=== PATIENT | female | born 1955 | race Caucasian/White ===

== ENCOUNTER → 2017-11-02 16:03 | Outpatient (CLI) | payer OTHER, SELFPAY | PROVIDERS: Family Provider Internal Medicine; PCP Internal Medicine; Visit Provider Otolaryngology Otolaryngology/Facial Plastic Surgery | DX: J32.9 Chronic sinusitis, unspecified (principal) | CPT/HCPCS: 87070; 87077; 87186; 87205 ==

== ENCOUNTER → 2017-12-16 14:33 | Outpatient (CLI) | payer OTHER, SELFPAY ==
[2017-12-16 15:47] LABS: Hemoglobin A1c 6.5 % (4.2-6.3)
[2017-12-16 16:00] LABS: T4 Free Direct 1.41 ng/dL (0.76-1.46)
== END ==
PROVIDERS: Family Provider Internal Medicine; PCP Internal Medicine; Visit Provider Nurse Practitioner Family
DX: E03.9 Hypothyroidism, unspecified (principal); R73.03 Prediabetes
CPT/HCPCS: 36415; 83036; 84439; 84443

== ENCOUNTER → 2018-03-16 09:31 | Outpatient (CLI) | payer OTHER, SELFPAY ==
[2018-03-16 11:34] LABS: T4 Free Direct 1.05 ng/dL (0.76-1.46)
== END ==
PROVIDERS: Family Provider Internal Medicine; PCP Internal Medicine; Visit Provider Internal Medicine
DX: E03.9 Hypothyroidism, unspecified (principal)
CPT/HCPCS: 36415; 84439; 84443

== ENCOUNTER 2019-05-15 13:22 | Emergency (ER) | payer OTHER, SELFPAY ==
[2018-12-23 09:48] VITALS: BMI 39.4
[2019-05-15 13:23] VITALS: BP 152/69; PULSE 97; RESP 20; TEMP 36.2; O2SAT 98; BMI 38.7
--- NOTE | 2019-05-15 13:34 | CT_ITS ---
STUDY: CT FACIAL BONES WITHOUT CONTRAST REASON FOR EXAM: Female, 64 years old. Facial abrasions and due to a fall. RADIATION DOSAGE (If Supplied By Facility): CTDIvol = ( 33.45 ) mGy, DLP = ( 578.97 ) mGycm TECHNIQUE: The patient was scanned in a multi detector CT scanner. Sagittal and coronal images were reconstructed. Individualized dose optimization techniques were used for this CT. COMPARISON: None. FINDINGS: Small scalp hematoma overlying the right frontal bone. Normal orbital hill and orbital contents. Normal nasal bones and anterior nasal spine. Normal facial bones. There is no demonstrated fracture. Normal visualized paranasal sinuses. CT/Sinus/Facial Bone IMPRESSION: Small scalp hematoma overlying the right frontal bone. Electronically Signed: Nhan Bennett, at 14:29 EDT , Service support ,
--- NOTE | 2019-05-15 13:34 | CT_ITS ---
STUDY: CT CERVICAL SPINE WITHOUT CONTRAST REASON FOR EXAM: Female, 64 years old. Facial abrasions. Neck pain secondary to a fall. RADIATION DOSAGE (If Supplied By Facility): CTDIvol = ( 35.10 ) mGy, DLP = ( 605.22 ) mGycm TECHNIQUE: High resolution transaxial imaging was performed without contrast material. Sagittal and coronal images were reconstructed. Individualized dose optimization techniques were used for this CT. COMPARISON: None FINDINGS: Normal craniovertebral junction. There are degenerative changes of the anterior atlantoaxial articulation. Normal odontoid process. Normal cervical lordosis. Normal vertebral bodies and posterior osseous elements. C2-3: Facet joint osteoarthritis and hypertrophy on the left side. No significant stenosis is seen. C3-4: Uncovertebral arthrosis. Mild degree of bilateral neural foraminal stenosis likely worse on the left side. C4-5: Moderate degree of disc space narrowing. Spondylosis. Uncovertebral arthrosis. Moderate degree of bilateral neural foraminal stenosis. C5-6: Marked degree of disc space narrowing. Anterior and posterior spondylosis as well as uncovertebral arthrosis. Mild bilateral neural foraminal stenosis as well as mild central canal stenosis due to posterior osteophyte. C6-7: Marked degree of disc space narrowing and spondylosis. Uncovertebral arthrosis. Mild degree of central canal stenosis. Normal visualized soft tissue structures. CT/Spine Cervical without Contras IMPRESSION: Multilevel degenerative changes, as described above. Electronically Signed: Nhan Bennett, at 14:35 EDT , Service support ,
--- NOTE | 2019-05-15 13:34 | CT_ITS ---
STUDY: CT BRAIN WITHOUT CONTRAST REASON FOR EXAM: Female, 64 years old. Facial abrasions due to a fall. RADIATION DOSAGE (If Supplied By Facility): CTDIvol = ( 60.81 ) mGy, DLP = ( 1067.08 ) mGycm TECHNIQUE: Transaxial CT imaging of the brain was performed without administration of intravenous contrast material. Individualized dose optimization techniques were used for this CT. COMPARISON: No relevant priors. FINDINGS: Small scalp hematoma overlying the right frontal bone. Normal calvarium. There is a 1.6 cm x 1.2 cm partially calcified nodular density in the posterior aspect of the left occipital lobe medially. This abuts the inner table of the skull and most likely represents a partially calcified meningioma. There is mild cerebral atrophy with widening of the extra-axial spaces and ventricular dilatation. There are areas of decreased attenuation within the white matter tracts of the supratentorial brain, consistent with microvascular disease changes. Normal basal ganglia and thalami. Normal brainstem. Normal cerebellum. There is no intracranial hemorrhage. There are no findings of an acute ischemic infarction. Normal visualized paranasal sinuses. CT/Brain/Head without Contrast IMPRESSION: Chronic involutional changes of the brain. Findings suggestive of a partially calcified meningioma measuring 1.6 cm x 1.2 cm overlying the posteromedial aspect of the left occipital lobe. Electronically Signed: Nhan Bennett, at 14:28 EDT , Service support ,
[2019-05-15] MEDS: Ketorolac 60 MG/2 ML Vial IM (14:16)
[2019-05-15] MEDS: Diphth,Pertuss(Acell),Tet Vac 0.5 ML Vial IM (14:16)
--- NOTE | 2019-05-15 15:03 | ED.DCSUM_ITS ---
- ER Visit Summary Date of Service: 05/15/19 Chief Complaint: Fall History of Present Illness: The patient is a 64 F who had a mechanical fall today. She states that she tripped on the sidewalk curb. She fell and hit her face and neck and head. Denies any LOC. She has pain in her neck and face. Is worse with movement and with touching. Her last tetanus is unknown. She has history hypothyroid and is on Celebrex but no other blood thinning medications. She denies any numbness or tingling in the arms or legs. Physical Examination: Vital signs reviewed. HEENT exam shows a hematoma to the right forehead. She has an abrasion to the bridge of the nose. She has diffuse spinal and paraspinal tenderness of the cervical spine region. Heart is regular rate and rhythm. Lungs are clear auscultation bilaterally. Abdomen soft nontender. Extremity exam is unremarkable. Her GCS is 15. Neurologic exam is normal Test Results: CAT scan of the head, cervical spine and facial bones reveals degenerative changes and a scalp hematoma. She has an old meningioma which is unchanged. No acute traumatic injuries are seen. Emergency Department Course and Treatment: Patient was given Toradol and Adacel. She did not want any stronger medications for pain. Patient will be discharged with Skelaxin by request. She will take Tylenol for pain. Treatment Plan: [] Disposition: Discharge Impression: Facial contusion, facial abrasion, cervical strain This note was generated with [employer] dictation software. It may contain incorrect words, spelling, and punctuation that were not noted in review of the chart prior to signing ED Disposition - Plan for ED Patient: Referrals: Emil Nuñez MD [Primary Care Provider] -
--- NOTE | 2019-05-15 15:05 | ED.DEP ---
ED Disposition - Plan for ED Patient: Disposition: Home or Assisted Living Instructions: FALL, Mechanical Prescriptions: Metaxalone [Skelaxin] 800 mg PO TID #20 tab Prescription Printed Referrals: Emil Nuñez MD [Primary Care Provider] -
[2019-05-15 15:11] VITALS: BP 139/74; PULSE 92; RESP 20; O2SAT 97
--- NOTE | 2019-05-15 15:11 | ED.RN ---
THIS NURSE REVIEWED D/C INSTRUCTIONS WITH PT. PT VERBALIZED UNDERSTANDING OF INSTRUCTIONS. PT DENIES FURTHER NEEDS OR QUESTIONS AT THIS TIME. PT AMBULATES FROM [facility] WITHOUT ASSISTANCE FROM STAFF
== END 2019-05-15 15:12 | disposition home or self-care (01) ==
PROVIDERS: Emergency Provider Emergency Medicine; Family Provider Internal Medicine; PCP Internal Medicine
DX: S00.83XA Contusion of other part of head, initial encounter (principal); S00.31XA Abrasion of nose, initial encounter; S16.1XXA Strain of muscle, fascia and tendon at neck level, initial encounter; W18.09XA Striking against other object with subsequent fall, initial encounter; Y93.9 Activity, unspecified; Y92.480 Sidewalk as the place of occurrence of the external cause; E03.9 Hypothyroidism, unspecified; Z79.899 Other long term (current) drug therapy
CPT/HCPCS: 70450; 70486; 72125; 90715; 96372; 99284

== ENCOUNTER → 2019-11-17 11:36 | Outpatient (CLI) | payer OTHER, SELFPAY ==
[2019-08-10 16:42] VITALS: BMI 38.3
== END ==
PROVIDERS: PCP Internal Medicine; Referring Provider Internal Medicine; Visit Provider Internal Medicine
DX: E03.9 Hypothyroidism, unspecified (principal)
CPT/HCPCS: 36415; 84443

== ENCOUNTER → 2020-02-19 09:53 | Outpatient (CLI) | payer OTHER, MEDICARE, SELFPAY ==
[2019-11-21 13:53] VITALS: BMI 38.3
[2020-02-19 10:39] LABS: Absolute Lymphocyte Count 2.17 X10^3/uL (0.83-4.51); Absolute Neutrophil Count 5.1 X10^3/uL (2.0-7.7); Basophil# 0.08 X10^3/uL; Eosinophil# 0.29 X10^3/uL; Eosinophils% 3.6 % (0-5); Hematocrit 44.2 % (37-47); Hemoglobin 14.4 g/dL (12.0-15.0); Lymphocyte # 2.17 X10^3/ul (4.0); Lymphocyte % 26.6 % (19-41); Mean Corp Hgb Conc 32.6 g/dL (32-36); Mean Corpuscular Hgb 29.2 pg (27.0-32.0); Mean Corpuscular Volume 89.7 fL (81-99); Monocyte# 0.51 X10^3/uL; Monocyte% 6.3 % (0-10); NRBC Flagged by Analyzer 0 % (0-5); Neutrophil # 5.09 X10^3/uL (2.7-7.7); Neutrophil % 62.3 % (47-70); Platelet Count 296 K/mm3 (150-450); RBC Distribution Width CV 13.9 % (11.6-14.6); RBC Distribution Width SD 45.3 fl (35.1-43.9); Red Blood Count 4.93 M/mm3 (4.2-5.4); White Blood Count 8.2 K/mm3 (4.4-11.0)
[2020-02-19 11:07] LABS: Hemoglobin A1c 6.4 % (3.8-5.6)
[2020-02-19 11:47] LABS: ALB/GLOB Ratio 0.8 RATIO (0.9-2.4); AST(SGOT) 15 U/L (15-37); Alanine Aminotransfer ALT/SGPT 22 U/L (13-56); Albumin, Serum 3.1 g/dL (3.2-5.0); Alkaline Phosphatase 86 U/L (45-117); Anion Gap 6 (5-15); BUN 18 mg/dL (7-18); BUN/Creat Ratio 22.4 RATIO (10-20); Calcium,Total 8.7 mg/dL (8.5-10.1); Chloride 106 mmol/L (98-107); Cholesterol 176 mg/dL (200); EST Glomerular Filtration Rate 76 mL/min (>60); Est Glom Filt Rate - Afr Amer 92 mL/min (>60); Glucose 110 mg/dL (74-106); High Density Lipoprotein 39 mg/dL; Potassium 4.2 mmol/L (3.5-5.1); Protein, Total 7.1 g/dL (6.4-8.2); Sodium Level 137 mmol/L (136-145); Thyroid Stim Hormone (TSH) 0.12 uIU/mL (0.358-3.74); Triglycerides 192 mg/dL; Very Low Density Lipoprotein 38 mg/dL (5-40)
== END ==
PROVIDERS: PCP Internal Medicine; Referring Provider Internal Medicine; Visit Provider Internal Medicine
DX: E03.9 Hypothyroidism, unspecified (principal); F32.9 Major depressive disorder, single episode, unspecified; F41.9 Anxiety disorder, unspecified; R73.03 Prediabetes
CPT/HCPCS: 36415; 80053; 80061; 83036; 84443; 85025

== ENCOUNTER → 2020-02-28 12:58 | Outpatient (CLI) | payer OTHER, MEDICARE, SELFPAY ==
[2020-02-20 13:05] VITALS: BMI 38.3
--- NOTE | 2020-02-28 12:58 | BI_ITS ---
MAMMOGRAPHY - BILATERAL SCREENING REASON FOR EXAM: Female, 65 years old. Routine annual screening examination. PERTINENT HISTORY: Daughter with breast cancer. Aunt with breast cancer. TECHNIQUE: Digital bilateral breast cali (3D mammographic acquisition) in the CC and MLO projections. 2-D mediolateral oblique (MLO) and craniocaudad (CC) views of both breasts were obtained. CAD: Full Field Digital Mammography with Computer Added Detection was performed. COMPARISON: Comparison is made with prior examination dated 02/14/2018 and outside examination dated 10/11/2018. FINDINGS: Breast Composition: There are scattered areas of fibroglandular density. There are no dominant masses or suspicious calcifications. Stable small benign appearing bilateral axillary lymph nodes. No other significant abnormalities are identified. There has been no significant change since the prior study. BI/SCREEN MAMM (CAD) W/CALI BILAT IMPRESSION: Stable bilateral screening mammogram. Yearly follow-up mammogram recommended. (A) ASSESSMENT CATEGORY: BIRADS Category 2: Benign. A letter regarding these results will be sent to the patient by the facility within 30 days. Approximately 10% of breast cancers are not detected by mammography. A normal mammogram should not delay biopsy of a clinically suspicious abnormality. [id number] Electronically Signed: Nhan Bennett, at 10:57 EDT , Service support ,
--- NOTE | 2020-02-28 13:26 | RAD_ITS ---
STUDY: X-RAY - PELVIS AND RIGHT HIP REASON FOR EXAM: Female, 65 years old. RIGHT HIP PAIN, OA. NKI TECHNIQUE: 3 views of the pelvis and hip. COMPARISON: None. FINDINGS: There is a non-specific bowel gas pattern. Normal visualized soft tissue structures. Enthesophytes of the iliac crests. Normal bilateral superior and inferior pubic rami. Mild degenerative changes of the symphysis pubis. Normal bilateral ischial tuberosities. There are osteoarthritic changes of the femoral head with marginal osteophyte formation. There is osteoarthritic spur formation of the acetabular rim. is severe articular joint space narrowing of the hip. RAD/HIP, UNI W/ Pelvis 2-3 Views IMPRESSION: Severe osteoarthritis of the right hip. Enthesophytes of the iliac crests. Mild degenerative changes of the symphysis pubis. Otherwise intact pelvic ring without fracture, osteolytic or blastic bone lesions. Electronically Signed: Loretta Kramer MD at 17:14 EDT , Service support ,
== END ==
PROVIDERS: PCP Internal Medicine; Referring Provider Internal Medicine; Visit Provider Internal Medicine
DX: Z12.31 Encounter for screening mammogram for malignant neoplasm of breast (principal); M16.11 Unilateral primary osteoarthritis, right hip
CPT/HCPCS: 73502; 77063; 77067

== ENCOUNTER → 2020-03-27 12:16 | Outpatient (CLI) | payer MEDICARE, OTHER, SELFPAY ==
[2020-03-27 12:13] VITALS: BMI 38.3
--- NOTE | 2020-03-27 12:17 | RAD_ITS ---
STUDY: X-RAY - RIGHT KNEE REASON FOR EXAM: Female, 65 years old. RT HIP/KNEE PAIN TECHNIQUE: 4 view(s) of the knee. COMPARISON: None. FINDINGS: Normal visualized distal femur. Normal visualized proximal tibia and fibula. Normal proximal tibiofibular articulation. There is mild degenerative arthrosis of the medial femorotibial compartment. Normal lateral femorotibial compartment. There is mild degenerative arthrosis of the patellofemoral articulation. The soft tissue structures are unremarkable. RAD/Knee 4 or More Views IMPRESSION: Degenerative changes, no acute findings Electronically Signed: Krishna Worthy MD at 17:28 EDT , Service support ,
--- NOTE | 2020-03-27 12:34 | RAD_ITS ---
STUDY: X-RAY - LUMBAR SPINE REASON FOR EXAM: Female, 65 years old. LOWER BACK/HIP PAIN TECHNIQUE: 4 view(s) of the lumbar spine were obtained. COMPARISON: None FINDINGS: Normal lumbar lordosis. There is no substantial scoliosis. There is a normal alignment of the vertebrae. There are large dense bridging osteophytes throughout the visualized lower thoracic and lumbar spine. There is multi-level degenerative disc disease with multi-level disc space narrowing. The soft tissue structures are unremarkable. RAD/L/S Spine Min 4 Views IMPRESSION: Large dense bridging osteophytes throughout the visualized lower thoracic and lumbar spine consistent with diffuse hepatic skeletal hyperostosis. There is multilevel disc space narrowing. There is no evidence of fracture or spondylolisthesis. Electronically Signed: Pablo Barrios MD at 18:57 EDT , Service support ,
== END ==
PROVIDERS: PCP Internal Medicine; Referring Provider Orthopaedic Surgery; Visit Provider Orthopaedic Surgery
DX: M17.11 Unilateral primary osteoarthritis, right knee (principal); M48.16 Ankylosing hyperostosis [Forestier], lumbar region; M48.061 Spinal stenosis, lumbar region without neurogenic claudication; M25.78 Osteophyte, vertebrae; G89.29 Other chronic pain
CPT/HCPCS: 72110; 73564

== ENCOUNTER → 2020-04-01 09:38 | Outpatient (CLI) | payer MEDICARE, OTHER, SELFPAY ==
[2020-03-27 12:13] VITALS: BMI 38.3
[2020-04-01 12:36] LABS: Thyroid Stim Hormone (TSH) 0.21 uIU/mL (0.358-3.74)
== END ==
PROVIDERS: PCP Internal Medicine; Visit Provider Internal Medicine
DX: E03.9 Hypothyroidism, unspecified (principal)
CPT/HCPCS: 36415; 84443

== ENCOUNTER → 2020-04-09 13:23 | Outpatient (CLI) | payer MEDICARE, OTHER, SELFPAY ==
[2020-03-27 12:13] VITALS: BMI 38.3
[2020-04-05 09:53] VITALS: BMI 38.3
--- NOTE | 2020-04-09 13:23 | CT_ITS ---
STUDY: CT SCAN HIP RIGHT REASON FOR EXAM: Female, 65 years old. RT HIP PAIN-TRENT PROTOCOL RADIATION DOSAGE (If Supplied By Facility): CTDIvol = ( 12.87 ) mGy, DLP = ( 788.94 ) mGycm. Individualized dose optimization techniques were used for this CT.? TECHNIQUE: Multiple axial tomographic images were obtained without intravenous contrast demonstration. Axial and coronal reconstruction was obtained as well. COMPARISON: None. FINDINGS: Marked degree of joint space narrowing of the right hip joint. There is evidence of a bony spur formation along the anterior and posterior aspects of the acetabulum worse anteriorly. There is also evidence of a subchondral cystic changes in the acetabular as well as the femoral head components. There is also evidence of a degenerative spur formation along the superior and inferior aspects of the right femoral head. This also leads to a component of femoral acetabular impingement. CT/Extremity Lower without Contra IMPRESSION: Marked degree of degenerative changes involving the right hip joint as described. Evidence of femoral acetabular impingement. Electronically Signed: Nhan Bennett, at 15:12 EDT , Service support ,
== END ==
PROVIDERS: PCP Internal Medicine; Referring Provider Orthopaedic Surgery; Visit Provider Orthopaedic Surgery
DX: M16.11 Unilateral primary osteoarthritis, right hip (principal)
CPT/HCPCS: 73700

== ENCOUNTER 2020-04-16 06:07 | Day surgery (SDC) | payer MEDICARE, OTHER, SELFPAY ==
[2020-03-27 12:13] VITALS: BMI 38.3
[2020-04-05 09:53] VITALS: BMI 38.3
--- NOTE | 2020-04-09 13:25 | EKG12_ITS ---
Test Reason : PREOP Blood Pressure : / mmHG Vent. Rate : 103 BPM Atrial Rate : 103 BPM P-R Int : 134 ms QRS Dur : 072 ms QT Int : 328 ms P-R-T Axes : 076 081 074 degrees QTc Int : 429 ms Sinus tachycardia Otherwise normal ECG Confirmed by SHAZIA NOE, DASIA ([id number]), map editor EMILY PRAKASH ([id number]) on 04/10/2020 10:33:50 AM Referred By: Landon Alonso Confirmed By:DASIA MCCRAY MD
[2020-04-09 13:47] LABS: Absolute Lymphocyte Count 1.77 X10^3/uL (0.83-4.51); Absolute Neutrophil Count 7.3 X10^3/uL (2.0-7.7); Basophil# 0.07 X10^3/uL; Basophil% 0.7 % (0-1); Hematocrit 46.7 % (37-47); Hemoglobin 14.9 g/dL (12.0-15.0); Lymphocyte # 1.77 X10^3/ul (4.0); Mean Corp Hgb Conc 31.9 g/dL (32-36); Mean Corpuscular Hgb 28.7 pg (27.0-32.0); Mean Corpuscular Volume 89.8 fL (81-99); Mean Platelet Vol. 9.9 fl (6.2-12.0); Monocyte# 0.51 X10^3/uL; Monocyte% 5.2 % (0-10); NRBC Flagged by Analyzer 0 % (0-5); Neutrophil # 7.28 X10^3/uL (2.7-7.7); Neutrophil % 73.8 % (47-70); Platelet Count 322 K/mm3 (150-450); RBC Distribution Width CV 13.9 % (11.6-14.6); RBC Distribution Width SD 45.7 fl (35.1-43.9); White Blood Count 9.9 K/mm3 (4.4-11.0)
[2020-04-09 14:01] LABS: Prothrombin Time (Protime)PT. 12.8 SECONDS (11.7-14.9)
[2020-04-09 14:12] LABS: Magnesium 2.1 mg/dL (1.6-2.6)
[2020-04-09 14:13] LABS: Anion Gap 2 (5-15); BUN 15 mg/dL (7-18); Calcium,Total 8.9 mg/dL (8.5-10.1); Chloride 104 mmol/L (98-107); Creatinine, Serum 0.83 mg/dL (0.55-1.02); EST Glomerular Filtration Rate 73 mL/min (>60); Est Glom Filt Rate - Afr Amer 88 mL/min (>60); Glucose 147 mg/dL (74-106); Potassium 4.1 mmol/L (3.5-5.1); Sodium Level 140 mmol/L (136-145)
[2020-04-16] VITALS (15 sets, daily range): BP systolic 97–133; BP diastolic 53–72; PULSE 68–86; RESP 16–18; TEMP 35.7–37.2; O2SAT 88–100; BMI 38.0
[2020-04-16] MEDS: Lactated Ringers 1,000 ML 999 ML IV (07:13)
[2020-04-16] MEDS: Scopolamine 1mg/72hr Patch 1 PATCH TRANSDERM. (07:14)
[2020-04-16] MEDS: Celecoxib 200 MG Capsule 400 MG PO (07:14)
[2020-04-16] MEDS: Acetaminophen 500 MG Tablet 1000 MG PO (07:14)
[2020-04-16] MEDS: Gabapentin 600 MG Tablet PO (07:15)
[2020-04-16 07:55] LABS: Bedside Glucose 192 mg/dL (70-110)
[2020-04-16] MEDS: Cefazolin 2 GM in 0.9% Normal Saline 100 ML IV (08:00)
[2020-04-16] MEDS: Insulin Lispro 100 UNIT/ML INSULN.PEN SC (08:18)
--- NOTE | 2020-04-16 10:32 | HP.PCM_ITS ---
History and Physical Date of Admission: 04/16/20 Intake Vital Signs 03/27/20 BMI 38.3 Intake Visit Reasons: right hip Chief Complaint: right hip Allergies morphine Adverse Reaction (Severe, Verified 02/20/20 12:58) hallucinations [facility] Social History (Updated 03/27/20 @ 15:[address] Landon Alonso DO) Smoking Status: Never smoker alcohol intake: never substance use type: does not use what type of physical activity do you participate in: swimming frequency: 1-2 times per week HPI right hip: Details: Parts of this documentation were recorded by a scribe, this documentation accurately reflects the service provided and the decisions made by me, Dr. Landon Alonso DO 03/27/20 0801. JAMES NOE is a 65 year old F here today for right hip pain. Referred by Dr. Nuñez. Patient states that she has had right groin pain and limited ROM of her hip for about 10 years. She also has deep gluteus pain. Denies any radiating leg pain. She does have a hx of L4-5 S1 laminectomy. Denies numbness, tingling or other associated symptoms. Denies any injury to the hip. She did have a left total knee about 6 years ago and thinks the pain may be from compensating. She had an injury to her leg when she was 16 and has always favored the right leg since the injury. Referred by Dr. Mack. She has been having right knee pain recently. She does have ankylosing spondylitis. Denies any hx of heart or lung problems. Denies any hx of lupus. Denies any hx of blood clots. Denies any hx of right femur or leg fractures. She does have a hx of a left fibula fx and ankle fx. States that her father had RA and she had been worked up for this. She has been having right knee pain for about 6 months. Denies any previous injections or surgery of the right knee. She did have a groin injection ont he right side about 2 years ago. Medial right knee pain. ROS Musc Reports joint pain, Reports joint swelling, Denies numbness, Denies tingling Skin/Breast Denies redness, Denies lesions, Denies itching, Denies rash, Denies skin swelling Neuro No numbness, No tingling Ortho Exam Right Knee Skin/Wound: No erythema, No ecchymosis, No swelling Homans Sign: No Knee ROM: Yes ROM-Extension -20 to 0, No ROM-Flexion 0-140 (118) Examination: Yes Med jt line tenderness, Yes Lat jt line tenderness, No Pain with flexion, No Pain with extention, No Sancho's Test, No TTP Pes Anserine Stability: NML: Anterior Drawer, NML: Posterior Drawer, NML: Varus 30, 1+: Valgus 30 (3mm) Patella Translation: 1 Apprehension with Lateral Translation: No Patella Grind: Yes KNEE: remarkedly positive patellar grind no joint effusion 4mm medial gapping with valgus stress negative drawer stiffness with lumbar spine mobility Left Knee Patella Translation: 1 Right Hip Skin: No Ecchymosis, No soft tissue swelling, No Erythema Special Tests: Yes TTP Greater Troch Homans Sign: No HIP: 5/5 hip flexion strength 12 internal rotation with groin pain 20 external rotation with groin pain 5/5 knee strength No mass or skin concerns around the hip Supplemental Info 03/27/2020 x-ray right knee: Moderate to severe tricompartmental knee arthrosis worse in flexion 02/28/2020 x-ray right hip: advanced right hip arthrosis 03/27/2020 x-ray lumbar spineBridging osteophytes multiple levels Assessment & Plan Problems 1. Primary osteoarthritis of right knee M17.11 2. Primary osteoarthritis of right hip M16.11 3. Ankylosing spondylitis of lumbar region M45.6 Plan Obtained X-rays of patient's right hip. Personally reviewed x-rays. There is no obvious fracture, dislocation, or lucency noted. Patient educated that she does have OA of her right hip. Patient educated that she also has some bursitis which can be common with patient with a hx of back pain. Treatment options are do nothing or intra articular hip injection or PT or discuss right GINNY. Risks, benefits and alternatives of surgery reviewed including but not limited to bleeding, infection, nerve, artery and/or tissue damage, fracture, VTE, leg length discrepancy, dislocation, need for hip precautions, continued pain and e xpected post-operative course. Educated since she has the hx of ankylosing spondylitis then it is recommended that we place a larger head in for her hip replacement to provide her with more hip stability. Patient educated that the surgery is 1/5 to 2 hours long. It is recommended that she uses the [employer] robotic assist for the replacement. Educated that the right leg may be shorter than the left leg may be from the OA of the hip or her hx of back problems. Educated that she will be up and moving the same day of surgery. She will need a walker for about 2-3 weeks post op. She will have strict hip precautions for 6 weeks post op. No NSAIDs the week prior to the replacement. We will order her CT and she will be in PT post op. Obtained X-rays of patient's right knee. Personally reviewed x-rays. There is no obvious fracture, dislocation, or lucency noted. Educated that she does have OA of her right knee as well. Treatment options for this are do nothing or steroid injections or gel injections or bracing or PT or TKA. Recommended a steroid injection of the right knee along with having a GINNY. Patient wishes to proceed with having the right GINNY with the [employer] assist. Follow up 2 weeks post op or sooner if pain, swelling, numbness or associated symptoms, or concerns develop. All questions answered. Patient in agreement of plan. Orders Orders: Ortho Injections Today M17.11 Knee 4 or More Views Today M25.561 L/S Spine Min 4 Views Today G89.29, M54.9 Extremity Lower without Contra Today M16.11 Medications New: Depo-Medrol (methylprednisolone acetate) 40 mg intra-articular ONCE 1 mL 0RF NS M17.11 Coding Level of Care Code Off vis,est,level 4 Diagnoses Primary osteoarthritis of right knee M17.11 Primary osteoarthritis of right hip M16.11 Ankylosing spondylitis of lumbar region M45.6 ??Ankylosing spondylitis location: lumbar region I have examined the patient the following changes are noted: Procedure Criteria Procedure Type: Elective COVID Risk Discussion: The surgeon/proceduralist and patient have discussed in detail the risk of exposure to and/or potential harm posed by the COVID-19 virus with having a surgery/procedure at this time versus the risk of delaying the surgery/procedure. It is not possible to know either the risk of delaying the surgery or procedure or chance of getting an infection with perfect accuracy, but a joint decision was made between the patient and the surgeon/proceduralist to proceed at this time with the scheduled surgery/procedure as indicated on the consent form.
--- NOTE | 2020-04-16 10:32 | PCM.DC.ORTHO ---
Discharge Diet: No Restrictions Weight Bearing Status: Full weight bearing Call your doctor if you observe: Shortness of breath, Chest pain Additional Instructions: Begin daily showering warm water antibacterial soap postop day #3( 72hrs Post-operatively) and then daily. Leave the dressing on for 72 hours postoperatively then may remove prior to first shower and change dressing daily after this until no drainage for 2 consecutive days then may leave open to air. Follow hip precautions that were reviewed in hospital. Wear compression stockings, may remove at night. Start physical therapy as directed in hospital. Call Dr. Alonso's office with any concerns. Allergies/Adverse Reactions: Allergies morphine Adverse Reaction (Severe, Verified 04/02/20 14:46) hallucinations Medications to take at Discharge acetaminophen 650 mg tablet,extended release 2 tab PO QHS 11/24/17 loratadine 10 mg tablet 10 mg PO QHS 11/24/17 fluticasone propionate 50 mcg/actuation nasal spray,suspension 2 spray INTRANASAL QHS 12/22/17 triamcinolone acetonide 55 mcg nasal spray aerosol 2 spray INTRANASAL QHS 12/22/17 diclofenac sodium 1 % gel topical kit 2 g TOPICAL ONCE PRN 12/23/18 Celecoxib 200 mg PO BID 05/15/19 Famotidine [Pepcid] 20 mg PO QHS 05/15/19 cholecalciferol (vitamin D3) 25 mcg (1,000 unit) capsule 5,000 unit PO QDAY cap 02/20/20 Sertraline HCl [Zoloft] 50 mg PO QHS 04/02/20 traZODone [Desyrel] 25 mg PO QHS PRN 04/02/20 levothyroxine 150 mcg tablet 150 mcg PO DAILY 04/05/20 propylene glycol 0.6 % eye drops 1 drp OPHTHALMIC BID PRN 04/05/20 Acetaminophen [Tylenol Extra Strength] 1,000 mg PO Q6H PRN #100 tab 04/16/20 Apixaban [Eliquis] 2.5 mg PO BID #30 tab 04/16/20 Cephalexin [Keflex] 1,000 mg PO Q8 #4 cap 04/16/20 Ondansetron HCl [Zofran] 4 mg PO Q6H PRN PRN 5 Days #20 tab 04/16/20 Oxycodone [Oxyir] 5 mg PO Q4H PRN PRN #60 tab 04/16/20 The following prescriptions were given: Apixaban [Eliquis] 2.5 mg PO BID #30 tab Transmission Status: Received by [facility] Cephalexin [Keflex] 1,000 mg PO Q8 #4 cap Transmission Status: Received by [facility] Oxycodone [Oxyir] 5 mg PO Q4H PRN PRN #60 tab PRN Reason: Pain Score 6-10/10 Transmission Status: Received by [facility] Acetaminophen [Tylenol Extra Strength] 1,000 mg PO Q6H PRN #100 tab Transmission Status: Received by [facility] Ondansetron HCl [Zofran] 4 mg PO Q6H PRN PRN 5 Days #20 tab PRN Reason: Nausea Transmission Status: Sent to [facility] Primary Care Physician: Emil Nuñez MD [Primary Care Provider] - Test Results: Test results from this visit will be discussed in further detail at your follow-up appointment, if applicable.
--- NOTE | 2020-04-16 10:33 | PCM.OPRPT ---
Report of Operation Date of Procedure: 04/16/20 Description of Surgical Findings:: Preoperative diagnosis: Right hip DJD Postoperative diagnosis: Same Procedure: CT-guided Makoplasty assisted right total hip arthroplasty Implants: Sunburst Accolade II stem size 3, 127 degree neck angle -2.5 neck length 50 mm Trident II acetabular shell with 35 mm cancellous screw 32mm ceramic head Anesthesia: Spinal EBL: 200 cc Complications: None Condition: Stable to PACU Indication for procedure: This is a 65-year-old female who has had long-standing arthrosis of the hip who has failed conservative treatment and wished to undergo total hip arthroplasty. We did discuss operative versus nonoperative intervention including risks of bleeding, infection , nerve artery tissue damage, need for further surgery, fracture, leg length discrepancy dislocation blood clot and need for postoperative physical therapy and postoperative expectations. An informed consent was signed. Procedure: Patient was met in the preoperative holding area once again the operative extremity was identified by both patient and physician and was marked. Patient was met by anesthesia spinal anesthesia was placed. patient was then positioned in the lateral decubitus position on a well-padded pegboard with an axillary roll. All bony prominences were checked and padded. The patient was prepped and draped in the usual sterile fashion. A timeout was called to ensure the proper patient procedure and extremity were being contemplated. Anatomic landmarks were palpated and marked for a standard posterior lateral approach. Prior to this the ASIS was palpated and 3 fingerbreadths proximal to this 3 pins were placed at a 45 degree angle into the iliac crest with good purchase, stab incisions were made with a 15 blade into the skin prior to placement. The Makoplasty array was then secured. A 10 blade scalpel was used to make a posterior incision through the skin and subcutaneous tissue. retractors were used and electrocautery was used to maintain meticulous hemostasis and dissect full-thickness flaps until the gluteal fascia was reached. The gluteal fascia was incised in line with the gluteal fibers. The bursal tissue was then freed from the underside and a Charnley retractor was placed. The femoral trochanteric checkpoint was placed and leg length was assessed using the trochanteric checkpoint and an EKG lead that was placed on the knee prior to prepping the leg .the fat pad was then elevated off of the external rotators with electrocautery and the external rotators were dissected off of the greater trochanter including the piriformis and were tagged with #1 Ethibond for later repair. The joint capsule opened with posterior trapdoor technique. The hip was surgically dislocated. The measurement on the preoperative CT from the top of the lesser trochanter to the femoral neck cut was marked Hohmann was placed around the lesser trochanter. A neck cutting guide was used to milton the neck with a Bovie and an oscillating saw was used complete the femoral neck cut. The femoral head was then removed and sized. We then turned our attention to the acetabulum. A Bovie was used to make a perforation in the anterior joint capsule and a Anderson retractor was placed this was repeated in the 6 o'clock position and a wide lisa was placed there. With a long handled knife the labral and pulvinar tissue were removed. We then registered the acetabulum with the pointing array and confirmed our landmarks. Once the socket was thoroughly prepared and labral tissue pulmonary was removed we attempted single reamed with the robotic arm however the robotic arm was not calibrated correctly and we could not position it correctly For proceeded with manual reaming and manual implantation of the acetabular cup. We then proceeded to place a posterior superior screw by drilling first measuring and inserting the screw. We then inserted a trial liner. And turned our attention back to the femur at this point a femoral elevator was used. As well as a pointed wide Hohmann around the lesser trochanter and a Hohmann to help retract the gluteus medius. A box chisel was used to remove excess lateral neck followed by a canal finder and a lateralizing reamer. This was followed by sequential broaches. Attention was made of the version within the canal based on preoperative templating. Once the final broach was seated we then trialed reduced the hip it was determined that a 127 degree neck angle with a -2.5 neck length was the appropriate size. We then checked stability with shuck testing as well as flexion and internal rotation. then proceeded with hip extension and checked leg lengths at the knees and heels . At this point trials were removed. A liner was inserted to the cup. The femoral stem was inserted. We re-trialed and then proceeded to impact the femoral head onto the Aries taper. We then surgically reduce the hip check stability again and leg lengths and were satisfied. Betadine rinse was allowed to sit for 5 minutes while everyone changed their gloves. Thorough irrigation was performed. Followed by closure of the external rotators with #2 FiberWire followed by closure of gluteal fascia with #1 Ethibond. 0 Vicryl fat stitches and 2-0 Vicryl subcutaneous stitches and gracia in the skin. A pulls were placed in the pin sites over the iliac crest with Xeroform 4 x 4 and OpSite. dressing was applied to incisional area with Mepilex Ag and an abduction pillow was placed. Patient tolerated the procedure well there was no intraoperative complications all counts were correct and the patient was brought back to the PACU in stable condition
[2020-04-16 11:06] LABS: Bedside Glucose 114 mg/dL (70-110)
[2020-04-16] MEDS: Lactated Ringers 1,000 ML 125 ML IV (11:06)
--- NOTE | 2020-04-16 11:10 | RAD_ITS ---
STUDY: X-RAY - PELVIS AND RIGHT HIP REASON FOR EXAM: Female, 65 years old. POST OP RIGHT GINNY TECHNIQUE: 2 views of the pelvis and hip. COMPARISON: Comparison is made with prior study dated 02/28/2020. FINDINGS: The patient is status post right hip replacement. There is good alignment. Postoperative soft tissue changes. RAD/Hip Min 2 Views (Portable) IMPRESSION: Status post right total hip replacement. There is good alignment. Postoperative soft tissue changes. Electronically Signed: Nhan Bennett, at 12:53 EDT , Service support ,
[2020-04-16] MEDS: Cefazolin 1 GM/50 ML BAG IV (13:08)
[2020-04-16] MEDS: oxyCODONE 5 MG Tablet PO (14:12)
== END 2020-04-16 16:02 | disposition home or self-care (01) ==
LOC: SDC 06:08 → AC 06:08
PROVIDERS: Anesthesiology; PCP Internal Medicine; Referring Provider Orthopaedic Surgery; Visit Provider Orthopaedic Surgery
PROC: 8E0Y0CZ Robotic Assisted Procedure of Lower Extremity, Open Approach (ICD-10-PCS; CPT 27130; principal; 2020-04-16 07:30)
DX: M16.11 Unilateral primary osteoarthritis, right hip (principal); M17.11 Unilateral primary osteoarthritis, right knee; M45.6 Ankylosing spondylitis lumbar region; J30.2 Other seasonal allergic rhinitis; K21.9 Gastro-esophageal reflux disease without esophagitis; E07.9 Disorder of thyroid, unspecified; F32.9 Major depressive disorder, single episode, unspecified; F41.9 Anxiety disorder, unspecified; Z79.01 Long term (current) use of anticoagulants; Z79.899 Other long term (current) drug therapy; Z11.59 Encounter for screening for other viral diseases
CPT/HCPCS: 01214; 27130; 36415; 73502; 80048; 82962; 83735; 85025; 85610; 85730; 86850; 86900; 86901; 87077; 87081; 87635; 93005; 97162; 97166; C1713; C1776; C9803; J7120; J2405; U0003

== ENCOUNTER 2020-05-03 11:00 | Outpatient (RCR) | payer MEDICARE, OTHER, SELFPAY ==
[2020-03-27 12:13] VITALS: BMI 38.3
[2020-04-16 07:40] VITALS: BMI 38.0
--- NOTE | 2020-05-02 08:29 | HP.PTEVAL_ITS ---
Patient's Visit Information JAMES NOE is a 65 year old F referred to Physical Therapy by Dr. Landon Alonso DO with a diagnosis of R GINNY 04/17/20. Date of Evaluation: 04/24/20 Physical Therapist: Choco Carty DPT - Visit Plan Frequency: 2x /Week Duration: 6 Weeks Plan: Plan to increase R hip ROM and increase RLE strength. Also plan to work on gait activities including stair negotiation, ambulation w/out noticable deviations progressing to SC use. - Subjective Pt presents this date for an eval 8 days s/p R GINNY. Pt states that she has been having R hip pain and restricted hip ROM for most of her life. Reports having some pain but has been getting better each day. Takes Tylenol and oxycodon PRN for pain, more so Tylenol. Pt states that she is already moving better than she was prior to surgery. Is utilizing FWW for ambulation, no reported issues. Pt's home has [address] w/ no HRs, reports having no issues entering home. Pt reports spending most of her time sitting and reading, but has been trying to get up and walk more since surgery. Pt also reports having R knee pain w/ a possible future surgery for her knee. Pt is aware of hip precautions. - Pain R post hip Pain Intensity (Out of 10): 0 Pain Intensity Range: 1, 6 R knee Pain Intensity (Out of 10): 0 Pain Intensity Range: 1, 6 - Objective PALPATION: Soreness noted in post hip. POSTURE: Forward trunk. ROM: Dec R hip ROM. Limited by tightness and hip precautions. MMT: R hip 3/5 in all planes. R knee 4/5 flex/ext. NEURO: WNL. No reports of n/t. GAIT: Pt is mod I utilizing FWW. Displays forward trunk, B knee valgus, dec clinton, and dec R step length. Negotiated one step I utilizing UE. EDEMA: Slight BLE edema noted. 5 prb-hk-ewuxl: 16.8 s. Unable to complete SLR w/out assistance due to weakness and pain. - Goals Goal 1:: LTG: Pt to be I w/ HEP. Goal Time Frame: 4-6 Weeks Goal 2:: LTG: Pt will display inc R hip strength to 4+/5 in all planes. Goal Time Frame: 4-6 Weeks Goal 3:: STG: Pt will experience dec pain range from 1-6 to 1-3. Goal Time Frame: 2-4 Weeks Goal 4:: LTG: Pt will complete 5 gxd-wg-chihnd in <13 s. Goal Time Frame: 4-6 Weeks Goal 5:: LTG: Pt will complete 10 SLR w/out assistance. Goal Time Frame: 4-6 Weeks - Rehabilitation Potential Physical Therapy Diagnosis: S/s consistent w/ R GINNY. Pt displays dec R hip ROM, dec RLE strength, R hip pain, dec ability to ambulate w/out use of AD. PT intervention indicated to address previously stated deficits by increasing ROM, strength, dec pain, and improve overall QOL. Rehabilitation Potential: Good - Anticipated Interventions Patient/Client Instruction: Educate patient on: Condition, Plan of Care, Risk Factors, Benefits of Fitness Program For the Purpose of:: To improve safety, To improve self management, To prevent re-injury Therapeutic Exercise to Include: Strength training, Endurance training, Balance training, Flexibilty training, Gait and locomotor training, Passive ROM, Active ROM For the Purpose of:: To increase ROM, To improve muscle performance and motor function, To increase tolerance to activity/condition/position, To improve gait and locomotor functions, To increase flexibility/ROM, To improve balance, To improve safety with gait Thank you for the opportunity to evaluate your patient. For Medicare and Medicare HMO plans, please review the plan of care and approve it. It will need to be FAXED BACK to us at [phone] for Medicare purposes. For Medicare only, by signing this I certify the plan of care. Please let me know if there are questions or concerns regarding this plan of care. Physician Signature:____ Date:
== END 2020-05-03 19:00 | disposition home or self-care (01) ==
LOC: PT 11:00
PROVIDERS: PCP Internal Medicine; Referring Provider Orthopaedic Surgery; Visit Provider Orthopaedic Surgery
DX: Z47.1 Aftercare following joint replacement surgery (principal)
CPT/HCPCS: 97110; 97161

== ENCOUNTER → 2020-05-10 17:33 | Outpatient (CLI) | payer MEDICARE, OTHER, SELFPAY ==
[2020-05-10 11:32] VITALS: BMI 38.0
== END ==
PROVIDERS: PCP Internal Medicine; Referring Provider Physician Assistant Surgical; Visit Provider Physician Assistant Surgical
DX: Z20.828 Contact with and (suspected) exposure to other viral communicable diseases (principal)
CPT/HCPCS: 87635; C9803; U0003

== ENCOUNTER → 2020-05-20 13:53 | Outpatient (CLI) | payer MEDICARE, OTHER, SELFPAY ==
[2020-05-10 11:46] VITALS: BMI 38.9
[2020-05-20 16:26] LABS: Thyroid Stim Hormone (TSH) 2.36 uIU/mL (0.358-3.74)
== END ==
PROVIDERS: PCP Internal Medicine; Visit Provider Internal Medicine
DX: E03.9 Hypothyroidism, unspecified (principal)
CPT/HCPCS: 36415; 84443

== ENCOUNTER → 2020-10-01 13:05 | Outpatient (CLI) | payer MEDICARE, OTHER, SELFPAY ==
[2020-07-31 13:49] VITALS: BMI 39.1
== END ==
PROVIDERS: PCP Internal Medicine; Visit Provider Internal Medicine Endocrinology, Diabetes & Metabolism
DX: R69 Illness, unspecified (principal)

== ENCOUNTER → 2020-10-07 13:32 | Outpatient (CLI) | payer MEDICARE, OTHER, SELFPAY ==
[2020-07-31 13:49] VITALS: BMI 39.1
[2020-10-07 15:41] LABS: Hemoglobin A1c 6.2 % (3.8-5.6)
== END ==
PROVIDERS: PCP Internal Medicine; Referring Provider Internal Medicine Endocrinology, Diabetes & Metabolism; Visit Provider Internal Medicine Endocrinology, Diabetes & Metabolism
DX: E03.9 Hypothyroidism, unspecified (principal); R73.9 Hyperglycemia, unspecified
CPT/HCPCS: 36415; 83036

== ENCOUNTER → 2020-10-09 14:05 | Outpatient (CLI) | payer MEDICARE, OTHER, SELFPAY ==
[2020-07-31 13:49] VITALS: BMI 39.1
[2020-10-09 17:36] LABS: T4 Free Direct 1.34 ng/dL (0.76-1.46)
== END ==
PROVIDERS: PCP Internal Medicine; Referring Provider Internal Medicine Endocrinology, Diabetes & Metabolism; Visit Provider Internal Medicine Endocrinology, Diabetes & Metabolism
DX: E03.9 Hypothyroidism, unspecified (principal)
CPT/HCPCS: 84439; 84443

== ENCOUNTER 2020-12-13 05:53 | Day surgery (SDC) | payer MEDICARE, OTHER, SELFPAY ==
[2020-10-29 14:00] VITALS: BMI 35.6
[2020-12-13] VITALS (13 sets, daily range): BP systolic 102–148; BP diastolic 57–85; PULSE 66–83; RESP 14–16; TEMP 36.7–37.1; O2SAT 96–100; BMI 33.7
--- NOTE | 2020-12-13 06:20 | HP.PCM_ITS ---
[facility] - General General Date of Admission: 04/16/20 HPI Narrative JAMES NOE, is a 65 F who presents via open access for a surveillance colonoscopy. The patient has a family history with a brother who of colon cancer. She believes that in the past she has had a history of 1 previous colon polyp. She thinks her previous colonoscopy was 8 years ago. Fortunately currently she is asymptomatic. No abdominal pain. No bright red blood per rectum or melena. She otherwise states that she is enjoying good health. [facility] Medical History (Updated 12/13/20 @ 06:[address] Avni Nicole MD) Anxiety and depression Borderline diabetes Chronic back pain Hearing loss, left Heartburn Hypothyroidism Injury of head and neck Knee pain Limb weakness Non-smoker Osteoarthritis Post-menopausal Seasonal allergies Shortness of breath on exertion Wears glasses Home Medications levothyroxine 150 mcg tablet 150 mcg PO DAILY 04/05/20 [History Last Taken Unknown] levocetirizine 5 mg tablet 5 mg PO DAILY 05/10/20 [History Last Taken Unknown] triamcinolone acetonide 55 mcg nasal spray aerosol 1 spray INTRANASAL DAILY PRN 05/21/20 [History Last Taken Unknown] mometasone 50 mcg/actuation nasal spray 2 spray INTRANASAL DAILY PRN 10/15/20 [History Last Taken Unknown] cholecalciferol (vitamin D3) 125 mcg (5,000 unit) capsule 125 mcg PO DAILY 10/29/20 [History Last Taken Unknown] famotidine 20 mg tablet 20 mg PO DAILY 10/29/20 [History Last Taken Unknown] multivitamin 1 tablet PO DAILY 10/29/20 [History Last Taken Unknown] acetaminophen 1,000 mg PO Q6H PRN PRN 12/09/20 [History Last Taken Unknown] acetaminophen [Tylenol Arthritis] 1,300 mg PO QHS 12/09/20 [History Last Taken Unknown] sertraline 50 mg tablet 50 mg PO QHS #90 tab 12/10/20 [Rx Last Taken Unknown] celecoxib 200 mg capsule 200 mg PO BID #180 cap 12/12/20 [Rx Last Taken Unknown] trazodone 50 mg tablet 25 mg PO QHS PRN #60 tab 12/12/20 [Rx Last Taken Unknown] Allergy/AdvReac Type Severity Reaction Status Date / Time morphine AdvReac Severe hallucinati Verified 12/09/20 15:06 ons Family History Brother Heart disease Cancer Surgical History (Updated 12/09/20 @ 15:18 by Zainab Muñoz) History of bilateral cataract extraction History of cholecystectomy History of hysterectomy History of knee replacement procedure of left knee History of lumbar laminectomy History of replacement of both shoulder joints History of right hip replacement (~04/16/20) History of tonsillectomy Hx of release of tendon Social History (Updated 10/29/20 @ 18:[address] Diony Bowser MD) Smoking Status: Never smoker alcohol intake: never substance use type: does not use what type of physical activity do you participate in: swimming frequency: 1-2 times per week ROS Constitutional Constitutional: Reports systems reviewed and no addt'l complaints, except as documented Cardiovascular Cardiovascular: Denies chest pain Respiratory/Chest Respiratory/Chest: Denies shortness of breath at rest Gastrointestinal Gastrointestinal: Denies abdominal pain, change in bowel habits, hematochezia or melena Physical Exam Const alert, oriented x3 and no apparent distress General Appearance: cooperative and comfortable Eyes General Eye: normal appearance of both eyes Neck General: normal visual inspection Chest inspection of chest normal Resp Effort and Inspection: able to speak in complete sentences and symmetric chest movement Auscultation: clear to auscultation bilaterally Cardio regular rate and regular rhythm GI soft to palpation, non-tender and non-distended Extremity no calf tenderness Neuro oriented x3 Psych thought process normal Assessment & Plan Assessment/Plan (1) Family history of malignant neoplasm of colon in first degree relative diagnosed when younger than 60 years of age: PLAN: 65-year-old female who presents via open access for a colonoscopy. She has a family history with a brother who of colon cancer. She is aware of the technique, benefit, risk, alternatives. She has had an opportunity to ask and have questions answered. She states that she well tolerated her bowel prep. We will proceed as noted. Avni Nicole M.D., F.A.C.S.
[2020-12-13] MEDS: Lactated Ringers 1,000 ML 100 ML IV (06:34)
[2020-12-13] MEDS: Midazolam 5 MG/ML Syringe (07:20)
--- NOTE | 2020-12-13 07:46 | OP.CCLET_ITS ---
12/13/2020 Emil Nuñez MD [address] [place] [address] [place] [address] Re : Colonoscopy procedure for Danni Stapleton Dear Dr. Nuñez This procedure was performed on Sunday, December 13, 2020. My impressions and recommendations are as follows: Impressions : - Hemorrhoids found on perianal exam. - Tortuous colon. - The examination was otherwise normal. - No specimens collected. Recommendations : - Discharge patient to home. - Resume previous diet. - Continue present medications. - Repeat colonoscopy in 5 years for surveillance. My findings are described in the full procedure note, which is enclosed. If I can be of further assistance, please feel free to contact me at Doctor phone number(s): Work: . Sincerely, Avni Nicole MD 12/13/2020 7:45:53 AM This report has been signed electronically.
--- NOTE | 2020-12-13 07:46 | OP.COLON_ITS ---
Patient Name: Danni Stapleton Procedure Date: 12/13/2020 7:12 AM Date of : 1955 Age: 65 Procedure: Colonoscopy Indications: Family history of colon cancer in a first-degree relative Providers: Avni Nicole MD Medicines: Midazolam 4.5 mg IV, Meperidine 150 mg IV Patient Profile: Last Colonoscopy: 5 years ago. Complications: No immediate complications. Procedure: Pre-Anesthesia Assessment: - Prior to the procedure, a History and Physical was performed, and patient medications and allergies were reviewed. The patient's tolerance of previous anesthesia was also reviewed. The risks and benefits of the procedure and the sedation options and risks were discussed with the patient. All questions were answered, and informed consent was obtained. Prior Anticoagulants: The patient has taken no previous anticoagulant or antiplatelet agents. ASA Grade Assessment: II - A patient with mild systemic disease. After reviewing the risks and benefits, the patient was deemed in satisfactory condition to undergo the procedure. After I obtained informed consent, the scope was passed under direct vision. Throughout the procedure, the patient's blood pressure, pulse, and oxygen saturations were monitored continuously. The adult colonoscope was introduced through the anus and advanced to the cecum, identified by appendiceal orifice and ileocecal valve. The colonoscopy was performed with moderate difficulty due to a tortuous colon. Successful completion of the procedure was aided by increasing the dose of sedation medication. The patient tolerated the procedure well. The quality of the bowel preparation was good. The ileocecal valve and the appendiceal orifice were photographed. Moderate Sedation: Moderate (conscious) sedation was administered by the endoscopy nurse and supervised by the endoscopist. The following parameters were monitored: oxygen saturation, heart rate, blood pressure, and response to care. Total physician intraservice time was 17 minutes. Scope In: 7:21:09 AM Scope Withdrawal Time 0 hours 8 minutes 36 seconds Scope Out: 7:41:26 AM Total Procedure Duration Time 0 hours 20 minutes 17 seconds Findings: Hemorrhoids were found on perianal exam. The left colon was moderately tortuous. Advancing the scope required changing the patient to a supine position. The exam was otherwise without abnormality. Impression: - Hemorrhoids found on perianal exam. - Tortuous colon. - The examination was otherwise normal. - No specimens collected. Recommendation: - Discharge patient to home. - Resume previous diet. - Continue present medications. - Repeat colonoscopy in 5 years for surveillance. Procedure Code(s): --- Professional --- 56859, Colonoscopy, flexible; diagnostic, including collection of specimen(s) by brushing or washing, when performed (separate procedure) 57843, 59, Moderate sedation services provided by the same physician or other qualified health career development facilitator performing the diagnostic or therapeutic service that the sedation supports, requiring the presence of an independent trained observer to assist in the monitoring of the patient's level of consciousness and physiological status; initial 15 minutes of intraservice time, patient age 5 years or older Diagnosis Code(s): --- Professional --- K64.9, Unspecified hemorrhoids Z80.0, Family history of malignant neoplasm of digestive organs Q43.8, Other specified congenital malformations of intestine CPT copyright 2017 [employer]. All rights reserved. The codes documented in this report are preliminary and upon pipe fitter welding review may be revised to meet current compliance requirements. Avni Nicole MD 12/13/2020 7:45:53 AM This report has been signed electronically. Number of Addenda: 0 Note Initiated On: 12/13/2020 7:12 AM
== END 2020-12-13 08:58 ==
LOC: EN 05:56 → AC 05:58
PROVIDERS: PCP Internal Medicine; Referring Provider Internal Medicine; Visit Provider Surgery
PROC: 0DJD8ZZ Inspection of Lower Intestinal Tract, Via Natural or Artificial Opening Endoscopic (ICD-10-PCS; CPT 45378; principal; 2020-12-13 06:55)
DX: Z12.11 Encounter for screening for malignant neoplasm of colon (principal); K56.2 Volvulus; K64.9 Unspecified hemorrhoids; E03.9 Hypothyroidism, unspecified; M19.90 Unspecified osteoarthritis, unspecified site; F41.9 Anxiety disorder, unspecified; Z79.899 Other long term (current) drug therapy; Z80.0 Family history of malignant neoplasm of digestive organs
CPT/HCPCS: G0105; 99152; 99153; J7120

== ENCOUNTER → 2021-01-28 09:28 | Outpatient (CLI) | payer MEDICARE, OTHER, SELFPAY ==
[2020-12-13 06:22] VITALS: BMI 33.7
[2021-01-28 12:34] LABS: ALB/GLOB Ratio 0.9 RATIO (0.9-2.4); AST(SGOT) 13 U/L (15-37); Alanine Aminotransfer ALT/SGPT 20 U/L (13-56); Albumin, Serum 3.5 g/dL (3.2-5.0); Alkaline Phosphatase 80 U/L (45-117); Anion Gap 6 (5-15); BUN 18 mg/dL (7-18); BUN/Creat Ratio 22.4 RATIO (10-20); Calcium,Total 8.8 mg/dL (8.5-10.1); Chloride 105 mmol/L (98-107); Cholesterol 185 mg/dL (200); EST Glomerular Filtration Rate 76 mL/min (>60); Est Glom Filt Rate - Afr Amer 92 mL/min (>60); Globulin 3.9 g/dL (2.2-4.2); Glucose 113 mg/dL (74-106); High Density Lipoprotein 38 mg/dL; Potassium 4.3 mmol/L (3.5-5.1); Protein, Total 7.4 g/dL (6.4-8.2); Sodium Level 138 mmol/L (136-145); T4 Free Direct 1.27 ng/dL (0.76-1.46); Thyroid Stim Hormone (TSH) 0.43 uIU/mL (0.358-3.74); Triglycerides 214 mg/dL; Very Low Density Lipoprotein 43 mg/dL (5-40)
== END ==
PROVIDERS: PCP Internal Medicine; Referring Provider Internal Medicine Endocrinology, Diabetes & Metabolism; Visit Provider Internal Medicine Endocrinology, Diabetes & Metabolism
DX: E03.9 Hypothyroidism, unspecified (principal); G47.00 Insomnia, unspecified; R73.9 Hyperglycemia, unspecified
CPT/HCPCS: 36415; 80053; 80061; 83036; 84439; 84443

== ENCOUNTER → 2021-03-04 10:20 | Outpatient (CLI) | payer MEDICARE, OTHER, SELFPAY ==
[2020-12-13 06:22] VITALS: BMI 33.7
--- NOTE | 2021-03-04 10:23 | BI_ITS ---
MAMMOGRAPHY - BILATERAL SCREENING REASON FOR EXAM: Female, 66 years old. Routine annual screening examination. PERTINENT HISTORY: Screening TECHNIQUE: Digital bilateral breast cali (3D mammographic acquisition) in the CC and MLO projections. 2-D mediolateral oblique (MLO) and craniocaudad (CC) views of both breasts were obtained. CAD: Full Field Digital Mammography with Computer Added Detection was performed. COMPARISON: 02/28/2020 FINDINGS: Breast Composition: Fatty There are no dominant masses or suspicious calcifications. No other significant abnormalities are identified. BI/SCRN MAMM (CAD)W/CALI BILAT IMPRESSION: Stable bilateral screening mammogram. Yearly follow-up mammogram recommended. (A) ASSESSMENT CATEGORY: BIRADS Category 1: Negative. A letter regarding these results will be sent to the patient by the facility within 30 days. Approximately 10% of breast cancers are not detected by mammography. A normal mammogram should not delay biopsy of a clinically suspicious abnormality. [id number] Electronically Signed: Jemal Randhawa DO at 13:45 EDT Tel , Service support ,
== END ==
PROVIDERS: PCP Internal Medicine; Referring Provider Internal Medicine; Visit Provider Internal Medicine
DX: Z12.31 Encounter for screening mammogram for malignant neoplasm of breast (principal)
CPT/HCPCS: 77063; 77067

== ENCOUNTER → 2021-06-02 14:48 | Outpatient (CLI) | payer MEDICARE, OTHER, SELFPAY ==
[2021-06-02 17:07] LABS: ALB/GLOB Ratio 0.8 RATIO (0.9-2.4); AST(SGOT) 18 U/L (15-37); Alanine Aminotransfer ALT/SGPT 24 U/L (13-56); Albumin, Serum 3.4 g/dL (3.2-5.0); Alkaline Phosphatase 84 U/L (45-117); Anion Gap 6 (5-15); BUN 22 mg/dL (7-18); BUN/Creat Ratio 32.2 RATIO (10-20); Chloride 105 mmol/L (98-107); Creatinine, Serum 0.68 mg/dL (0.55-1.02); EST Glomerular Filtration Rate 91 mL/min (>60); Est Glom Filt Rate - Afr Amer 111 mL/min (>60); Globulin 4.2 g/dL (2.2-4.2); Glucose 133 mg/dL (74-106); Protein, Total 7.6 g/dL (6.4-8.2); Sodium Level 136 mmol/L (136-145); T4 Free Direct 1.09 ng/dL (0.76-1.46); Thyroid Stim Hormone (TSH) 0.26 uIU/mL (0.358-3.74)
== END ==
PROVIDERS: PCP Internal Medicine; Referring Provider Internal Medicine Endocrinology, Diabetes & Metabolism; Visit Provider Internal Medicine Endocrinology, Diabetes & Metabolism
DX: E03.8 Other specified hypothyroidism (principal); E06.3 Autoimmune thyroiditis; R73.03 Prediabetes
CPT/HCPCS: 36415; 80053; 83036; 84439; 84443

== ENCOUNTER 2021-08-08 13:23 | Outpatient (CLI) | payer MEDICARE, OTHER, SELFPAY ==
[2021-08-08 16:06] LABS: T4 Free Direct 1.13 ng/dL (0.76-1.46)
== END 2021-08-08 23:59 | disposition short-term general hospital (02) ==
LOC: BIMLAB 13:24
PROVIDERS: PCP Internal Medicine; Referring Provider Internal Medicine Endocrinology, Diabetes & Metabolism; Visit Provider Internal Medicine Endocrinology, Diabetes & Metabolism
DX: E03.8 Other specified hypothyroidism (principal); E06.3 Autoimmune thyroiditis
CPT/HCPCS: 36415; 84439; 84443

== ENCOUNTER 2021-11-11 18:25 | Emergency (ER) | payer MEDICARE, OTHER, SELFPAY ==
[2021-11-11 18:25] VITALS: BP 147/68; PULSE 87; RESP 15; TEMP 36.6; O2SAT 99; BMI 32.1
--- NOTE | 2021-11-11 18:56 | EKG12_ITS ---
Test Reason : CHEST PAIN Blood Pressure : / mmHG Vent. Rate : 079 BPM Atrial Rate : 079 BPM P-R Int : 164 ms QRS Dur : 072 ms QT Int : 380 ms P-R-T Axes : 056 042 059 degrees QTc Int : 435 ms Normal sinus rhythm Low voltage QRS Borderline ECG Confirmed by ADAMARIS NOE, DEYSI ([id number]), features editor CORNEL DC ([id number]) on 11/13/2021 12:51:43 PM Referred By: CAREN Confirmed By:DEYSI BAILON MD
--- NOTE | 2021-11-11 18:57 | EDS_ITS ---
HPI History of Present Illness Chief Complaint: Chest Pain Informant: patient Onset/Context/Timing Onset: Today Current Severity: Mild Maximum Severity: Severe Narrative Narrative: Patient presents with chest and back spasm. Between 5 and 530 she states she started feeling some muscle spasm-like sensation in her back around the bra line. Shortly after eating she got a spasm in her chest and was unable to swallow. She tried taking Prilosec. She does have a history of hiatal hernia as well as pyloric valve spasm with similar symptoms in the past, but states this was more severe and lasted longer. At this time she does feel much improved. [facility] Medical History Anxiety and depression Borderline diabetes Chronic back pain Chronic constipation Health care maintenance Hearing loss, left Heartburn Hypothyroidism Injury of head and neck Knee pain Limb weakness Non-smoker Obesity Osteoarthritis Osteoarthritis of right knee Post-menopausal Prediabetes Seasonal allergies Shortness of breath on exertion Wears glasses Home Medications levocetirizine 5 mg tablet 5 mg PO DAILY 05/10/20 [History Last Taken 12/12/20] triamcinolone acetonide 55 mcg nasal spray aerosol 1 spray INTRANASAL DAILY PRN 05/21/20 [History Last Taken 12/12/20] mometasone 50 mcg/actuation nasal spray 2 spray INTRANASAL DAILY PRN 10/15/20 [History Last Taken 12/12/20] cholecalciferol (vitamin D3) 125 mcg (5,000 unit) capsule 125 mcg PO DAILY 10/29/20 [History Last Taken 12/12/20] famotidine 20 mg tablet 20 mg PO DAILY 10/29/20 [History Last Taken 12/12/20] multivitamin 1 tablet PO DAILY 10/29/20 [History Last Taken 12/12/20] acetaminophen 1,000 mg PO Q6H PRN PRN 12/09/20 [History Last Taken 12/12/20] acetaminophen [Tylenol Arthritis] 1,300 mg PO QHS 12/09/20 [History Last Taken 12/12/20] celecoxib 200 mg capsule 200 mg PO BID PRN #180 cap 05/15/21 [Rx Last Taken Unknown] sertraline 50 mg tablet 50 mg PO DAILY #90 tab 05/15/21 [Rx Last Taken Unknown] trazodone 50 mg tablet 25 mg PO QHS PRN #90 tab 05/15/21 [Rx Last Taken Unknown] amoxicillin 500 mg tablet 500 mg PO ONCE #4 tab 07/14/21 [Rx Last Taken Unknown] amoxicillin 500 mg tablet 500 mg PO ONCE #4 tab 09/08/21 [Rx Last Taken Unknown] cyclobenzaprine 10 mg tablet 10 mg PO QDAY PRN #90 tab 10/02/21 [Rx Last Taken Unknown] levothyroxine 137 mcg tablet 137 mcg PO DAILY #90 tab 10/30/21 [Rx Last Taken Unknown] methylprednisolone 4 mg tablets in a dose pack See Rx Instructions PO PER PKG DIR #21 tab 10/30/21 [Rx Last Taken Unknown] dicyclomine 20 mg PO BID PRN #14 tab 11/11/21 [Rx Last Taken Unknown] Allergy/AdvReac Type Severity Reaction Status Date / Time morphine AdvReac Severe hallucinati Verified 11/11/21 18:27 ons Family History Brother Heart disease Cancer Surgical History History of bilateral cataract extraction History of cholecystectomy History of hysterectomy History of knee replacement procedure of left knee History of lumbar laminectomy History of replacement of both shoulder joints History of right hip replacement (~04/16/20) History of tonsillectomy Hx of release of tendon Social History Smoking Status: Never smoker alcohol intake: never substance use type: does not use what type of physical activity do you participate in: swimming frequency: 1-2 times per week ROS ROS ED Constitutional Constitutional ED: Denies chills or fever(s) Eyes Eyes: Denies change in vision ENT ENT ED: Denies sore throat Cardiovascular Cardiovascular: Reports chest pain Respiratory/Chest Respiratory/Chest: Denies cough or dyspnea Gastrointestinal Gastrointestinal: Denies abdominal pain, nausea or vomiting Genitourinary Genitourinary ED: Denies dysuria Musculoskeletal Musculoskeletal: Reports back pain Integumentary Denies rash Neurologic Neurologic: Denies headache(s) or weakness Allergic/Immunologic Allergic/Immunologic ED: Denies urticaria EXAM Physical Exam Const Vital Signs: 11/11/21 18:25 Temperature 97.8 F Temperature Source Temporal Pulse Rate 87 Respiratory Rate 15 Blood Pressure 147/68 H Blood Pressure Mean 94 Pulse Ox 99 Oxygen Delivery Method Room Air Positive well nourished and well developed General Appearance ED: well developed HEENT Reports moist mucous membranes Eyes PERRL and EOMs intact bilaterally Neck supple Chest Wall inspection of chest normal and palpation of chest normal Resp normal respiratory effort and clear to auscultation bilaterally Cardio regular rate and regular rhythm GI normal to inspection, nondistended, normoactive bowel sounds and non-tender Palpation: soft Extremity normal to inspection Neuro oriented x3 Sensorium / Orientation: alert Psych mental status grossly normal Skin no rashes or lesions noted MDM MDM MDM Narrative Medical decision making narrative: Patient was given a dose of Bentyl. EKG, chest x-ray, lab work obtained. Lab Data Attestation: I reviewed the patient's lab results. Labs: Laboratory Results - last 24 hr 11/11/21 11/11/21 11/11/21 19:10 19:10 19:35 WBC Cancelled 10.9 Corrected WBC Cancelled RBC Cancelled 4.87 Hgb Cancelled 14.9 Hct Cancelled 44.6 MCV Cancelled 91.6 MCH Cancelled 30.6 MCHC Cancelled 33.4 RDW Std Deviation Cancelled 44.5 H RDW Coeff of Lyric Cancelled 13.2 Plt Count Cancelled 295 MPV Cancelled 9.7 Immature Gran % (Auto) Cancelled 0.300 Neut % (Auto) Cancelled 71.2 H Lymph % (Auto) Cancelled 20.2 [place] % (Auto) Cancelled 5.6 Eos % (Auto) Cancelled 2.1 Baso % (Auto) Cancelled 0.6 Absolute Neuts (auto) Cancelled 7.8 H Absolute Lymphs (auto) Cancelled 2.21 Total Counted Cancelled Neutrophils % (Manual) Cancelled Band Neutrophils % Cancelled Lymphocytes % (Manual) Cancelled Monocytes % (Manual) Cancelled Eosinophils % (Manual) Cancelled Basophils % (Manual) Cancelled Metamyelocytes % Cancelled Myelocytes % Cancelled Promyelocytes % Cancelled Blast Cells % Cancelled Plasma Cell % (Manual) Cancelled Other Cells % Cancelled Nucleated RBC % Cancelled 0 Nucleated RBCs/100 WBC Cancelled Differential Comment Cancelled Diff Path Review Cancelled Hypersegmented Neuts Cancelled Atypical Lymphocytes Cancelled Reactive Lymphocytes Cancelled Smudge Cells Cancelled Toxic Granulation Cancelled Toxic Vacuolation Cancelled Dohle Bodies Cancelled [place] Rods Cancelled Platelet Estimate Cancelled Plt Morphology Comment Cancelled RBC Morphology Cancelled Polychromasia Cancelled Hypochromasia Cancelled Poikilocytosis Cancelled Basophilic Stippling Cancelled Anisocytosis Cancelled Microcytosis Cancelled Macrocytosis Cancelled Spherocytes Cancelled Sickle Cells Cancelled Target Cells Cancelled Tear Drop Cells Cancelled Ovalocytes Cancelled Stomatocytes Cancelled [place] Bodies Cancelled Anastasia Cells Cancelled Bite Cells Cancelled Crenated Cell Cancelled Acanthocytes (Spur) Cancelled Rouleaux Cancelled Schistocytes Cancelled Sodium 136 Potassium 4.2 Chloride 105 Carbon Dioxide 27.0 Anion Gap 4 L BUN 25 H Creatinine 0.80 Estim Creat Clear Calc 59.73 Est GFR (MDRD) Af Amer 92 Est GFR (MDRD) Non-Af 76 BUN/Creatinine Ratio 31.3 H Glucose 135 H Calcium 9.1 Troponin I High Sens < 3 L Radiography Chest X-Ray - ED: 1 View, Read by ED Physician and Chronic Changes Diagnostic Testing: Clinical Impression(s) from Imaging Studies Chest X-Ray 11/11/21 19:20 IMPRESSION: There are no acute findings. Electronically Signed: Werner Guzmán MD at 19:33 EDT , EKG Initial EKG: Attestation: I personally reviewed and interpreted this EKG as follows: Interpretation: Sinus Rhythm (Sinus at 79 with no acute ischemia.) Treatment and Re-Evaluation Narrative: On repeat evaluation patient reports feeling much improved. She does have a history of pyloric valve spasm and hiatal hernia. I believe she likely had an esophageal spasm. She will be given a prescription for Bentyl. Close follow-up has already been arranged. Return instructions provided. Discharge Plan Triage Chief Complaint: Chest Pain ED Provider: Kristen Osorio Dx/Rx/DC Orders Clinical Impression: Atypical chest pain, Spasm of esophagus Instructions: ED Chest Pain, Noncardiac Prescriptions: New dicyclomine 20 mg tablet 20 mg PO BID PRN (Reason: spasm) Qty: 14 RF: 0 No Action triamcinolone acetonide [Nasacort] 55 mcg aerosol,spray 1 spray INTRANASAL DAILY PRN (Reason: ALLERGIES) RF: 0 mometasone [Nasonex] 50 mcg/actuation spray,non-aerosol 2 spray INTRANASAL DAILY PRN (Reason: ALLERGIES) RF: 0 levocetirizine [Xyzal] 5 mg tablet 5 mg PO DAILY RF: 0 famotidine [Pepcid] 20 mg tablet 20 mg PO DAILY RF: 0 multivitamin [Daily Multi-Vitamin] Tablet 1 tablet PO DAILY RF: 0 cholecalciferol (vitamin D3) 125 mcg (5,000 unit) capsule 125 mcg PO DAILY RF: 0 trazodone 50 mg tablet 25 mg PO QHS PRN (Reason: Sleep) Qty: 90 RF: 1 sertraline 50 mg tablet 50 mg PO DAILY Qty: 90 RF: 3 celecoxib 200 mg capsule 200 mg PO BID PRN (Reason: pain/inflamation) Qty: 180 RF: 3 methylprednisolone [Medrol (Eb)] 4 mg tablets,dose pack See Rx Instructions PO PER PKG DIR Qty: 21 RF: 0 levothyroxine 137 mcg tablet 137 mcg PO DAILY Qty: 90 RF: 3 acetaminophen [Tylenol Arthritis] 650 mg Tablet Extended Release 1,300 mg PO QHS RF: 0 acetaminophen 500 MG tablet 1,000 mg PO Q6H PRN PRN (Reason: Pain) RF: 0 amoxicillin 500 mg tablet 500 mg PO ONCE Qty: 4 RF: 0 amoxicillin 500 mg tablet 500 mg PO ONCE Qty: 4 RF: 3 cyclobenzaprine 10 mg tablet 10 mg PO QDAY PRN (Reason: muscle spasm) Qty: 90 RF: 1 Primary Care Provider: Emil Nuñez Referrals: Emil Nuñez MD [Primary Care Provider] - As Needed Activity Restrictions/Additional Instructions: Follow-up next Wednesday as scheduled. Disposition Disposition: Home, Self Care
[2021-11-11] MEDS: Dicyclomine 20 MG/2 ML Vial IM (19:13)
--- NOTE | 2021-11-11 19:20 | RAD_ITS ---
STUDY: X-RAY CHEST REASON FOR EXAM: Female, 66 years old. CHEST PAIN pain TECHNIQUE: XR Chest 1 View COMPARISON: None FINDINGS: Total bilateral shoulder arthroplasty. Normal size heart. Normal mediastinum and pilar. Normal visualized pulmonary arteries. There is atherosclerotic calcification of the aortic arch with tortuosity. There are diffuse degenerative changes of the visualized thoracic spine. There is degenerative osteoarthritis of the bilateral shoulders. There is no demonstrated abnormality of the visualized soft tissue structures of the upper abdomen. RAD/Chest 1 View (Portable) IMPRESSION: There are no acute findings. Electronically Signed: Werner Guzmán MD at 19:33 EDT ,
[2021-11-11 19:32] LABS: Anion Gap 4 (5-15); BUN 25 mg/dL (7-18); BUN/Creat Ratio 31.3 RATIO (10-20); Calcium,Total 9.1 mg/dL (8.5-10.1); Chloride 105 mmol/L (98-107); EST Glomerular Filtration Rate 76 mL/min (>60); Est Glom Filt Rate - Afr Amer 92 mL/min (>60); Estimated Creatinine Clearance 59.73 ml/min; Glucose 135 mg/dL (74-106); Potassium 4.2 mmol/L (3.5-5.1); Sodium Level 136 mmol/L (136-145); Troponin-I HS < 3 pg/mL (3.0-54.0)
[2021-11-11 19:37] LABS: Absolute Lymphocyte Count 2.21 X10^3/uL (0.83-4.51); Absolute Neutrophil Count 7.8 X10^3/uL (2.0-7.7); Basophil# 0.07 X10^3/uL; Basophil% 0.6 % (0-1); Eosinophil# 0.23 X10^3/uL; Eosinophils% 2.1 % (0-5); Hematocrit 44.6 % (37-47); Hemoglobin 14.9 g/dL (12.0-15.0); Lymphocyte # 2.21 X10^3/ul (0.83-4.51); Lymphocyte % 20.2 % (19-41); Mean Corp Hgb Conc 33.4 g/dL (32-36); Mean Corpuscular Hgb 30.6 pg (27.0-32.0); Mean Corpuscular Volume 91.6 fL (81-99); Mean Platelet Vol. 9.7 fl (6.2-12.0); Monocyte# 0.61 X10^3/uL; Monocyte% 5.6 % (0-10); NRBC Flagged by Analyzer 0 % (0-5); Neutrophil # 7.77 X10^3/uL (2.7-7.7); Neutrophil % 71.2 % (47-70); Platelet Count 295 K/mm3 (150-450); RBC Distribution Width CV 13.2 % (11.6-14.6); RBC Distribution Width SD 44.5 fl (35.1-43.9); Red Blood Count 4.87 M/mm3 (4.2-5.4); White Blood Count 10.9 K/mm3 (4.4-11.0)
== END 2021-11-11 20:30 | disposition home or self-care (01) ==
PROVIDERS: Emergency Provider Emergency Medicine; PCP Internal Medicine; Visit Provider Emergency Medicine
DX: R07.89 Other chest pain (principal); K22.4 Dyskinesia of esophagus; E03.9 Hypothyroidism, unspecified; E66.9 Obesity, unspecified; Z68.32 Body mass index [BMI] 32.0-32.9, adult; Z79.899 Other long term (current) drug therapy
CPT/HCPCS: 71045; 80048; 84484; 85025; 93005; 96372; 99284; A4216

== ENCOUNTER → 2021-11-26 | Outpatient (CLI) | payer MEDICARE, OTHER, SELFPAY ==
--- NOTE | 2021-11-26 15:28 | ST.MBS ---
Modified Barium Swallow - Patient Information Study Date: 11/26/21 Study Time: 13:00 Direct Billable Minutes: 100 Total Minutes procedure & reportin Diagnosis: Dysphagia, unspecified (R13.10) Referring Physician: Emil Nuñez Reason for Referral: Objectively assess swallow function, risk for aspiration, and determine recommendations for least restrictive diet textures and compensatory strategies to improve safety of swallow. Medical History: Danni Stapleton is a 66-year-old female who informed her PCP that she has been experiencing episodes of swallowing difficulty. She recently went to the ER for chest tightness and throat pain after swallowing lasting an hour. She was diagnosed with esophageal spasm. She has PMH of GERD, hiatal hernia, prediabetes, swallowing disorder, injury of the head and neck, tonsillectomy (SEE EMR for full PMH). The patient reports that infrequently (~1X/month) she will choke on food. 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 At times she feels she has trouble clearing both food and drink from her mouth. She reported additional PMH to COMPUTATIONAL THEORY SCIENTIST, including head injury (concussion ~3 years ago after losing consciousness and hitting head) and pyloric valve spasm. Current Diet Ordered: Regular textures / Thin liquids Dentition: Natural Teeth Mental Status: WNL Respiratory Status: Oxygenating on Room Air - Penetration-Aspiration Scale Penetration-Aspiration Scale: OBJECTIVE ASSESSMENT OF SWALLOW FUNCTION (QUANTITATIVE ? PER TRIAL): PENETRATION / ASPIRATION SCALE (COOK): 1 = does not enter airway 2 = enters airway/above vocal folds/ejected 3 = enters airway/above vocal folds/not ejected 4 = enters airway/contacts vocal folds/ejected 5 = enters airway/contacts vocal folds/not ejected 6 = enters airway/below vocal folds/ejected 7 = enters airway/below vocal folds/not ejected despite effort 8 = enters airway/below vocal folds/no effort VIDEOFLOROSCOPIC SCALE SCORE (COOK): Grade I = aspiration of material that has penetrated into the laryngeal vestibule, intact cough reflex Grade II = aspiration < 10 % of the bolus, intact cough reflex Grade III = aspiration of < 10 % of the bolus, reduced cough reflex or aspiration of > 10 % of the bolus, intact cough reflex Grade IV = aspiration of > 10 % of the bolus, reduced cough reflex - Penetration-Aspiration Scale Score Thin Liquid via teaspoon Result: 1= does not enter airway Thin Liquid via teaspoon Trial 2 Result: 1= does not enter airway Thin Liquid via small single sip from cup Result: 1= does not enter airway Thin Liquid via sequential sips from cup Result: 1= does not enter airway [place] Thick Liquid via small single sip from cup Result: 1= does not enter airway [place] Thick Liquid via small single sip from cup Result: 1= does not enter airway Pudding via teaspoon with esophageal screen Result: 1= does not enter airway Cookie with esophageal screen Result: 1= does not enter airway Thin Liquid via single sip from straw Result: 1= does not enter airway Thin Liquid via sequential sips from straw Result: 2= enter airway/above vocal folds/ejected - Oral Phase Labial Seal: No Labial Escape Tongue Control During Bolus Hold: Posterior escape of greater than half of bolus Bolus Preparation/Mastication: Timely and efficient chewing and mashing Bolus Transport/Lingual Motion: Delayed initiation of tongue motion Oral Residue: Trace residue lining oral structures - Pharyngeal Phase Initiation of Pharyngeal Swallow: Bolus head in pyriforms Soft Palate Elevation: No bolus between soft palate and pharyngeal wall Laryngeal Elevation: Partial superior movement thyroid cart/partial apprx aryt-epig petiole Anterior Hyoid Excursion: Complete anterior movement Epiglottic Movement: Complete inversion Laryngeal Vestibule Closure at Height of Swallow: Incomplete; narrow column of air/contrast in laryngeal vestibule Pharyngeal Stripping Wave: Present - complete Pharyngoesophageal Segment Opening: Parital distension and partial duration; parital obstruction of flow Tongue Base Retraction: Trace column of contrast between tongue base & post. pharyngeal wall Pharyngeal Residue: Trace residue within or on pharyngeal structures - Esophageal Phase Esophageal Clearance: Esophageal retention w/ retrograde flow below pharyngoesophageal seg. - Diagnosis/Impression Diagnosis: Mild oropharyngeal phase dysphagia (R13.12), Esophageal dysphagia (R13.14) Impression: The oral phase is marked by delayed initiation of tongue motion with majority of bolus of liquids in the pyriform sinuses prior to swallow onset. The pharyngeal phase is marked by mildly decreased laryngeal elevation, which resulted in trace laryngeal penetration of sequential sips of thin liquids. Laryngeal penetration remained well above the vocal folds and fully ejected from the laryngeal vestibule. No aspiration observed during the study. Trace pharyngeal residues. Anterior cervical osteophyte at C5 present. COMPUTATIONAL THEORY SCIENTIST observed the esophageal phase of the swallow of pudding thick liquids. The patient demonstrated retention throughout her entire esophagus with little emptying after observing for >20 seconds. Cookie trial presented with retention in mid and distal esophagus with retrograde flow below UES prior to emptying. She also presented with retrograde flow of sequential sips of thin liquids, which remained below the UES. - Recommendations Diet: Regular Textures, Thin Liquids Comment: Cut meat bite size and moisten dry textures with a sauce/gravy. Thorough chewing. Consider 4-5 smaller, more frequent meals vs 3 large meals each day. Compensatory Strategies: Small Bites, Small Sips, Slow Rate, Sitting upright, Remain sitting upright for 30 minutes after PO intake Recommend Repeat Modified Barium Swallow: No Need for Skilled Speech Therapy Services: Yes Comment: Will recommend the patient for outpatient dysphagia therapy to address mild deficits in oropharyngeal swallow function, especially considering the patient has had previous choking episodes. Prior to esophageal spasms, she reports tension in her back. COMPUTATIONAL THEORY SCIENTIST recommended discontinuing oral intake if she feels she is about to experience a spasm. Would consider the patient for oropharyngeal strengthening to improve laryngeal elevation and duration of UES opening. The patient would benefit from thorough education regarding diet recommendations and recommended compensatory strategies. She would additionally benefit from training in reflux management and precautions. Recommended Referrals: GI Consult - Would strongly recommend GI consult to address COMPUTATIONAL THEORY SCIENTIST concerns for reflux, esophageal retention, and slow esophageal motility. Education Completed: 1. Described result of evaluation., 2. Pt understands evaluation & agrees with goals and treatment plan., 7. Pt requires further education on strategies & risks. - Status Active ST Patient: Active - Contact Information [facility] Speech Therapy:: Rosaura Henderson M.A. [facility]-COMPUTATIONAL THEORY SCIENTIST Speech-Language Pathologist [facility] [address] [place] [address] [phone] 11/26/21 16:03
== END | disposition home or self-care (01) ==
LOC: RAD 12:44
PROVIDERS: PCP Internal Medicine; Referring Provider Internal Medicine; Visit Provider Internal Medicine
DX: K22.4 Dyskinesia of esophagus (principal); R13.10 Dysphagia, unspecified
CPT/HCPCS: 74230; 92611

== ENCOUNTER → 2022-02-17 | Outpatient (CLI) | payer MEDICARE, OTHER, SELFPAY ==
[2022-02-17 12:03] LABS: Absolute Lymphocyte Count 2.52 X10^3/uL (0.83-4.51); Absolute Neutrophil Count 4.9 X10^3/uL (2.0-7.7); Basophil# 0.06 X10^3/uL; Basophil% 0.7 % (0-1); Eosinophil# 0.22 X10^3/uL; Eosinophils% 2.7 % (0-5); Hematocrit 44.6 % (37-47); Hemoglobin 14.8 g/dL (12.0-15.0); Lymphocyte # 2.52 X10^3/ul (0.83-4.51); Lymphocyte % 30.8 % (19-41); Mean Corp Hgb Conc 33.2 g/dL (32-36); Mean Corpuscular Hgb 30.1 pg (27.0-32.0); Mean Corpuscular Volume 90.8 fL (81-99); Mean Platelet Vol. 10.3 fl (6.2-12.0); Monocyte# 0.48 X10^3/uL; Monocyte% 5.9 % (0-10); NRBC Flagged by Analyzer 0 % (0-5); Neutrophil # 4.86 X10^3/uL (2.7-7.7); Neutrophil % 59.5 % (47-70); Platelet Count 339 K/mm3 (150-450); RBC Distribution Width CV 13.8 % (11.6-14.6); RBC Distribution Width SD 45.6 fl (35.1-43.9); Red Blood Count 4.91 M/mm3 (4.2-5.4); White Blood Count 8.2 K/mm3 (4.4-11.0)
[2022-02-17 12:30] LABS: Hemoglobin A1c 6.2 % (3.8-5.6)
[2022-02-17 12:59] LABS: ALB/GLOB Ratio 0.9 RATIO (0.9-2.4); AST(SGOT) 22 U/L (15-37); Alanine Aminotransfer ALT/SGPT 41 U/L (13-56); Albumin, Serum 3.5 g/dL (3.2-5.0); Alkaline Phosphatase 86 U/L (45-117); Anion Gap 9 (5-15); BUN 27 mg/dL (7-18); BUN/Creat Ratio 37.3 RATIO (10-20); Chloride 107 mmol/L (98-107); Cholesterol 206 mg/dL (200); Creatinine, Serum 0.72 mg/dL (0.55-1.02); EST Glomerular Filtration Rate 85 mL/min (>60); Est Glom Filt Rate - Afr Amer 103 mL/min (>60); Glucose 127 mg/dL (74-106); High Density Lipoprotein 41 mg/dL; Potassium 4.2 mmol/L (3.5-5.1); Protein, Total 7.5 g/dL (6.4-8.2); Sodium Level 138 mmol/L (136-145); Thyroid Stim Hormone (TSH) 3.24 uIU/mL (0.358-3.74); Triglycerides 313 mg/dL; Very Low Density Lipoprotein 63 mg/dL (5-40)
== END | disposition home or self-care (01) ==
LOC: BIMLAB 10:52
PROVIDERS: PCP Internal Medicine; Visit Provider Internal Medicine
DX: J30.2 Other seasonal allergic rhinitis (principal); M19.90 Unspecified osteoarthritis, unspecified site; R73.03 Prediabetes; E03.8 Other specified hypothyroidism; E06.3 Autoimmune thyroiditis; G47.00 Insomnia, unspecified
CPT/HCPCS: 36415; 80053; 80061; 83036; 84443; 85025

== ENCOUNTER → 2022-03-10 | Outpatient (CLI) | payer MEDICARE, OTHER, SELFPAY ==
--- NOTE | 2022-03-10 12:49 | CT_ITS ---
STUDY: CT SCAN LOWER EXTREMITY RIGHT RIGHT REASON FOR EXAM: Female, 67 years old. Templating for right TKA. [facility] PROTOCOL RADIATION DOSAGE (If Supplied By Facility): CTDIvol = ( 18.89 ) mGy, DLP = ( 1243.28 ) mGycm. Individualized dose optimization techniques were used for this CT.? TECHNIQUE: Multiple axial tomographic images of the right lower extremity were obtained without intravenous contrast administration. Coronal and sagittal reconstruction was obtained as well. COMPARISON: Comparison is made with prior study dated 04/09/2020. FINDINGS: Imaging of the right hip joint was obtained. The patient is status post right total hip replacement. There is good alignment. No acute abnormality is seen. Imaging of the right knee joint was obtained. Marked degree of joint space narrowing with degenerative spur formation involving the medial compartment of the knee joint and the distal femur and medial tibial plateau. Degenerative changes are also seen in the distal lateral femoral condyle and lateral tibial plateau. Mild degree of osteoarthritis of the patellofemoral joint with degenerative spur along the anterior aspect of the distal femur. Imaging of the ankle joint was obtained. No significant abnormality is seen. CT/Extremity Lower without Contra IMPRESSION: Marked degree of blood joint space narrowing involving the medial compartment of knee joint with degenerative spur formation as well as a mild degree of osteoarthritis of the patellofemoral joint. The patient is status post right total hip replacement. Electronically Signed: Nhan Bennett MD at 14:47 EDT ,
== END | disposition home or self-care (01) ==
LOC: CT 12:44
PROVIDERS: PCP Internal Medicine; Referring Provider Orthopaedic Surgery; Visit Provider Orthopaedic Surgery
DX: M17.11 Unilateral primary osteoarthritis, right knee (principal)
CPT/HCPCS: 73700

== ENCOUNTER 2022-03-17 09:38 | Inpatient (IN) | payer MEDICARE, OTHER, SELFPAY ==
--- NOTE | 2022-03-04 14:25 | EKG12_ITS ---
Test Reason : PRE OP Blood Pressure : / mmHG Vent. Rate : 080 BPM Atrial Rate : 080 BPM P-R Int : 184 ms QRS Dur : 052 ms QT Int : 354 ms P-R-T Axes : 055 050 085 degrees QTc Int : 408 ms Normal sinus rhythm Low voltage QRS Nonspecific ST and T wave abnormality Abnormal ECG Confirmed by SHAZIA NOE, DASIA ([id number]), editorial clerk CORNEL DC ([id number]) on 03/05/2022 1:29:17 PM Referred By: Landon Alonso Confirmed By:DASIA MCCRAY MD
[2022-03-04 14:44] LABS: Partial Thromboplast Time 31.9 Seconds (24.1-36.2); Prothrombin Time (Protime)PT. 12.4 SECONDS (11.7-14.9)
[2022-03-04 15:17] LABS: Magnesium 2.1 mg/dL (1.6-2.6)
[2022-03-06 15:22] LABS: Fructosamine 227 umol/L (0-285)
--- NOTE | 2022-03-12 14:59 | CASEMGMT ---
LAVON CARRILLO Assessment: TC to pt for initial transition planning/care coordination assessment. LAVON CARRILLO introduced self and role at [facility], pt voices understanding and consents to assessment. Care providers, pharmacy, and demographics verified/updated. Admitting Dx: R total knee robotic PCP:[place] Specialists:adria Alonso; Friend, GI Preferred Pharmacy: [facility] Insurance: [employer], [employer] other Prescription Benefit: yes LW/HPOA: Pt states she has a LW/DPOA and her DPOA is her Adal Ambrosio. She is aware she can bring this with her on day of surgery to be scanned into her chart as it is not on file at [facility]. LNOK: Adal Ambrosio, ; Maria G Churchill, dtr Living Arrangements: Pt lives with her in a two story house that is handicap accessible. Pt states she has a bedroom on the lower level for after surgery. Transportation: Pt drives self and denies concerns with transportation. Pt will transport her to medical appts post surgery. DME/HHC/SNF: Pt has a FWW and cane but does not typically use. Pt has a walk in shower, grab bars in the shower and a high rise toilet seat. Pt denies hx of HHC or SNF stays. Pt states no concerns with going home at time of dc. She has therapy set up on the [facility] [place]. Pt states no further concerns/needs. CM to follow. Advised pt to ask CM if any further question/concerns/needs arise, voices understanding. Pt Goal: Home with outpt therapy already set up Plan: Home with outpt therapy already set up
[2022-03-17] VITALS (11 sets, daily range): BP systolic 106–129; BP diastolic 49–66; PULSE 62–93; RESP 16–18; TEMP 36.2–37.1; O2SAT 94–100; BMI 33.3
[2022-03-17] MEDS: Lactated Ringers 1,000 ML 15 ML IV (05:45)
[2022-03-17] MEDS: Celecoxib 200 MG Capsule 400 MG PO (06:34)
[2022-03-17] MEDS: Gabapentin 600 MG Tablet PO (06:34)
[2022-03-17] MEDS: Acetaminophen 500 MG Tablet 1000 MG PO ×3 (06:34→22:00)
--- NOTE | 2022-03-17 07:08 | HP.PCM_ITS ---
History and Physical Date of Admission: 03/17/22 MATT NOELEY ASH??67??F??1955 ? Allergy/Adv: morphine Back Sign Orthopedics Visit (Signed) Praveen Paul - 03/06/22 Orthopedics Visit (Signed) Landon Alonso - 02/04/22 Orthopedics Visit (Signed) Landon Alonso - 07/07/21 Orthopedics Visit (Signed) Landon Alonso - 07/10/20 Orthopedics Visit (Signed) Landon Alonso - 05/31/20 Orthopedics Visit (Signed) Landon Alonso - 05/03/20 Orthopedics Visit (Signed) Landon Alonso - 04/29/20 Orthopedics Visit (Signed) Landon Alonso - 03/27/20 Orthopedics Visit (Signed) Kirsten Mack - 03/19/20 Addendum [facility] [address] [place] [address] OFFICE VISIT Date of Service:? 02/04/22 MR#: [id number] Acct: [id number] Name:? JAMES NOE Rep #: [id number] : 1955 ? ? Provider: Dr. Landon Alonso, DO Age/Sex:? 67/F ? ? Location: [facility] [place] Status: Signed Intake Vital Signs ? 02/04/2213:07 Height 5 ft 4 in Weight: 195 lb BMI 33.5 Intake Visit Reasons:?Right knee Chief Complaint: 6 month f/u Allergies morphine Adverse Reaction (Severe, Verified 01/06/22 11:15) hallucinations Medications levocetirizine 5 mg tablet (Xyzal) 5 mg PO DAILY 05/10/20 [History Confirmed 02/04/22] cholecalciferol (vitamin D3) 125 mcg (5,000 unit) capsule 125 mcg PO DAILY 10/29/20 [History Confirmed 02/04/22] multivitamin (Daily Multi-Vitamin) 1 tablet PO DAILY 10/29/20 [History Confirmed 02/04/22] acetaminophen 500 mg tablet 1,000 mg PO Q6H PRN PRN Pain 12/09/20 [History Confirmed 11/18/21] sertraline 50 mg tablet 50 mg PO DAILY anxiety #90 tabs 05/15/21 [Rx Confirmed 02/04/22] levothyroxine 137 mcg tablet 137 mcg PO DAILY #90 tabs 10/30/21 [Rx Confirmed 02/04/22] dicyclomine 20 mg tablet 20 mg PO BID PRN spasm #14 tabs 11/11/21 [Rx Confirmed 02/04/22] celecoxib 200 mg capsule 200 mg PO BID pain/inflamation 11/18/21 [History Confirmed 02/04/22] omeprazole 40 mg capsule,delayed release 40 mg PO DAILY #90 caps 11/18/21 [Rx Confirmed 02/04/22] trazodone 50 mg tablet 50 mg PO QHS PRN Sleep #90 tabs 11/18/21 [Rx Confirmed 02/04/22] PFSH Medical History? Anxiety and depression Borderline diabetes Chronic back pain Chronic constipation GERD (gastroesophageal reflux disease) Health care maintenance Hearing loss, left Heartburn Hypothyroidism Injury of head and neck Knee pain Limb weakness Non-smoker Obesity Osteoarthritis Osteoarthritis of right knee Post-menopausal Prediabetes Seasonal allergies Shortness of breath on exertion Swallowing disorder Wears glasses Surgical History? History of bilateral cataract extraction History of cholecystectomy History of hysterectomy History of knee replacement procedure of left knee History of lumbar laminectomy History of replacement of both shoulder joints History of right hip replacement (~04/16/20) History of tonsillectomy Hx of release of tendon Family History? Brother Heart disease Cancer Social History? Smoking Status:? Never smoker alcohol intake:? never substance use type:? does not use what type of physical activity do you participate in:? swimming frequency:? 1-2 times per week HPI Right knee Details: Parts of this documentation were recorded by a scribe, this documentation accurately reflects the service provided and the decisions made by me, Dr. Landon Alonso, DO 02/04/22 [id number]. JAMES NOE is a 67 year old F here today for? right knee pain. She states that the right knee steroid injection was not helpful at all. She states that her knee pain has progressed. She feels that her knee is unstable. Denies any falls. Denies any surgery of the right knee. She states that most of her knee pain is anterior medial and just above the patella. She states that she does hear crunching in her knee. Ortho Exam General General: Yes no acute distress Neurologic: Yes alert Psychologic: Yes reasonable and appropriate Right Knee Skin/Wound: Yes CDI, No erythema, No ecchymosis and No swelling Knee ROM: Yes ROM-Extension -20 to 0 and Yes ROM-Flexion 0-140 (120) Examination: Yes Med jt line tenderness and Yes Lat jt line tenderness Stability: NML: Anterior Drawer, NML: Posterior Drawer, NML: Valgus 0, NML: Valgus 30, NML: Varus 0 and NML: Varus 30 Patella Translation: 1 Left Knee Patella Translation: 1 Supplemental Info 07/07/2021 x-ray right knee: Severe joint space narrowing noted on flexion view medial and lateral compartments with bone spurs subchondral cysts moderate patellofemoral arthrosis, joint space is more preserved on AP view however there is medial joint space narrowing noted and bone spurs noted 07/07/2021 x-ray right hip: Status post total hip arthroplasty with good interfaces and position Coding Level of Care Code Off vis,est,level 3 Diagnoses Osteoarthritis of right knee? M17.11 Assessment and Plan Assessment and Plan (1) Osteoarthritis of right knee: ?Status:?Acute Plan Spoke with the patient about her options- steroid injections, viscosupplementation injections, bracing, physical therapy, oral anti- inflammatories, or a total knee arthroplasty. Patient has failed conservative treatment and would like to proceed with a total knee arthroplasty. ? Spoke with her about the surgery procedure.?Risks, benefits and alternatives of surgery reviewed including but not limited to bleeding, infection, nerve, artery and/or tissue damage, fracture, VTE, mechanical feel of the knee, continued pain, stiffness and expected post-operative course. Patient would like to do iovera if approved with insurance.? She will not be able to take anti-inflammatories 7 days prior to surgery. Spoke with her about the importance of working on range of motion to prevent stiffness. She will wear compression stockings and she would like to do Lovenox instead of eliquis due to cost. Follow up for iovera or post op or sooner if pain, swelling, numbness or associated symptoms, or concerns develop.? All questions answered. Patient in agreement of plan. 02/04/22 1345 <Electronically signed by Landon Alonso DO> Date Landon Alonso DO Cosigner Signature: Date (if applicable) ?I have re-examined the patient. There are no clinical changes since date of ex am
[2022-03-17 07:20] LABS: Bedside Glucose 167 mg/dL (74-106)
--- NOTE | 2022-03-17 07:30 | KNEE_PTH ---
PATIENT: JAMES NOE LOC: MS3 U#:[id number] AGE/SX: 67/F ROOM: [facility] RE03/17/[address]: Dr. Landon Alonso DO : 1955 BED: 1 DIS: 03/19/2022 SPEC #: [id number] RECD: 03/17/22 10:08 STATUS: KOSTAS JOHNSON #: [id number] GERBER: 03/17/22 07:[address]: Landon Alonso DEPT: SURGICAL PATHOLOGY RECD BY: Sierra Clarke ENTERED: 03/17/22 11:26 SP TYPE: TOTAL KNEE OTHR DR: Dr. Emil Nuñez MD Tissues: Knee, NOS Procedures: Decalcification bone/plaque Surgery Specimen Level IV HEADER OPERATION: ERAS, total knee replacement robotic arm assist PRE-OP DIAGNOSIS: Acute osteoarthritis, right knee TISSUE SUBMITTED: Bone and tissue, right knee MICROSCOPIC DIAGNOSIS Bone and soft tissue, right knee, total knee replacement/resection: Pieces of bone with degenerative osteoarthritic changes. 03/20/2022 MICROSCOPIC DESCRIPTION Slides are reviewed. GROSS DESCRIPTION Received is one container designated bone and soft tissue right knee. The specimen consists of multiple fragments of alvarado-yellow bone measuring in aggregate 10 x 9 x 3 cm. No soft tissue is identified. Several bony fragments contain articular surfaces consistent with tibial plateau and femoral condyle and displaying prominent osteophyte formation, eburnation, and bone erosion. Direct Sales Consultant sections are submitted in two cassettes decalcification. / SAM:altagracia 03/17/22 TC:5 CPT: 35191, 04661
[2022-03-17] MEDS: Cefazolin 2 GM in 0.9% Normal Saline 100 ML IV (07:40)
[2022-03-17] MEDS: dexAMETHasone 10 MG/ML Vial IV (07:45)
[2022-03-17] MEDS: TXA 1000mg in NS100 100ml (IVPB at Incision) 660 MG IV (07:45)
[2022-03-17] MEDS: Bupivacaine 0.25% 30 ML Vial (09:00)
[2022-03-17] MEDS: Betamethasone/Betamethasone 30 MG/5 ML Vial (09:00)
[2022-03-17] MEDS: 0.9% Normal Saline (Pres. free 10 ML Vial (09:00)
[2022-03-17] MEDS: Epinephrine (1 mg/ml) 1 MG/ML VIAL (09:00)
[2022-03-17] MEDS: Lactated Ringers 1,000 ML 125 ML IV (09:35)
--- NOTE | 2022-03-17 09:35 | RAD_ITS ---
STUDY: X-RAY - RIGHT KNEE REASON FOR EXAM: Postoperative evaluation of right total knee arthroplasty. TECHNIQUE: 2 view(s) of the knee. COMPARISON: Radiographs 07/07/2021. FINDINGS: There is a right total knee arthroplasty without evidence of complication. There is postoperative gas in the soft tissues and overlying skin gracia. RAD/Knee 1 or 2 Views IMPRESSION: Uncomplicated right total knee arthroplasty. Electronically Signed: Kel Aguila MD at 10:13 EDT ,
--- NOTE | 2022-03-17 09:40 | OP.PCM_ITS ---
Operative Report Date of Procedure: 03/17/22 Preoperative diagnosis: Right knee DJD Postoperative diagnosis: Same Procedure: Right total knee arthroplasty CT guided Robotic Assisted Implant: Delta triathlon press fit, femoral component size1, tibial baseplate size 1, asymmetric patella size 29, polyethylene X3 size 9 CS Anesthesia: General with adductor canal block Tourniquet time: 13 minutes at 300 mmHg Complications: None Condition: Stable to PACU Estimated blood loss: 150 cc Indication for procedure: This is a 67-year-old female with long standing degenerative joint disease of the knee who has failed conservative treatment and wished to proceed with elective total knee arthroplasty. Risk benefits and alternatives were reviewed including; risk of bleeding, infection, nerve artery and tissue damage, continued pain, postoperative stiffness, venous thromboembolism, need for postoperative rehabilitation, mechanical feel to the knee, and expected postoperative course. The pre- operative CT and templating was performed with component sizing. Procedure: The patient was met in the preoperative holding area. The operative extremity was identified by both patient and physician and was marked. Patient was met by anesthesia. An adductor canal block was placed by anesthesia postoperatively the patient was brought back to the operating room on a wheeled cart and transferred to the operating table in the supine position. Anesthesia was started. A well-padded tourniquet was placed on the operative extremity. The patient was prepped and draped in the usual sterile fashion. A timeout was called to ensure the proper patient procedure and extremity were being contemplated. An esmarch was used to exsanguinate the extremity. The tourniquet was inflated. A 10 blade scalpel was used to make a midline incision down through the skin and subcutaneous tissue. Skin retractors placed. Bovie and Aquamantis were used to perform meticulous hemostasis. full-thickness flaps were elevated medial and lateral along the joint capsule. A deep blade scalpel was used to perform a medial parapatellar arthrotomy. The knee was brought to full extension. A bovie was used to release the soft tissues off the most proximal aspect of the medial tibial plateau, a three-quarter inch curved osteotome was also used in this process. The infrapatellar fat pad was excised. The suprapatellar fat pad was excised partially anteriorolateraly and portion the anterioromedial pad was elevated from the femur. At this point our intra- articular femoral array was placed at a 45 degree angle proximal and posterior to the medial epicondyle. femoral checkpoint was placed at this time. Our tibial array was placed greater than 1 hands breath below the incision at a 20 degree angle stab incisions were made with a 15 blade scalpel and pins were placed and attached to the tibial array , tibial checkpoint was placed in the p roximal tibial metaphysis. Tourniquet was let down. At this point registration leblanc were taken throughout the knee . Once the knee was registered we then tensioned the medial and lateral ligaments in extension and 90 degrees of flexion. We then used these numbers to adjust our components within parameters to balance the knee in both flexion and extension once this was done on our monitor we then proceeded with using the robotic arm to make our tibial plateau cut, anterior and posterior chamfer and distal femur cuts. we removed the cut fragments with the use of a bovie and Jordi, we did use a lamina [employer] field coordinator to insure we visualized and removed all posterior osteophytes and at this time also used the Aquamantis on the posterior joint capsule. we then trialed and achieved the desired plan with a well-balanced knee. we used the green probe to milton the corresponding tibial rotation based on our CT template. Lug holes were drilled in the femur the tibia preparation was completed with the appropriate sized base plate pinned based on previous rotation milton. An appropriate sized fin punch was used on the tibia and 4 corner drill was used for the press fit component and the patella was prepared by first using a caliper to ensure sufficient bone stock and a patellar reamer to remove the desired amount of bone. lug holes drilled for an asymmetric poly. We then brought the knee through range of motion with excellent patellar tracking. We thoroughly irrigated the knee. Trial components were removed a posterior capsular injection was preformed with our standard cocktail. In addition the aqua Mantis was also used to aid in hemostasis. Betadine rinse was allowed to sit and washed out completely. Components were press-fit into place. Aricept rinse was then used followed by several more liters of irrigation after it was allowed to sit. The joint capsule was closed with #1 Ethibond [id number] followed by Vicryl in the subcutaneous tissues with gracia in the skin. Arrays and checkpoints were removed prior to closure all counts were correct stab incisions were closed with a staple standard dressing in the form of Mepilex AG for the main incision and a small Mepilex over the pin holes. Thigh-high CULLEN hose applied over top of dressing. Patient tolerated the procedure well and was directed to PACU in stable condition . There were no intraoperative co mplications.
[2022-03-17] MEDS: Insulin Lispro 100 UNIT/ML INSULN.PEN SC (10:23)
[2022-03-17] MEDS: Cefazolin 1 GM/50 ML BAG IV ×2 (10:23→18:03)
[2022-03-17 10:40] LABS: Bedside Glucose 189 mg/dL (74-106)
[2022-03-17] MEDS: Cholecalciferol (Vit D3) 125 MCG CAPSULE (5,000 UNITS) PO (13:33)
[2022-03-17] MEDS: oxyCODONE 5 MG Tablet PO ×3 (13:33→22:00)
[2022-03-17] MEDS: Sertraline 50 MG Tablet PO (13:33)
--- NOTE | 2022-03-17 13:35 | CASEMGMT ---
Paged , inpatient order placed and intended as plan for patient to be admitted for 2 MN.
[2022-03-17] MEDS: traZODone 50 MG Tablet PO (22:00)
[2022-03-17] MEDS: Pantoprazole Sodium 40 MG Tablet PO (22:01)
[2022-03-17] MEDS: Senna/Docusate Sodium 1 Tablet 2 TABLET PO (22:01)
[2022-03-18] MEDS: Cefazolin 1 GM/50 ML BAG IV (02:00)
[2022-03-18] MEDS: oxyCODONE 5 MG Tablet PO ×5 (02:00→22:23)
[2022-03-18] MEDS: 0.9% Saline Lock 10 ML Syringe IV ×3 (02:01→22:23)
[2022-03-18 03:00] VITALS: BP 119/63; PULSE 87; RESP 18; TEMP 36.9; O2SAT 95
[2022-03-18] MEDS: Acetaminophen 500 MG Tablet 1000 MG PO ×3 (06:06→22:22)
[2022-03-18] MEDS: Levothyroxine 137 MCG Tablet PO (06:06)
[2022-03-18] MEDS: APIXABAN 2.5 MG TABLET PO ×2 (06:07→22:13)
[2022-03-18 06:58] LABS: Hematocrit 37.5 % (37-47); Hemoglobin 12.4 g/dL (12.0-15.0); Mean Corp Hgb Conc 33.1 g/dL (32-36); Mean Corpuscular Hgb 30.6 pg (27.0-32.0); Mean Corpuscular Volume 92.6 fL (81-99); Mean Platelet Vol. 10.4 fl (6.2-12.0); Platelet Count 318 K/mm3 (150-450); RBC Distribution Width SD 47.8 fl (35.1-43.9); Red Blood Count 4.05 M/mm3 (4.2-5.4); White Blood Count 18.1 K/mm3 (4.4-11.0)
[2022-03-18 07:25] LABS: Anion Gap 6 (5-15); BUN 11 mg/dL (7-18); BUN/Creat Ratio 13.5 RATIO (10-20); Calcium,Total 8.6 mg/dL (8.5-10.1); Chloride 107 mmol/L (98-107); Creatinine, Serum 0.81 mg/dL (0.55-1.02); EST Glomerular Filtration Rate 75 mL/min (>60); Est Glom Filt Rate - Afr Amer 90 mL/min (>60); Glucose 133 mg/dL (74-106); Potassium 3.9 mmol/L (3.5-5.1); Sodium Level 141 mmol/L (136-145)
[2022-03-18 08:20] VITALS: BP 104/49; PULSE 68; RESP 18; TEMP 37.4; O2SAT 97
--- NOTE | 2022-03-18 09:59 | CASEMGMT ---
LAVON CM in to pt room, pt just finished with therapy. Patient has her FWW present in room. She states her therapy is set up tomorrow at 1p [facility]. She is aware if she does not dc today, she will need to reschedule her appt. Pt denies further homegoing needs.
[2022-03-18] MEDS: Senna/Docusate Sodium 1 Tablet 2 TABLET PO ×2 (10:06→22:13)
[2022-03-18] MEDS: Loratadine 10 MG Tablet PO (10:06)
[2022-03-18] MEDS: Sertraline 50 MG Tablet PO (10:07)
[2022-03-18] MEDS: Cholecalciferol (Vit D3) 125 MCG CAPSULE (5,000 UNITS) PO (10:07)
--- NOTE | 2022-03-18 13:02 | PCM.PN.ORT ---
Subjective Subjective Main complaint of pain right knee states oxycodone is not completely controlling. She has not passed any gas or had a bowel movement but she is urinating. She denies any chest pain shortness of breath fevers chills or nausea vomiting Objective Data Objective Data Vital Signs: Vital Signs Temp Pulse Resp BP Pulse Ox O2 Del Method O2 Flow Rate 99.3 F H 68 18 104/49 L 97 Room Air 4 03/18/22 08:20 03/18/22 08:20 03/18/22 08:20 03/18/22 08:20 03/18/22 08:20 03/18/22 08:20 03/17/22 13:03 Oxygen Flow Rate (L/min) 4 Oxygen Delivery Method Room Air Weight: 194 lb 0.108 oz Body Mass Index (BMI) 33.3 Intake & Output: Intake and Output for Last 24 Hours 03/16/22 03/17/22 03/18/22 23:59 23:59 23:59 Intake Total 2422 / 2822 950 / 950 Balance 2422 / 2822 950 / 950 Lab / Micro Data Result Diagrams: 03/18/22 05:55 03/18/22 05:55 Labs: Laboratory Results - last 24 hr 03/18/22 05:55: WBC 18.1 H, RBC 4.05 L, Hgb 12.4, Hct 37.5, MCV 92.6, MCH 30.6, MCHC 33.1, RDW Std Deviation 47.8 H, RDW Coeff of Lyric 14.0, Plt Count 318, MPV 10.4 03/18/22 05:55: Sodium 141, Potassium 3.9, Chloride 107, Carbon Dioxide 28.0, Anion Gap 6, BUN 11, Creatinine 0.81, Estim Creat Clear Calc 58.20, Est GFR (MDRD) Af Amer 90, Est GFR (MDRD) Non-Af 75, BUN/Creatinine Ratio 13.5, Glucose 133 H, Calcium 8.6 Micro: Microbiology 03/04/22 13:55 Nasal Secretion Nasal Screen MRSA/MSSA - Final Physical Exam Const alert, oriented x3 and no apparent distress Extremity Extremity Narrative: right knee: Dressings clean dry and intact compartments soft neurovascularly intact EHL tibialis anterior gastrocsoleus Assessment & Plan Assessment/Plan (1) S/P total knee arthroplasty: PLAN: Plan Postop day #1 right total knee arthroplasty. Patient does not feel pain is adequately controlled we will go ahead and order Toradol 15 mg every 6 hours x4 doses and increase her oxycodone to 15 mg every 4 hours for now. Continue PT OT weightbearing as tolerated discharge planning tomorrow after physical therapy in the a.m.
--- NOTE | 2022-03-18 13:18 | DCINST_ITS ---
Discharge Instructions Activity Weight Bearing Status: Weight bearing as tolerated Dressing / Incision Call your doctor if you observe: Shortness of breath and Chest pain Additional Dressing/Incision Instructions:: Ice and elevate lower extremities 2 weeks while not ambulating. Ambulation is encouraged. Weight bearing as tolerated. Use assistive devise for stability. Encourage FULL knee extension and flexion 1 time EVERY time you get up and down and MULTIPLE times per day. No showering 72 hours after surgery. Begin showering postop day #3. Remove the dressing prior to shower and gently wash with warm water and antibacterial soap then pat dry and place abdominal pad (or plain gauze) and CULLEN hose over top. This is to be done daily. Do not submerge for 3 weeks. If not showering daily after the initial 72 hours then you must clean incision and change dressing daily. Do not allow animals near the incision area. Keep clean. Follow anti- coagulation recommendations as prescribed. Do not take any NSAIDs while on blood thinner. Do not take any additional narcotic pain medication other than what was prescribed on your surgery day without discussing with physician. Narcotic medication can be addictive. Do not drink alcohol while taking narcotics. Supplement narcotic prescription with acetaminophen 1000 mg 4 times a day. Start physical therapy. If you are not currently scheduled for physical therapy or you are unsure of appointment time please call office [facility] to arrange. Call Dr. Alonso with any concerns. Follow Up Care Please Follow Up With: Landon Alonso DO When: 2 weeks Test Results: Test results from this visit will be discussed in further detail at your follow- up appointment, if applicable. Discharge Plan Admission Admit Date/Time: 03/17/22 09:38 Attending Provider: Landon Alonso Primary Care Provider: Emil Nuñez Discharge Orders/Prescriptions Prescriptions: New oxycodone 5 mg Tablet 10 - 15 mg PO Q4H PRN PRN (Reason: Pain Score 4-10) 5 Days Qty: 60 0RF Rx Instructions: wean down dosage as soon as pain allows. supplement with Tylenol. can be addictive Eliquis 2.5 mg Tablet 2.5 mg PO BID 14 Days Qty: 28 0RF Continued levocetirizine [Xyzal] 5 mg tablet 5 mg PO DAILY multivitamin [Daily Multi-Vitamin] Tablet 1 tablet PO DAILY cholecalciferol (vitamin D3) 125 mcg (5,000 unit) capsule 125 mcg PO DAILY sertraline 50 mg tablet 50 mg PO DAILY Qty: 90 3RF levothyroxine 137 mcg tablet 137 mcg PO DAILY Qty: 90 3RF trazodone 50 mg tablet 50 mg PO QHS PRN (Reason: Sleep) Qty: 90 1RF acetaminophen 500 MG tablet 1,000 mg PO Q6H PRN PRN (Reason: Pain) dicyclomine 20 mg tablet 20 mg PO BID PRN (Reason: spasm) Qty: 14 0RF omeprazole 40 mg capsule,delayed release(DR/EC) 40 mg PO QHS miscellaneous medical supply Misc 1 ea miscellaneous .PRN PRN (Reason: orthopedic aftercare) 180 Days Qty: 1 0RF Rx Instructions: Handicap placard valid from today date for 6 months. Patient to use as needed. Discontinued celecoxib 200 mg capsule 200 mg PO BID acetaminophen 650 mg Tablet 650 mg PO QHS mupirocin 2 % ointment 1 applic topical TID Qty: 22 0RF Rx Instructions: Apply a pea size amount to each nares 3 times per day, for 5 days prior to procedure. Other Ambulatory Orders: 12 Lead EKG (Routine) Location: None Selected Ordered By: Dr. Landon Alonso Referrals / Follow Up: Emil Nuñez MD [Primary Care Provider] - Disposition Disposition (needs filled in before D/C Order can be placed): Home, Self Care
[2022-03-18] MEDS: Ketorolac 15 MG/ML Vial IV ×2 (14:24→22:23)
[2022-03-18] MEDS: Bisacodyl 5 MG Tablet PO (14:24)
[2022-03-18 14:39] VITALS: BP 135/63; PULSE 78; RESP 18; TEMP 37.4; O2SAT 98
[2022-03-18] MEDS: Pantoprazole Sodium 40 MG Tablet PO (22:13)
[2022-03-18] MEDS: traZODone 50 MG Tablet PO (22:23)
[2022-03-18 22:32] VITALS: BP 122/68; PULSE 86; RESP 16; TEMP 37; O2SAT 98
[2022-03-19] MEDS: Ketorolac 15 MG/ML Vial IV (05:43)
[2022-03-19] MEDS: oxyCODONE 5 MG Tablet PO ×2 (05:44→09:38)
[2022-03-19] MEDS: Levothyroxine 137 MCG Tablet PO (05:44)
[2022-03-19] MEDS: Acetaminophen 500 MG Tablet 1000 MG PO (05:44)
[2022-03-19 05:54] VITALS: BP 123/53; PULSE 84; RESP 16; TEMP 36.8; O2SAT 97
[2022-03-19 06:36] LABS: Hematocrit 33.5 % (37-47); Hemoglobin 10.9 g/dL (12.0-15.0); Mean Corp Hgb Conc 32.5 g/dL (32-36); Mean Corpuscular Hgb 29.7 pg (27.0-32.0); Mean Corpuscular Volume 91.3 fL (81-99); Mean Platelet Vol. 10.3 fl (6.2-12.0); Platelet Count 247 K/mm3 (150-450); RBC Distribution Width CV 14.2 % (11.6-14.6); RBC Distribution Width SD 47.8 fl (35.1-43.9); Red Blood Count 3.67 M/mm3 (4.2-5.4); White Blood Count 10.5 K/mm3 (4.4-11.0)
[2022-03-19 07:54] VITALS: BP 106/58; PULSE 80; RESP 18; TEMP 36.9; O2SAT 95
--- NOTE | 2022-03-19 09:33 | CASEMGMT ---
Social Work Prior to hospitalization RNCM asked pt to bring Advance Directives with her during this hospitalization. SW met with pt and inquired if she had documents. Pt states she does have documents at home, but forgot to look for them and bring them with her. SW requested pt bring HCPOA and Living Will in when able. Pt agreeable. STEPHANIE Sandhu
[2022-03-19] MEDS: Senna/Docusate Sodium 1 Tablet 2 TABLET PO (09:34)
[2022-03-19] MEDS: Sertraline 50 MG Tablet PO (09:34)
[2022-03-19] MEDS: Loratadine 10 MG Tablet PO (09:34)
[2022-03-19] MEDS: APIXABAN 2.5 MG TABLET PO (09:34)
[2022-03-19] MEDS: Cholecalciferol (Vit D3) 125 MCG CAPSULE (5,000 UNITS) PO (09:34)
[2022-03-19] MEDS: Bisacodyl 5 MG Tablet PO (09:38)
--- NOTE | 2022-03-19 10:01 | CASEMGMT ---
LAVON CARRILLO NOTE: Pt being discharged home today. LAVON CARRILLO to room. Introduced self and role. Pt states she has changed her OP appt already. She cancelled today's appt and rescheduled it for Wednesday. She denies having any discharge planning needs or concerns. Nicole DORSEY RN, CM
--- NOTE | 2022-03-19 10:51 | PHA.DC.MR ---
Pharmacy Service has performed discharge medication reconciliation for this patient. DC Counselling materials prepared, however pt had already left hospital prior to medication counselling opportunity. Home Medications levocetirizine 5 mg tablet (Xyzal) 5 mg PO DAILY 05/10/20 cholecalciferol (vitamin D3) 125 mcg (5,000 unit) capsule 125 mcg PO DAILY 10/29/20 multivitamin (Daily Multi-Vitamin tablet) 1 tablet PO DAILY 10/29/20 acetaminophen 500 mg tablet 1,000 mg PO Q6H PRN PRN Pain 12/09/20 sertraline 50 mg tablet 50 mg PO DAILY anxiety #90 tabs 05/15/21 levothyroxine 137 mcg tablet 137 mcg PO DAILY #90 tabs 10/30/21 dicyclomine 20 mg tablet 20 mg PO BID PRN spasm #14 tabs 11/11/21 trazodone 50 mg tablet 50 mg PO QHS PRN Sleep #90 tabs 11/18/21 omeprazole 40 mg capsule,delayed release 40 mg PO QHS 03/03/22 miscellaneous medical supply 1 ea miscellaneous .PRN PRN orthopedic aftercare 6 months #1 ea 03/13/22 apixaban 2.5 mg tablet (Eliquis) 2.5 mg PO BID 14 days #28 tabs 03/18/22 oxycodone 5 mg tablet 10 - 15 mg PO Q4H PRN PRN Pain Score 4-10 5 days #60 tabs 03/18/22 The patient's discharge medication list was reviewed for discrepancies and discrepancies were resolved.
== END 2022-03-19 10:32 | disposition home or self-care (01) | DRG 470 ==
LOC: SDC 10:27 → MS3 10:27
PROVIDERS: Anesthesiology; Admitting Provider Orthopaedic Surgery; PCP Internal Medicine; Referring Provider Orthopaedic Surgery; Visit Provider Orthopaedic Surgery
PROC: 0SRC0JZ Replacement of Right Knee Joint with Synthetic Substitute, Open Approach (ICD-10-PCS; CPT 27447; principal; 2022-03-17 07:00)
DX: M17.11 Unilateral primary osteoarthritis, right knee (principal); E03.9 Hypothyroidism, unspecified; K21.9 Gastro-esophageal reflux disease without esophagitis; F41.9 Anxiety disorder, unspecified; F32.A Depression, unspecified; E66.9 Obesity, unspecified; Z68.33 Body mass index [BMI] 33.0-33.9, adult; Z96.652 Presence of left artificial knee joint; Z79.899 Other long term (current) drug therapy
CPT/HCPCS: 36415; 73560; 80048; 82962; 82985; 83735; 85027; 85610; 85730; 86850; 86900; 86901; 87077; 87081; 88305; 88311; 93005; 97110; 97116; 97162; 97166; 97530; 97535; C1776; J7120; A4216; J0702; J2405; J3475; J3490

== ENCOUNTER 2022-04-14 13:57 | Day surgery (SDC) | payer MEDICARE, OTHER, SELFPAY ==
[2022-04-14] VITALS (7 sets, daily range): BP systolic 113–135; BP diastolic 66–74; PULSE 77–85; RESP 16; TEMP 36.2–36.9; O2SAT 100; BMI 32.9
[2022-04-14] MEDS: Lactated Ringers 1,000 ML 15 ML IV (14:43)
--- NOTE | 2022-04-14 15:00 | EGD_PTH ---
PATIENT: JAMES NOE LOC: EN U#:[id number] AGE/SX: 67/F ROOM: RE04/14/[address]: Dr. Krystian Hanley DO : 1955 BED: DIS: 04/14/2022 SPEC #: [id number] RECD: 04/14/22 16:24 STATUS: KOSTAS ELIZABETH #: [id number] GERBER: 04/14/22 15:[address]: Krystian Hanley DEPT: SURGICAL PATHOLOGY RECD BY: Skyler Nolan ENTERED: 04/15/22 08:23 SP TYPE: EGD BIOPSY TAY DR: Dr. Emil Nuñez MD Tissues: A - Gastric mucous membrane B - Esophagus, NOS Procedures: Special Stain Group II Surgery Specimen Level IV Alcian Blue/PAS (control) HEADER OPERATION: EGD with biopsies and dilatation (MAC) PRE-OP DIAGNOSIS: Swallowing disorder TISSUE SUBMITTED: A ? Gastric antrum biopsy for H. pylori and path, B ? Distal esophagus biopsy MICROSCOPIC DIAGNOSIS A. Gastric antrum, biopsy: Mild gastritis. See microscopic description and comment. B. Distal esophagus, biopsy: Fragments of gastroesophageal mucosa with moderate chronic inflammation. Intestinal metaplasia (goblet cell metaplasia) not identified. See comment. SJ:rg 04/16/2022 COMMENT A. The results of immunohistochemistry for Helicobacter pylori will be reported separately ([id number]). B. Alcian blue/PAS stain with matched control is used in the evaluation of the specimen. MICROSCOPIC DESCRIPTION Slides are reviewed. A. The specimen shows fragments of gastric mucosa with chronic inflammatory cell infiltrates in the lamina propria consisting of lymphocytes and plasma cells, consistent with mild chronic gastritis. A few small lymphoid aggregates are also noted, favor benign. GROSS DESCRIPTION A - Received in fixative is one container labeled with the patient's name and designated gastric antrum biopsy. The specimen consists of two irregular fragments of light alvarado soft tissue that in aggregate measure 0.8 x 0.4 x 0.1 cm. The specimen is totally submitted in one cassette. B - Received in fixative is one container labeled with the patient's name and designated distal esophagus biopsy. The specimen consists of multiple irregular fragments of light alvarado soft tissue that in aggregate measure 1 x 0.3 x 0.1 cm. The specimen is totally submitted in one cassette. / SJ:rg 04/15/2022 TC:3 CPT: 81773 x2, 96861
--- NOTE | 2022-04-14 15:00 | IMM_PTH ---
PATIENT: JAMES NOE LOC: EN U#:[id number] AGE/SX: 67/F ROOM: RE04/14/[address]: Dr. Krystian Hanley DO : 1955 BED: DIS: 04/14/2022 SPEC #: [id number] RECD: 04/15/22 09:39 STATUS: KOSTAS REQ #: [id number] GERBER: 04/14/22 15:[address]: Krystian Hanley DEPT: IMMUNOHISTOCHEMISTRY RECD BY: Meme Rodas ENTERED: 04/15/22 09:39 SP TYPE: IMMUNO OTHR DR: Dr. Emil Nuñez MD Tissues: A - Stomach, NOS Procedures: H Pylori (initial) PHYSICIAN & INSTITUTION [place] [id number] SPECIMEN INFORMATION: Tissue Source: A ? Gastric antrum Clinical Info: Swallowing disorder Specimen Number: [id number] CPT code: 11580 METHODOLOGY: Deparaffinized sections of prefer/formalin-fixed tissue or PAP/DQ stained slides are incubated with monoclonal/polyclonal antibodies/oligonucleotide probes. Localization is made via biotin free immunoperoxidase method. Appropriate controls are performed and reacted as expected. Results on target cell population are indicated in the following table: RESULTS: ANTIBODY / CLONE RESULT Block A H Pylori (polyclonal) negative These tests were developed and their performance characteristics determined by [facility]. They may not have been cleared or approved by the U.S. Food and Drug Administration. The FDA has determined that such clearance or approval is not necessary. The above immunohistochemical/dualISH markers are ordered and reviewed by the Pathologist. INTERPRETATION: A. Gastric antrum, biopsy: Negative for Helicobacter pylori organisms. SAM:bala 04/16/2022
--- NOTE | 2022-04-14 15:18 | PCM.HP.BLA ---
History and Physical Date of Admission: 04/14/22 66 F who presents to the office today for GERD, dysphagia Long hx of GERD, was taking omeprazole 20 mg, but not every day. Had an EGD years ago, was told she had hiatal hernia and pyloric valve spasm.? She went to ED in 10/2021 for chest pain and muscle spasms that she felt in the back, she was unable to swallow, even had difficulty swallowing her saliva at that time.? This occurred after she drank very cold carbonated water.? She was treated with Bentyl at the ED and that was very effective, believed to be esophageal spasms.? She was given an Rx for dicylomine but hasn't needed it.? Omeprazole was increased to [address] Nuñez, pt notes significant improvement; her acid reflux is totally controlled, and she has had no further episodes of dysphagia. Pepcid isn't effective; when she took it she used to wake in the night with bile reflux. She decreased to one cup of coffee daily now that she is retired. Bowels are regular.? History of constipation but no issues since starting to take MiraLAX on a daily basis.? If she forgets MiraLAX then she will be constipated, she then takes docusate sodium with good results.? She denies any diarrhea.? She has no melena or hematochezia.? She has no abdominal pain.? Also has no nausea or vomiting. 11/26/2021 modified barium swallow study: Mild oropharyngeal phase dysphagia, esophageal dysphagia.? During the esophageal phase of the swallow study the patient demonstrated retention throughout the entire esophagus with little emptying after observing for more than 20 seconds, cookie trial showed retention in mid and distal esophagus with retrograde flow below UES prior to emptying. 11/[address] Nicole was negative.? 1 of her brothers had colon cancer, due to Agent Titus exposure. 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 She and her have lived all over the [place]. Comorbidities include anxiety, depression, borderline diabetes, chronic back pain, hypothyroidism, obesity, osteoarthritis, seasonal allergies. Surgical history includes cholecystectomy, hysterectomy ROS Const Constitutional: No fatigue ENT ENT: Positive for difficulty swallowing Gastro GI: Positive for difficulty swallowing; No abdominal pain, belching, bloating, change in bowel habits, change in stool character, coffee ground emesis, constipation, cramping, diarrhea, heartburn, feeling full early, excessive flatus, incontinent of stools, Vomiting blood/hematemesis, Blood in stool, loose stools, Black,tarry stools, nausea/dyspepsia, pain with swallowing, vomiting or other Musc Musculoskeletal: Positive for joint pain, back pain, stiffness and Arthritis Skin Skin: No yellowing of the eye or itchy eyes Psych Psychiatric: No anxiety and No depression Endo Endocrine: No fatigue Aller/Imm Allergy/Immunologic: No itchy eyes Adriano/Lymp Hematologic/Lymphatic: No easy bleeding or easy bruising Exam Const General: cooperative, comfortable, well developed and well groomed Eyes General: appearance normal, both eyes and all related structures Resp Effort & Inspection: normal respiratory effort GI Inspection: obesity Skin General: no rashes or lesions noted Neuro General: patient alert, patient awake and patient oriented x3 Speech: speech normal Gait: normal gait Psych Mood: euthymic mood Affect: normal affect Quality Reporting Tobacco Screening ([facility] 138) Smoking Status: Never smoker Assessment and Plan Assessment and Plan (1) Swallowing disorder: ?Status:?Chronic (2) GERD (gastroesophageal reflux disease): ?Status:?Chronic ?Plan - Tg Abdi NP, [employer]-C: 66-year-old female with GERD and dysphagia.? Since taking omeprazole on a daily basis and having an increase to 40 mg daily she has been asymptomatic.? Modified barium swallow study did show oral pharyngeal and esophageal dysphagia.? She has not had any further esophageal spasms.? She will continue omeprazole 40 mg daily.? We will schedule her for EGD to evaluate for esophagitis, Sullivan's.? I do not think she needs manometry at this time.? Follow-up 2 weeks after endoscopy. I have re-examined the patient. There are no clinical changes since date of exam.
--- NOTE | 2022-04-14 15:36 | OP.EGD_ITS ---
Patient Name: Danni Stapleton Procedure Date: 04/14/2022 3:14 PM Date of : 1955 Age: 67 Procedure: Upper GI endoscopy Indications: Dysphagia, Failure to respond to medical treatment Providers: Krystian Hanley DO Medicines: Monitored Anesthesia Care Patient Profile: This is a 67 year old female. Refer to note in patient chart for documentation of history and physical. Patient has symptoms of dysphagia with solids and chronic heartburn. Complications: No immediate complications. Procedure: Pre-Anesthesia Assessment: - Prior to the procedure, a History and Physical was performed, and patient medications and allergies were reviewed. The risks and benefits of the procedure and the sedation options and risks were discussed with the patient. All questions were answered and informed consent was obtained. Patient identification and proposed procedure were verified by the physician in the pre-procedure area. Mental Status Examination: alert and oriented. Airway Examination: normal oropharyngeal airway and neck mobility. Respiratory Examination: clear to auscultation. CV Examination: normal. Prophylactic Antibiotics: The patient does not require prophylactic antibiotics. Prior Anticoagulants: The patient has taken no previous anticoagulant or antiplatelet agents. ASA Grade Assessment: II - A patient with mild systemic disease. After reviewing the risks and benefits, the patient was deemed in satisfactory condition to undergo the procedure. The anesthesia plan was to use monitored anesthesia care (MAC). Immediately prior to administration of medications, the patient was re-assessed for adequacy to receive sedatives. The heart rate, respiratory rate, oxygen saturations, blood pressure, adequacy of pulmonary ventilation, and response to care were monitored throughout the procedure. The physical status of the patient was re-assessed after the procedure. After obtaining informed consent, the endoscope was passed under direct vision. Throughout the procedure, the patient's blood pressure, pulse, and oxygen saturations were monitored continuously. The gastroscope was introduced through the mouth, and advanced to the second part of duodenum. The upper GI endoscopy was accomplished without difficulty. The patient tolerated the procedure well. Scope In: 3:22:50 PM Scope Out: 3:31:14 PM Total Procedure Duration Time 0 hours 8 minutes 24 seconds Findings: The Z-line was irregular and was found 39 cm from the incisors. Biopsies were taken with a cold forceps for histology. Verification of patient identification for the specimen was done. Estimated blood loss was minimal. A moderate Schatzki ring was found in the lower third of the esophagus. A guidewire was placed and the scope was withdrawn. Dilation was performed with a Savary dilator with no resistance at 60 Fr. The dilation site was examined and showed moderate improvement in luminal narrowing. Estimated blood loss was minimal. A small hiatal hernia was present. Patchy mildly erythematous mucosa without bleeding was found in the gastric antrum. Biopsies were taken with a cold forceps for histology. Verification of patient identification for the specimen was done. Estimated blood loss was minimal. No gross lesions were noted in the second portion of the duodenum. Impression: - Z-line irregular, 39 cm from the incisors. Biopsied. - Moderate Schatzki ring. Dilated. - Small hiatal hernia. - Erythematous mucosa in the antrum. Biopsied. - No gross lesions in the second portion of the duodenum. Recommendation: - Discharge patient to home. - Resume previous diet. - Continue present medications. - Await pathology results. Procedure Code(s): --- Professional --- 00447, Esophagogastroduodenoscopy, flexible, transoral; with insertion of guide wire followed by passage of dilator(s) through esophagus over guide wire 11892, 59,51, Esophagogastroduodenoscopy, flexible, transoral; with biopsy, single or multiple CPT copyright 2017 [employer]. All rights reserved. The codes documented in this report are preliminary and upon final cigar and box examiner review may be revised to meet current compliance requirements. Krystian Hanley DO 04/14/2022 3:35:53 PM This report has been signed electronically. Number of Addenda: 0 Note Initiated On: 04/14/2022 3:14 PM
--- NOTE | 2022-04-14 15:37 | OP.CCLET_ITS ---
04/14/2022 Emil Nuñez MD [address] [place] [address] [place] [address] Re : Upper GI endoscopy procedure for Danni Stapleton Dear Dr. Nuñez This procedure was performed on Thursday, April 14, 2022. My impressions and recommendations are as follows: Impressions : - Z-line irregular, 39 cm from the incisors. Biopsied. - Moderate Schatzki ring. Dilated. - Small hiatal hernia. - Erythematous mucosa in the antrum. Biopsied. - No gross lesions in the second portion of the duodenum. Recommendations : - Discharge patient to home. - Resume previous diet. - Continue present medications. - Await pathology results. My findings are described in the full procedure note, which is enclosed. If I can be of further assistance, please feel free to contact me at . Sincerely, Krystian Hanley, 04/14/2022 3:35:53 PM This report has been signed electronically.
== END 2022-04-14 16:32 | disposition home or self-care (01) ==
LOC: EN 13:58 → AC 13:59
PROVIDERS: PCP Internal Medicine; Referring Provider Internal Medicine; Visit Provider Internal Medicine Gastroenterology
PROC: 0DJ08ZZ Inspection of Upper Intestinal Tract, Via Natural or Artificial Opening Endoscopic (ICD-10-PCS; CPT 43235; principal; 2022-04-14 14:55)
DX: K22.2 Esophageal obstruction (principal); K44.9 Diaphragmatic hernia without obstruction or gangrene; K29.70 Gastritis, unspecified, without bleeding; K21.9 Gastro-esophageal reflux disease without esophagitis; K59.09 Other constipation; E78.5 Hyperlipidemia, unspecified; E03.9 Hypothyroidism, unspecified; F32.A Depression, unspecified; F41.9 Anxiety disorder, unspecified; Z90.49 Acquired absence of other specified parts of digestive tract; Z90.710 Acquired absence of both cervix and uterus; Z79.899 Other long term (current) drug therapy
CPT/HCPCS: 43248; 43239; 88305; 88313; 88342; J7120; C1769; J2405

== ENCOUNTER → 2022-05-14 | Outpatient (CLI) | payer MEDICARE, OTHER, SELFPAY ==
[2022-05-14 12:50] LABS: Cholesterol 168 mg/dL (200); High Density Lipoprotein 42 mg/dL; Triglycerides 220 mg/dL; Very Low Density Lipoprotein 44 mg/dL (5-40)
[2022-05-14 13:25] LABS: Hemoglobin A1c 6.1 % (3.8-5.6)
== END | disposition home or self-care (01) ==
LOC: BIMLAB 10:08
PROVIDERS: PCP Internal Medicine; Visit Provider Internal Medicine
DX: R73.03 Prediabetes (principal); E03.8 Other specified hypothyroidism; E06.3 Autoimmune thyroiditis; E78.5 Hyperlipidemia, unspecified
CPT/HCPCS: 36415; 80061; 83036

== ENCOUNTER → 2022-05-19 | Outpatient (CLI) | payer MEDICARE, OTHER, SELFPAY ==
[2022-05-19 12:34] LABS: Absolute Lymphocyte Count 1.99 X10^3/uL (0.83-4.51); Absolute Neutrophil Count 4.2 X10^3/uL (2.0-7.7); Basophil# 0.05 X10^3/uL; Basophil% 0.7 % (0-1); Eosinophil# 0.16 X10^3/uL; Eosinophils% 2.3 % (0-5); Hematocrit 43.9 % (37-47); Hemoglobin 14.1 g/dL (12.0-15.0); Lymphocyte # 1.99 X10^3/ul (0.83-4.51); Lymphocyte % 29.1 % (19-41); Mean Corp Hgb Conc 32.1 g/dL (32-36); Mean Corpuscular Hgb 29.2 pg (27.0-32.0); Mean Corpuscular Volume 90.9 fL (81-99); Monocyte# 0.41 X10^3/uL; NRBC Flagged by Analyzer 0 % (0-5); Neutrophil % 61.6 % (47-70); Platelet Count 302 K/mm3 (150-450); RBC Distribution Width CV 13.7 % (11.6-14.6); RBC Distribution Width SD 46.1 fl (35.1-43.9); Red Blood Count 4.83 M/mm3 (4.2-5.4); White Blood Count 6.8 K/mm3 (4.4-11.0)
== END | disposition home or self-care (01) ==
LOC: BIMLAB 11:01
PROVIDERS: PCP Internal Medicine; Referring Provider Internal Medicine; Visit Provider Internal Medicine
DX: E78.5 Hyperlipidemia, unspecified (principal)
CPT/HCPCS: 36415; 85025

== ENCOUNTER → 2022-05-26 | Outpatient (CLI) | payer MEDICARE, OTHER, SELFPAY ==
--- NOTE | 2022-05-26 11:45 | BI_ITS ---
MAMMOGRAPHY - BILATERAL SCREENING REASON FOR EXAM: Female, 67 years old. Routine annual screening examination. PERTINENT HISTORY: Daughter with breast cancer. Daughter with breast cancer. TECHNIQUE: Digital bilateral breast cali (3D mammographic acquisition) in the CC and MLO projections. 2-D mediolateral oblique (MLO) and craniocaudad (CC) views of both breasts were obtained. CAD: Full Field Digital Mammography with Computer Added Detection was performed. COMPARISON: Comparison is made with prior study 03/04/2021 and 02/28/2020. FINDINGS: Breast Composition: There are scattered areas of fibroglandular density. There are no dominant masses or suspicious calcifications. Stable small benign-appearing bilateral axillary lymph nodes. No other significant abnormalities are identified. There has been no significant change since the prior study. BI/SCRN MAMM (CAD)W/CALI BILAT IMPRESSION: Stable bilateral screening mammogram. Yearly follow-up mammogram recommended. (A) ASSESSMENT CATEGORY: BIRADS Category 2: Benign. A letter regarding these results will be sent to the patient by the facility within 30 days. Approximately 10% of breast cancers are not detected by mammography. A normal mammogram should not delay biopsy of a clinically suspicious abnormality. [id number] Electronically Signed: Nhan Bennett MD at 12:42 EDT ,
== END | disposition home or self-care (01) ==
LOC: OPBI 11:44
PROVIDERS: PCP Internal Medicine; Visit Provider Internal Medicine
DX: Z12.31 Encounter for screening mammogram for malignant neoplasm of breast (principal); Z80.3 Family history of malignant neoplasm of breast
CPT/HCPCS: 77063; 77067

== ENCOUNTER → 2022-07-17 | Outpatient (CLI) | payer MEDICARE, OTHER, SELFPAY ==
[2022-07-17 14:32] LABS: Bacteria 0 SEEN /hpf (None Seen); Mucous, Urine 0 SEEN /hpf (<or=2+); Red Blood Cells-Urine 0 SEEN /hpf (0-5)
[2022-07-17 15:16] LABS: Color, Urine Straw (Yellow); Glucose, Dipstick Normal (Normal); Ketone-Dipstick 5 mg/dl (Negative); Leukocyte Esterase-Dipstick Negative /ul (Negative); Nitrite-Dipstick Negative (Negative); Occult Blood-Urine 10 /ul (Negative); Protein-Dipstick Negative (Negative); Specific Gravity, Urine 1.015 (1.002-1.030); Urine Bilirubin Dipstick Negative (Negative); Urine Clarity Clear (Clear); Urine Urobilinogen Normal (Normal)
[2022-07-17 15:53] LABS: Squamous Epithelial Cells - UA 0-5 SEEN /hpf (5-10); White Blood Cells 0-5 SEEN /hpf (0-5)
== END | disposition home or self-care (01) ==
LOC: BIMLAB 14:30
PROVIDERS: PCP Internal Medicine; Referring Provider Physician Assistant; Visit Provider Physician Assistant
DX: R35.0 Frequency of micturition (principal)
CPT/HCPCS: 81001; 87086; 87088

== ENCOUNTER → 2022-08-20 | Outpatient (CLI) | payer MEDICARE, OTHER, SELFPAY | END | disposition home or self-care (01) | PROVIDERS: PCP Internal Medicine; Visit Provider Internal Medicine | DX: J02.9 Acute pharyngitis, unspecified (principal) | CPT/HCPCS: 87635; U0003; U0005 ==

== ENCOUNTER → 2022-08-22 | Outpatient (CLI) | payer MEDICARE, OTHER, SELFPAY ==
[2022-08-22 11:23] LABS: Bacteria 0 SEEN /hpf (None Seen); Mucous, Urine 0 SEEN /hpf (<or=2+); Red Blood Cells-Urine 0 SEEN /hpf (0-5); Squamous Epithelial Cells - UA 0 SEEN /hpf (5-10); White Blood Cells 0 SEEN /hpf (0-5)
[2022-08-22 12:16] LABS: Color, Urine Yellow (Yellow); Glucose, Dipstick Normal (Normal); Ketone-Dipstick 5 mg/dl (Negative); Leukocyte Esterase-Dipstick Negative /ul (Negative); Nitrite-Dipstick Negative (Negative); Occult Blood-Urine 25 /ul (Negative); Protein-Dipstick Negative (Negative); Specific Gravity, Urine 1.015 (1.002-1.030); Urine Bilirubin Dipstick Negative (Negative); Urine Clarity Clear (Clear); Urine Urobilinogen Normal (Normal)
== END | disposition home or self-care (01) ==
LOC: LABSPEC 11:17
PROVIDERS: PCP Internal Medicine; Visit Provider Internal Medicine
DX: R82.90 Unspecified abnormal findings in urine (principal)
CPT/HCPCS: 81001; 87086; 87088

== ENCOUNTER → 2022-09-07 | Outpatient (CLI) | payer MEDICARE, OTHER, SELFPAY ==
--- NOTE | 2022-09-07 13:06 | US_ITS ---
STUDY: RENAL ULTRASOUND - COMPLETE REASON FOR EXAM: Female, 67 years old. LEFT FLANK PAIN TECHNIQUE: Ultrasound evaluation of the kidneys was performed with real-time and static braga-scale imaging. COMPARISON: None. FINDINGS: RIGHT KIDNEY: Normal location of the right kidney, which is normal in size. The right kidney measures 10.3 x 4.1 x 5.2 cm. There is a normal cortex of the right kidney. The renal cortex measures 1.2 cm. There is no right renal mass or cyst. There are no right renal calculi. There is no right hydronephrosis. DISTAL RIGHT URETER: There is non-visualization of the distal right ureter. There is no demonstrated right ureterovesical junction calculus. There is a visualized right ureteral jet. LEFT KIDNEY: Normal location of the left kidney, which is normal in size. The left kidney measures 10.4 x 4.4 x 6.2 cm. There is a normal cortex of the left kidney. The renal cortex measures 1.4 cm. There is no left renal mass or cyst. There are no left renal calculi. There is no left hydronephrosis. DISTAL LEFT URETER: There is non-visualization of the distal left ureter. There is no demonstrated left ureterovesical junction calculus. There is a visualized left ureteral jet. AORTA: There is no elongation or tortuosity of the abdominal aorta. I.V.C.: The IVC is patent. BLADDER: The bladder is sonographically normal US/Kidney and Bladder IMPRESSION: No suspicious sonographic findings Electronically Signed: Krishna Worthy MD at 14:28 EST ,
== END | disposition home or self-care (01) ==
PROVIDERS: PCP Internal Medicine; Referring Provider Urology; Visit Provider Urology
DX: R10.9 Unspecified abdominal pain (principal)
CPT/HCPCS: 76770

== ENCOUNTER → 2022-11-10 | Outpatient (CLI) | payer MEDICARE, OTHER, SELFPAY ==
[2022-11-10 13:25] LABS: ALB/GLOB Ratio 0.9 RATIO (0.9-2.4); AST(SGOT) 17 U/L (15-37); Alanine Aminotransfer ALT/SGPT 19 U/L (13-56); Albumin, Serum 3.2 g/dL (3.2-5.0); Alkaline Phosphatase 77 U/L (45-117); Anion Gap 5 (5-15); BUN 19 mg/dL (7-18); BUN/Creat Ratio 23.8 RATIO (10-20); Chloride 106 mmol/L (98-107); Cholesterol 211 mg/dL (200); EST Glomerular Filtration Rate 76 mL/min (>60); Est Glom Filt Rate - Afr Amer 92 mL/min (>60); Globulin 3.6 g/dL (2.2-4.2); Glucose 112 mg/dL (74-106); High Density Lipoprotein 46 mg/dL; Potassium 4.6 mmol/L (3.5-5.1); Protein, Total 6.8 g/dL (6.4-8.2); Sodium Level 137 mmol/L (136-145); Triglycerides 162 mg/dL; Very Low Density Lipoprotein 32 mg/dL (5-40)
[2022-11-10 13:59] LABS: Hemoglobin A1c 6.1 % (3.8-5.6)
== END | disposition home or self-care (01) ==
LOC: BIMLAB 09:44
PROVIDERS: PCP Internal Medicine; Referring Provider Internal Medicine; Visit Provider Internal Medicine
DX: E78.5 Hyperlipidemia, unspecified (principal); E11.9 Type 2 diabetes mellitus without complications; E03.8 Other specified hypothyroidism; E06.3 Autoimmune thyroiditis
CPT/HCPCS: 36415; 80053; 80061; 83036; 84443

== ENCOUNTER → 2023-02-11 | Outpatient (CLI) | payer MEDICARE, OTHER, SELFPAY ==
[2023-02-11 16:23] LABS: Bacteria 0 SEEN /hpf (None Seen); Mucous, Urine 0 SEEN /hpf (<or=2+); Red Blood Cells-Urine 0 SEEN /hpf (0-5); Squamous Epithelial Cells - UA 0 SEEN /hpf (5-10); White Blood Cells 0 SEEN /hpf (0-5)
[2023-02-11 16:51] LABS: Color, Urine Straw (Yellow); Glucose, Dipstick Normal (Normal); Ketone-Dipstick Negative (Negative); Leukocyte Esterase-Dipstick Negative /ul (Negative); Nitrite-Dipstick Negative (Negative); Occult Blood-Urine Negative /ul (Negative); Protein-Dipstick Negative (Negative); Urine Bilirubin Dipstick Negative (Negative); Urine Clarity Clear (Clear); Urine Urobilinogen Normal (Normal)
== END | disposition home or self-care (01) ==
LOC: LABSPEC 15:49
PROVIDERS: PCP Internal Medicine; Referring Provider Internal Medicine; Visit Provider Internal Medicine
DX: R30.0 Dysuria (principal)
CPT/HCPCS: 81001

== ENCOUNTER → 2023-03-03 | Outpatient (CLI) | payer MEDICARE, OTHER, SELFPAY ==
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
== END | disposition home or self-care (01) ==
LOC: CT 07:19
PROVIDERS: PCP Internal Medicine; Referring Provider Anesthesiology Pain Medicine; Visit Provider Anesthesiology Pain Medicine
DX: M54.12 Radiculopathy, cervical region (principal)
CPT/HCPCS: 72125

== ENCOUNTER 2023-04-12 10:21 | Emergency (ER) | payer MEDICARE, OTHER, SELFPAY ==
[2023-04-12 10:22] VITALS: BP 153/91; PULSE 95; RESP 22; TEMP 35.8; O2SAT 99; BMI 34.3
--- NOTE | 2023-04-12 11:25 | EX.ED.GENINJ ---
HPI <DOM Odonnell - Last Filed: 04/12/23 13:20> History of Present Illness Chief Complaint: Other, Pain/Inj Narrative Narrative: Patient presenting today due to chronic neck and shoulder pain that she has had for the past several months that is being treated by pain management with Dr. Torres. 10 days ago she had a injection to her neck and has had worsened neck pain since. She has been taking ibuprofen and Tylenol with minimal relief of her symptoms. She does follow-up with him tomorrow but is in too much pain to wait until then. She denies any radicular symptoms, fever, chills, headache, abdominal pain, nausea, and vomiting. PFS <DOM Odonnell - Last Filed: 04/12/23 13:20> [facility] Medical History Abnormal urinalysis Anxiety and depression Borderline diabetes Burning with urination Chronic back pain Chronic constipation Dental root implant present Difficulty swallowing Gastric reflux GERD (gastroesophageal reflux disease) Health care maintenance Hearing loss, left Heartburn Hematuria History of hiatal hernia Hyperlipidemia Hypothyroidism Injury of back Injury of head and neck Knee pain Limb weakness MRSA infection Non-smoker Obesity Osteoarthritis Osteoarthritis of right knee Post-menopausal Prediabetes Preoperative evaluation to rule out surgical contraindication Preventative health care Seasonal allergies Shortness of breath on exertion Sore throat Swallowing disorder Thyroid disease Type 2 diabetes mellitus Wears glasses Home Medications levocetirizine 5 mg tablet (Xyzal) 5 mg PO QHS 05/10/20 [History Last Taken 03/16/22] acetaminophen 500 mg tablet 1,000 mg PO Q6H PRN PRN Pain 12/09/20 [History Last Taken 03/16/22] diclofenac sodium 1 % topical gel (Voltaren Arthritis Pain) 4 g topical ONCE #100 grams 05/19/22 [Rx Last Taken Unknown] cyclobenzaprine 10 mg tablet 10 mg PO HS #90 tabs 11/12/22 [Rx Last Taken Unknown] levothyroxine 137 mcg tablet 137 mcg PO DAILY #90 tabs 11/12/22 [Rx Last Taken Unknown] omeprazole 40 mg capsule,delayed release 40 mg PO QHS #90 caps 11/12/22 [Rx Last Taken Unknown] sertraline 50 mg tablet 50 mg PO DAILY anxiety #90 tabs 11/12/22 [Rx Last Taken Unknown] trazodone 50 mg tablet 50 mg PO QHS PRN Sleep #90 tabs 11/12/22 [Rx Last Taken Unknown] celecoxib 200 mg capsule (Celebrex) 200 mg PO QHS PRN pain #90 caps 02/03/23 [Rx Last Taken Unknown] docusate sodium 100 mg capsule (Colace) 500 mg PO DAILY 02/11/23 [History Last Taken Unknown] Allergy/AdvReac Type Severity Reaction Status Date / Time morphine AdvReac Severe hallucinati Verified 03/15/23 13:59 ons Family History Brother Heart disease Cancer Surgical History History of bilateral cataract extraction History of cholecystectomy History of esophagogastroduodenoscopy (EGD) History of hysterectomy History of knee replacement procedure of left knee History of lumbar laminectomy History of replacement of both shoulder joints History of right hip replacement (~04/16/20) History of surgery History of tonsillectomy History of total right knee replacement Hx of release of tendon Social History Smoking Status: Never smoker alcohol intake: never substance use type: does not use what type of physical activity do you participate in: swimming frequency: 1-2 times per week ROS <DOM Odonnell - Last Filed: 04/12/23 13:20> ROS ED Constitutional Constitutional ED: Denies chills or fever(s) Eyes Eyes: Denies change in vision Cardiovascular Cardiovascular: Denies chest pain Respiratory/Chest Respiratory/Chest: Denies cough or dyspnea Gastrointestinal Gastrointestinal: Denies abdominal pain, nausea or vomiting Musculoskeletal Musculoskeletal: Reports myalgias and neck pain Integumentary Denies rash Neurologic Neurologic: Denies headache(s), paresthesias or weakness EXAM <DOM Odonnell - Last Filed: 04/12/23 13:20> Physical Exam Const Vital Signs: 04/12/23 10:22 04/12/23 12:21 04/12/23 12:21 Temperature 96.4 F L Temperature Source Temporal Pulse Rate 95 Respiratory Rate 22 H 18 Respiratory Effort Normal Non-Labored Respiratory Pattern Normal Blood Pressure 153/91 H Blood Pressure Mean 111 Pulse Ox 99 Oxygen Delivery Method Room Air Positive well nourished, well developed and no apparent distress General Appearance ED: well developed HEENT Reports normocephalic and head/scalp atraumatic Mouth ED: Yes moist mucous membranes normal Eyes PERRL and EOMs intact bilaterally Neck full ROM and supple Neck Narrative: No cervical midline tenderness, tenderness to the trapezius muscles bilaterally Chest Wall inspection of chest normal Resp normal respiratory effort and clear to auscultation bilaterally Cardio regular rate and regular rhythm GI soft to palpation, non-tender, non-distended and no masses Back/Spine normal ROM and normal to inspection Extremity normal to inspection and full ROM Neuro oriented x3, CN's II-XII intact bilaterally, moves all extremities, no focal motor deficits and no sensory deficits noted Sensorium / Orientation: awake and alert Psych mental status grossly normal and thought process normal Skin no rashes or lesions noted and no wounds <Dr. Laura Gallego DO - Last Filed: 05/02/23 08:19> Physical Exam Const Vital Signs: 04/12/23 10:22 04/12/23 12:21 04/12/23 12:21 Temperature 96.4 F L Temperature Source Temporal Pulse Rate 95 Respiratory Rate 22 H 18 Respiratory Effort Normal Non-Labored Respiratory Pattern Normal Blood Pressure 153/91 H Blood Pressure Mean 111 Pulse Ox 99 Oxygen Delivery Method Room Air MDM <DOM Odonnell - Last Filed: 04/12/23 13:20> [facility] Narrative Medical decision making narrative: Patient presenting today due to chronic neck and shoulder pain at that is being followed by pain management. She has significant tenderness to her trapezius muscles bilaterally. No midline tenderness. She has had worsening pain after having a injection to her neck by Dr. Torres 10 days ago. She follows up with him in the office tomorrow. She has been taking Flexeril, ibuprofen, Tylenol, lidocaine patches, and Lortab at home without any relief of her symptoms. I did offer to give her medication here for her pain but she reported that she does not really like to take narcotics because they can make her stomach hurt and opted to try Toradol, Norflex, and a lidocaine patch. After speaking with the attending, patient would like to pursue a stronger pain medication and will be given a dose of Dilaudid. She denies any radiculopathy symptoms. On reexamination patient reports very little improvement of her symptoms, she would like to go home. She is following up with pain management tomorrow. She has medication at home that she can take for pain. She be discharged home in stable condition and is comfortable with plan. I have personally performed a face to face assessment of the patient and have reviewed the TAMI Note. I performed a substantive portion of the visit including all aspects of the following. My moeller findings include: History is [patient presents with pain in her neck and shoulders that she has had for months. Patient was seen by pain management about 10 days ago and had injection that did not seem to help. Patient has Lortab at home as well as oxycodone and its not helping her pain. Patient has tried lidocaine patches as well as ibuprofen and Tylenol and not get much pain relief. She denies any pain radiating down her arms. She denies weakness in the extremities. Patient had a CT scan of her neck 1 month ago that showed degenerative changes. She has not had any falls or injury since. Patient is scheduled to see pain management again tomorrow. She was just having increased pain today.] Exam is [HEENT-PERRLA, EOMI. Cranial nerves II through XII grossly intact. TMs clear. Mucous membranes moist. No adenopathy. Neck-patient has tenderness palpation over left trapezius that seems to reproduce her pain. Patient has some faint ecchymosis and bruising over the trapezius which patient states that is from her injection and also she had a massage to the area to try to resolve the issue unsuccessfully. No evidence of erythema or warmth or cellulitic changes. Cardiovascular-regular rate and rhythm without murmur or ectopy Lungs-clear to auscultation, chest wall stable without crepitus or subcu emphysema Abdomen-normoactive bowel sounds, soft, nontender, no rebound or rigidity, no peritoneal signs. Extremities-intact ?4, normal range of motion, normal pulses, atraumatic] Medical Decison Making [patient will be medicated with Toradol and Dilaudid to try to manage her pain. I do not feel any further imaging is indicated. Patient will keep her appointment with pain management tomorrow. Patient with atraumatic chronic neck pain. Suspect her pain is more muscular involving her trapezius. There is no signs or symptoms of radiculopathy.] Other additions or changes: [None] <Dr. Laura Gallego, DO - Last Filed: 05/02/23 08:19> [facility] Narrative Medical decision making narrative: Patient presenting today due to chronic neck and shoulder pain at that is being followed by pain management. She has had worsening pain after having a injection to her neck by Dr. Torres 10 days ago. She follows up with him in the office tomorrow. She has been taking Flexeril, ibuprofen, Tylenol, lidocaine patches, and Lortab at home without any relief of her symptoms. I did offer to give her medication here for her pain but she reported that she does not really like to take narcotics because they can make her stomach hurt and opted to try Toradol, Norflex, and a lidocaine patch. I have personally performed a face to face assessment of the patient and have reviewed the TAMI Note. I performed a substantive portion of the visit including all aspects of the following. My moeller findings include: History is [patient presents with pain in her neck and shoulders that she has had for months. Patient was seen by pain management about 10 days ago and had injection that did not seem to help. Patient has Lortab at home as well as oxycodone and its not helping her pain. Patient has tried lidocaine patches as well as ibuprofen and Tylenol and not get much pain relief. She denies any pain radiating down her arms. She denies weakness in the extremities. Patient had a CT scan of her neck 1 month ago that showed degenerative changes. She has not had any falls or injury since. Patient is scheduled to see pain management again tomorrow. She was just having increased pain today.] Exam is [HEENT-PERRLA, EOMI. Cranial nerves II through XII grossly intact. TMs clear. Mucous membranes moist. No adenopathy. Neck-patient has tenderness palpation over left trapezius that seems to reproduce her pain. Patient has some faint ecchymosis and bruising over the trapezius which patient states that is from her injection and also she had a massage to the area to try to resolve the issue unsuccessfully. No evidence of erythema or warmth or cellulitic changes. Cardiovascular-regular rate and rhythm without murmur or ectopy Lungs-clear to auscultation, chest wall stable without crepitus or subcu emphysema Abdomen-normoactive bowel sounds, soft, nontender, no rebound or rigidity, no peritoneal signs. Extremities-intact ?4, normal range of motion, normal pulses, atraumatic] Medical Decison Making [patient will be medicated with Toradol and Dilaudid to try to manage her pain. I do not feel any further imaging is indicated. Patient will keep her appointment with pain management tomorrow. Patient with atraumatic chronic neck pain. Suspect her pain is more muscular involving her trapezius. There is no signs or symptoms of radiculopathy.] Other additions or changes: [None] Discharge Plan Triage Chief Complaint: Other, Pain/Inj ED Midlevel Provider: Faiza Kulkarni ED Provider: Laura Gallego Dx/Rx/DC Orders Clinical Impression: Neck pain, chronic, Chronic shoulder pain Instructions: ED Myalgias Prescriptions: No Action levocetirizine [Xyzal] 5 mg tablet 5 mg PO QHS diclofenac sodium [Voltaren Arthritis Pain] 1 % gel 4 g topical ONCE Qty: 100 2RF Rx Instructions: apply to single knee, ankle, foot; for foot includes sole/toes/top of foot cyclobenzaprine 10 mg tablet 10 mg PO HS Qty: 90 3RF levothyroxine 137 mcg tablet 137 mcg PO DAILY Qty: 90 3RF sertraline 50 mg tablet 50 mg PO DAILY Qty: 90 3RF trazodone 50 mg tablet 50 mg PO QHS PRN (Reason: Sleep) Qty: 90 3RF omeprazole 40 mg capsule,delayed release(DR/EC) 40 mg PO QHS Qty: 90 3RF docusate sodium [Colace] 100 mg capsule 500 mg PO DAILY acetaminophen 500 MG tablet 1,000 mg PO Q6H PRN PRN (Reason: Pain) celecoxib [Celebrex] 200 mg capsule 200 mg PO QHS PRN (Reason: pain) Qty: 90 1RF Primary Care Provider: Emil Nuñez Referrals: Drew Torres MD [Med Staff - Active Staff] - 1 Day Emil Nuñez MD [Primary Care Provider] - As Needed Activity Restrictions/Additional Instructions: Please follow-up with Dr. Torres at your appointment tomorrow. Disposition Disposition: Home, Self Care Discharge Date/Time: 04/12/23 13:05
[2023-04-12 12:21] VITALS: RESP 18
[2023-04-12] MEDS: Lidocaine 5% Patch 1 PATCH TOPICAL (12:23)
[2023-04-12] MEDS: Orphenadrine 100 MG Tablet PO (12:24)
[2023-04-12] MEDS: Ondansetron 4 MG/2 ML Vial IM (12:33)
[2023-04-12] MEDS: HYDROmorphone 1 MG/ML Syringe IM (12:34)
== END 2023-04-12 13:05 | disposition home or self-care (01) ==
PROVIDERS: Emergency Provider Emergency Medicine; PCP Internal Medicine; Visit Provider Emergency Medicine
DX: M54.2 Cervicalgia (principal); M25.519 Pain in unspecified shoulder; G89.29 Other chronic pain
CPT/HCPCS: 96372; 99283; J2405

== ENCOUNTER → 2023-05-07 | Outpatient (CLI) | payer MEDICARE, OTHER, SELFPAY ==
[2023-05-07 12:14] LABS: Absolute Lymphocyte Count 2.26 X10^3/uL (0.83-4.51); Absolute Neutrophil Count 4.8 X10^3/uL (2.0-7.7); Basophil# 0.06 X10^3/uL; Basophil% 0.8 % (0-1); Eosinophil# 0.19 X10^3/uL; Eosinophils% 2.5 % (0-5); Hematocrit 45.7 % (37-47); Hemoglobin 14.8 g/dL (12.0-15.0); Lymphocyte # 2.26 X10^3/ul (0.83-4.51); Lymphocyte % 29.2 % (19-41); Mean Corp Hgb Conc 32.4 g/dL (32-36); Mean Corpuscular Hgb 29.8 pg (27.0-32.0); Mean Platelet Vol. 9.9 fl (6.2-12.0); Monocyte# 0.35 X10^3/uL; Monocyte% 4.5 % (0-10); NRBC Flagged by Analyzer 0 % (0-5); Neutrophil # 4.84 X10^3/uL (2.7-7.7); Neutrophil % 62.5 % (47-70); Platelet Count 361 K/mm3 (150-450); RBC Distribution Width CV 13.6 % (11.6-14.6); RBC Distribution Width SD 46.2 fl (35.1-43.9); Red Blood Count 4.97 M/mm3 (4.2-5.4); White Blood Count 7.7 K/mm3 (4.4-11.0)
[2023-05-07 12:23] LABS: Erythrocyte Sedimentation Rate 51 mm/hr (0-30)
[2023-05-07 13:13] LABS: Hemoglobin A1c 6.3 % (3.8-5.6)
[2023-05-07 13:14] LABS: ALB/GLOB Ratio 0.8 RATIO (0.9-2.4); AST(SGOT) 19 U/L (15-37); Alanine Aminotransfer ALT/SGPT 39 U/L (13-56); Albumin, Serum 3.3 g/dL (3.2-5.0); Alkaline Phosphatase 76 U/L (45-117); Anion Gap 5 (5-15); BUN 19 mg/dL (7-18); BUN/Creat Ratio 24.9 RATIO (10-20); Chloride 107 mmol/L (98-107); Cholesterol 203 mg/dL (200); Creatinine, Serum 0.76 mg/dL (0.55-1.02); EST Glomerular Filtration Rate 80 mL/min (>60); Est Glom Filt Rate - Afr Amer 97 mL/min (>60); Globulin 4.1 g/dL (2.2-4.2); Glucose 122 mg/dL (74-106); High Density Lipoprotein 46 mg/dL; Potassium 4.6 mmol/L (3.5-5.1); Protein, Total 7.4 g/dL (6.4-8.2); Sodium Level 139 mmol/L (136-145); Thyroid Stim Hormone (TSH) 3.68 uIU/mL (0.358-3.74); Triglycerides 198 mg/dL; Very Low Density Lipoprotein 40 mg/dL (5-40)
[2023-05-07 13:28] LABS: Microalbumin,Random Urine 7.8 mg/L (NO RANGE EST.)
[2023-05-13 18:07] LABS: HLA B27 Negative (.)
== END | disposition home or self-care (01) ==
LOC: BIMLAB 10:20
PROVIDERS: Orthopaedic Surgery; PCP Internal Medicine; Referring Provider Internal Medicine; Visit Provider Internal Medicine
DX: E11.9 Type 2 diabetes mellitus without complications (principal); M45.9 Ankylosing spondylitis of unspecified sites in spine; G47.00 Insomnia, unspecified; E03.9 Hypothyroidism, unspecified
CPT/HCPCS: 36415; 80053; 80061; 81374; 82043; 82570; 83036; 84443; 85025; 85652; 86140

== ENCOUNTER → 2023-05-13 | Outpatient (CLI) | payer MEDICARE, OTHER, SELFPAY ==
[2023-05-13 17:04] LABS: Rheumatoid Factor < 10.0 IU/mL (<15)
[2023-05-15 16:08] LABS: CCP IgG Antibodies 3 units (0-19)
[2023-05-17 13:07] LABS: ANTINUCLEAR ANTIBODIES DIRECT Negative (Negative)
== END | disposition home or self-care (01) ==
LOC: BIMLAB 16:03
PROVIDERS: PCP Internal Medicine; Referring Provider Internal Medicine; Visit Provider Internal Medicine
DX: M19.90 Unspecified osteoarthritis, unspecified site (principal)
CPT/HCPCS: 36415; 86038; 86200; 86225; 86235; 86431

== ENCOUNTER → 2023-05-27 | Outpatient (CLI) | payer MEDICARE, OTHER, SELFPAY ==
--- NOTE | 2023-05-27 12:17 | BI_ITS ---
MAMMOGRAPHY - BILATERAL SCREENING REASON FOR EXAM: Female, 68 years old. Routine annual screening examination. PERTINENT HISTORY: Daughter with breast cancer. Aunt with breast cancer. TECHNIQUE: Digital bilateral breast cali (3D mammographic acquisition) in the CC and MLO projections. 2-D mediolateral oblique (MLO) and craniocaudad (CC) views of both breasts were obtained. CAD: Full Field Digital Mammography with Computer Added Detection was performed. COMPARISON: Comparison is made with prior examination of May 26, 2022 and March 04, 2021. FINDINGS: Breast Composition: There are scattered areas of fibroglandular density. There are no dominant masses or suspicious calcifications. Stable small benign-appearing bilateral axillary lymph nodes. No other significant abnormalities are identified. There has been no significant change since the prior study. BI/SCRN MAMM (CAD)W/CALI BILAT IMPRESSION: Stable bilateral screening mammogram. Yearly follow-up mammogram recommended. (A) ASSESSMENT CATEGORY: BIRADS Category 2: Benign. A letter regarding these results will be sent to the patient by the facility within 30 days. Approximately 10% of breast cancers are not detected by mammography. A normal mammogram should not delay biopsy of a clinically suspicious abnormality. [id number] Electronically Signed: Nhan Bennett MD at 13:49 EDT ,
== END | disposition home or self-care (01) ==
LOC: OPBI 12:17
PROVIDERS: PCP Internal Medicine; Referring Provider Internal Medicine; Visit Provider Internal Medicine
DX: Z12.31 Encounter for screening mammogram for malignant neoplasm of breast (principal)
CPT/HCPCS: 77063; 77067

== ENCOUNTER → 2023-06-04 | Outpatient (CLI) | payer MEDICARE, OTHER, SELFPAY ==
--- NOTE | 2023-06-04 15:45 | MRI_ITS ---
EXAM: MR CERVICAL SPINE WITHOUT INTRAVENOUS CONTRAST CLINICAL INDICATION: pain TECHNIQUE: Multiplanar and multisequence MR images of the cervical spine without intravenous contrast were performed. COMPARISON: X-ray 05/06/2023, CT 05/15/2019. FINDINGS: VERTEBRAE: Unremarkable. Normal vertebral bodies and posterior elements. Normal alignment. Normal craniocervical junction and cervicothoracic junction. No spondylolisthesis. There is preservation of the normal cervical lordosis. SPINAL CORD: Unremarkable in signal and morphology. SOFT TISSUES: Unremarkable. No prevertebral soft tissue swelling. LYMPH NODES: Unremarkable. There is no cervical adenopathy. DISCS/SPINAL CANAL/NEURAL FORAMINA: C2-3: Normal disc height and morphology. Normal central canal. Foramina are patent. C3-4: Normal disc height and morphology. Mild spondylotic bar. Borderline canal stenosis due to spondylosis and shortened pedicles. Foraminal stenosis is mild on the right and severe on the left due to uncinate hypertrophy. C4-5: Normal disc height and morphology. Normal central canal. Mild spondylotic bar. No canal stenosis. Severe foraminal stenosis due to uncinate hypertrophy. C5-6: Marked disc space narrowing. Mild spondylotic bar causing mild cord flattening and borderline canal stenosis. Short pedicles are contributory. Foraminal stenosis is mild on the left and moderate on the right due to uncinate hypertrophy. C6-7: Marked disc space narrowing. Mild spondylotic bar causes mild cord flattening and borderline canal stenosis. Foramina are patent. C7-T1: Normal disc height and morphology. Small, central, noncompressive protrusion appears predominantly spondylotic. No canal stenosis. Foramina are patent. MRI/Spine Cervical (Routine) IMPRESSION: Mild cord flattening and borderline canal stenosis at C5-6 and C6-7 due to spondylosis. Electronically Signed: Chey Pascual MD at 18:23 EDT Reading Location ID and State: [id number] / Tel , Service support ,
== END | disposition home or self-care (01) ==
LOC: MRI 15:40
PROVIDERS: PCP Internal Medicine; Referring Provider Orthopaedic Surgery; Visit Provider Orthopaedic Surgery
DX: M48.10 Ankylosing hyperostosis [Forestier], site unspecified (principal)
CPT/HCPCS: 72141

== ENCOUNTER → 2023-11-11 | Outpatient (CLI) | payer MEDICARE, OTHER, SELFPAY ==
[2023-11-11 16:43] LABS: Absolute Lymphocyte Count 2.64 X10^3/uL (0.83-4.51); Basophil# 0.06 X10^3/uL; Basophil% 0.7 % (0-1); Eosinophil# 0.38 X10^3/uL; Eosinophils% 4.4 % (0-5); Hematocrit 43.2 % (37-47); Hemoglobin 14.1 g/dL (12.0-15.0); Lymphocyte # 2.64 X10^3/ul (0.83-4.51); Lymphocyte % 30.8 % (19-41); Mean Corp Hgb Conc 32.6 g/dL (32-36); Mean Corpuscular Hgb 29.6 pg (27.0-32.0); Mean Corpuscular Volume 90.8 fL (81-99); Mean Platelet Vol. 9.7 fl (6.2-12.0); Monocyte# 0.48 X10^3/uL; Monocyte% 5.6 % (0-10); NRBC Flagged by Analyzer 0 % (0-5); Neutrophil # 4.99 X10^3/uL (2.7-7.7); Neutrophil % 58.2 % (47-70); Platelet Count 368 K/mm3 (150-450); RBC Distribution Width CV 13.8 % (11.6-14.6); RBC Distribution Width SD 46.2 fl (35.1-43.9); Red Blood Count 4.76 M/mm3 (4.2-5.4); White Blood Count 8.6 K/mm3 (4.4-11.0)
[2023-11-11 17:16] LABS: ALB/GLOB Ratio 0.8 RATIO (0.9-2.4); AST(SGOT) 16 U/L (15-37); Alanine Aminotransfer ALT/SGPT 23 U/L (13-56); Albumin, Serum 3.4 g/dL (3.2-5.0); Alkaline Phosphatase 88 U/L (45-117); Anion Gap 4 (5-15); BUN 19 mg/dL (7-18); BUN/Creat Ratio 23.8 RATIO (10-20); Chloride 106 mmol/L (98-107); EST Glomerular Filtration Rate 76 mL/min (>60); Est Glom Filt Rate - Afr Amer 92 mL/min (>60); Glucose 171 mg/dL (74-106); Potassium 4.3 mmol/L (3.5-5.1); Protein, Total 7.4 g/dL (6.4-8.2); Sodium Level 138 mmol/L (136-145)
== END | disposition home or self-care (01) ==
LOC: BIMLAB 15:54
PROVIDERS: PCP Internal Medicine; Referring Provider Internal Medicine; Visit Provider Internal Medicine
DX: E11.9 Type 2 diabetes mellitus without complications (principal)
CPT/HCPCS: 36415; 80053; 85025

== ENCOUNTER → 2024-05-09 | Outpatient (CLI) | payer MEDICARE, OTHER, SELFPAY ==
[2024-05-09 12:32] LABS: Absolute Lymphocyte Count 2.24 X10^3/uL (0.83-4.51); Absolute Neutrophil Count 4.7 X10^3/uL (2.0-7.7); Basophil# 0.05 X10^3/uL; Basophil% 0.6 % (0-1); Eosinophil# 0.21 X10^3/uL; Eosinophils% 2.7 % (0-5); Hematocrit 42.5 % (37-47); Hemoglobin 13.6 g/dL (12.0-15.0); Lymphocyte # 2.24 X10^3/ul (0.83-4.51); Lymphocyte % 28.5 % (19-41); Mean Corpuscular Hgb 28.9 pg (27.0-32.0); Mean Corpuscular Volume 90.4 fL (81-99); Monocyte% 7.6 % (0-10); NRBC Flagged by Analyzer 0 % (0-5); Neutrophil # 4.72 X10^3/uL (2.7-7.7); Neutrophil % 60.2 % (47-70); Platelet Count 315 K/mm3 (150-450); RBC Distribution Width CV 13.8 % (11.6-14.6); RBC Distribution Width SD 45.8 fl (35.1-43.9); White Blood Count 7.9 K/mm3 (4.4-11.0)
[2024-05-09 12:49] LABS: Vitamin B12 446 pg/mL (211-911); Vitamin D,25 Hydroxy 48.8 ng/mL
[2024-05-09 12:55] LABS: Hemoglobin A1c 6.5 % (3.8-5.6)
[2024-05-09 13:08] LABS: Cholesterol 218 mg/dL (200); High Density Lipoprotein 49 mg/dL; Triglycerides 213 mg/dL; Very Low Density Lipoprotein 43 mg/dL (5-40)
== END | disposition home or self-care (01) ==
LOC: BIMLAB 10:39
PROVIDERS: PCP Internal Medicine; Referring Provider Internal Medicine; Visit Provider Internal Medicine
DX: E78.5 Hyperlipidemia, unspecified (principal); E11.9 Type 2 diabetes mellitus without complications; E55.9 Vitamin D deficiency, unspecified; E03.9 Hypothyroidism, unspecified
CPT/HCPCS: 36415; 80061; 82306; 82607; 83036; 84443; 85025

== ENCOUNTER → 2024-06-07 | Outpatient (CLI) | payer MEDICARE, OTHER, SELFPAY | END | disposition home or self-care (01) | PROVIDERS: PCP Internal Medicine; Referring Provider Internal Medicine; Visit Provider Internal Medicine | DX: E11.69 Type 2 diabetes mellitus with other specified complication (principal); E78.5 Hyperlipidemia, unspecified ==

== ENCOUNTER → 2024-06-22 | Outpatient (CLI) | payer MEDICARE, OTHER, SELFPAY ==
--- NOTE | 2024-06-22 12:03 | BI_ITS ---
MAMMOGRAPHY - BILATERAL SCREENING REASON FOR EXAM: Female, 69 years old. Routine annual screening examination. PERTINENT HISTORY: Daughter with breast cancer. Aunt with breast cancer. TECHNIQUE: Digital bilateral breast cali (3D mammographic acquisition) in the CC and MLO projections. 2-D mediolateral oblique (MLO) and craniocaudad (CC) views of both breasts were obtained. CAD: Full Field Digital Mammography with Computer Added Detection was performed. COMPARISON: Comparison is made with prior study dated May 27, 2023 and May 26, 2022. FINDINGS: Breast Composition: The breasts are almost entirely fatty. There are no dominant masses or suspicious calcifications. Stable small benign-appearing bilateral axillary lymph nodes. No other significant abnormalities are identified. There has been no significant change since the prior study. BI/SCRN MAMM (CAD)W/CALI BILAT IMPRESSION: Stable bilateral screening mammogram. Yearly follow-up mammogram recommended. (A) ASSESSMENT CATEGORY: BIRADS Category 2: Benign. A letter regarding these results will be sent to the patient by the facility within 30 days. Approximately 10% of breast cancers are not detected by mammography. A normal mammogram should not delay biopsy of a clinically suspicious abnormality. [id number] Electronically Signed: Nhan Bennett MD at 15:21 EST ,
--- NOTE | 2024-06-22 12:06 | BD_ITS ---
STUDY: DUAL ENERGY X-RAY ABSORPTIOMETRY / DXA REASON FOR EXAM: Female, 69 years old. Post Menopausal TECHNIQUE: Bone Mineral Density (BMD) measurements of lumbar spine and left hip were obtained. COMPARISON: None. FINDINGS: Lumbar Spine (L1-L4): g/cm2 (1.506) / T-score (4.2) / Z-score (6.2) Findings are suggestive of normal bone density with a low fracture risk. Left Femur Total: g/cm2 (1.049) / T-score (0.9) / Z-score (2.3) Left Femoral Neck: g/cm2 (0.886) / T-score (0.3) / Z-score (2.1) BD/Dexa Bone Density Study IMPRESSION: The patient is considered normal as outlined below according to World Wilber Organization (WHO) criteria with a low fracture risk. Reference Information: The T-score is the number of standard deviations above or below the standard which is normal for young adults at their peak bone mineral density. The World Health Organization (WHO) interprets the T-scores as follows: Above -1 Normal bone density Between -1 and -2.5 Osteopenia Equal to / or below -2.5 Osteoporosis As a practical clinical guideline, osteopenia may be graded as follows: Mild -1 through -1.5 Moderate -1.6 through -2.0 Severe -2.1 through -2.4 The Z-score is the number of standard deviations above or below age-matched controls. A Z-score of less than -1.5 would be considered abnormal. References: 1. NIH Osteoporosis and Related Bone Diseases www osteo.org 2. International Society for Clinical Densitometry www iscd.org 3. National Osteoporosis Foundation www nof.org Electronically Signed: Nhan Bennett MD at 14:45 EST ,
== END | disposition home or self-care (01) ==
LOC: OPBD 12:02
PROVIDERS: PCP Internal Medicine; Referring Provider Internal Medicine; Visit Provider Internal Medicine
DX: Z12.31 Encounter for screening mammogram for malignant neoplasm of breast (principal); Z78.0 Asymptomatic menopausal state
CPT/HCPCS: 77063; 77067; 77080

== ENCOUNTER → 2024-08-19 | Outpatient (CLI) | payer MEDICARE, OTHER, SELFPAY ==
[2024-08-19 11:21] LABS: ALB/GLOB Ratio 0.9 RATIO (0.9-2.4); AST(SGOT) 18 U/L (15-37); Alanine Aminotransfer ALT/SGPT 23 U/L (13-56); Albumin, Serum 3.5 g/dL (3.2-5.0); Alkaline Phosphatase 74 U/L (45-117); Anion Gap 4 (5-15); BUN 16 mg/dL (7-18); BUN/Creat Ratio 20.1 RATIO (10-20); Calcium,Total 9.4 mg/dL (8.5-10.1); Chloride 105 mmol/L (98-107); Cholesterol 105 mg/dL (200); EST Glomerular Filtration Rate 76 mL/min (>60); Est Glom Filt Rate - Afr Amer 92 mL/min (>60); Globulin 3.8 g/dL (2.2-4.2); Glucose 134 mg/dL (74-106); High Density Lipoprotein 49 mg/dL; Potassium 4.6 mmol/L (3.5-5.1); Protein, Total 7.3 g/dL (6.4-8.2); Sodium Level 136 mmol/L (136-145); Triglycerides 129 mg/dL; Very Low Density Lipoprotein 26 mg/dL (5-40)
[2024-08-19 11:24] LABS: Hemoglobin A1c 6.3 % (3.8-5.6)
== END | disposition home or self-care (01) ==
LOC: LAB 10:15
PROVIDERS: PCP Internal Medicine; Referring Provider Internal Medicine; Visit Provider Internal Medicine
DX: E78.5 Hyperlipidemia, unspecified (principal); E11.9 Type 2 diabetes mellitus without complications

== ENCOUNTER → 2024-12-26 | Outpatient (CLI) | payer MEDICARE, OTHER, SELFPAY ==
--- NOTE | 2024-12-26 14:45 | CT_ITS ---
PROCEDURE: SINUS/FACIAL BONE REASON FOR EXAM: SINUSITIS TECHNIQUE: CT of the paranasal sinuses without contrast. Coronal and Sagittal reconstruction series were provided. One or more dose reduction techniques were used (e.g., Automated exposure control, adjustment of the mA and/or kV according to patient size, use of iterative reconstruction technique). COMPARISON: None FINDINGS: Frontal: Unremarkable. Ethmoid: Partial opacification of the ethmoid sinuses. Sphenoid: Mucosal thickening of the right sphenoid sinus. There is enlargement of the sella. This may be secondary to empty sella syndrome. Maxillary: Partial opacification of the maxillary sinuses worse on the right side. Turbinates: Krystle bullosa of the left inferior turbinate. Nasal Septum: Nasal septal deviation towards the right side of the midline. Mastoids/Middle Ears: Unremarkable CT/Sinus/Facial Bone IMPRESSION: Mucosal thickening of the right sphenoid sinus. Partial opacification of the ethmoid sinuses. Partial opacification of the maxillary sinuses worse on the right side. Enlargement of the sella suggestive of empty sella syndrome. Reading Location: [place] [id number]
== END | disposition home or self-care (01) ==
LOC: CT 14:31
PROVIDERS: PCP Internal Medicine; Referring Provider Otolaryngology; Visit Provider Otolaryngology
DX: J32.8 Other chronic sinusitis (principal)
CPT/HCPCS: 70486

== ENCOUNTER → 2025-01-24 | Outpatient (CLI) | payer MEDICARE, OTHER, SELFPAY ==
--- NOTE | 2025-01-24 | LES_PTH ---
PATIENT: JAMES NOE LOC: [facility] U#:[id number] AGE/SX: 70/F ROOM: RE01/24/[address]: Dr. Avni Arciniega MD : 1955 BED: DIS: 01/24/2025 SPEC #: [id number] RECD: 01/24/25 17:17 STATUS: [facility]OSTAS REMarcos #: [id number] GERBER: 01/24/25 00:[address]: Avni Arciniega DEPT: SURGICAL PATHOLOGY RECD BY: Florin Kim ENTERED: 01/25/25 09:19 SP TYPE: Lesion OTHR DR: Dr. Emil Nuñez MD Tissues: A - Skin of leg, NOS Procedures: Surgery Specimen Level III HEADER OPERATION: Excision left thigh mass PRE-OP DIAGNOSIS: Left thigh mass TISSUE SUBMITTED: A- Left thigh mass MICROSCOPIC DIAGNOSIS A. Left thigh, mass, excision: * Lipoma. MICROSCOPIC DESCRIPTION Slides are reviewed. GROSS DESCRIPTION A. Received in formalin labeled with the patient's name and date of . Designated as left tissue mass is a 4.5 x 2.8 x 2.5 cm alvarado-yellow focally congested soft tissue mass devoid of orientation. The external surfaces are inked black. Sectioning reveals alvarado-yellow, homogenous cut surfaces. Ruby [employer] Developer sections are submitted in 2 cassettes. MI 01/25/2025 CPT:25955
== END | disposition home or self-care (01) ==
PROVIDERS: PCP Internal Medicine; Referring Provider Surgery Plastic and Reconstructive Surgery; Visit Provider Surgery Plastic and Reconstructive Surgery
DX: R22.42 Localized swelling, mass and lump, left lower limb (principal)
CPT/HCPCS: 88304; 88305

== ENCOUNTER → 2025-02-15 | Outpatient (CLI) | payer MEDICARE, OTHER, SELFPAY ==
[2025-02-15 11:34] LABS: Creatinine, Urine (random) 20.40 mg/dL (28.00-217.00); Microalbumin,Random Urine < 12.0 mg/L (<20 mg/L)
[2025-02-15 11:58] LABS: AST(SGOT) 26 U/L (<=31); Alanine Aminotransfer ALT/SGPT 32 U/L (<=34); Albumin, Serum 4.0 g/dL (3.4-4.8); Alkaline Phosphatase 71 U/L (35-104); Anion Gap 13 (5-15); BUN 13 mg/dL (4-19); BUN/Creat Ratio 20.9 RATIO (10-20); Calcium,Total 9.6 mg/dL (7.6-11.0); Carbon Dioxide 22.6 mmol/L (21.0-32.0); Chloride 103 mmol/L (98-108); Globulin 2.9 g/dL (2.2-4.2); Glucose 112 mg/dL (70-99); Potassium 4.5 mmol/L (3.3-5.1)
--- OUTSIDE RECORDS SUMMARY | 2025-02-15 18:55 | XMS RPT_ITS | CCD ---
Author Organization [facility] CliniSyme Care Team Providers Care Guide Name Role Phone NICOLAS NUNEZ Attending Unavailable MAYRANICOLAS MORTON Primary Care Unavailable MAYRANICOLAS MORTON Admitting Unavailable MAYRANICOLAS MORTON Attending Unavailable MAYRA, NICOLAS Deo Primary Care Unavailable MAYRANICOLAS MORTON Admitting Unavailable [place] NOE, Hua Albrecht Primary Care Prov ider HUA NUÑEZ Primary Care Unav ailable LANDON ALONSO Admitting Unavaila ble IGOE, DUSTY VALENZUELA Attending Unavailable LANDON ALONSO Referring Unavaila ble OLEGHBrook, HUA SANTIAGODICTA Primary Care Unav ailable IGOE, DUSTY VALENZUELA Attending Unavailable SAVANNAH, HUA ALBRECHT Primary Care Unav ailable Dr. Hua Nuñez Primary Care Provider [phone]) Dr. Hua Nuñez Referring Provider [phone] Dr. Diony Bowser Attending Provider Dr. Hua Nuñez Attending Provider [phone] Dr. Diony Bowser Attending Provider Jin AYON, POULTRY INSPECTOR-C Tg Russo Attending Provider Dr. Landon Alonso Attending Provider 1(330) Dr. Hua Nuñez Primary Care Provider 1(33 0) Dr. Hua Nuñez Referring Provider [phone] DOM Bobby Attending Provider [phone] Dr. Hua Nuñez Primary Care Provider 1(33 0) Dr. Hua Nuñez Referring Provider [phone])2 Dr. Hua Nuñez Attending Provider [phone])2 Dr. Landon Alonso Referring Provider 1(330) Dr. Landon Alonso Other Provider [phone])- [phone] Dr. Landon Alonso Admit Provider [phone])- [phone] Dr. Adal Curiel Attending Provider 1(330) Celeste, Dr. Navarrete Referring Provider 1(330) Dr. Krystian Hanley Attending Provider 1(330) Dayan, Dr. Boland Other Provider [phone] Dr. Hua Nuñez Primary Care Provider 1(33 0) Dr. Hua Nuñez Referring Provider [phone])2 Dr. Adi Gregg Attending Provider [phone] Jin POULTRY INSPECTOR, POULTRY INSPECTOR-C Tg Russo Attending Provider 1(3 30) Dr. Hua Nuñez Primary Care Provider 1(33 0) Dr. Hua Nuñez Referring Provider [phone])2 Dr. Krystian Hanley Attending Provider 1(330) Dr. Krystian Hanley Other Provider 1(330) Dr. Landon Alonso Attending Provider 1(330) Dr. Adi Gregg Attending Provider [phone] Jin POULTRY INSPECTOR, POULTRY INSPECTOR-Mireille Russo Attending Provider 1(3 30) Dr. Hua Nuñez Attending Provider [phone])[phone] DOM Katz Attending Provider [facility] Dr. Hua Nuñez Primary Care Provider 1(33 0) Dr. Hua Nuñez Referring Provider [phone])2 Dr. Landon Alonso Attending Provider 1(330) Dr. Adi Gregg Attending Provider [phone] Hua Nuñez Primary Care Provider 1(33 0) Olecarlos, Dr. Stein Referring Provider [phone])2 Dr. Landon Alonso Attending Provider 1(330) Marysol, Dr. Joshi Attending Provider [phone] [place], Dr. Stein Attending Provider [phone] Olecarlos, Dr. Stein Primary Care Provider 1(33 0) Oleghbrook, Dr. Stein Attending Provider [phone])2 Oleghe, Dr. Stein Referring Provider [phone])2 [place], Dr. Stein Primary Care Provider 1(33 0) Olecarlos, Dr. Stein Attending Provider [phone])2 Olecarlos, Dr. Stein Referring Provider [phone])2 Dr. Landon Alonso Attending Provider 1(330) Dr. Adi Gregg Attending Provider [phone] Dr. Tunde Nash Attending Provider [phone] Olecarlos, Dr. Stein Primary Care Provider 1(33 0) Olecarlos, Dr. Stein Attending Provider [phone])2 Olecarlos, Dr. Stein Referring Provider [phone])2 Dr. Landon Alonso Attending Provider 1(330) Dr. Adi Gregg Attending Provider [phone] Dr. Tunde Nash Attending Provider [phone] [place], Dr. Stein Primary Care Provider 1(33 0) [place], Dr. Stein Attending Provider [phone])2 Olecarlos, Dr. Stein Referring Provider [phone])2 [place] NOE, Dr. Stein Primary Care Provider Savannah NOE, Dr. Stein Attending Provider 1(33 0) [place] NOE, Dr. Stein Referring Provider [phone] Demian NOE, Dr. Holly Attending Provider [phone] [place] NOE, Dr. Stein Primary Care Provider Savannah NOE, Dr. Stein Attending Provider [phone] Sav[place] NOE, Dr. Stein Referring Provider [phone] Carla NOE, Dr. Roberts Attending Provider Carla NOE, Dr. Roberts Referring Provider Mikki Taylor PA-C Referring Provider Demian NOE, Dr. Holly Referring Provider Oleghe, Efewongbe Attending Unavailable Oleghe, Efewongbe Referring Unavailable Oleghe, Efewongbe Primary Care Unavailable Oleghe, Efewongbe Attending Unavailable Oleghe, Efewongbe Referring Unavailable Oleghe, Efewongbe Primary Care Unavailable Armando Aguirre Attending Unavailabl e Armando Aguirre Referring Unavailabl e Oleghe, Efewongbe Primary Care Unavailable Oleghe, Efewongbe Attending Unavailable Oleghe, Efewongbe Referring Unavailable Oleghe, Efewongbe Primary Care Unavailable Avni Arciniega Attending Unavailable Oleghe, Efewongbe Primary Care Unavailable Avni Arciniega Referring Unavailable Oleghe, Efewongbe Attending Unavailable Oleghe, Efewongbe Referring Unavailable Oleghe, Efewongbe Primary Care Unavailable Oleghe, Efewongbe Attending Unavailable Oleghe, Efewongbe Referring Unavailable Oleghe, Efewongbe Primary Care Unavailable Oleghe, Efewongbe Attending Unavailable Oleghe, Efewongbe Referring Unavailable Oleghe, Efewongbe Primary Care Unavailable Avni Arciniega Attending Unavailable Oleghe, Efewongbe Primary Care Unavailable Mikki Taylor Referring Unavailable Avni Arciniega Attending Unavailable Oleghe, Efewongbe Referring Unavailable Oleghe, Efewongbe Primary Care Unavailable Avni Arciniega Attending Unavailable Oleghe, Efewongbe Referring Unavailable Oleghe, Efewongbe Primary Care Unavailable Oleghe, Efewongbe Attending Unavailable Hua Nuñez Referring Unavailable Hua Nuñez Primary Care Unavailable Hua Nuñez Attending Unavailable Hua Nuñez Referring Unavailable Hua Nuñez Primary Care Unavailable Allergies Allergy Classification Reported Allergen(s) Allergy Type Date of Onset Reaction(s) Facility (3 sources) Morphine; Translations: [MORPHINE] Drug Allergy 09-08-19 [facility] (20 sources) Morphine Drug Allergy 09-08-19 Hallucinations [facility] (6 sources) Opioids - Morphine Analogues Propensity to adverse reactions 12-01-19 Nausea/Vom/Diarrh ea [facility] Comment on above: IV tolerated. (1 source) Morphine Drug Allergy 02-01-20 [facility] Repository (1 source) Opioids - Morphine Analogues Drug allergy (disorder) 02-01-20 [facility] Repository Medications Current Medications Medication Drug Class(es) Dates Sig (Normalized) Sig (Original) apixaban 2.5 mg oral tablet (20 sources) Factor Xa Inhibitor Start: 03-18-2022 take 1 tablet by mouth twice daily Apixaban (Eliquis) 2.5 mg Tablet Active 2.5 MG PO TWICE A DAY 28 March 18, 2022 12:00am Start: 04-16-2020 End: 05-10-2020 take 1 tablet by mouth twice daily Apixaban 2.5 MG tablet Discontinued 2.5 mg PO TWICE A DAY 30 0 April 16, 2020 12:00am May 10, 2020 11:49am cetirizine hydrochloride 10 mg oral tablet (6 sources) Histamine-1 Receptor Antagonist Start: 11-30-2024 take 1 tablet by mouth once daily as needed Cetirizine (Zyrtec) 10 mg tablet Active 10 mg PO daily as needed November 30, 2024 12:00am docusate sodium 100 mg oral capsule (14 sources) Start: 02-11-2023 take 5 capsules by mouth once daily Docusate Sodium (Colace) 100 mg capsule Active 500 mg PO DAILY February 11, 2023 12:00am docusate sodium (STOOL SOFTENER ORAL) Take by mouth daily . 0 Active 24 hr metFORMIN hydrochlorid e 500 mg extended release oral tablet (20 sources) Biguanide Start: 11-30-2024 Metformin 500 mg tablet extended release 24 hr Active 1000 mg PO TWICE A DAY 360 90 November 30, 2024 2:05pm Start: 08-23-2024 End: 11-30-2024 Metformin 500 mg tablet exte nded release 24 hr Discontinued 1000 mg PO EVERY EVENING 180 90 August 23, 2024 3:04pm November 30, 2024 2:05pm Start: 05-11-2024 End: 08-23-2024 take 1 tablet by mouth once daily in the evening Metformin 750 mg tablet extended release 24 hr Discontinued 750 mg PO EVERY EVENING 90 May 11, 2024 3:20pm August 23, 2024 3:05pm Start: 02-07-2024 End: 05-11-2024 take 1 tablet by mouth once daily in the evening Metformin 500 mg tablet extended release 24 hr Discontinued 500 mg PO EVERY EVENING 60 February 07, 2024 12:00am May 11, 2024 3:21pm Multivitamin (Daily Multi-Vitamin) tablet (20 sources) Start: 10-29-2020 take 1 tablet by mouth once daily Multivitamin (Daily Multi-Vitamin) tablet Active 1 TABLET PO DAILY October 29, 2020 2:10pm Start: 10-29-2020 End: 05-19-2022 Multivitamin (Daily Multi-Vi tamin) tablet Discontinued 1 {tbl} PO DAILY October 29, 2020 12:00am May 19, 2022 10:13am Start: 10-29-2020 End: 05-19-2022 take 1 tablet by mouth once daily Multivitamin (Daily Multi-Vitamin) tablet Discontinued 1 TABLET PO DAILY October 28, 2020 11:00pm May 19, 2022 9:13am Start: 10-29-2020 End: 05-19-2022 take 1 tablet by mouth once daily Multivitamin (Daily Multi-Vitamin) tablet Discontinued 1 TABLET PO DAILY October 29, 2020 12:00am May 19, 2022 10:13am Start: 10-29-2020 take 1 tablet by kenny th once daily Multivitamin (Daily Multi-Vitamin) tablet Active 1 TABLET PO DAILY October 29, 2020 12:00am propranolol hydrochloride 40 mg oral tablet (4 sources) beta-Adrenergic Thea Start: 01-10-2025 take 1 tablet by mouth three times daily Propranolol 40 mg tablet Active 40 mg PO THREE TIMES A DAY 6 January 10, 2025 12:00am rosuvastatin calcium 10 mg oral tablet (12 sources) HMG-CoA Reductase Inhibitor Start: 08-23-2024 take 1 tablet by mouth once daily Rosuvastatin 10 mg tablet Active 10 mg PO daily 90 August 23, 2024 3:04pm Start: 05-11-2024 End: 08-23-2024 take 1 tablet by mouth once daily Rosuvastatin 20 mg tablet Discontinued 20 mg PO daily 60 May 11, 2024 12:00am August 23, 2024 3:05pm Completed/Discontinued Medications Medication Drug Class(es) Dates Sig (Normalized) Sig (Original) acetaminophen 650 mg oral tablet (20 sources) Start: 03-17-2022 End: 03-18-2022 take 1 tablet by mouth at bedtime Acetaminophen 650 mg Tablet Discontinued 650 mg PO AT BEDTIME March 17, 2022 12:00am March 18, 2022 1:20pm Start: 12-09-2020 End: 02-04-2022 Acetaminophen (Tylenol Arthr itis) 650 mg Tablet Extended Release Discontinued 1300 mg PO AT BEDTIME December 09, 2020 12:00am February 04, 2022 1:05pm Start: 04-16-2020 End: 12-09-2020 take 2 tablets by mouth every six hours as needed for pain Acetaminophen 500 MG tablet Active 1000 mg PO EVERY 6 HOURS NEEDED as needed for Pain December 09, 2020 3:09pm Start: 04-16-2020 End: 12-09-2020 take 1000 mg by mouth every six hours as needed Acetaminophen Active 1000 MG PO EVERY 6 HOURS NEEDED December 09, 2020 3:09pm Start: 11-24-2017 End: 05-10-2020 Acetaminophen (Tylenol 8 Beni r) 650 mg tablet extended release Discontinued 2 {tbl} PO AT BEDTIME November 24, 2017 12:00am May 10, 2020 11:50am pain/sleep Start: 11-24-2017 End: 05-10-2020 take 2 tablets by mouth at bedtime Acetaminophen (Tylenol 8 Hour) 650 mg tablet extended release Discontinued 2 TABLET PO AT BEDTIME November 24, 2017 12:00am May 10, 2020 11:50am take 1 tablet by kenny th every eight hours as needed for pain acetaminophen (TYLENOL ER) 650 MG CR tablet Take 650 mg by mouth every 8 (eight) hours as needed for pain . 0 Active acetaminophen 250 mg / aspirin 250 mg / caffeine 65 mg oral tablet (20 sources) Platelet Aggregation Inhibitor, Nonsteroidal Anti-inflammatory Drug, Central Nervous System Stimulant, Methylxanthine Start: 11-24-2017 End: 02-20-2020 Lorrwky-Jlrcuipjsdnrq-Nwylkk ne (Excedrin Extra Strength) 250-250-65 mg tablet Discontinued 1 {tbl} PO ONCE November 24, 2017 12:00am February 20, 2020 12:59pm acetaminophen 325 mg / HYDROcodone bitartrate 5 mg oral tablet (20 sources) Opioid Agonist Start: 04-27-2022 End: 05-04-2022 take 1 tablet by mouth once daily as needed for pain Hydrocodone-Acetaminophen 5-325 mg tablet Discontinued 1 - 2 {tbl} PO Q4H as needed for pain 40 7 0 April 27, 2022 May 03, 2022 12:00am May 04, 2022 12:03am Other acute postprocedural pain Other acute postprocedural pain do not Exceed 4000 mg of Tylenol per day [id number] 200 actuat albuterol 0.09 mg/actuat metered dose inhaler (7 sources) beta2-Adrenergic Agonist Start: 11-11-2023 End: 02-07-2024 Albuterol Sulfate 90 mcg/actuation HFA aerosol inhaler Discontinued 2 NMA INHALATION EVERY 6 HOURS as needed for shortness of breath or wheezing 8.5 1 November 11, 2023 12:00am February 07, 2024 3:08pm Start: 11-11-2023 take 1 puff(s) by in halation every six hours Albuterol Sulfate Active 2 PUFF INHALATION EVERY 6 HOURS 8.5 November 11, 2023 12:00am 120 actuat albuterol 0.1 mg/actuat / ipratropium bromide 0.02 mg/actuat inhalation spray (20 sources) Anticholinergic, beta2-Adrenergic Agonist Start: 11-24-2017 End: 11-24-2017 take 20-100 ug by inhalation every six hours Ipratropium-Albuterol (Combivent Respimat) 20-100 mcg/actuation mist Discontinued 1 NMA INHALATION EVERY 6 HOURS November 24, 2017 12:00am November 24, 2017 2:17pm Start: 11-24-2017 End: 11-24-2017 take 20-100 ug by inhalation every six hours Ipratropium-Albuterol (Combivent Respimat) 20-100 mcg/actuation mist Discontinued 1 PUFF INHALATION EVERY 6 HOURS November 24, 2017 12:00am November 24, 2017 2:17pm amoxicillin 500 mg oral tablet (20 sources) Penicillin-class Antibacterial Start: 01-01-2022 End: 02-04-2022 take 4 tablets by mouth every hour Amoxicillin 500 mg tablet Discontinued 500 mg PO ONCE 4 2 January 01, 2022 12:00am February 04, 2022 1:05pm take 4 tabs within 1 hr prior to dental procedure. Start: 07-14-2021 End: 11-18-2021 take 4 tablets by mouth every hour Amoxicillin 500 mg tablet Discontinued 500 mg PO ONCE 4 3 September 08, 2021 1:00am November 18, 2021 10:15am take 4 tabs within 1 hr prior to dental procedure. amoxicillin 875 mg / clavulanate 125 mg oral tablet (7 sources) Penicillin-class Antibacterial Start: 11-11-2023 End: 11-25-2023 Amoxicillin-Pot Clavulanate 875-125 mg tablet Discontinued 1 {tbl} PO Q12H 28 14 0 November 11, 2023 12:00am November 24, 2023 12:00am November 25, 2023 12:06am Start: 11-11-2023 take 1 tablet by kenny th every twelve hours Amoxicillin-Pot Clavulanate Active 1 TABLET PO Q12H 28 14 November 11, 2023 12:00am celecoxib 200 mg oral capsule (20 sources) Nonsteroidal Anti-inflammatory Drug Start: 04-09-2022 End: 06-26-2024 take 1 capsule by mouth at bedtime as needed for pain Celecoxib (Celebrex) 200 mg capsule Discontinued 200 mg PO AT BEDTIME as needed for pain 90 1 February 03, 2023 1:43pm May 13, 2023 3:39pm Start: 12-12-2020 End: 03-18-2022 take 1 capsule by mouth twice daily Celecoxib 200 mg capsule Discontinued 200 mg PO TWICE A DAY November 18, 2021 10:16am March 18, 2022 1:20pm pain/inflamation Start: 05-15-2019 End: 12-12-2020 take 2 capsules by mouth twice daily Celecoxib 100 mg capsule Discontinued 200 mg PO TWICE A DAY 90 December 10, 2020 2:13pm December 12, 2020 6:14pm pain/inflamation Start: 05-15-2019 End: 12-12-2020 take 200 mg by mouth twice daily Celecoxib Discontinued 200 MG PO TWICE A DAY 90 December 10, 2020 2:13pm December 12, 2020 6:14pm Start: 12-23-2018 End: 05-15-2019 take 1 capsule by mouth twice daily Celecoxib (Celebrex) 100 mg capsule Discontinued 100 mg PO TWICE A DAY 180 December 23, 2018 12:00am May 15, 2019 1:29pm cephalexin 500 mg oral capsule (20 sources) Cephalosporin Antibacterial Start: 07-20-2022 End: 08-20-2022 take 1 capsule by mouth twice daily Cephalexin 500 mg capsule Discontinued 500 mg PO TWICE A DAY 10 July 20, 2022 1:00am August 20, 2022 2:56pm Start: 06-15-2022 End: 07-17-2022 take 1 capsule by mouth once Cephalexin 500 mg capsule Discontinued 500 mg PO ONCE 4 June 15, 2022 1:00am July 17, 2022 3:01pm within 1 hr prior of dental procedure Start: 05-03-2020 End: 05-21-2020 take 1 capsule by mouth three times daily Cephalexin (Keflex) 500 mg capsule Discontinued 500 mg PO THREE TIMES A DAY 30 May 03, 2020 12:00am May 21, 2020 1:52pm Start: 04-16-2020 End: 05-10-2020 Cephalexin 500 MG capsule Discontinued 1000 mg PO EVERY 8 HOURS 4 April 16, 2020 12:00am May 10, 2020 11:48am take 2 tabs at 9:00 pm and 2 tabs after 5 am when you wake up Start: 04-16-2020 End: 05-10-2020 Cephalexin Discontinued 1000 MG PO EVERY 8 HOURS April 16, 2020 12:00am May 10, 2020 11:48am take 2 tabs at 9:00 pm and 2 tabs after 5 am when you wake up cholecalciferol 0.125 mg oral capsule (20 sources) Vitamin D Start: 10-29-2020 End: 05-19-2022 take 1 capsule by mouth every other day Cholecalciferol (Vitamin D3) 125 mcg (5,000 unit) capsule Discontinued 125 ug PO EVERY OTHER DAY October 29, 2020 12:00am May 19, 2022 10:12am Start: 10-29-2020 take 125 ug by mouth once daily Cholecalciferol (Vitamin D3) Active 125 MCG PO DAILY October 29, 2020 12:00am Start: 02-20-2020 End: 05-10-2020 take 1 capsule by mouth once daily Cholecalciferol (Vitamin D3) 25 mcg (1,000 unit) capsule Discontinued 5000 U PO daily February 20, 2020 12:59pm May 10, 2020 11:49am supplement Start: 11-24-2017 End: 02-20-2020 take 1 capsule by mouth once daily Cholecalciferol (Vitamin D3) 1,000 unit capsule Discontinued 1000 U PO daily November 24, 2017 12:00am February 20, 2020 1:01pm clonazePAM 0.5 mg oral tablet (20 sources) Benzodiazepine Start: 11-24-2017 End: 12-22-2017 take 1 tablet by mouth 30 minutes before bedtime for anxiety Clonazepam 0.5 mg tablet Discontinued 0.5 mg PO AT BEDTIME as needed for anxiety 10 0 November 24, 2017 12:00am December 22, 2017 1:47pm administer 30 minutes before bedtime cyclobenzaprine hydrochloride 10 mg oral tablet (20 sources) Muscle Relaxant Start: 08-20-2022 End: 08-23-2024 take 1 tablet by mouth at bedtime Cyclobenzaprine 10 mg tablet Discontinued 10 mg PO BEDTIME 90 3 May 13, 2023 3:39pm August 23, 2024 3:05pm Start: 10-02-2021 End: 02-04-2022 take 1 tablet by mouth once daily as needed for muscle spasms Cyclobenzaprine 10 mg tablet Discontinued 10 mg PO daily as needed for muscle spasm 90 October 02, 2021 2:59pm February 04, 2022 1:05pm Start: 07-29-2017 End: 03-16-2018 take 1 tablet by mouth once daily as needed for muscle spasms Cyclobenzaprine 10 mg tablet Discontinued 10 mg PO daily as needed for muscle spasm 90 July 30, 2017 5:38pm March 16, 2018 1:03pm diclofenac sodium 0.01 mg/mg topical gel (20 sources) Nonsteroidal Anti-inflammatory Drug Start: 05-19-2022 End: 05-13-2023 Diclofenac Sodium (Voltaren Arthritis Pain) 1 % gel Discontinued 4 g TOPICAL ONCE 100 2 May 19, 2022 12:00am May 13, 2023 3:19pm apply to single knee, ankle, foot; for foot includes sole/toes/top of foot Start: 05-19-2022 End: 05-13-2023 Diclofenac Sodium (Voltaren Arthritis Pain) 1 % gel Discontinued 4 GM TOPICAL ONCE 100 May 19, 2022 12:00am May 13, 2023 3:19pm apply to single knee, ankle, foot; for foot includes sole/toes/top of foot Start: 12-23-2018 End: 05-10-2020 apply 2 g topically once as needed for pain Diclofenac Sodium 1 % kit Discontinued 2 g TOPICAL ONCE as needed for pain December 23, 2018 12:00am May 10, 2020 11:49am Start: 12-23-2018 End: 05-10-2020 apply 2 g topically once Diclofenac Sodium Discontinu ed 2 GM TOPICAL ONCE December 23, 2018 12:00am May 10, 2020 11:49am dicyclomine hydrochloride 20 mg oral tablet (20 sources) Anticholinergic Start: 11-11-2021 End: 05-19-2022 take 1 tablet by mouth twice daily as needed for muscle spasms Dicyclomine 20 mg tablet Discontinued 20 mg PO TWICE A DAY as needed for spasm 14 0 November 11, 2021 8:23pm May 19, 2022 10:12am diphenhydrAMINE hydrochloride 25 mg oral tablet (20 sources) Histamine-1 Receptor Antagonist Start: 02-20-2020 End: 03-19-2020 take 1 tablet by mouth at bedtime as needed Diphenhydramine Hcl (Benadryl Allergy) 25 mg tablet Discontinued 25 mg PO AT BEDTIME as needed February 20, 2020 12:00am March 19, 2020 1:15pm famotidine 20 mg oral tablet (20 sources) Histamine-2 Receptor Antagonist Start: 10-29-2020 End: 11-18-2021 take 1 tablet by mouth once daily Famotidine (Pepcid) 20 mg tablet Discontinued 20 mg PO DAILY October 29, 2020 12:00am November 18, 2021 10:34am Start: 05-15-2019 End: 05-10-2020 take 1 tablet by mouth at bedtime Famotidine 20 MG tablet Discontinued 20 mg PO AT BEDTIME May 15, 2019 12:00am May 10, 2020 11:49am gerd Fluad Quad (65yr up)(PF) 60 mcg (15 mcg x 4)/0.5mL IM syringe (flu vac (2 sources) Start: 05-15-2021 End: 05-15-2021 Fluad Quad (65yr up)(PF) 60 mcg (15 mcg x 4)/0.5mL IM syringe (flu vac Discontinued 60 MCG IM ONCE 0.5 May 15, 2021 5:32pm May 15, 2021 6:46pm fluticasone propionate 0.05 mg/actuat metered dose nasal spray (20 sources) Corticosteroid Start: 12-22-2017 End: 05-10-2020 Fluticasone Propionate (Allergy Relief (Fluticasone)) 50 mcg/actuation spray,suspension Discontinued 2 NMA INTRANASAL AT BEDTIME December 22, 2017 12:00am May 10, 2020 11:49am congestion/allergies Start: 12-22-2017 End: 05-10-2020 Fluticasone Propionate (Dino rgy Relief (Fluticasone)) 50 mcg/actuation spray,suspension Discontinued 2 SPRAY INTRANASAL AT BEDTIME December 22, 2017 12:00am May 10, 2020 11:49am levocetirizine dihydrochloride 5 mg oral tablet (20 sources) Histamine-1 Receptor Antagonist Start: 05-10-2020 End: 11-30-2024 take 1 tablet by mouth at bedtime Levocetirizine (Xyzal) 5 mg tablet Discontinued 5 mg PO AT BEDTIME 90 3 May 13, 2023 3:38pm November 30, 2024 1:48pm levoFLOXacin 500 mg oral tablet (20 sources) Quinolone Antimicrobial Start: 08-10-2019 End: 02-20-2020 take 1 tablet by mouth every twenty-four hours Levofloxacin 500 mg tablet Discontinued 500 mg PO Q24H 10 August 10, 2019 1:00am February 20, 2020 1:00pm levothyroxine sodium 0.137 mg oral tablet (20 sources) l-Thyroxine Start: 06-03-2021 End: 08-23-2024 take 1 tablet by mouth once daily Levothyroxine 137 mcg tablet Discontinued 137 ug PO DAILY 90 3 January 10, 2024 5:44pm August 23, 2024 3:05pm Start: 04-05-2020 End: 06-03-2021 take 1 tablet by mouth once daily Levothyroxine 150 mcg tablet Discontinued 150 ug PO DAILY April 05, 2020 12:00am June 03, 2021 7:34am Start: 04-02-2020 End: 04-05-2020 Levothyroxine 150 MCG tablet Discontinued 162.5 ug PO AT BEDTIME April 02, 2020 2:52pm April 05, 2020 9:52am thyroid Start: 04-02-2020 End: 04-05-2020 take 162.5 ug by mouth at bedtime Levothyroxine Discontinued 162.5 MCG PO AT BEDTIME April 02, 2020 2:52pm April 05, 2020 9:52am Start: 12-24-2017 End: 05-15-2019 Levothyroxine 25 mcg tablet Discontinued 25 ug PO daily 90 2 December 24, 2017 12:00am May 15, 2019 1:29pm Take with 150mcg on alternate days for a total of 175mcg Start: 12-24-2017 End: 04-02-2020 take 1 tablet by mouth once daily Levothyroxine 150 mcg tablet Discontinued 150 ug PO daily 90 3 December 24, 2017 12:00am April 02, 2020 2:52pm Start: 11-24-2017 End: 12-24-2017 take 1 tablet by mouth once daily Levothyroxine 175 mcg tablet Discontinued 175 ug PO daily November 24, 2017 12:00am December 24, 2017 1:22pm loratadine 10 mg oral tablet (20 sources) Start: 11-24-2017 End: 05-10-2020 take 1 tablet by mouth at bedtime Loratadine (Claritin) 10 mg tablet Discontinued 10 mg PO AT BEDTIME November 24, 2017 12:00am May 10, 2020 11:49am allergies metaxalone 800 mg oral tablet (20 sources) Start: 05-15-2019 End: 02-20-2020 take 1 tablet by mouth three times daily Metaxalone 800 MG tablet Discontinued 800 mg PO THREE TIMES A DAY May 15, 2019 12:00am February 20, 2020 1:00pm methylPREDNISolone 4 mg oral tablet (20 sources) Corticosteroid Start: 10-30-2021 End: 11-18-2021 take 1 tablet by mouth once Methylprednisolone (Medrol (Eb)) 4 mg tablets,dose pack Discontinued 0 PO per package directions October 30, 2021 12:00am November 18, 2021 10:16am PO PER PKG DIR Start: 12-23-2018 End: 02-20-2020 take 1 tablet by mouth once Methylprednisolone (Medrol (Eb)) 4 mg tablets,dose pack Discontinued 0 PO per package directions 20 10December 23, 2018 12:00am February 20, 2020 1:00pm PO PER PKG DIR metoprolol tartrate 50 mg oral tablet (10 sources) beta-Adrenergic Thea Start: 01-09-2025 End: 01-10-2025 take 1 tablet by mouth once daily Metoprolol Tartrate 50 mg tablet Discontinued 50 mg PO daily 1 January 09, 2025 12:00am January 10, 2025 4:49pm Start: 06-07-2024 End: 11-30-2024 take 1 tablet by mouth once daily Metoprolol Tartrate 50 mg tablet Discontinued 50 mg PO daily 2 June 07, 2024 1:00am November 30, 2024 1:49pm Miscellaneous Medical Supply (17 sources) Start: 03-13-2022 End: 09-09-2022 Miscellaneous Medical Supply Discontinued 1 EACH MC .PRN 1 180 March 12, 2022 11:00pm September 09, 2022 12:04am Handicap placard valid from today date for 6 months. Patient to use as needed. Start: 03-13-2022 End: 09-09-2022 Miscellaneous Medical Supply Discontinued 1 EACH MC .PRN 1 180 March 13, 2022 12:00am September 09, 2022 1:04am Handicap placard valid from today date for 6 months. Patient to use as needed. Start: 03-13-2022 Miscellaneous Medical Supply Active 1 EACH MC .PRN 1 180 March 12, 2022 11:00pm Handicap placard valid from today date for 6 months. Patient to use as needed. Start: 03-13-2022 Miscellaneous Medical Supply Active 1 EACH MC .PRN 1 180 March 13, 2022 12:00am Handicap placard valid from today date for 6 months. Patient to use as needed. Miscellaneous Medical Supply misc (6 sources) Start: 03-13-2022 End: 09-09-2022 Miscellaneous Medical Supply misc Discontinued 1 NMA MC .PRN as needed for orthopedic aftercare 1 180 0 March 13, 2022 12:00am September 08, 2022 1:00am September 09, 2022 1:04am Status post total knee replacement Presence of unspecified artificial knee joint Handicap placard valid from today date for 6 months. Patient to use as needed. Start: 03-13-2022 End: 09-09-2022 Miscellaneous Medical Supply misc Discontinued 1 NMA MC .PRN as needed for orthopedic aftercare 1 180 March 13, 2022 12:00am September 08, 2022 1:00am September 09, 2022 1:04am Handicap placard valid from today date for 6 months. Patient to use as needed. mometasone furoate 0.05 mg/actuat metered dose nasal spray (20 sources) Corticosteroid Start: 05-21-2020 End: 02-04-2022 Mometasone (Nasonex) 50 mcg/actuation spray,non-aerosol Discontinued 2 NMA INTRANASAL DAILY as needed for ALLERGIES October 15, 2020 9:07am February 04, 2022 1:06pm administer into each nostril Start: 05-21-2020 End: 02-04-2022 take 1 spray(s) nasal route once daily Mometasone (Nasonex) 50 mcg/actuation spray,non-aerosol Discontinued 2 SPRAY INTRANASAL DAILY October 15, 2020 9:07am February 04, 2022 1:06pm administer into each nostril montelukast 10 mg oral tablet (18 sources) Leukotriene Receptor Antagonist Start: 02-07-2024 End: 08-23-2024 take 1 tablet by mouth once daily in the evening as needed Montelukast (Singulair) 10 mg tablet Discontinued 10 mg PO EVERY EVENING as needed May 11, 2024 3:00pm August 23, 2024 3:06pm mupirocin 0.02 mg/mg topical ointment (20 sources) RNA Synthetase Inhibitor Antibacterial Start: 03-06-2022 End: 03-18-2022 Mupirocin 2 % ointment Discontinued 1 NMA TOPICAL THREE TIMES A DAY 22 0 March 06, 2022 12:00am March 18, 2022 1:20pm Infection due to Staphylococcus aureus Methicillin susceptible Staphylococcus aureus infection, unspecified site Preop Apply a pea size amount to each nares 3 times per day, for 5 days prior to procedure. omeprazole 40 mg delayed release oral capsule (20 sources) Proton Pump Inhibitor Start: 11-18-2021 End: 08-23-2024 take 1 capsule by mouth at bedtime Omeprazole 40 mg capsule,delayed release(DR/EC) Discontinued 40 mg PO AT BEDTIME 90 3 January 10, 2024 5:44pm August 23, 2024 3:05pm ondansetron 4 mg oral tablet (20 sources) Serotonin-3 Receptor Antagonist Start: 04-16-2020 End: 04-21-2020 take 1 tablet by mouth every six hours as needed for nausea Ondansetron Hcl 4 MG tablet Discontinued 4 mg PO EVERY 6 HOURS NEEDED as needed for Nausea 20 5 0 April 16, 2020 12:00am April 20, 2020 12:00am April 21, 2020 12:03am oxyCODONE hydrochloride 5 mg oral tablet (20 sources) Opioid Agonist Start: 03-18-2022 End: 03-24-2022 take 10-15 mg by mouth every four hours as needed for pain Oxycodone 5 mg Tablet Discontinued 10 - 15 mg PO EVERY 4 HOURS NEEDED as needed for Pain Score 4-10 60 5 0 March 18, 2022 March 24, 2022 1:53pm Other acute postprocedural pain Other acute postprocedural pain wean down dosage as soon as pain allows. supplement with Tylenol. can be addictive Start: 05-31-2020 End: 07-10-2020 take 1 capsule by mouth every four hours as needed for pain Oxycodone 5 mg capsule Discontinued 5 mg PO Q4H as needed for pain 40 0 May 31, 2020 July 10, 2020 2:15pm can be addictive, only take as needed. Start: 05-21-2020 End: 07-10-2020 take 1 tablet by mouth every four hours as needed Oxycodone 5 mg tablet Discontinued 5 mg PO Q4H as needed 0 May 21, 2020 12:00am July 10, 2020 2:15pm Start: 04-16-2020 End: 05-10-2020 take 1-2 tablets by mouth every four hours as needed for pain Oxycodone 5 MG tablet Discontinued 5 mg PO EVERY 4 HOURS NEEDED as needed for Pain Score 6-10/10 60 0 April 16, 2020 May 10, 2020 11:49am Other acute postprocedural pain 1-2 tabs by mouth every 4 hrs as needed for pain predniSONE 20 mg oral tablet (7 sources) Start: 11-11-2023 End: 02-07-2024 take 2 tablets by mouth once daily Prednisone 20 mg tablet Discontinued 40 mg PO DAILY November 11, 2023 12:00am February 07, 2024 3:08pm Start: 11-11-2023 take 40 mg by mouth once daily Prednisone Active 40 MG PO DAILY November 11, 2023 12:00am propylene glycol 6 mg/ml ophthalmic solution (20 sources) Start: 04-05-2020 End: 05-10-2020 take 0.6 drop(s) into the eye(s) twice daily as needed Propylene Glycol (Systane Balance) 0.6 % drops Discontinued 1 NMA OPHTHALMIC TWICE A DAY as needed April 05, 2020 12:00am May 10, 2020 11:49am Start: 04-05-2020 End: 05-10-2020 take 0.6 drop(s) into the eye(s) twice daily Propylene Glycol (Systane Balance) 0.6 % drops Discontinued 1 DRP OPHTHALMIC TWICE A DAY April 05, 2020 12:00am May 10, 2020 11:49am sertraline 50 mg oral tablet (20 sources) Serotonin Reuptake Inhibitor Start: 12-24-2017 End: 08-23-2024 take 1 tablet by mouth once daily Sertraline 50 mg tablet Discontinued 50 mg PO DAILY 90 June 26, 2024 5:38pm August 23, 2024 3:05pm anxiety Start: 11-24-2017 End: 12-24-2017 take 0.5 tablet by mouth once daily, then take 1 tablet by mouth once daily Sertraline (Zoloft) 100 mg tablet Discontinued 100 mg PO daily 30 November 24, 2017 12:00am December 24, 2017 1:24pm take .5 tab for 2 weeks then increase to 1 tab daily traZODone hydrochloride 50 mg oral tablet (20 sources) Serotonin Reuptake Inhibitor Start: 11-18-2021 End: 08-23-2024 take 1 tablet by mouth at bedtime as needed for sleep Trazodone 50 mg tablet Discontinued 50 mg PO AT BEDTIME as needed for Sleep 90 3 January 10, 2024 5:44pm August 23, 2024 3:05pm Start: 08-08-2021 take 1 tablet by kenny th once daily traZODone (DESYREL) 50 MG tablet Take 50 mg by mouth daily . 0 08/08/2021 Active Start: 04-02-2020 End: 11-18-2021 Trazodone 50 mg tablet Disco ntinued 25 mg PO AT BEDTIME as needed for Sleep 60 0 December 12, 2020 6:13pm May 15, 2021 6:50pm Start: 04-02-2020 End: 11-18-2021 take 25 mg by mouth at bedtime Trazodone Discontinued 25 MG PO AT BEDTIME 60 December 12, 2020 6:13pm May 15, 2021 6:50pm Start: 02-20-2020 End: 03-19-2020 Trazodone 100 mg tablet Disc ontinued 25 mg PO AT BEDTIME as needed for Sleep February 20, 2020 1:00pm March 19, 2020 1:15pm Start: 02-20-2020 End: 03-19-2020 take 25 mg by mouth at bedtime Trazodone Discontinued 25 MG PO AT BEDTIME February 20, 2020 1:00pm March 19, 2020 1:15pm Start: 11-24-2017 End: 02-20-2020 Trazodone 100 mg tablet Disc ontinued 50 mg PO AT BEDTIME as needed for Sleep November 24, 2017 12:00am February 20, 2020 1:01pm Start: 11-24-2017 End: 02-20-2020 take 50 mg by mouth at bedtime Trazodone Discontinued 50 MG PO AT BEDTIME November 24, 2017 12:00am February 20, 2020 1:01pm triamcinolone acetonide 40 mg/ml injectable suspension (20 sources) Corticosteroid Start: 07-07-2021 End: 07-07-2021 Kenalog (triamcinolone acetonide) 40 mg/mL suspension for injection Discontinued 60 MG INTRAARTIC ONCE 1.5 July 07, 2021 1:50pm July 07, 2021 2:32pm Start: 05-21-2020 End: 11-18-2021 Triamcinolone Acetonide (Jose acort) 55 mcg aerosol,spray Discontinued 1 NMA INTRANASAL DAILY as needed for ALLERGIES May 21, 2020 12:00am November 18, 2021 10:17am administer into each nostril Start: 05-21-2020 End: 11-18-2021 take 1 spray(s) nasal route once daily Triamcinolone Acetonide (Nasacort) 55 mcg aerosol,spray Discontinued 1 SPRAY INTRANASAL DAILY May 21, 2020 12:00am November 18, 2021 10:17am administer into each nostril Start: 12-22-2017 End: 05-10-2020 Triamcinolone Acetonide 55 m cg aerosol,spray Discontinued 2 NMA INTRANASAL AT BEDTIME December 22, 2017 12:00am May 10, 2020 11:49am nasal Start: 12-22-2017 End: 05-10-2020 Triamcinolone Acetonide Disc ontinued 2 SPRAY INTRANASAL AT BEDTIME December 22, 2017 12:00am May 10, 2020 11:49am Problems Active Problems Problem Classification Problem Date Documented Da te Episodic/Chronic Abdominal pain (3 sources) Pelvic and perineal pain; Translations: [Abdominal pain, other specified site] Episodic Anxiety disorders (20 sources) Mixed anxiety and depressive disorder; Translations: [Anxiety disorder, unspecified] Onset: 11-30-2024 Chronic Diabetes mellitus with complications (1 source) Type 2 diabetes mellitus with other specified complication; Translations: [Type 2 diabetes mellitus with other specified complication] Onset: 11-30-2024 Chronic Diabetes mellitus without complication (20 sources) Type 2 diabetes mellitus; Translations: [Type 2 diabetes mellitus without complications] Onset: 11-30-2024 08-20-2022 Chronic Diabetes mellitus without complication (20 sources) Hyperglycemia; Translations: [Hyperglycemia, unspecified] Episodic Disorders of lipid metabolism (20 sources) Hyperlipidemia; Translations: [Hyperlipidemia, unspecified] Onset: 09-06-2024 Chronic Esophageal disorders (20 sources) Esophageal dysmotility; Translations: [Dyskinesia of esophagus] Chronic Genitourinary symptoms and ill-defined conditions (20 sources) Urinary incontinence; Translations: [Unspecified urinary incontinence] 10-15-2020 Chronic Genitourinary symptoms and ill-defined conditions (20 sources) Blood in urine; Translations: [Hematuria, unspecified] 08-23-2022 Episodic Immunizations and screening for infectious disease (20 sources) Contact with and (suspected) exposure to other viral communicable diseases; Translations: [Contact with or suspected exposure to other viral communicable disease] 05-10-2020 Episodic Joint disorders and dislocations; trauma-related (4 sources) Other internal derangements of right knee; Translations: [Other symptoms referable to joint, lower leg] 03-15-2023 Chronic Mood disorders (1 source) Major depressive disorder, single episode, unspecified; Translations: [Major depressive disorder, single episode, unspecified] Onset: 11-30-2024 Chronic Nonspecific chest pain (20 sources) Atypical chest pain; Translations: [Other chest pain] 11-19-2021 Episodic Osteoarthritis (20 sources) Arthritis; Translations: [Unspecified osteoarthritis, unspecified site] Chronic Other aftercare (7 sources) Encounter for other orthopedic aftercare; Translations: [Unspecified orthopedic aftercare] Episodic Other aftercare (17 sources) Follow-up status; Translations: [Encounter for other orthopedic aftercare] 06-15-2022 Episodic Other connective tissue disease (20 sources) History of total knee arthroplasty; Translations: [Presence of unspecified artificial knee joint] 03-13-2022 Chronic Other connective tissue disease (9 sources) Presence of unspecified artificial knee joint; Translations: [Knee joint replacement] Chronic Other connective tissue disease (1 source) H/O: arthritis; Translations: [Personal history of other diseases of the musculoskeletal system and connective tissue] Episodic Other connective tissue disease (20 sources) Foot pain; Translations: [Pain in unspecified foot] 07-15-2021 Episodic Other gastrointestinal disorders (20 sources) Chronic constipation; Translations: [Other constipation] 05-15-2021 Episodic Other gastrointestinal disorders (20 sources) Dysphagia; Translations: [Dysphagia, unspecified] 11-18-2021 Episodic Other gastrointestinal disorders (7 sources) Dysphagia, unspecified; Translations: [Dysphagia, unspecified] Episodic Other gastrointestinal disorders (4 sources) Other constipation; Translations: [Constipation, unspecified] Episodic Other nervous system disorders (7 sources) Carpal tunnel syndrome of left wrist; Translations: [Carpal tunnel syndrome, left upper limb] 07-02-2023 Chronic Other nervous system disorders (20 sources) Acute postoperative pain; Translations: [Other acute postprocedural pain] 03-18-2022 Episodic Other nervous system disorders (8 sources) Other acute postprocedural pain; Translations: [Other acute postoperative pain] Episodic Other non-traumatic joint disorders (1 source) Multiple joint pain; Translations: [Pain in unspecified joint] Episodic Other non-traumatic joint disorders (20 sources) Joint pain; Translations: [Pain in unspecified joint] 07-15-2021 Episodic Other non-traumatic joint disorders (11 sources) Shoulder pain; Translations: [Pain in unspecified shoulder] 04-12-2023 Episodic Other nutritional; endocrine; and metabolic disorders (20 sources) Obesity; Translations: [Obesity, unspecified] 08-20-2022 Chronic Other nutritional; endocrine; and metabolic disorders (6 sources) Obesity, unspecified; Translations: [Obesity, unspecified] Chronic Other skin disorders (15 sources) Mass of lower limb; Translations: [Localized swelling, mass and lump, unspecified lower limb] 12-14-2024 Episodic Comment on above: Left lateral proxima l thigh Other skin disorders (1 source) Localized swelling, mass and lump, left lower limb; Translations: [Localized swelling, mass and lump, left lower limb] Onset: 01-29-2025 Episodic Other skin disorders (1 source) Localized swelling, mass and lump, unspecified lower limb; Translations: [Localized swelling, mass and lump, unspecified lower limb] Onset: 01-16-2025 Episodic Other upper respiratory disease (20 sources) Seasonal allergic rhinitis; Translations: [Other seasonal allergic rhinitis] 11-24-2017 Chronic Other upper respiratory infections (16 sources) Sinusitis; Translations: [Chronic sinusitis, unspecified] Onset: 11-30-2024 11-11-2023 Chronic Other upper respiratory infections (20 sources) Acute upper respiratory infection; Translations: [Acute upper respiratory infection, unspecified] 05-10-2020 Episodic Residual codes; unclassified (20 sources) Insomnia; Translations: [Insomnia, unspecified] 11-24-2017 Episodic Residual codes; unclassified (20 sources) Family history of cancer of colon; Translations: [Family history of malignant neoplasm of digestive organs] 12-13-2020 Episodic Residual codes; unclassified (3 sources) Insomnia, unspecified; Translations: [Insomnia, unspecified] Episodic Rheumatoid arthritis and related disease (10 sources) Ankylosing spondylitis; Translations: [Ankylosing spondylitis of unspecified sites in spine] 05-06-2023 Chronic Spondylosis; intervertebral disc disorders; other back problems (19 sources) Other intervertebral disc degeneration, lumbar region; Translations: [Degeneration of lumbar or lumbosacral intervertebral disc] 08-12-2022 Chronic Spondylosis; intervertebral disc disorders; other back problems (20 sources) Chronic back pain ; Translations: [Dorsalgia, unspecified] Episodic Thyroid disorders (20 sources) Hypothyroidism; Translations: [Hypothyroidism, unspecified] Onset: 11-30-2024 Chronic Past or Other Problems Problem Classification Problem Date Documented Da te Episodic/Chronic Other screening for suspected conditions (not mental disorders or infectious disease) (1 source) Encounter for screening mammogram for malignant neoplasm of breast; Translations: [Encounter for screening mammogram for malignant neoplasm of breast] Onset: 07-18-2024 Episodic Results Test Name Value Interpretation Reference Range Facility Coronary Angiography [facility] Coronary Angiography [facility] Imaging Services [address] [place] [address] 02/11/25 1715 MR#: [id number] Acct: [id number] Name: DANNI STAPLETON Rep #: [id number] : 1955 70 From: Adi Gregg MD PCP: Dr. Hua Nuñez MD Status:REG REF Y Location: CT Calcium Scoring Date of Study:: 02/08/25 Indications Indications: Hyperlipidemia Coronary Calcium Scoring: High-resolution Computed Tomographic imaging of the chest was performed on [02/08/2025], with particular attention paid to the coronary arteries. Images from the examination were analyzed for the presence and extent of coronary artery calcification , using coronary calcium quantification software. The patient tolerated the procedure well and there were no complications. The results of the coronary calcification analysis are provided below. Findings Coronary Artery Left Main (LM): 0 Left Anterior Descending (LAD): 0 Left Circumflex (LCX): 0 Right Coronary Artery (RCA): 0 Total Agatston Score: 0 Percentile Rankin Calcium Scoring Interpretation: Different methods to categorize the overall amount of coronary plaque. Overall amount CAC SIS Visual of coronary plaque P1 Mild -100 <2 1-2 vessels with mild amount of plaque P2 Moderate 101-300 3-4 1-2 vessels with moderate amount, 3 vessels with mild amount of plaque P3 Severe 301-999 5-7 3 vessels with moderate amount, 1 vessel with severe amount of plaque P4 Extensive >1000 >8 2-3 vessels with severe amount of plaque Conclusion: No atherosclerotic plaquing noted 02/11/25 1715 Date Adi Gregg MD Cosigner Signature (if applicable): Date CC: Dr. Adi Gregg MD; Dr. Hua Nuñez MD Signed Normal [facility] Limited Chest CT Cardiac Onl yon 02-08-[address] Cardiac Only [facility] Imaging Services [address] [place] [id number] Cardiac Only MR#: [id number] Acct: [id number] Name: DANNI STAPLETON Rep #: [id number] : 1955 F 70 From: Manpreet Pan PCP: Dr. Hua Nuñez MD Status: REG REF Study: Limited Chest CT Cardiac Only Date of Exam: Exam# [id number] Ordering Dr: Hua Nuñez MD PROCEDURE: LIMITED CHEST CT CARDIAC ONLY 02/08/2025 REASON FOR EXAM: RISK STRATIFICATION TECHNIQUE: CT performed for coronary artery calcification. One or more dose reduction techniques were used (e.g., Automated exposure control, adjustment of the mA and/or kV according to patient size, use of iterative reconstruction technique). RADIATION DOSE SUMMARY: CTDlvol: 12.19 mGy DLP: 170.66 mGycm COMPARISON: None. CT/Limited Chest CT Cardiac Only IMPRESSION: Limited imaging of the lungs demonstrates no acute process. No pleural effusion or pneumothorax is seen in visualized areas. No adenopathy is noted. The visualized upper abdomen demonstrates no significant abnormality. Reading Location: [address] CC: Dr. Hua Nuñez MD Cloud Developer: Signed Normal [facility] Plastic Surgery Visit Report on 01-31-2025 Plastic Surgery Visit Report [facility] Plastic Reconstructive Surgery [address] [facility] [place] [address] OFFICE VISIT Date of Service: 01/31/25 MR#: [id number] Acct: [id number] Name: DANNI STAPLETON Rep #: [id number] : 1955 Provider: Dr. Avni Arciniega MD Age/Sex: 70/F Location: [email or web address] Status: Signed Intake Vital Signs 11/30/24 13:50 01/31/25 16:13 Height 5 ft 4 in 5 ft 4 in BP 116/73 Blood Pressure Location Lt brachial Position Sitting Respiration 18 Pulse 91 Temp 98.0 F Temp Source Oral Pulse Oximetry (%) 94 Oxygen Delivery Method room air Intake Visit Reasons: post op Chief Complaint: in office procedure post op lipoma left thigh Is patient in pain?: No Allergies morphine Adverse Reaction (Severe, Verified 01/31/25 16:14) hallucinations Opioids - Morphine Analogues Adverse Reaction (Intermediate, Verified 01/31/25 16:14) Nausea/Vom/Diarrhea Medications ???Medication ???Instructions ???Recorded ???Confirmed ???Type acetaminophen 500 mg tablet 1,000 mg PO Q6H PRN PRN Pain 12/0901/31/25 History docusate sodium 100 mg capsule 500 mg PO DAILY 02/11/23 01/31/25 History (Colace) celecoxib 200 mg capsule (Celebrex) 200 mg PO QHS PRN pain #90 caps 06/26/24 01/31/25 Rx cyclobenzaprine 10 mg tablet 10 mg PO HS #90 tabs 08/23/2409/26 Rx levothyroxine 137 mcg tablet 137 mcg PO DAILY #90 tabs 08/23/24 01/31/25 Rx montelukast 10 mg tablet 10 mg PO QPM #90 tabs 08/23/2409/26 Rx (Singulair) omeprazole 40 mg capsule,delayed 40 mg PO QHS #90 caps 08/23/2409/26 Rx release rosuvastatin 10 mg tablet 10 mg PO QDAY #90 tabs 08/23/24 Rx sertraline 50 mg tablet 50 mg PO DAILY anxiety #90 tabs 01/31/25 Rx trazodone 50 mg tablet 50 mg PO QHS PRN Sleep #90 tabs 01/31/25 Rx cetirizine 10 mg tablet (Zyrtec) 10 mg PO QDAY PRN 11/30/24 5 History metformin 500 mg tablet,extended 1,000 mg (2 x 500 mg) PO BID 3 08/2601/31/25 Rx release 24 hr months #360 tabs propranolol 40 mg tablet 40 mg PO TID #6 tabs 01/10/2509/26 Rx Have you fallen in the past year?: No Nurse's Note: pt here for post op mass left thigh Subjective Details: The patient is a 70-year-old female presenting for 1 week follow-up care after removal of a thigh mass.The patient reports healing well post-procedure with only mild bruising noted. There was no fluid accumulation, and the suture site appeared intact. The patient was advised to use SteriStrips for protection due to the location of the suture and to apply sunscreen to prevent further skin damage. She expressed a preference for avoiding sun exposure, which aligns with the preventative care advice given. Attestation: Documentation on this patient encounter was supported using ambient scribe technology/ voice AI technology. The patient consented to recording for the purpose of documenting the encounter. Provider reviewed content of the generated note prior to signature. Objective Details: Thigh incision c/d/i No fluid collections No infection No drainage Coding Level of Care Code Global Post Op Diagnoses Mass of thigh R22.40 [facility] Medical History Sinusitis Flu vaccine need COVID Burning with urination Dental root implant present Hematuria Type 2 diabetes mellitus Sore throat Abnormal urinalysis Preventative health care MRSA infection Thyroid disease Injury of back Difficulty swallowing History of hiatal hernia Gastric reflux Hyperlipidemia Preoperative evaluation to rule out surgical contraindication GERD (gastroesophageal reflux disease) Swallowing disorder Obesity Prediabetes Osteoarthritis of right knee Health care maintenance Chronic constipation Wears glasses Hearing loss, left Post-menopausal Heartburn Shortness of breath on exertion Non-smoker Injury of head and neck Limb weakness Knee pain Borderline diabetes Anxiety and depression Hypothyroidism Chronic back pain Osteoarthritis Seasonal allergies Surgical History History of esophagogastroduodenoscopy (EGD) History of total right knee replacement History of surgery Hx of release of tendon History of right hip replacement ( 04/16/20) History of bilateral cataract extraction History of lumbar laminectomy History of replacement of both shoulder joints History of knee replacement procedure of left knee History of cholecystectomy History of hysterectomy History of tonsillectomy Family History Brother Heart disease Cancer Diabetes Mother Diabetes Father Heart disease (more content not included)... Normal [facility] Plastic Surgery Visit Report on 01-24-2025 Plastic Surgery Visit Report [facility] Plastic Reconstructive Surgery [address], [address] [place] [address] OFFICE VISIT Date of Service: 01/24/25 MR#: [id number] Acct: [id number] Name: DANNI STAPLETON Rep #: [id number] : 1955 Provider: Dr. Avni Arciniega MD Age/Sex: 70/F Location: [facility] Status: Signed Intake Vital Signs 11/30/24 13:50 01/24/25 15:10 Height 5 ft 4 in BP 108/73 Blood Pressure Location Lt brachial Position Sitting Respiration 18 Pulse 100 Pulse Source Monitor Pulse Oximetry (%) 96 Oxygen Delivery Method room air Intake Visit Reasons: in office procedure Chief Complaint: in office procedure Is patient in pain?: No Allergies morphine Adverse Reaction (Severe, Verified 01/24/25 14:45) hallucinations Opioids - Morphine Analogues Adverse Reaction (Intermediate, Verified 01/24/25 14:45) Nausea/Vom/Diarrhea Medications ???Medication ???Instructions ???Recorded ???Confirmed ???Type acetaminophen 500 mg tablet 1,000 mg PO Q6H PRN PRN Pain 12/0901/24/25 History docusate sodium 100 mg capsule 500 mg PO DAILY 02/11/23 01/24/25 History (Colace) celecoxib 200 mg capsule (Celebrex) 200 mg PO QHS PRN pain #90 caps 06/26/24 01/24/25 Rx cyclobenzaprine 10 mg tablet 10 mg PO HS #90 tabs 08/23/2401/01 Rx levothyroxine 137 mcg tablet 137 mcg PO DAILY #90 tabs 08/23/24 01/24/25 Rx montelukast 10 mg tablet 10 mg PO QPM #90 tabs 08/23/24 Rx (Singulair) omeprazole 40 mg capsule,delayed 40 mg PO QHS #90 caps 08/23/24 Rx release rosuvastatin 10 mg tablet 10 mg PO QDAY #90 tabs 08/23/24 Rx sertraline 50 mg tablet 50 mg PO DAILY anxiety #90 tabs 01/24/25 Rx trazodone 50 mg tablet 50 mg PO QHS PRN Sleep #90 tabs 01/24/25 Rx cetirizine 10 mg tablet (Zyrtec) 10 mg PO QDAY PRN 11/30/24 5 History metformin 500 mg tablet,extended 1,000 mg (2 x 500 mg) PO BID 3 08/2601/24/25 Rx release 24 hr months #360 tabs propranolol 40 mg tablet 40 mg PO TID #6 tabs 01/10/2501/01 Rx Have you fallen in the past year?: No PFSH Medical History Sinusitis Flu vaccine need COVID Burning with urination Dental root implant present Hematuria Type 2 diabetes mellitus Sore throat Abnormal urinalysis Preventative health care MRSA infection Thyroid disease Injury of back Difficulty swallowing History of hiatal hernia Gastric reflux Hyperlipidemia Preoperative evaluation to rule out surgical contraindication GERD (gastroesophageal reflux disease) Swallowing disorder Obesity Prediabetes Osteoarthritis of right knee Health care maintenance Chronic constipation Wears glasses Hearing loss, left Post-menopausal Heartburn Shortness of breath on exertion Non-smoker Injury of head and neck Limb weakness Knee pain Borderline diabetes Anxiety and depression Hypothyroidism Chronic back pain Osteoarthritis Seasonal allergies Surgical History History of esophagogastroduodenoscopy (EGD) History of total right knee replacement History of surgery Hx of release of tendon History of right hip replacement ( 04/16/20) History of bilateral cataract extraction History of lumbar laminectomy History of replacement of both shoulder joints History of knee replacement procedure of left knee History of cholecystectomy History of hysterectomy History of tonsillectomy Family History Brother Heart disease Cancer Diabetes Mother Diabetes Father Heart disease Social History Smoking Status: Never smoker alcohol intake: never substance use type: does not use what type of physical activity do you participate in: swimming frequency: 1-2 times per week HPI in office procedure Details: 1% lidocaine w [facility] [phone] lot [id number] exp Danni Stapleton is a delightful 69-year-old female with a left lateral thigh mass send here as a referral from [facility] dermatology. Patient reports that it has been present for several years but has been changing in size and shape. It is mobile. No unintentional weight loss or new lumps and bumps in the groin. The mass never drains Patient is a non-smoker. No personal or family history of bleeding or clotting problems. 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 No overlying skin changes no draining sinuses Office Procedures Procedure (more content not included)... Normal [facility] Surgery Specimen Level Bryce 01-24-2025 Surgery Specimen Level IV Patient Age/Sex Location Account Attending Physician DANNI STAPLETON 70/F LABSPEC [id number] Dr. Avni Arciniega MD Specimen: [id number] Received: 01/24/25 Status: KOSTAS Stephens Num: [id number] Spec Type: Lesion Subm Dr: Dr. Avni Arciniega MD HEADER OPERATION: Excision left thigh mass PRE-OP DIAGNOSIS: Left thigh mass TISSUE SUBMITTED: A- Left thigh mass MICROSCOPIC DIAGNOSIS A. Left thigh, mass, excision: * Lipoma. MICROSCOPIC DESCRIPTION Slides are reviewed. GROSS DESCRIPTION A. Received in formalin labeled with the patient's name and date of . Designated as left tissue mass is a 4.5 x 2.8 x 2.5 cm alvarado-yellow focally congested soft tissue mass devoid of orientation. The external surfaces are inked black. Sectioning reveals alvarado-yellow, homogenous cut surfaces. Search Coordinator sections are submitted in 2 cassettes. DE 01/25/2025 CPT:103452 Patient Age/Sex Location Account Attending Physician DANNI STAPLETON 70/F [facility]SPEC [id number] Dr. Avni Arciniega MD Signed (signature on file) Dr. Radha Kaufman MD 01/30/25 1313 Normal [facility] Comment on above: Performed By: #### P AMALIA ####[facility] [address] [place], [place], [id number] Sinus/Facial Boneon 12-27-19 Sinus/Facial Bone [facility] [address] [place] [address] Sinus/Facial Bone MR#: [id number] Acct: [id number] Name: DANNI STAPLETON Rep #: [id number] : 1955 F 69 From: Nhan malone MD PCP: Dr. Hua Nuñez MD Status: REG CLI Study: Sinus/Facial Bone Date of Exam: 12/26/24 Exam# [id number] Ordering Dr: Armando Aguirre MD PROCEDURE: SINUS/FACIAL BONE REASON FOR EXAM: SINUSITIS TECHNIQUE: CT of the paranasal sinuses without contrast. Coronal and Sagittal reconstruction series were provided. One or more dose reduction techniques were used (e.g., Automated exposure control, adjustment of the mA and/or kV according to patient size, use of iterative reconstruction technique). COMPARISON: None FINDINGS: Frontal: Unremarkable. Ethmoid: Partial opacification of the ethmoid sinuses. Sphenoid: Mucosal thickening of the right sphenoid sinus. There is enlargement of the sella. This may be secondary to empty sella syndrome. Maxillary: Partial opacification of the maxillary sinuses worse on the right side. Turbinates: Krystle bullosa of the left inferior turbinate. Nasal Septum: Nasal septal deviation towards the right side of the midline. Mastoids/Middle Ears: Unremarkable CT/Sinus/Facial Bone IMPRESSION: Mucosal thickening of the right sphenoid sinus. Partial opacification of the ethmoid sinuses. Partial opacification of the maxillary sinuses worse on the right side. Enlargement of the sella suggestive of empty sella syndrome. Reading Location: [place] [address] CC: Dr. Armando Aguirre MD; Dr. Hua Nuñez MD Cloud Developer: Signed Normal [facility] Plastic Surgery Visit Report on 12-14-2024 Plastic Surgery Visit Report [facility] Plastic Reconstructive Surgery [address], [address] [place] [address] OFFICE VISIT Date of Service: 12/14/24 MR#: [id number] Acct: [id number] Name: DANNI STAPLETON Rep #: [id number] : 1955 Provider: Dr. Avni Arciniega MD Age/Sex: 69/F Location[place] [facility] Status: Signed Intake Vital Signs 3 08/23/24 13:52 11/30/24 13:50 12/14/24 11:21 Height 5 ft 4 in 5 ft 4 in Weight: 199 lb 198 lb 199 lb BMI 34.1 34.0 BP 118/62 124/78 H 123/82 H Blood Pressure Location Lt brachial Lt brachial Rt brachial Position Sitting Sitting Sitting Respiration 16 16 18 Pulse 58 L 90 77 Pulse Source Monitor Monitor Monitor Temp 97.6 F L 97.5 F L Temp Source Temporal Temporal Pulse Oximetry (%) 99 96 97 Oxygen Delivery Method room air room air room air Intake Visit Reasons: LIPOMA L THIGH Chief Complaint: 3 M FU Allergies morphine Adverse Reaction (Severe, Verified 12/14/24 11:14) hallucinations Opioids - Morphine Analogues Adverse Reaction (Intermediate, Verified 11/30/24 13:48) Nausea/Vom/Diarrhea Medications 3 ???Medication ???Instructions ???Recorded ???Confirmed ???Type acetaminophen 500 mg tablet 1,000 mg PO Q6H PRN PRN Pain 12/0912/14/24 History docusate sodium 100 mg capsule 500 mg PO DAILY 02/11/23 12/14/24 History (Colace) celecoxib 200 mg capsule (Celebrex) 200 mg PO QHS PRN pain #90 caps 06/26/24 12/14/24 Rx cyclobenzaprine 10 mg tablet 10 mg PO HS #90 tabs 08/23/2411/30 Rx levothyroxine 137 mcg tablet 137 mcg PO DAILY #90 tabs 08/23/24 11/30/24 Rx montelukast 10 mg tablet 10 mg PO QPM #90 tabs 08/23/2408/26 Rx (Singulair) omeprazole 40 mg capsule,delayed 40 mg PO QHS #90 caps 08/23/2408/26 Rx release rosuvastatin 10 mg tablet 10 mg PO QDAY #90 tabs 08/23/24 Rx sertraline 50 mg tablet 50 mg PO DAILY anxiety #90 tabs 12/14/24 Rx trazodone 50 mg tablet 50 mg PO QHS PRN Sleep #90 tabs 12/14/24 Rx cetirizine 10 mg tablet (Zyrtec) 10 mg PO QDAY PRN 11/30/24 5 History metformin 500 mg tablet,extended 1,000 mg (2 x 500 mg) PO BID 3 08/2611/30/24 Rx release 24 hr months #360 tabs Have you fallen in the past year?: No PFSH Medical History Sinusitis Flu vaccine need COVID Burning with urination Dental root implant present Hematuria Type 2 diabetes mellitus Sore throat Abnormal urinalysis Preventative health care MRSA infection Thyroid disease Injury of back Difficulty swallowing History of hiatal hernia Gastric reflux Hyperlipidemia Preoperative evaluation to rule out surgical contraindication GERD (gastroesophageal reflux disease) Swallowing disorder Obesity Prediabetes Osteoarthritis of right knee Health care maintenance Chronic constipation Wears glasses Hearing loss, left Post-menopausal Heartburn Shortness of breath on exertion Non-smoker Injury of head and neck Limb weakness Knee pain Borderline diabetes Anxiety and depression Hypothyroidism Chronic back pain Osteoarthritis Seasonal allergies Surgical History History of esophagogastroduodenoscopy (EGD) History of total right knee replacement History of surgery Hx of release of tendon History of right hip replacement ( 04/16/20) History of bilateral cataract extraction History of lumbar laminectomy History of replacement of both shoulder joints History of knee replacement procedure of left knee History of cholecystectomy History of hysterectomy History of tonsillectomy Family History Brother Heart disease Cancer Diabetes Mother Diabetes Father Heart disease Social History Smoking Status: Never smoker alcohol intake: never substance use type: does not use what type of physical activity do you participate in: swimming frequency: 1-2 times per week HPI LIPOMA L THIGH Details: Danni Stalpeton is a delightful 69-year-old female with a left lateral thigh mass send here as a referral from [facility] dermatology. Patient reports that it has been present for several years but has been changing in size and shape. It is mobile. No unintentional weight loss or new lumps and bumps in the groin. The mass never drains Patient is a non-smoker. No personal or family history of bleeding or clotting problems. ROS General General: Yes good health; No fatigue, fever(s) or weight loss HENMT HENMT: Yes rhinitis; No sore throat/mouth sore, nasal congestion, contacts or glaucoma Endo Endocrine: Yes thyroid disease; No poly (more content not included)... Normal [facility] Internal Medicine Office Vis iton 11-30-2024 Internal Medicine Office Visit [facility] [address] [place] [address] [place] [address] OFFICE VISIT Date of Service: 11/30/24 MR#: [id number] Acct: [id number] Name: DANNI STAPLETON Rep #: [id number] : 1955 Provider: Dr. Hua sanchez MD Age/Sex: 69/F Location: [facility] [place] Status: Signed Intake Vital Signs 08/23/24 13:52 11/30/24 13:50 Height 5 ft 4 in 5 ft 4 in Weight: 198 lb BMI 34.0 BP 124/78 H Blood Pressure Location Lt brachial Position Sitting Respiration 16 Pulse 90 Pulse Source Monitor Temp 97.5 F L Temp Source Temporal Pulse Oximetry (%) 96 Oxygen Delivery Method room air Intake Visit Reasons: 3 M FU Chief Complaint: 3 M FU Is patient in pain?: No Allergies morphine Adverse Reaction (Severe, Verified 11/30/24 13:48) hallucinations Opioids - Morphine Analogues Adverse Reaction (Intermediate, Verified 11/30/24 13:48) Nausea/Vom/Diarrhea Medications ???Medication ???Instructions ???Recorded ???Confirmed ???Type acetaminophen 500 mg tablet 1,000 mg PO Q6H PRN PRN Pain 12/0911/30/24 History docusate sodium 100 mg capsule 500 mg PO DAILY 02/11/23 11/30/24 History (Colace) celecoxib 200 mg capsule (Celebrex) 200 mg PO QHS PRN pain #90 caps 06/26/24 11/30/24 Rx cyclobenzaprine 10 mg tablet 10 mg PO HS #90 tabs 08/23/2408/26 Rx levothyroxine 137 mcg tablet 137 mcg PO DAILY #90 tabs 08/23/24 11/30/24 Rx montelukast 10 mg tablet 10 mg PO QPM #90 tabs 08/23/2408/26 Rx (Singulair) omeprazole 40 mg capsule,delayed 40 mg PO QHS #90 caps 08/23/2408/26 Rx release rosuvastatin 10 mg tablet 10 mg PO QDAY #90 tabs 08/23/24 Rx sertraline 50 mg tablet 50 mg PO DAILY anxiety #90 tabs 11/30/24 Rx trazodone 50 mg tablet 50 mg PO QHS PRN Sleep #90 tabs 11/30/24 Rx cetirizine 10 mg tablet (Zyrtec) 10 mg PO QDAY PRN 11/30/24 5 History metformin 500 mg tablet,extended 1,000 mg (2 x 500 mg) PO BID 3 08/2611/30/24 Rx release 24 hr months #360 tabs Have you fallen in the past year?: No PFSH Medical History Sinusitis Flu vaccine need COVID Burning with urination Dental root implant present Hematuria Type 2 diabetes mellitus Sore throat Abnormal urinalysis Preventative health care MRSA infection Thyroid disease Injury of back Difficulty swallowing History of hiatal hernia Gastric reflux Hyperlipidemia Preoperative evaluation to rule out surgical contraindication GERD (gastroesophageal reflux disease) Swallowing disorder Obesity Prediabetes Osteoarthritis of right knee Health care maintenance Chronic constipation Wears glasses Hearing loss, left Post-menopausal Heartburn Shortness of breath on exertion Non-smoker Injury of head and neck Limb weakness Knee pain Borderline diabetes Anxiety and depression Hypothyroidism Chronic back pain Osteoarthritis Seasonal allergies Surgical History History of esophagogastroduodenoscopy (EGD) History of total right knee replacement History of surgery Hx of release of tendon History of right hip replacement ( 04/16/20) History of bilateral cataract extraction History of lumbar laminectomy History of replacement of both shoulder joints History of knee replacement procedure of left knee History of cholecystectomy History of hysterectomy History of tonsillectomy Family History Brother Heart disease Cancer Social History Smoking Status: Never smoker alcohol intake: never substance use type: does not use what type of physical activity do you participate in: swimming frequency: 1-2 times per week HPI HPI Chief Complaint: 3 M FU Details: DANNI STAPLETON, is a 69 F who presents to the office today for follow-up of her chronic medical conditions. No acute concerns at this time. A1c today is at 6.6 up from 6.3. She states that she has not made any significant dietary changes and continues to stay quite active. Has been on a few vacations. Has maintained her diet. At her last visit, metformin was increased to 1000 mg daily which she has tolerated well. Other chronic medical conditions are largely stable. History of allergies/sinusitis, following up with ENT and plan is for repeat CT due to concerns for nasal polyps. ROS Const Constitutional: No body ache, chills, excessive sweating, fatigue, fever(s), frequent falls, headache(s), snoring, weakness, sleep problems or change in appetite Eyes Eyes: No blurry vision, change in vision, floaters, visual disturbances or Light sensitivity ENT ENT: No abnormal hearing, ear or mastoid edel (more content not included)... Normal [facility] Laboratory - Hematology and Cell countsOrdered By: Hua Nuñez on 11-30-2024 HbA1c (Bld) [Mass fraction] 6.6 % High 4.2-6.3 [facility] Internal Medicine Office Vis iton 08-23-2024 Internal Medicine Office Visit [facility] [address] [place] [address] [place] [address] OFFICE VISIT Date of Service: 08/23/24 MR#: [id number] Acct: [id number] Name: DANNI STAPLETON Rep #: [id number] : 1955 Provider: Dr. Hua sanchez MD Age/Sex: 69/F Location: [facility] Status: Signed Intake Vital Signs 05/11/24 15:02 08/23/24 13:52 Height 5 ft 4 in 5 ft 4 in Weight: 199 lb BMI 34.1 BP 118/62 Blood Pressure Location Lt brachial Position Sitting Respiration 16 Pulse 58 L Pulse Source Monitor Temp 97.6 F L Temp Source Temporal Pulse Oximetry (%) 99 Oxygen Delivery Method room air Intake Visit Reasons: 3 M FU Chief Complaint: Follow-up chronic conditions. Arboriculturist Required: No Accompanied by: Is patient in pain?: No Allergies morphine Adverse Reaction (Severe, Verified 08/23/24 13:45) hallucinations Opioids - Morphine Analogues Adverse Reaction (Intermediate, Verified 08/23/24 13:45) Nausea/Vom/Diarrhea Medications ???Medication ???Instructions ???Recorded ???Confirmed ???Type acetaminophen 500 mg tablet 1,000 mg PO Q6H PRN PRN Pain 12/09/20 08/23/24 History docusate sodium 100 mg capsule 500 mg PO DAILY 02/11/23 08/23/24 History (Colace) levocetirizine 5 mg tablet (Xyzal) 5 mg PO QHS #90 tabs 05/13/23 08/23/24 Rx metoprolol tartrate 50 mg tablet 50 mg PO QDAY #2 tabs 06/07/24 08/23/24 Rx celecoxib 200 mg capsule (Celebrex) 200 mg PO QHS PRN pain #90 caps 06/26/24 08/23/24 Rx cyclobenzaprine 10 mg tablet 10 mg PO HS #90 tabs 08/23/24 08/23/24 Rx levothyroxine 137 mcg tablet 137 mcg PO DAILY #90 tabs 08/23/24 08/23/24 Rx metformin 500 mg tablet,extended 1,000 mg (2 x 500 mg) PO QPM 3 08/23/24 08/23/24 Rx release 24 hr months #180 tabs montelukast 10 mg tablet 10 mg PO QPM #90 tabs 08/23/24 08/23/24 Rx (Singulair) omeprazole 40 mg capsule,delayed 40 mg PO QHS #90 caps 08/23/24 08/23/24 Rx release rosuvastatin 10 mg tablet 10 mg PO QDAY #90 tabs 08/23/24 08/23/24 Rx sertraline 50 mg tablet 50 mg PO DAILY anxiety #90 tabs 08/23/24 08/23/24 Rx trazodone 50 mg tablet 50 mg PO QHS PRN Sleep #90 tabs 08/23/24 08/23/24 Rx Have you fallen in the past year?: No PFSH Medical History Sinusitis Flu vaccine need COVID Burning with urination Dental root implant present Hematuria Type 2 diabetes mellitus Sore throat Abnormal urinalysis Preventative health care MRSA infection Thyroid disease Injury of back Difficulty swallowing History of hiatal hernia Gastric reflux Hyperlipidemia Preoperative evaluation to rule out surgical contraindication GERD (gastroesophageal reflux disease) Swallowing disorder Obesity Prediabetes Osteoarthritis of right knee Health care maintenance Chronic constipation Wears glasses Hearing loss, left Post-menopausal Heartburn Shortness of breath on exertion Non-smoker Injury of head and neck Limb weakness Knee pain Borderline diabetes Anxiety and depression Hypothyroidism Chronic back pain Osteoarthritis Seasonal allergies Surgical History (Updated 08/23/24 @ 13:51 by Heidy Burgos MA) History of esophagogastroduodenoscopy (EGD) History of total right knee replacement History of surgery Hx of release of tendon History of right hip replacement ( 04/16/20) History of bilateral cataract extraction History of lumbar laminectomy History of replacement of both shoulder joints History of knee replacement procedure of left knee History of cholecystectomy History of hysterectomy History of tonsillectomy Family History Brother Heart disease Cancer Social History Smoking Status: Never smoker alcohol intake: never substance use type: does not use what type of physical activity do you participate in: swimming frequency: 1-2 times per week HPI HPI Chief Complaint: Follow-up chronic conditions. Details: DANNI STAPLETON, is a 69 F who presents to the office today for follow-up of her chronic conditions. No acute concerns at this time. History of diabetes mellitus type 2, A1c is at 6.3 down from 6.5. Currently on 750mg of metformin which she is taking as prescribed. Also swims 3 days a week. Feels good overall. History of hyperlipidemia and recently, was started on rosuvastatin. Recent lipid profile reviewed with marked improvement. LDL however, low. No muscle pain or weakness reported. Other chronic medical conditions are stable, she would like refills on medication. ROS Const Constitutional: No body ache, chills, excessive sweating, fatigue, fever(s), frequent falls, headache(s), snoring, weakness, weight change or change in appetite Eyes (more content not included)... Normal [facility] Albumin to globulin ratioOrd ered By: Hua Nuñez on 08-19-2024 Albumin/Globulin [Mass ratio] 0.9 {ratio} 0.9-2.4 [facility] Bilirubin, totalOrdered By: Hua Nuñez on 08-19-2024 Bilirubin [Mass/Vol] 0.30 mg/dL 0.20-1.00 [facility] Comment on above: For patients on eltr ombopag therapy, use of Dimension [place] TBIL is not recommended. Blood urea nitrogen (BUN)/cr eatinine ratioOrdered By: Hua Nuñez on 08-19-2024 Urea nitrogen/Creatinine [Mass ratio] 20.1 mg/mg High 10-20 [facility] Carbon dioxide measurementOr dered By: Hua Nuñez on 08-19-2024 CO2 [Moles/Vol] 27.0 mmol/L 21.0-32.0 [facility] Chloride measurementOrdered By: Hua Nuñez on 08-19-2024 Chloride [Moles/Vol] 105 mmol/L 98-107 [facility] Comprehensive Metabolic Prof ilon 08-19-2024 Albumin [Mass/Vol] 3.5 g/dL Normal 3.2-5.0 [facility] Comment on above: Performed By: #### L 501.9985, L500.4100, L500.4050 ####[facility] [address] [place], [address] Albumin/Globulin [Mass ratio] 0.9 {ratio} Normal 0.9-2.4 [facility] Comment on above: Performed By: #### L 501.9985, L500.4100, L500.4050 ####[facility] [address] [place], [address] ALK P 74 U/L Normal 45-117 [facility] Comment on above: Performed By: #### L 501.9985, L500.4100, L500.4050 ####[facility] [address] [place], [address] ALT [Catalytic activity/Vol] 23 U/L Normal 13-56 [facility] Comment on above: Performed By: #### L 501.9985, L500.4100, L500.4050 ####[facility] [address] [place], [address] AST [Catalytic activity/Vol] 18 U/L Normal 15-37 [facility] Comment on above: Performed By: #### L 501.9985, L500.4100, L500.4050 ####[facility] [address] [place], [address] Bilirubin [Mass/Vol] 0.30 mg/dL Normal 0.20-1.00 [facility] Comment on above: Result Comment: For patients on eltrombopag therapy, use of Dimension [place] TBIL is not recommended. Performed By: #### L 501.9985, L500.4100, L500.4050 ####[facility] [address] [place], [address] BUN/CRE 20.1 RATIO High 10-20 [facility] Comment on above: Performed By: #### L 501.9985, L500.4100, L500.4050 ####[facility] [address] [place], [address] CA,Total 9.4 mg/dL Normal 8.5-10.1 [facility] Comment on above: Performed By: #### L 501.9985, L500.4100, L500.4050 ####[facility] [address] [place], [address] Chloride [Moles/Vol] 105 mmol/L Normal 98-107 [facility] Comment on above: Performed By: #### L 501.9985, L500.4100, L500.4050 ####[facility] [address] [place], [address] CO2 [Moles/Vol] 27.0 mmol/L Normal 21.0-32.0 [facility] Comment on above: Performed By: #### L 501.9985, L500.4100, L500.4050 ####[facility] [address] [place], [address] Creatinine [Mass/Vol] 0.80 mg/dL Normal 0.55-1.02 [facility] Comment on above: Result Comment: The validity of the calculated GFR GFRAA in patients over 70 years has not been determined. Clinical correlation is essential. Performed By: #### L 501.9985, L500.4100, L500.4050 ####[facility] [address] [place], [address] EST GFR - AA 92 mL/min Normal >60 [facility] Comment on above: Result Comment: Afri can Citizen Of [place] GFR Calc Performed By: #### L 501.9985, L500.4100, L500.4050 ####[facility] [address] [place], [address] GAP 4 Low 5-15 [facility] Comment on above: Performed By: #### L 501.9985, L500.4100, L500.4050 ####[facility] [address] [place], [address] GFR/1.73 sq M.predicted among non-blacks MDRD (S/P/Bld) [Vol rate/Area] 76 mL/min/{1.73_m2} Normal >60 [facility] Comment on above: Result Comment: Non- GFR Calc Performed By: #### L 501.9985, L500.4100, L500.4050 ####[facility] [address] [place], [address] Globulin (S) [Mass/Vol] 3.8 g/dL Normal 2.2-4.2 [facility] Comment on above: Performed By: #### L 501.9985, L500.4100, L500.4050 ####[facility] [address] [place], [address] Glucose [Mass/Vol] 134 mg/dL High 74-106 [facility] Comment on above: Result Comment: Fast ing Glucose result greater than or equal to 126 mg/dL suggests DIABETES MELLITUS per A.D.A. criteria. Performed By: #### L 501.9985, L500.4100, L500.4050 ####[facility] [address] [place], [address] Potassium [Moles/Vol] 4.6 mmol/L Normal 3.5-5.1 [facility] Comment on above: Performed By: #### L 501.9985, L500.4100, L500.4050 ####[facility] [address] [place], [address] Sodium [Moles/Vol] 136 mmol/L Normal 136-145 [facility] Comment on above: Performed By: #### L 501.9985, L500.4100, L500.4050 ####[facility] [address] [place], [address] T PROT 7.3 g/dL Normal 6.4-8.2 [facility] Comment on above: Performed By: #### L 501.9985, L500.4100, L500.4050 ####[facility] [address] [place], [address] Urea nitrogen [Mass/Vol] 16 mg/dL Normal 7-18 [facility] Comment on above: Performed By: #### L 501.9985, L500.4100, L500.4050 ####[facility] [address] [place], [place], [id number] Glomerular filtration rate ( GFR) estimationOrdered By: Hua Nuñez on 08-19-2024 GFR/1.73 sq M.predicted among non-blacks MDRD (S/P/Bld) [Vol rate/Area] 76 mL/min/{1.73_m2} >60 [facility] Comment on above: Non- GFR Calc Glucose measurementOrdered B y: Hua Nuñez on 08-19-2024 Glucose [Mass/Vol] 134 mg/dL High 74-106 [facility] Comment on above: Fasting Glucose resu lt greater than or equal to 126 mg/dL suggests DIABETES MELLITUS per A.D.A. criteria. Hemoglobin A1con 08-19-2024 HbA1c (Bld) [Mass fraction] 6.3 % High 3.8-5.6 [facility] Comment on above: Result Comment: Norm al < 5.7 % Prediabetic 5.7 - 6.4 % Diabetic >or= 6.5 % Please note range changes. Performed By: #### L 501.9985, L500.4100, L500.4050 ####[facility] [address] [place], [place], [id number] Hemoglobin A1c percentageOrd ered By: Hua Nuñez on 08-19-2024 HbA1c (Bld) [Mass fraction] 6.3 % High 3.8-5.6 [facility] Comment on above: Normal < 5.7 % Predi abetic 5.7 - 6.4 % Diabetic >or= 6.5 % Please note range changes. High density lipoprotein (HD L) measurementOrdered By: Hua Nuñez on 08-19-2024 Cholesterol in HDL [Mass/Vol] 49 mg/dL >40 [facility] Comment on above: The drugs N-Acetylcy steine and Metamizole may falsely depress this assay. Reference Range HDL <40 mg/dL Low HDL Cholesterol HDL >or= 60 mg/dL High HDL Cholesterol Laboratory - Chemistry and C hemistry - challengeOrdered By: Hua Nuñez on 08-19-2024 AST [Catalytic activity/Vol] 18 U/L 15-37 [facility] Lipid Profileon 08-19-2024 Cholesterol [Mass/Vol] 105 mg/dL Normal 200 [facility] Comment on above: Result Comment: <200 mg/dL Desirable 200-240 mg/dL Borderline >240 mg/dL High Risk Performed By: #### L 501.9985, L500.4100, L500.4050 ####[facility] [address] [place], [address] Cholesterol in HDL [Mass/Vol] 49 mg/dL Normal [facility] Comment on above: Result Comment: The drugs N-Acetylcysteine and Metamizole may falsely depress this assay. Reference Range HDL <40 mg/dL Low HDL Cholesterol HDL >or= 60 mg/dL High HDL Cholesterol Performed By: #### L 501.9985, L500.4100, L500.4050 ####[facility] [address] [place], [address] Cholesterol in LDL [Mass/Vol] 30 mg/dL Normal 0-130 [facility] Comment on above: Performed By: #### L 501.9985, L500.4100, L500.4050 ####[facility] [address] [place], [address] Cholesterol in VLDL [Mass/Vol] 26 mg/dL Normal 5-40 [facility] Comment on above: Performed By: #### L 501.9985, L500.4100, L500.4050 ####[facility] [address] [place], [address] Triglyceride [Mass/Vol] 129 mg/dL Normal [facility] Comment on above: Result Comment: The drugs N-Acetylcysteine and Metamizole may falsely depress this assay. Serum Triglycerides Reference Interval Normal <150 mg/dL Borderline high 150 - 199 mg/dL High 200 - 499 mg/dL Very High > or = 500 mg/dL Performed By: #### L 501.9985, L500.4100, L500.4050 ####[facility] [address] [place], [address] Low density lipoprotein (LDL ) cholesterol measurementOrdered By: Hua Nuñez on 08-19-2024 Cholesterol in LDL [Mass/Vol] 30 mg/dL 0-130 [facility] Potassium measurementOrdered By: Hua Nñuez on 08-19-2024 Potassium [Moles/Vol] 4.6 mmol/L 3.5-5.1 [facility] Serum anion gap measurementO rdered By: Hua Nuñez on 08-19-2024 Anion gap [Moles/Vol] 4 mmol/L Low 5-15 [facility] Serum globulin measurementOr dered By: Hua Nuñez on 08-19-2024 Globulin (S) [Mass/Vol] 3.8 g/dL 2.2-4.2 [facility] Serum or plasma alanine vázquez otransferase (ALT) measurementOrdered By: Hua Nuñez on 08-19-2024 ALT [Catalytic activity/Vol] 23 U/L 13-56 [facility] Serum or plasma albumin hailey urement (mass/volume)Ordered By: Hua Nuñez on 08-19-2024 Albumin [Mass/Vol] 3.5 g/dL 3.2-5.0 [facility] Serum or plasma alkaline phillip sphatase measurementOrdered By: Hua Nuñez on 08-19-2024 ALP [Catalytic activity/Vol] 74 U/L 45-117 [facility] Serum or plasma calcium hailey urement (mass/volume)Ordered By: Hua Nuñez on 08-19-2024 Calcium [Mass/Vol] 9.4 mg/dL 8.5-10.1 [facility] Serum or plasma cholesterol measurement (mass/volume)Ordered By: Hua Nuñez on 08-19-2024 Cholesterol [Mass/Vol] 105 mg/dL <200 [facility] Comment on above: <200 mg/dL Desirable 200-240 mg/dL Borderline >240 mg/dL High Risk Serum or plasma creatinine m easurement (mass/volume)Ordered By: Hua Nuñez on 08-19-2024 Creatinine [Mass/Vol] 0.80 mg/dL 0.55-1.02 [facility] Comment on above: The validity of the calculated GFR & GFRAA in patients over 70 years has not been determined. Clinical correlation is essential. Serum or plasma urea nitroge n measurement (mass/volume)Ordered By: Hua Nuñez on 08-19-2024 Urea nitrogen [Mass/Vol] 16 mg/dL 02-16 [facility] Sodium levelOrdered By: Carlene Nuñez on 08-19-2024 Sodium [Moles/Vol] 136 mmol/L 136-145 [facility] Total proteinOrdered By: Terry Nuñez on 08-19-2024 Protein [Mass/Vol] 7.3 g/dL 6.4-8.2 [facility] Triglycerides measurementOrd ered By: Hua Nuñez on 08-19-2024 Triglyceride [Mass/Vol] 129 mg/dL <199 [facility] Comment on above: The drugs N-Acetylcy steine and Metamizole may falsely depress this assay.Serum Triglycerides Reference Interval Normal <150 mg/dL Borderline high 150 - 199 mg/dL High 200 - 499 mg/dL Very High > or = 500 mg/dL Very low density lipoprotein (VLDL) cholesterol measurementOrdered By: Hua Nuñez on 08-19-2024 Very low density lipoprotein (VLDL) cholesterol measurement 26 mg/dL 5-40 [facility] Dexa Bone Density Studyon Dexa Bone Density Study [facility] Imaging Services [address] [place], [place] [address] Dexa Bone Density Study MR#: [id number] Acct: [id number] Name: DANNI STAPLETON Rep #: [id number] : 1955 F 69 From: Nhan malone MD PCP: Dr. Hua Nuñez MD Status: [facility] CLI Study: Dexa Bone Density Study Date of Exam: 06/22/24 Exam# [id number] Ordering Dr: Hua uNñez MD [id number] STUDY: DUAL ENERGY X-RAY ABSORPTIOMETRY / DXA REASON FOR EXAM: Female, 69 years old. Post Menopausal TECHNIQUE: Bone Mineral Density (BMD) measurements of lumbar spine and left hip were obtained. COMPARISON: None. FINDINGS: Lumbar Spine (L1-L4): g/cm2 (1.506) / T-score (4.2) / Z-score (6.2) Findings are suggestive of normal bone density with a low fracture risk. Left Femur Total: g/cm2 (1.049) / T-score (0.9) / Z-score (2.3) Left Femoral Neck: g/cm2 (0.886) / T-score (0.3) / Z-score (2.1) BD/Dexa Bone Density Study IMPRESSION: The patient is considered normal as outlined below according to World Wilber Organization (WHO) criteria with a low fracture risk. Reference Information: The T-score is the number of standard deviations above or below the standard which is normal for young adults at their peak bone mineral density. The World Health Organization (WHO) interprets the T-scores as follows: Above -1 Normal bone density Between -1 and -2.5 Osteopenia Equal to / or below -2.5 Osteoporosis As a practical clinical guideline, osteopenia may be graded as follows: Mild -1 through -1.5 Moderate -1.6 through -2.0 Severe -2.1 through -2.4 The Z-score is the number of standard deviations above or below age-matched controls. A Z-score of less than -1.5 would be considered abnormal. References: 1. NIH Osteoporosis and Related Bone Diseases www osteo.org 2. International Society for Clinical Densitometry www iscd.org 3. National Osteoporosis Foundation www nof.org Electronically Signed: Nhan Bennett MD at 14:45 EST , CC: Dr. Hua Nuñez MD Cloud Developer: Signed Normal [facility] SCRN MAMM (CAD)W/CALI BILATo n 06-22-2024 SCRN MAMM (CAD)W/CALI BILAT [facility] Imaging Services [address] [place], [place] [id number] SCRN MAMM (CAD)W/CALI BILAT MR#: [id number] Acct: [id number] Name: DANNI STAPLETON Rep #: [id number] : 1955 F 69 From: Nhan malone MD PCP: Dr. Hua Nuñez MD Status: REG [facility] Study: SCRN MAMM (CAD)W/CALI BILAT Date of Exam: 06/03 08/25 Exam# [id number] Ordering Dr: Hua Nuñez MD [id number] MAMMOGRAPHY - BILATERAL SCREENING REASON FOR EXAM: Female, 69 years old. Routine annual screening examination. PERTINENT HISTORY: Daughter with breast cancer. Aunt with breast cancer. TECHNIQUE: Digital bilateral breast cali (3D mammographic acquisition) in the CC and MLO projections. 2-D mediolateral oblique (MLO) and craniocaudad (CC) views of both breasts were obtained. CAD: Full Field Digital Mammography with Computer Added Detection was performed. COMPARISON: Comparison is made with prior study dated May 27, 2023 and May 26, 2022. FINDINGS: Breast Composition: The breasts are almost entirely fatty. There are no dominant masses or suspicious calcifications. Stable small benign-appearing bilateral axillary lymph nodes. No other significant abnormalities are identified. There has been no significant change since the prior study. BI/SCRN MAMM (CAD)W/CALI BILAT IMPRESSION: Stable bilateral screening mammogram. Yearly follow-up mammogram recommended. (A) ASSESSMENT CATEGORY: BIRADS Category 2: Benign. A letter regarding these results will be sent to the patient by the facility within 30 days. Approximately 10% of breast cancers are not detected by mammography. A normal mammogram should not delay biopsy of a clinically suspicious abnormality. [id number] Electronically Signed: Nhan Bennett MD at 15:21 EST , CC: Dr. Hua Nuñez MD Cloud Developer: Signed Normal [facility] Internal Medicine Office Vis [facility] 05-11-2024 Internal Medicine Office Visit [facility] [place], [place] [address] OFFICE VISIT Date of Service: 05/11/24 MR#: [id number] Acct: [id number] Name: DANNI STAPLETON Rep #: [id number] : 1955 Provider: Dr. Hua sanchez MD Age/Sex: 69/F Location[place] [facility] Status: Signed Intake Vital Signs 11/11/23 15:02 02/07/24 15:09 05/11/24 15:02 Height 5 ft 4 in 5 ft 4 in 5 ft 4 in Weight: 206 lb BMI 35.3 BP 132/82 H Blood Pressure Location Lt brachial Position Sitting Respiration 16 Pulse 87 Pulse Source Monitor Temp 97.3 F L Temp Source Temporal Pulse Oximetry (%) 97 Oxygen Delivery Method room air Intake Visit Reasons: 3 M FU Chief Complaint: Follow-up chronic conditions. Arboriculturist Required: No Is patient in pain?: No Allergies morphine Adverse Reaction (Severe, Verified 05/11/24 14:49) hallucinations Opioids - Morphine Analogues Adverse Reaction (Intermediate, Verified 05/11/24 15:01) Nausea/Vom/Diarrhea Medications ???Medication ???Instructions ???Recorded ???Confirmed ???Type acetaminophen 500 mg tablet 1,000 mg PO Q6H PRN PRN Pain 12/09/20 05/11/24 History docusate sodium 100 mg capsule 500 mg PO DAILY 02/11/23 05/11/24 History (Colace) celecoxib 200 mg capsule (Celebrex) 200 mg PO QHS PRN pain #90 caps 05/13/23 05/11/24 Rx cyclobenzaprine 10 mg tablet 10 mg PO HS #90 tabs 05/13/23 05/11/24 Rx levocetirizine 5 mg tablet (Xyzal) 5 mg PO QHS #90 tabs 05/13/23 05/11/24 Rx sertraline 50 mg tablet 50 mg PO DAILY anxiety #90 tabs 05/13/23 05/11/24 Rx levothyroxine 137 mcg tablet 137 mcg PO DAILY #90 tabs 01/10/24 05/11/24 Rx omeprazole 40 mg capsule,delayed 40 mg PO QHS #90 caps 01/10/24 05/11/24 Rx release trazodone 50 mg tablet 50 mg PO QHS PRN Sleep #90 tabs 01/10/24 05/11/24 Rx metformin 750 mg tablet,extended 750 mg PO QPM #90 tabs 05/11/24 05/11/24 Rx release 24 hr montelukast 10 mg tablet 10 mg PO QPM PRN 05/11/24 History (Singulair) rosuvastatin 20 mg tablet 20 mg PO QDAY #60 tabs 05/11/24 05/11/24 Rx Have you fallen in the past year?: No PFSH Medical History Sinusitis Flu vaccine need COVID Burning with urination Dental root implant present Hematuria Type 2 diabetes mellitus Sore throat Abnormal urinalysis Preventative health care MRSA infection Thyroid disease Injury of back Difficulty swallowing History of hiatal hernia Gastric reflux Hyperlipidemia Preoperative evaluation to rule out surgical contraindication GERD (gastroesophageal reflux disease) Swallowing disorder Obesity Prediabetes Osteoarthritis of right knee Health care maintenance Chronic constipation Wears glasses Hearing loss, left Post-menopausal Heartburn Shortness of breath on exertion Non-smoker Injury of head and neck Limb weakness Knee pain Borderline diabetes Anxiety and depression Hypothyroidism Chronic back pain Osteoarthritis Seasonal allergies Surgical History History of esophagogastroduodenoscopy (EGD) History of total right knee replacement History of surgery Hx of release of tendon History of right hip replacement ( 04/16/20) History of bilateral cataract extraction History of lumbar laminectomy History of replacement of both shoulder joints History of knee replacement procedure of left knee History of cholecystectomy History of hysterectomy History of tonsillectomy Family History Brother Heart disease Cancer Social History Smoking Status: Never smoker alcohol intake: never substance use type: does not use what type of physical activity do you participate in: swimming frequency: 1-2 times per week HPI HPI Chief Complaint: Follow-up chronic conditions. Details: DANNI STAPLETON, is a 69 F who presents to the office today for follow-up of her chronic medical conditions. No acute concerns at this time. History of diabetes mellitus type 2, doing well on metformin. A1c down from 6.7-6.5. No concerning side effects. Recent labs reviewed, LDL now at 126. Slightly elevated triglycerides and HDL of 49. She admits that her diet has not necessarily been the best lately. Family history of heart disease. Other chronic medical conditions are stable. ROS Const Constitutional: No body ache, chills, excessive sweating, fatigue, fever(s), frequent falls, headache(s), snoring, weakness, sleep problems or change in appetite Eyes Eyes: No blurry vision, change in vision, floaters, visual disturbances, eye pain or Light sensitivity ENT ENT: No abnormal hearing, ear or mastoi (more content not included)... Normal [facility] CBC W/Diff, Automatedon 10-0 Absolute Lymph 2.24 X10 3/uL Normal 0.83-4.51 [facility] Comment on above: Performed By: #### L 501.9985, L501.9520, L100.0100, L503.0105, L500.4100, L506.1000 #### [facility] Laboratory [address] [place], [address] Absolute Neut 4.7 X10 3/uL Normal 2.0-7.7 [facility] Comment on above: Performed By: #### L 501.9985, L501.9520, L100.0100, L503.0105, L500.4100, L506.1000 #### [facility] [address] [place], [address] Basophils/100 WBC (Bld) 0.6 % Normal 0-1 [facility] Comment on above: Performed By: #### L 501.9985, L501.9520, L100.0100, L503.0105, L500.4100, L506.1000 #### [facility] [address] [place], [address] Eosinophils/100 WBC (Bld) 2.7 % Normal 0-5 [facility] Comment on above: Performed By: #### L 501.9985, L501.9520, L100.0100, L503.0105, L500.4100, L506.1000 #### [facility] [address] [place], [address] Erythrocyte distribution width (RBC) [Ratio] 13.8 % Normal 11.6-14.6 [facility] Comment on above: Performed By: #### L 501.9985, L501.9520, L100.0100, L503.0105, L500.4100, L506.1000 #### [facility] [address] [place], [address] Hematocrit (Bld) [Volume fraction] 42.5 % Normal 37-47 [facility] Comment on above: Performed By: #### L 501.9985, L501.9520, L100.0100, L503.0105, L500.4100, L506.1000 #### [facility] [address] [place], [address] Hemoglobin (Bld) [Mass/Vol] 13.6 g/dL Normal 12.0-15.0 [facility] Comment on above: Performed By: #### L 501.9985, L501.9520, L100.0100, L503.0105, L500.4100, L506.1000 #### [facility] [address] [facility] [place], [address] IG% 0.400 Normal 0.0-0.9 [facility] Comment on above: Result Comment: IG% - Immature Granulocytes (promyelocytes, myelocytes and metamyelocytes) > 1% indicates that a LEFT SHIFT is Present. Performed By: #### L 501.9985, L501.9520, L100.0100, L503.0105, L500.4100, L506.1000 #### [facility] [address] [facility] [place], [address] Lymphocytes/100 WBC (Bld) 28.5 % Normal 19-41 [facility] Comment on above: Performed By: #### L 501.9985, L501.9520, L100.0100, L503.0105, L500.4100, L506.1000 #### [facility] [address] [place], [address] MCH (RBC) [Entitic mass] 28.9 pg Normal 27.0-32.0 [facility] Comment on above: Performed By: #### L 501.9985, L501.9520, L100.0100, L503.0105, L500.4100, L506.1000 #### [facility] [address] [facility] [place], [address] MCHC (RBC) [Mass/Vol] 32.0 g/dL Normal 32-36 [facility] Comment on above: Performed By: #### L 501.9985, L501.9520, L100.0100, L503.0105, L500.4100, L506.1000 #### [facility] [address] [place], [address] MCV (RBC) [Entitic vol] 90.4 fL Normal 81-99 [facility] Comment on above: Performed By: #### L 501.9985, L501.9520, L100.0100, L503.0105, L500.4100, L506.1000 #### [facility] [address] [place], [address] Monocytes/100 WBC (Bld) 7.6 % Normal 0-10 [facility] Comment on above: Performed By: #### L 501.9985, L501.9520, L100.0100, L503.0105, L500.4100, L506.1000 #### [facility] [address] [place], [address] Neutrophils/100 WBC (Bld) 60.2 % Normal 47-70 [facility] Comment on above: Performed By: #### L 501.9985, L501.9520, L100.0100, L503.0105, L500.4100, L506.1000 #### [facility] [address] [place], [address] Nucleated RBC (Bld) [#/Vol] 0 10*3/uL Normal 0-5 [facility] Comment on above: Performed By: #### L 501.9985, L501.9520, L100.0100, L503.0105, L500.4100, L506.1000 #### [facility] [address] [place], [address] Platelet mean volume (Bld) [Entitic vol] 10.0 fL Normal 6.2-12.0 [facility] Comment on above: Performed By: #### L 501.9985, L501.9520, L100.0100, L503.0105, L500.4100, L506.1000 #### [facility] [address] [place], [address] Platelets (Bld) [#/Vol] 315 10*3/uL Normal 150-450 [facility] Comment on above: Performed By: #### L 501.9985, L501.9520, L100.0100, L503.0105, L500.4100, L506.1000 #### [facility] [address] [place], [address] RBC (Bld) [#/Vol] 4.70 10*6/uL Normal 4.2-5.4 [facility] Comment on above: Performed By: #### L 501.9985, L501.9520, L100.0100, L503.0105, L500.4100, L506.1000 #### [facility] [address] [place], [address] RDW SD 45.8 fl High 35.1-43.9 [facility] Comment on above: Performed By: #### L 501.9985, L501.9520, L100.0100, L503.0105, L500.4100, L506.1000 #### [facility] [address] [place], [address] WBC (Bld) [#/Vol] 7.9 10*3/uL Normal 4.4-11.0 [facility] Comment on above: Performed By: #### L 501.9985, L501.9520, L100.0100, L503.0105, L500.4100, L506.1000 #### [facility] [address] [place], [address] Hemoglobin A1con 05-09-2024 HbA1c (Bld) [Mass fraction] 6.5 % High 3.8-5.6 [facility] Comment on above: Result Comment: Norm al < 5.7 % Prediabetic 5.7 - 6.4 % Diabetic >or= 6.5 % Please note range changes. Performed By: #### L 501.9985, L501.9520, L100.0100, L503.0105, L500.4100, L506.1000 #### [facility] [address] [place], [address] Lipid Profileon 05-09-2024 Cholesterol [Mass/Vol] 218 mg/dL High 200 [facility] Comment on above: Result Comment: <200 mg/dL Desirable 200-240 mg/dL Borderline >240 mg/dL High Risk Performed By: #### L 501.9985, L501.9520, L100.0100, L503.0105, L500.4100, L506.1000 #### [facility] [address] [place], [address] Cholesterol in HDL [Mass/Vol] 49 mg/dL Normal [facility] Comment on above: Result Comment: The drugs N-Acetylcysteine and Metamizole may falsely depress this assay. Reference Range HDL <40 mg/dL Low HDL Cholesterol HDL >or= 60 mg/dL High HDL Cholesterol Performed By: #### L 501.9985, L501.9520, L100.0100, L503.0105, L500.4100, L506.1000 #### [facility] [address] [place], [address] Cholesterol in LDL [Mass/Vol] 126 mg/dL Normal 0-130 [facility] Comment on above: Performed By: #### L 501.9985, L501.9520, L100.0100, L503.0105, L500.4100, L506.1000 #### [facility] [address] [place], [address] Cholesterol in VLDL [Mass/Vol] 43 mg/dL High 5-40 [facility] Comment on above: Performed By: #### L 501.9985, L501.9520, L100.0100, L503.0105, L500.4100, L506.1000 #### [facility] [address] [place], [address] Triglyceride [Mass/Vol] 213 mg/dL High [facility] Comment on above: Result Comment: The drugs N-Acetylcysteine and Metamizole may falsely depress this assay. Serum Triglycerides Reference Interval Normal <150 mg/dL Borderline high 150 - 199 mg/dL High 200 - 499 mg/dL Very High > or = 500 mg/dL Performed By: #### L 501.9985, L501.9520, L100.0100, L503.0105, L500.4100, L506.1000 #### [facility] [address] [place], [address] Thyroid Stim Hormone (TSH)on 05-09-2024 TSH 1.740 uIU/mL Normal 0.358-3.74 0 [facility] Comment on above: Performed By: #### L 501.9985, L501.9520, L100.0100, L503.0105, L500.4100, L506.1000 ####[facility] [address] [place], [address] Vitamin B12on 05-09-2024 Cobalamin (Vitamin B12) [Mass/Vol] 446 pg/mL Normal 211-911 [facility] Comment on above: Performed By: #### L 501.9985, L501.9520, L100.0100, L503.0105, L500.4100, L506.1000 #### [facility] [address] [place], [address] Vitamin D,25 Hydroxyon 05-09 Vitamin D 25-OH 48.8 ng/mL Normal [facility] Comment on above: Result Comment: Stacia min D 25(OH) Status Range Deficiency <20 ng/mL (50nmol/L) Insufficiency 20 - 30 ng/mL (50 - 75 nmol/L) Sufficiency 30 - 100 ng/mL (75 - 250 nmol/L) Toxicity >100 ng/mL (>250 nmol/L) Performed By: #### L 501.9985, L501.9520, L100.0100, L503.0105, L500.4100, L506.1000 #### [facility] [address] [place], [address] Absolute lymphocyte countOrd ered By: swapnawoodridgemikayla Nuñez on 11-11-2023 Lymphocytes Auto (Unsp spec) [#/Vol] 2.64 10*3/uL 0.83-4.51 [facility] Automated lymphocyte count a s percentage of total leukocytesOrdered By: Carlenewoodridgemikayla Nuñez on 11-11-2023 Lymphocytes/100 WBC Auto (Unsp spec) 30.8 % 19-41 [facility] Basophil percentageOrdered B y: Roneytali Nuñez on 11-11-2023 Basophils/100 WBC (Bld) 0.7 % 0-1 [facility] Bilirubin [Mass/Vol] 0.20 mg/dL 0.20-1.00 [facility] Comment on above: For patients on eltr ombopag therapy, use of Dimension [place] TBIL is not recommended. Chloride [Moles/Vol] 106 mmol/L 98-107 [facility] Eosinophils/100 WBC (Bld) 4.4 % 0-5 [facility] Glucose [Mass/Vol] 171 mg/dL 74-106 [facility] Comment on above: Fasting Glucose resu lt greater than or equal to 126 mg/dL suggests DIABETES MELLITUS per A.D.A. criteria. Hemoglobin (Bld) [Mass/Vol] 14.1 g/dL 12.0-15.0 [facility] Monocytes/100 WBC (Bld) 5.6 % 0-10 [facility] Neutrophils (Bld) [#/Vol] 5.0 10*3/uL 2.0-7.7 [facility] Neutrophils/100 WBC (Bld) 58.2 % 47-70 [facility] Potassium [Moles/Vol] 4.3 mmol/L 3.5-5.1 [facility] Protein [Mass/Vol] 7.4 g/dL 6.4-8.2 [facility] Sodium [Moles/Vol] 138 mmol/L 136-145 [facility] WBC (Bld) [#/Vol] 8.6 10*3/uL 4.4-11.0 [facility] Determination of erythrocyte mean corpuscular volume (MCV)Ordered By: Carlenewoodridgemikayla Nuñez on 11-11-2023 MCV (RBC) [Entitic vol] 90.8 fL 81-99 [facility] Erythrocyte distribution wid th ratioOrdered By: [facility] on 11-11-2023 Erythrocyte distribution width (RBC) [Ratio] 13.8 % 11.6-14.6 [facility] Erythrocyte distribution wid th standard deviationOrdered By: [facility] on 11-11-2023 Erythrocyte distribution width (RBC) [Entitic vol] 46.2 fL 35.1-43.9 [facility] Hematocrit Auto (Bld) [Volum e fraction]Ordered By: [facility] on 11-11-2023 Hematocrit (Bld) [Volume fraction] 43.2 % 37-47 [facility] Immature granulocytes/100 WB C Auto (Bld)Ordered By: [facility] on 11-11-2023 Immature granulocytes/100 WBC (Bld) 0.300 % 0.0-0.9 [facility] Comment on above: IG% - Immature Granu locytes (promyelocytes, myelocytes and metamyelocytes) > 1% indicates that a LEFT SHIFT is Present. Laboratory - Chemistry and C hemistry - challengeOrdered By: [facility] Baldwinmikayla Nuñez on 11-11-2023 Albumin/Globulin [Mass ratio] 0.8 {ratio} 0.9-2.4 [facility] ALP [Catalytic activity/Vol] 88 U/L 45-117 [facility] ALT [Catalytic activity/Vol] 23 U/L 13-56 [facility] CO2 [Moles/Vol] 28.0 mmol/L 21.0-32.0 [facility] Globulin (S) [Mass/Vol] 4.0 g/dL 2.2-4.2 [facility] Urea nitrogen/Creatinine [Mass ratio] 23.8 mg/mg 10-20 [facility] Laboratory - Hematology and Cell countsOrdered By: Hua Nuñez on 11-11-2023 MCH (RBC) [Entitic mass] 29.6 pg 27.0-32.0 [facility] MCHC (RBC) [Mass/Vol] 32.6 g/dL 32-36 [facility] Nucleated RBC/100 WBC (Bld) [Ratio] 0 % 0-5 [facility] Platelet mean volume (Bld) [Entitic vol] 9.7 fL 6.2-12.0 [facility] Platelets (Bld) [#/Vol] 368 10*3/uL 150-450 [facility] Laboratory - Hematology and Cell countson 11-11-2023 HbA1c (Bld) [Mass fraction] 6.6 % 4.2-6.3 [facility] No Panel InformationOrdered By: Hua Nuñez on 11-11-2023 Estimated GFR (MDRD) Amer 92 mL/min >60 [facility] Comment on above: GFR Calc Estimated GFR (MDRD) Non-Af Amer 76 mL/min >60 [facility] Comment on above: Non- GFR Calc RBC Auto (Bld) [#/Vol]Ordere d By: Hua Nuñez on 11-11-2023 RBC (Bld) [#/Vol] 4.76 10*6/uL 4.2-5.4 [facility] Serum or plasma calcium hailey urement (mass/volume)Ordered By: Hua Nuñez on 11-11-2023 Calcium [Mass/Vol] 9.0 mg/dL 8.5-10.1 [facility] Serum or plasma creatinine m easurement (mass/volume)Ordered By: Hua Nuñez on 11-11-2023 Creatinine [Mass/Vol] 0.80 mg/dL 0.55-1.02 [facility] Comment on above: The validity of the calculated GFR & GFRAA in patients over 70 years has not been determined. Clinical correlation is essential. Serum or plasma urea nitroge n measurement (mass/volume)Ordered By: Hua Nuñez on 11-11-2023 Urea nitrogen [Mass/Vol] 19 mg/dL 7-18 [facility] Thin prep Papanicolaou smear with manual screeningOrdered By: Hua Nuñez on 11-11-2023 Thin prep Papanicolaou smear with manual screening 3.4 g/dL 3.2-5.0 [facility] Thin prep Papanicolaou smear with manual screening 16 U/L 15-37 [facility] Thin prep Papanicolaou smear with manual screening 4 5-15 [facility] Laboratory - Hematology and Cell countson 08-19-2023 HbA1c (Bld) [Mass fraction] 6.4 % 4.2-6.3 [facility] Basophil percentageOrdered B y: Hua Nuñez on 05-13-2023 Basophil percentage Not Reportable [facility] No Panel InformationOrdered By: Hua Nuñez on 05-13-2023 Anti-Nuclear Antibody Screen Negative Negative [facility] Comment on above: Performed at: [facility] [address] [id number] Director: Gilberto Carpio PhD, Phone: [phone] [employer] B Antibody Not Reportable [facility] RESIN SHAVER Antibody Not Reportable [facility] Serum DNA double strand anti body assay (units/volume)Ordered By: Hua Nuñez on 05-13-2023 DNA double strand Ab Qn (S) Not Reportable [facility] Serum Radha-1 antibody assay (u nits/volume)Ordered By: Hua Nuñez on 05-13-2023 Radha-1 extractable nuclear Ab Qn (S) Not Reportable [facility] Serum Scl-70 extractable nuc lear antibody assay (units/volume)Ordered By: Hua Nuñez on 05-13-2023 SCL-70 extractable nuclear Ab Qn (S) Not Reportable [facility] Serum Gabriel extractable nucl ear antibody detectionOrdered By: Hua Nuñez on 05-13-2023 Gabriel extractable nuclear Ab Ql (S) Not Reportable [facility] Serum cyclic citrullinated p eptide IgG antibody assay (units/volume)Ordered By: Hua Nuñez on 05-13-2023 Cyclic citrullinated peptide IgG Qn 3 units 0-19 [facility] Comment on above: Negative <20 Weak po sitive 20 - 39 Moderate positive 40 - 59 Strong positive >59Performed at: [facility] [id number] [place], [place] [id number] Director: Gilberto Carpio PhD, Phone: [phone] Serum rheumatoid factor dete ctionOrdered By: Hua Nuñez on 05-13-2023 Rheumatoid factor Ql (S) < 10.0 IU/mL <15 [facility] Absolute lymphocyte countOrd ered By: Hua Nuñez on 05-07-2023 Lymphocytes Auto (Unsp spec) [#/Vol] 2.26 10*3/uL 0.83-4.51 [facility] Basophil percentageOrdered B y: Hua Nuñez on 05-07-2023 Basophils/100 WBC (Bld) 0.8 % 0-1 [facility] Bilirubin [Mass/Vol] 0.20 mg/dL 0.20-1.00 [facility] Comment on above: For patients on eltr ombopag therapy, use of Dimension [place] TBIL is not recommended. Chloride [Moles/Vol] 107 mmol/L 98-107 [facility] Cholesterol [Mass/Vol] 203 mg/dL <200 [facility] Comment on above: <200 mg/dL Desirable 200-240 mg/dL Borderline >240 mg/dL High Risk Eosinophils/100 WBC (Bld) 2.5 % 0-5 [facility] Glucose [Mass/Vol] 122 mg/dL 74-106 [facility] Comment on above: Fasting Glucose resu lt from 100 to 125 mg/dL suggests IMPAIRED HOMEOSTASIS per A.D.A. criteria. Neutrophils (Bld) [#/Vol] 4.8 10*3/uL 2.0-7.7 [facility] Neutrophils/100 WBC (Bld) 62.5 % 47-70 [facility] Potassium [Moles/Vol] 4.6 mmol/L 3.5-5.1 [facility] Protein [Mass/Vol] 7.4 g/dL 6.4-8.2 [facility] Sodium [Moles/Vol] 139 mmol/L 136-145 [facility] Triglyceride [Mass/Vol] 198 mg/dL <199 [facility] Comment on above: The drugs N-Acetylcy steine and Metamizole may falsely depress this assay.Serum Triglycerides Reference Interval Normal <150 mg/dL Borderline high 150 - 199 mg/dL High 200 - 499 mg/dL Very High > or = 500 mg/dL WBC (Bld) [#/Vol] 7.7 10*3/uL 4.4-11.0 [facility] Blood erythrocytes count (nu mber/volume)Ordered By: Hua Nuñez on 05-07-2023 RBC (Bld) [#/Vol] 4.97 10*6/uL 4.2-5.4 [facility] Blood hemoglobin measurement (mass/volume)Ordered By: Hua Nuñez on 05-07-2023 Hemoglobin (Bld) [Mass/Vol] 14.8 g/dL 12.0-15.0 [facility] Blood lymphocytes/100 leukoc ytesOrdered By: Hua Nuñez on 05-07-2023 Lymphocytes/100 WBC (Bld) 29.2 % 19-41 [facility] Blood monocytes/100 leukocyt esOrdered By: Hua Nuñez on 05-07-2023 Monocytes/100 WBC (Bld) 4.5 % 0-10 [facility] Blood platelet mean volumeOr dered By: Hua Nuñez on 05-07-2023 Platelet mean volume (Bld) [Entitic vol] 9.9 fL 6.2-12.0 [facility] Determination of erythrocyte mean corpuscular volume (MCV)Ordered By: Hua Nuñez on 05-07-2023 MCV (RBC) [Entitic vol] 92.0 fL 81-99 [facility] Erythrocyte sedimentation ra teOrdered By: Tunde Nash on 05-07-2023 ESR (Bld) [Velocity] 51 mm/h 0-30 [facility] Hematocrit Auto (Bld) [Volum e fraction]Ordered By: Hua Nuñez on 05-07-2023 Hematocrit (Bld) [Volume fraction] 45.7 % 37-47 [facility] Laboratory - Chemistry and C hemistry - challengeOrdered By: Hua Nuñez on 05-07-2023 ALP [Catalytic activity/Vol] 76 U/L 45-117 [facility] ALT [Catalytic activity/Vol] 39 U/L 13-56 [facility] CO2 [Moles/Vol] 27.0 mmol/L 21.0-32.0 [facility] Globulin (S) [Mass/Vol] 4.1 g/dL 2.2-4.2 [facility] Urea nitrogen/Creatinine [Mass ratio] 24.9 mg/mg 10-20 [facility] Laboratory - Hematology and Cell countsOrdered By: Hua Nuñez on 05-07-2023 Erythrocyte distribution width (RBC) [Entitic vol] 46.2 fL 35.1-43.9 [facility] Erythrocyte distribution width (RBC) [Ratio] 13.6 % 11.6-14.6 [facility] Immature granulocytes/100 WBC (Bld) 0.500 % 0.0-0.9 [facility] Comment on above: IG% - Immature Granu locytes (promyelocytes, myelocytes and metamyelocytes) > 1% indicates that a LEFT SHIFT is Present. MCH (RBC) [Entitic mass] 29.8 pg 27.0-32.0 [facility] Nucleated RBC/100 WBC (Bld) [Ratio] 0 % 0-5 [facility] MCHC Auto (RBC) [Mass/Vol]Or dered By: Hua Nuñez on 05-07-2023 MCHC (RBC) [Mass/Vol] 32.4 g/dL 32-36 [facility] No Panel InformationOrdered By: Hua Nuñez on 05-07-2023 Estimated GFR (MDRD) Amer 97 mL/min >60 [facility] Comment on above: GFR Calc Estimated GFR (MDRD) Non-Af Amer 80 mL/min >60 [facility] Comment on above: Non- GFR Calc Thyroid Stimulating Hormone (TSH) 3.68 uIU/mL 0.358-3.74 [facility] Urine Microalbumin/Creatinine Ratio 9.0 mg/g CRE <30 [facility] Platelets bldOrdered By: Terry Nuñez on 05-07-2023 Platelets (Bld) [#/Vol] 361 10*3/uL 150-450 [facility] Serum or plasma C reactive p rotein measurement (mass/volume)Ordered By: Tunde Nash on 05-07-2023 CRP [Mass/Vol] 12.50 mg/L 0.0-3.0 [facility] Comment on above: C-Reactive Protein ( CRP) provides useful information for thediagnosis, therapy and monitoring of inflammatory processesand associated diseases. For the evaluation of Relative Riskfor Cardiovascular Disease, a High Sensitivity CRP (HSCRP)should be ordered. Serum or plasma albumin hailey urement (mass/volume)Ordered By: Hua Nuñez on 05-07-2023 Albumin [Mass/Vol] 3.3 g/dL 3.2-5.0 [facility] Serum or plasma albumin/glob ulin mass ratioOrdered By: Hua Nuñez on 05-07-2023 Albumin/Globulin [Mass ratio] 0.8 {ratio} 0.9-2.4 [facility] Serum or plasma calcium hailey urement (mass/volume)Ordered By: Hua Nuñez on 05-07-2023 Calcium [Mass/Vol] 9.0 mg/dL 8.5-10.1 [facility] Serum or plasma cholesterol in HDL measurement (mass/volume)Ordered By: Hua Nuñez on 05-07-2023 Cholesterol in HDL [Mass/Vol] 46 mg/dL >40 [facility] Comment on above: The drugs N-Acetylcy steine and Metamizole may falsely depress this assay. Reference Range HDL <40 mg/dL Low HDL Cholesterol HDL >or= 60 mg/dL High HDL Cholesterol Serum or plasma cholesterol in VLDL measurement (mass/volume)Ordered By: Hua Nuñez on 05-07-2023 Cholesterol in VLDL [Mass/Vol] 40 mg/dL 5-40 [facility] Serum or plasma creatinine m easurement (mass/volume)Ordered By: Hua Nuñez on 05-07-2023 Creatinine [Mass/Vol] 0.76 mg/dL 0.55-1.02 [facility] Comment on above: The validity of the calculated GFR & GFRAA in patients over 70 years has not been determined. Clinical correlation is essential. Serum or plasma low density lipoprotein (LDL) cholesterol measurement (mass/volume)Ordered By: Hua Nuñez on 05-07-2023 Cholesterol in LDL [Mass/Vol] 117 mg/dL 0-130 [facility] Serum or plasma urea nitroge n measurement (mass/volume)Ordered By: Hua Nuñez on 05-07-2023 Urea nitrogen [Mass/Vol] 19 mg/dL 7-18 [facility] Thin prep Papanicolaou smear with manual screeningOrdered By: Hua Nuñez on 05-07-2023 Thin prep Papanicolaou smear with manual screening 19 U/L 15-37 [facility] Thin prep Papanicolaou smear with manual screening 5 5-15 [facility] Thin prep Papanicolaou smear with manual screening 7.8 mg/L NO RANGE EST. [facility] Thin prep Papanicolaou smear with manual screeningOrdered By: Tunde Nash on 05-07-2023 Thin prep Papanicolaou smear with manual screening Negative . [facility] Comment on above: HLA-B*27 GuascamsL08 allele interpretation for all loci based on IMGT/HLAdatabase version 3.44This test was developed and its performance characteristicsdetermined by [employer]. It has not been cleared or approvedby the Food and Drug Administration.[facility] CLIA ID Number [id number] test was performed using Polymerase Chain Reaction(PCR) and Sequence Specific Oligonucleotide Probes (SSOP)technique. Sequence Based Typing (SBT) may be used as asupplemental method when necessary.If you have questions, please call [facility] customer serviceat or email at [email or web address].Performed at: [address] [place] [id number] Director: Gini Luz PhD, Phone: [phone] Urine creatinine measurement (mass/volume)Ordered By: Hua Nuñez on 05-07-2023 Creatinine (U) [Mass/Vol] 86.50 mg/dL NO RANGE EST. [facility] Whole blood hemoglobin A1c/t otal hemoglobin ratio (mass fraction)Ordered By: Hua Nuñez on 05-07-2023 HbA1c (Bld) [Mass fraction] 6.3 % 3.8-5.6 [facility] Comment on above: Normal < 5.7 % Predi abetic 5.7 - 6.4 % Diabetic >or= 6.5 % Please note range changes. Basophil percentageOrdered B y: Hua Nuñez on 02-11-2023 Basophil percentage 0 SEEN /hpf 0-5 [facility] Bilirubin Test strip Ql (U)O rdered By: Hua Nuñez on 02-11-2023 Bilirubin Ql (U) Negative Negative [facility] Ketones Test strip Ql (U)Ord ered By: Hua Nuñez on 02-11-2023 Ketones Ql (U) Negative Negative [facility] Laboratory - Hematology and Cell countson 02-11-2023 HbA1c (Bld) [Mass fraction] 6.3 % 4.2-6.3 [facility] Mucus LM Ql (Urine sed)Order ed By: Hua Nuñez on 02-11-2023 Mucus Ql (Urine sed) 0 SEEN /hpf [facility] Nitrite Test strip Ql (U)Ord ered By: Hua Nuñez on 02-11-2023 Nitrite Ql (U) Negative Negative [facility] Protein Test strip Ql (U)Ord ered By: Hua Nuñez on 02-11-2023 Protein Ql (U) Negative Negative [facility] Squamous epithelial cells de tection in urine sediment by light microscopyOrdered By: Hua Nuñez on 02-11-2023 Epithelial cells.squamous LM Ql (Urine sed) 0 SEEN /hpf 5-10 [facility] Urine blood detectionOrdered By: Hua Nuñez on 02-11-2023 RBC Ql (U) Negative Negative [facility] RBC Ql (U) 0 SEEN /hpf 0-5 [facility] Urine clarityOrdered By: Terry Nuñez on 02-11-2023 Clarity (U) Clear Clear [facility] Urine color determinationOrd ered By: Hua Nuñez on 02-11-2023 Color (U) Straw Yellow [facility] Urine glucose detectionOrder ed By: Hua Nuñez on 02-11-2023 Glucose Ql (U) Normal mg/dl Normal [facility] Urine leukocyte esterase det ection by dipstickOrdered By: Hua Nuñez on 02-11-2023 Leukocyte esterase Test strip Ql (U) Negative Negative [facility] Urine pHOrdered By: Areli Nuñez on 02-11-2023 pH (U) 6.0 [pH] 5.0 - 8.0 [facility] Urine sediment bacteria coun t by microscopy (number/high power field)Ordered By: Hua Nuñez on 02-11-2023 Bacteria LM.HPF (Urine sed) [#/Area] 0 /[HPF] None Seen [facility] Urine specific gravity measu rementOrdered By: Hua Nuñez on 02-11-2023 Specific gravity (U) [Rel density] 1.010 1.002-1.03 0 [facility] Urobilinogen Auto test strip Ql (U)Ordered By: Hua Nuñez on 02-11-2023 Urobilinogen Ql (U) Normal mg/dl Normal [facility] Basophil percentageOrdered B y: Dr. Nuñez on 11-10-2022 Bilirubin [Mass/Vol] 0.20 mg/dL 0.20-1.00 [facility] Comment on above: For patients on eltr ombopag therapy, use of Dimension [place] TBIL is not recommended. Chloride [Moles/Vol] 106 mmol/L 98-107 [facility] Cholesterol [Mass/Vol] 211 mg/dL <200 [facility] Comment on above: <200 mg/dL Desirable 200-240 mg/dL Borderline >240 mg/dL High Risk Glucose [Mass/Vol] 112 mg/dL 74-106 [facility] Comment on above: Fasting Glucose resu lt from 100 to 125 mg/dL suggests IMPAIRED HOMEOSTASIS per A.D.A. criteria. Potassium [Moles/Vol] 4.6 mmol/L 3.5-5.1 [facility] Protein [Mass/Vol] 6.8 g/dL 6.4-8.2 [facility] Sodium [Moles/Vol] 137 mmol/L 136-145 [facility] Triglyceride [Mass/Vol] 162 mg/dL <199 [facility] Comment on above: The drugs N-Acetylcy steine and Metamizole may falsely depress this assay.Serum Triglycerides Reference Interval Normal <150 mg/dL Borderline high 150 - 199 mg/dL High 200 - 499 mg/dL Very High > or = 500 mg/dL Laboratory - Chemistry and C hemistry - challengeOrdered By: Dr. Nuñez on 11-10-2022 ALP [Catalytic activity/Vol] 77 U/L 45-117 [facility] ALT [Catalytic activity/Vol] 19 U/L 13-56 [facility] CO2 [Moles/Vol] 26.0 mmol/L 21.0-32.0 [facility] Globulin (S) [Mass/Vol] 3.6 g/dL 2.2-4.2 [facility] Urea nitrogen/Creatinine [Mass ratio] 23.8 mg/mg 10-20 [facility] No Panel InformationOrdered By: Dr. Nuñez on 11-10-2022 Estimated GFR (MDRD) Amer 92 mL/min >60 [facility] Comment on above: GFR Calc Estimated GFR (MDRD) Non-Af Amer 76 mL/min >60 [facility] Comment on above: Non- GFR Calc Thyroid Stimulating Hormone (TSH) 3.30 uIU/mL 0.358-3.74 [facility] Serum or plasma albumin hailey urement (mass/volume)Ordered By: Dr. Nuñez on 11-10-2022 Albumin [Mass/Vol] 3.2 g/dL 3.2-5.0 [facility] Serum or plasma albumin/glob ulin mass ratioOrdered By: Dr. Nuñez on 11-10-2022 Albumin/Globulin [Mass ratio] 0.9 {ratio} 0.9-2.4 [facility] Serum or plasma calcium hailey urement (mass/volume)Ordered By: Dr. Nuñez on 11-10-2022 Calcium [Mass/Vol] 9.0 mg/dL 8.5-10.1 [facility] Serum or plasma cholesterol in HDL measurement (mass/volume)Ordered By: Dr. Nuñez on 11-10-2022 Cholesterol in HDL [Mass/Vol] 46 mg/dL >40 [facility] Comment on above: The drugs N-Acetylcy steine and Metamizole may falsely depress this assay. Reference Range HDL <40 mg/dL Low HDL Cholesterol HDL >or= 60 mg/dL High HDL Cholesterol Serum or plasma cholesterol in VLDL measurement (mass/volume)Ordered By: Dr. Nuñez on 11-10-2022 Cholesterol in VLDL [Mass/Vol] 32 mg/dL 5-40 [facility] Serum or plasma creatinine m easurement (mass/volume)Ordered By: Dr. Nuñez on 11-10-2022 Creatinine [Mass/Vol] 0.80 mg/dL 0.55-1.02 [facility] Comment on above: The validity of the calculated GFR & GFRAA in patients over 70 years has not been determined. Clinical correlation is essential. Serum or plasma low density lipoprotein (LDL) cholesterol measurement (mass/volume)Ordered By: Dr. Nuñez on 11-10-2022 Cholesterol in LDL [Mass/Vol] 133 mg/dL 0-130 [facility] Serum or plasma urea nitroge n measurement (mass/volume)Ordered By: Dr. Nuñez on 11-10-2022 Urea nitrogen [Mass/Vol] 19 mg/dL 7-18 [facility] Thin prep Papanicolaou smear with manual screeningOrdered By: Dr. Nuñez on 11-10-2022 Thin prep Papanicolaou smear with manual screening 17 U/L 15-37 [facility] Thin prep Papanicolaou smear with manual screening 5 5-15 [facility] Whole blood hemoglobin A1c/t otal hemoglobin ratio (mass fraction)Ordered By: Dr. Nuñez on 11-10-2022 HbA1c (Bld) [Mass fraction] 6.1 % 3.8-5.6 [facility] Comment on above: Normal < 5.7 % Predi abetic 5.7 - 6.4 % Diabetic >or= 6.5 % Please note range changes. Culture, urineOrdered By: Dr Yumi Nuñez on 08-23-2022 Bacteria identified Cx Nom (U) Mixed Gram Pos & Gram Neg Org [facility] Basophil percentageOrdered B y: Dr. Nuñez on 08-22-2022 Basophil percentage 0 SEEN /hpf 0-5 [facility] Bilirubin Test strip Ql (U)O rdered By: Dr. Nuñez on 08-22-2022 Bilirubin Ql (U) Negative Negative [facility] Ketones Test strip Ql (U)Ord ered By: Dr. Nuñez on 08-22-2022 Ketones Ql (U) 5 mg/dl Negative [facility] Mucus LM Ql (Urine sed)Order ed By: Dr. Nuñez on 08-22-2022 Mucus Ql (Urine sed) 0 SEEN /hpf [facility] Nitrite Test strip Ql (U)Ord ered By: Dr. Nuñez on 08-22-2022 Nitrite Ql (U) Negative Negative [facility] Protein Test strip Ql (U)Ord ered By: Dr. Nuñez on 08-22-2022 Protein Ql (U) Negative Negative [facility] Squamous epithelial cells de tection in urine sediment by light microscopyOrdered By: Dr. Nuñez on 08-22-2022 Epithelial cells.squamous LM Ql (Urine sed) 0 SEEN /hpf 5-10 [facility] Urine blood detectionOrdered By: Dr. Nuñez on 08-22-2022 RBC Ql (U) 25 /ul Negative [facility] RBC Ql (U) 0 SEEN /hpf 0-5 [facility] Urine clarityOrdered By: Dr. Nuñez on 08-22-2022 Clarity (U) Clear Clear [facility] Urine color determinationOrd ered By: Dr. Nuñez on 08-22-2022 Color (U) Yellow Yellow [facility] Urine glucose detectionOrder ed By: Dr. Nuñez on 08-22-2022 Glucose Ql (U) Normal mg/dl Normal [facility] Urine leukocyte esterase det ection by dipstickOrdered By: Dr. Nuñez on 08-22-2022 Leukocyte esterase Test strip Ql (U) Negative Negative [facility] Urine pHOrdered By: Dr. Magnus sepulveda on 08-22-2022 pH (U) 6.0 [pH] 5.0 - 8.0 [facility] Urine sediment bacteria coun t by microscopy (number/high power field)Ordered By: Dr. Nuñez on 08-22-2022 Bacteria LM.HPF (Urine sed) [#/Area] 0 /[HPF] None Seen [facility] Urine specific gravity measu rementOrdered By: Dr. Nuñez on 08-22-2022 Specific gravity (U) [Rel density] 1.015 1.002-1.03 0 [facility] Urobilinogen Auto test strip Ql (U)Ordered By: Dr. Nuñez on 08-22-2022 Urobilinogen Ql (U) Normal mg/dl Normal [facility] Laboratory - Hematology and Cell countson 08-20-2022 HbA1c (Bld) [Mass fraction] 6.6 % 4.2-6.3 [facility] Laboratory - Microbiology an d Antimicrobial susceptibilityOrdered By: Dr. Nuñez on 08-20-2022 SARS-CoV-2 (COVID-19) RNA NICHOLAS+probe Ql (Unsp spec) Not detected Not Detect [facility] Comment on above: Normal Reference Ran ge: Not DetectedMethod:(RT-PCR) real-time reverse transcriptase PCRLuminex sarvaMAIL Instrument*The Food and Drug Administration (FDA) has issued an Emergency Use Authorization (EAU) for the sarvaMAIL SARS-CoV-2 Assay for the rapid detection of the virus that causes COVID-19. This test has been validated, but the FDAs independent review of this validation is pending.*Negative results do not preclude infection and should not be used as the sole basis for treatment or patient management. Optimum specimen types and timing for peak viral levels during infections caused by SARS-CoV-2 have not been determined. Collection of multiple specimens from the same patient may be necessary to detect the virus. The possibility of a false negative result should be considered if the patient has clinical presentation or has had recent exposure. Culture, urineOrdered By: Ra gabe Katz on 07-18-2022 Bacteria identified Cx Nom (U) Mixed Gram Pos & Gram Neg Org [facility] Basophil percentageOrdered B y: Mary Carmen Katz on 07-17-2022 Basophil percentage 0-5 SEEN /hpf 0-5 [facility] Bilirubin Test strip Ql (U)O rdered By: Mary Carmen Katz on 07-17-2022 Bilirubin Ql (U) Negative Negative [facility] Ketones Test strip Ql (U)Ord ered By: Mary Carmen Katz on 07-17-2022 Ketones Ql (U) 5 mg/dl Negative [facility] Mucus LM Ql (Urine sed)Order ed By: Mary Carmen Katz on 07-17-2022 Mucus Ql (Urine sed) 0 SEEN /hpf [facility] Nitrite Test strip Ql (U)Ord ered By: Mary Carmen Katz on 07-17-2022 Nitrite Ql (U) Negative Negative [facility] Protein Test strip Ql (U)Ord ered By: Mary Carmen Katz on 07-17-2022 Protein Ql (U) Negative Negative [facility] Squamous epithelial cells de tection in urine sediment by light microscopyOrdered By: Mary Carmen Katz on 07-17-2022 Epithelial cells.squamous LM Ql (Urine sed) 0-5 SEEN /hpf 5-10 [facility] Urine blood detectionOrdered By: Mary Carmen Katz on 07-17-2022 RBC Ql (U) 10 /ul Negative [facility] RBC Ql (U) 0 SEEN /hpf 0-5 [facility] Urine clarityOrdered By: Deepika Katz on 07-17-2022 Clarity (U) Clear Clear [facility] Urine color determinationOrd ered By: Mary Carmen Katz on 07-17-2022 Color (U) Straw Yellow [facility] Urine glucose detectionOrder ed By: Mary Carmen Katz on 07-17-2022 Glucose Ql (U) Normal mg/dl Normal [facility] Urine leukocyte esterase det ection by dipstickOrdered By: Mary Carmen Katz on 07-17-2022 Leukocyte esterase Test strip Ql (U) Negative Negative [facility] Urine pHOrdered By: Mary Carmen Katz on 07-17-2022 pH (U) 6.0 [pH] 5.0 - 8.0 [facility] Urine sediment bacteria coun t by microscopy (number/high power field)Ordered By: Mary Carmen Katz on 07-17-2022 Bacteria LM.HPF (Urine sed) [#/Area] 0 /[HPF] None Seen [facility] Urine specific gravity measu rementOrdered By: Mary Carmen Katz on 07-17-2022 Specific gravity (U) [Rel density] 1.015 1.002-1.03 0 [facility] Urobilinogen Auto test strip Ql (U)Ordered By: Mary Carmen Katz on 07-17-2022 Urobilinogen Ql (U) Normal mg/dl Normal [facility] Absolute lymphocyte countOrd ered By: Dr. Nuñez on 05-19-2022 Lymphocytes Auto (Unsp spec) [#/Vol] 1.99 10*3/uL 0.83-4.51 [facility] Basophil percentageOrdered B y: Dr. Nuñez on 05-19-2022 Basophils/100 WBC (Bld) 0.7 % 0-1 [facility] Eosinophils/100 WBC (Bld) 2.3 % 0-5 [facility] Neutrophils (Bld) [#/Vol] 4.2 10*3/uL 2.0-7.7 [facility] Neutrophils/100 WBC (Bld) 61.6 % 47-70 [facility] WBC (Bld) [#/Vol] 6.8 10*3/uL 4.4-11.0 [facility] Blood erythrocytes count (nu mber/volume)Ordered By: Dr. Nuñez on 05-19-2022 RBC (Bld) [#/Vol] 4.83 10*6/uL 4.2-5.4 [facility] Blood hemoglobin measurement (mass/volume)Ordered By: Dr. Nuñez on 05-19-2022 Hemoglobin (Bld) [Mass/Vol] 14.1 g/dL 12.0-15.0 [facility] Blood lymphocytes/100 leukoc ytesOrdered By: Dr. Nuñez on 05-19-2022 Lymphocytes/100 WBC (Bld) 29.1 % 19-41 [facility] Blood monocytes/100 leukocyt esOrdered By: Dr. Nuñez on 05-19-2022 Monocytes/100 WBC (Bld) 6.0 % 0-10 [facility] Blood platelet mean volumeOr dered By: Dr. Nuñez on 05-19-2022 Platelet mean volume (Bld) [Entitic vol] 10.0 fL 6.2-12.0 [facility] Determination of erythrocyte mean corpuscular volume (MCV)Ordered By: Dr. Nuñez on 05-19-2022 MCV (RBC) [Entitic vol] 90.9 fL 81-99 [facility] Hematocrit Auto (Bld) [Volum e fraction]Ordered By: Dr. Nuñez on 05-19-2022 Hematocrit (Bld) [Volume fraction] 43.9 % 37-47 [facility] Laboratory - Hematology and Cell countsOrdered By: Dr. Nuñez on 05-19-2022 Erythrocyte distribution width (RBC) [Entitic vol] 46.1 fL 35.1-43.9 [facility] Erythrocyte distribution width (RBC) [Ratio] 13.7 % 11.6-14.6 [facility] Immature granulocytes/100 WBC (Bld) 0.300 % 0.0-0.9 [facility] Comment on above: IG% - Immature Granu locytes (promyelocytes, myelocytes and metamyelocytes) > 1% indicates that a LEFT SHIFT is Present. MCH (RBC) [Entitic mass] 29.2 pg 27.0-32.0 [facility] Nucleated RBC/100 WBC (Bld) [Ratio] 0 % 0-5 [facility] MCHC Auto (RBC) [Mass/Vol]Or dered By: Dr. Nuñez on 05-19-2022 MCHC (RBC) [Mass/Vol] 32.1 g/dL 32-36 [facility] Platelets bldOrdered By: Dr. Nuñez on 05-19-2022 Platelets (Bld) [#/Vol] 302 10*3/uL 150-450 [facility] Basophil percentageOrdered B y: Dr. Nuñez on 05-14-2022 Cholesterol [Mass/Vol] 168 mg/dL <200 [facility] Comment on above: <200 mg/dL Desirable 200-240 mg/dL Borderline >240 mg/dL High Risk Triglyceride [Mass/Vol] 220 mg/dL <199 [facility] Comment on above: The drugs N-Acetylcy steine and Metamizole may falsely depress this assay.Serum Triglycerides Reference Interval Normal <150 mg/dL Borderline high 150 - 199 mg/dL High 200 - 499 mg/dL Very High > or = 500 mg/dL Serum or plasma cholesterol in HDL measurement (mass/volume)Ordered By: Dr. Nuñez on 05-14-2022 Cholesterol in HDL [Mass/Vol] 42 mg/dL >40 [facility] Comment on above: The drugs N-Acetylcy steine and Metamizole may falsely depress this assay. Reference Range HDL <40 mg/dL Low HDL Cholesterol HDL >or= 60 mg/dL High HDL Cholesterol Serum or plasma cholesterol in VLDL measurement (mass/volume)Ordered By: Dr. Nuñez on 05-14-2022 Cholesterol in VLDL [Mass/Vol] 44 mg/dL 5-40 [facility] Serum or plasma low density lipoprotein (LDL) cholesterol measurement (mass/volume)Ordered By: Dr. Nuñez on 05-14-2022 Cholesterol in LDL [Mass/Vol] 82 mg/dL 0-130 [facility] Whole blood hemoglobin A1c/t otal hemoglobin ratio (mass fraction)Ordered By: Dr. Nuñez on 05-14-2022 HbA1c (Bld) [Mass fraction] 6.1 % 3.8-5.6 [facility] Comment on above: Normal < 5.7 % Predi abetic 5.7 - 6.4 % Diabetic >or= 6.5 % Please note range changes. Basophil percentageon 2021 WBC (Bld) [#/Vol] 10.5 10*3/uL 4.4-11.0 [facility] Work Phone: Blood erythrocytes count (nu mber/volume)on 03-19-2022 RBC (Bld) [#/Vol] 3.67 10*6/uL 4.2-5.4 [facility] Work Phone: Blood hemoglobin measurement (mass/volume)on 03-19-2022 Hemoglobin (Bld) [Mass/Vol] 10.9 g/dL 12.0-15.0 [facility] Work Phone: Blood platelet mean volumeon 03-19-2022 Platelet mean volume (Bld) [Entitic vol] 10.3 fL 6.2-12.0 [facility] Work Phone: Determination of erythrocyte mean corpuscular volume (MCV)on 03-19-2022 MCV (RBC) [Entitic vol] 91.3 fL 81-99 [facility] Work Phone: Hematocrit Auto (Bld) [Volum e fraction]on 03-19-2022 Hematocrit (Bld) [Volume fraction] 33.5 % 37-47 [facility] Work Phone: Laboratory - Hematology and Cell countson 03-19-2022 Erythrocyte distribution width (RBC) [Entitic vol] 47.8 fL 35.1-43.9 [facility] Work Phone: Erythrocyte distribution width (RBC) [Ratio] 14.2 % 11.6-14.6 [facility] Work Phone: MCH (RBC) [Entitic mass] 29.7 pg 27.0-32.0 [facility] Work Phone: MCHC Auto (RBC) [Mass/Vol]on 03-19-2022 MCHC (RBC) [Mass/Vol] 32.5 g/dL 32-36 [facility] Work Phone: Platelets bldon 03-19-2022 Platelets (Bld) [#/Vol] 247 10*3/uL 150-450 [facility] Work Phone: Basophil percentageon 2021 Chloride [Moles/Vol] 107 mmol/L 98-107 [facility] Work Phone: Glucose [Mass/Vol] 133 mg/dL 74-106 [facility] Work Phone: Comment on above: Fasting Glucose resu lt greater than or equal to 126 mg/dL suggests DIABETES MELLITUS per A.D.A. criteria. Potassium [Moles/Vol] 3.9 mmol/L 3.5-5.1 [facility] Work Phone: Sodium [Moles/Vol] 141 mmol/L 136-145 [facility] Work Phone: Laboratory - Chemistry and C hemistry - challengeon 03-18-2022 CO2 [Moles/Vol] 28.0 mmol/L 21.0-32.0 [facility] Work Phone: Urea nitrogen/Creatinine [Mass ratio] 13.5 mg/mg 10-20 [facility] Work Phone: No Panel Informationon 03-18 Estimated Creatinine Clearance Calc 58.20 ml/min [facility] Work Phone: Estimated GFR (MDRD) Amer 90 mL/min >60 [facility] Work Phone: Comment on above: GFR Calc Estimated GFR (MDRD) Non-Af Amer 75 mL/min >60 [facility] Work Phone: Comment on above: Non- GFR Calc Serum or plasma calcium hailey urement (mass/volume)on 03-18-2022 Calcium [Mass/Vol] 8.6 mg/dL 8.5-10.1 [facility] Work Phone: Serum or plasma creatinine m easurement (mass/volume)on 03-18-2022 Creatinine [Mass/Vol] 0.81 mg/dL 0.55-1.02 [facility] Work Phone: Comment on above: The validity of the calculated GFR & GFRAA in patients over 70 years has not been determined. Clinical correlation is essential. Serum or plasma urea nitroge n measurement (mass/volume)on 03-18-2022 Urea nitrogen [Mass/Vol] 11 mg/dL 7-18 [facility] Work Phone: Thin prep Papanicolaou smear with manual screeningon 03-18-2022 Thin prep Papanicolaou smear with manual screening 6 5-15 [facility] Work Phone: Glucose Glucometer (BldC) [M ass/Vol]on 03-17-2022 Glucose [Mass/Vol] 189 mg/dL 74-106 [facility] Work Phone: Comment on above: MANAGEMENT OF PATIEN T CARE PER NURSING PROTOCOL INR in Blood by Coagulation assayon 03-04-2022 INR Coag (Bld) [Relative time] 1.0 {INR} [facility] Work Phone: Laboratory - Chemistry and C hemistry - challengeon 03-04-2022 Magnesium [Mass/Vol] 2.1 mg/dL 1.6-2.6 [facility] Work Phone: Laboratory - Coagulationon 0 03-04-2022 aPTT Coag (Bld) [Time] 31.9 s 24.1-36.2 [facility] Work Phone: PT Coag (PPP) [Time] 12.4 s 11.7-14.9 [facility] Work Phone: No Panel Informationon 03-04 Fructosamine 227 umol/L 0-285 [facility] Work Phone: Comment on above: Published reference interval for apparently healthysubjects between age 20 and 60 is 205 - 285 umol/L and in apoorly controlled diabetic population is 228 - 563 umol/Lwith a mean of 396 umol/L.Performed at: [place] [id number] Director: Gilberto Carpio PhD, Phone: [phone] Absolute lymphocyte counton 02-17-2022 Lymphocytes Auto (Unsp spec) [#/Vol] 2.52 10*3/uL 0.83-4.51 [facility] Work Phone: Basophil percentageon 2021 Basophils/100 WBC (Bld) 0.7 % 0-1 [facility] Work Phone: Bilirubin [Mass/Vol] 0.20 mg/dL 0.20-1.00 [facility] Work Phone: Comment on above: For patients on eltr ombopag therapy, use of Dimension [place] TBIL is not recommended. Chloride [Moles/Vol] 107 mmol/L 98-107 [facility] Work Phone: Cholesterol [Mass/Vol] 206 mg/dL <200 [facility] Work Phone: Comment on above: <200 mg/dL Desirable 200-240 mg/dL Borderline >240 mg/dL High Risk Eosinophils/100 WBC (Bld) 2.7 % 0-5 [facility] Work Phone: Glucose [Mass/Vol] 127 mg/dL 74-106 [facility] Work Phone: Comment on above: Fasting Glucose resu lt greater than or equal to 126 mg/dL suggests DIABETES MELLITUS per A.D.A. criteria. Neutrophils (Bld) [#/Vol] 4.9 10*3/uL 2.0-7.7 [facility] Work Phone: [phone] Neutrophils/100 WBC (Bld) 59.5 % 47-70 [facility] Work Phone: [phone] Potassium [Moles/Vol] 4.2 mmol/L 3.5-5.1 [facility] Work Phone: [phone] Protein [Mass/Vol] 7.5 g/dL 6.4-8.2 [facility] Work Phone: [phone] Sodium [Moles/Vol] 138 mmol/L 136-145 [facility] Work Phone: Triglyceride [Mass/Vol] 313 mg/dL <199 [facility] Work Phone: Comment on above: The drugs N-Acetylcy steine and Metamizole may falsely depress this assay.Serum Triglycerides Reference Interval Normal <150 mg/dL Borderline high 150 - 199 mg/dL High 200 - 499 mg/dL Very High > or = 500 mg/dL WBC (Bld) [#/Vol] 8.2 10*3/uL 4.4-11.0 [facility] Work Phone: Blood erythrocytes count (nu mber/volume)on 02-17-2022 RBC (Bld) [#/Vol] 4.91 10*6/uL 4.2-5.4 [facility] Work Phone: [phone] Blood hemoglobin measurement (mass/volume)on 02-17-2022 Hemoglobin (Bld) [Mass/Vol] 14.8 g/dL 12.0-15.0 [facility] Work Phone: [phone] Blood lymphocytes/100 leukoc yteson 02-17-2022 Lymphocytes/100 WBC (Bld) 30.8 % 19-41 [facility] Work Phone: Blood monocytes/100 leukocyt eson 02-17-2022 Monocytes/100 WBC (Bld) 5.9 % 0-10 [facility] Work Phone: Blood platelet mean volumeon 02-17-2022 Platelet mean volume (Bld) [Entitic vol] 10.3 fL 6.2-12.0 [facility] Work Phone: Determination of erythrocyte mean corpuscular volume (MCV)on 02-17-2022 MCV (RBC) [Entitic vol] 90.8 fL 81-99 [facility] Work Phone: Hematocrit Auto (Bld) [Volum e fraction]on 02-17-2022 Hematocrit (Bld) [Volume fraction] 44.6 % 37-47 [facility] Work Phone: [phone] Laboratory - Chemistry and C hemistry - challengeon 02-17-2022 ALP [Catalytic activity/Vol] 86 U/L 45-117 [facility] Work Phone: ALT [Catalytic activity/Vol] 41 U/L 13-56 [facility] Work Phone: CO2 [Moles/Vol] 22.0 mmol/L 21.0-32.0 [facility] Work Phone: Globulin (S) [Mass/Vol] 4.0 g/dL 2.2-4.2 [facility] Work Phone: Urea nitrogen/Creatinine [Mass ratio] 37.3 mg/mg 10-20 [facility] Work Phone: Laboratory - Hematology and Cell countson 02-17-2022 Erythrocyte distribution width (RBC) [Entitic vol] 45.6 fL 35.1-43.9 [facility] Work Phone: Erythrocyte distribution width (RBC) [Ratio] 13.8 % 11.6-14.6 [facility] Work Phone: Immature granulocytes/100 WBC (Bld) 0.400 % 0.0-0.9 [facility] Work Phone: Comment on above: IG% - Immature Granu locytes (promyelocytes, myelocytes and metamyelocytes) > 1% indicates that a LEFT SHIFT is Present. MCH (RBC) [Entitic mass] 30.1 pg 27.0-32.0 [facility] Work Phone: Nucleated RBC/100 WBC (Bld) [Ratio] 0 % 0-5 [facility] Work Phone: MCHC Auto (RBC) [Mass/Vol]on 02-17-2022 MCHC (RBC) [Mass/Vol] 33.2 g/dL 32-36 [facility] Work Phone: No Panel Informationon 02-17 Estimated GFR (MDRD) Amer 103 mL/min >60 [facility] Work Phone: Comment on above: GFR Calc Estimated GFR (MDRD) Non-Af Amer 85 mL/min >60 [facility] Work Phone: Comment on above: Non- GFR Calc Thyroid Stimulating Hormone (TSH) 3.24 uIU/mL 0.358-3.74 [facility] Work Phone: Platelets bldon 02-17-2022 Platelets (Bld) [#/Vol] 339 10*3/uL 150-450 [facility] Work Phone: Serum or plasma albumin hailey urement (mass/volume)on 02-17-2022 Albumin [Mass/Vol] 3.5 g/dL 3.2-5.0 [facility] Work Phone: Serum or plasma albumin/glob ulin mass ratioon 02-17-2022 Albumin/Globulin [Mass ratio] 0.9 {ratio} 0.9-2.4 [facility] Work Phone: Serum or plasma calcium hailey urement (mass/volume)on 02-17-2022 Calcium [Mass/Vol] 9.0 mg/dL 8.5-10.1 [facility] Work Phone: Serum or plasma cholesterol in HDL measurement (mass/volume)on 02-17-2022 Cholesterol in HDL [Mass/Vol] 41 mg/dL >40 [facility] Work Phone: Comment on above: The drugs N-Acetylcy steine and Metamizole may falsely depress this assay. Reference Range HDL <40 mg/dL Low HDL Cholesterol HDL >or= 60 mg/dL High HDL Cholesterol Serum or plasma cholesterol in VLDL measurement (mass/volume)on 02-17-2022 Cholesterol in VLDL [Mass/Vol] 63 mg/dL 5-40 [facility] Work Phone: Serum or plasma creatinine m easurement (mass/volume)on 02-17-2022 Creatinine [Mass/Vol] 0.72 mg/dL 0.55-1.02 [facility] Work Phone: Comment on above: The validity of the calculated GFR & GFRAA in patients over 70 years has not been determined. Clinical correlation is essential. Serum or plasma low density lipoprotein (LDL) cholesterol measurement (mass/volume)on 02-17-2022 Cholesterol in LDL [Mass/Vol] 102 mg/dL 0-130 [facility] Work Phone: Serum or plasma urea nitroge n measurement (mass/volume)on 02-17-2022 Urea nitrogen [Mass/Vol] 27 mg/dL 7-18 [facility] Work Phone: Thin prep Papanicolaou smear with manual screeningon 02-17-2022 Thin prep Papanicolaou smear with manual screening 22 U/L 15-37 [facility] [facility] Work Phone: Thin prep Papanicolaou smear with manual screening 9 5-15 [facility] Work Phone: Whole blood hemoglobin A1c/t otal hemoglobin ratio (mass fraction)on 02-17-2022 HbA1c (Bld) [Mass fraction] 6.2 % 3.8-5.6 [facility] Work Phone: Comment on above: Normal < 5.7 % Predi abetic 5.7 - 6.4 % Diabetic >or= 6.5 % Please note range changes. Laboratory - Hematology and Cell countson 11-18-2021 HbA1c (Bld) [Mass fraction] 6.0 % 4.2-6.3 [facility] Work Phone: Absolute lymphocyte counton 11-11-2021 Lymphocytes Auto (Unsp spec) [#/Vol] 2.21 10*3/uL 0.83-4.51 [facility] Work Phone: Basophil percentageon 2021 Basophils/100 WBC (Bld) 0.6 % 0-1 [facility] Work Phone: Eosinophils/100 WBC (Bld) 2.1 % 0-5 [facility] Work Phone: Neutrophils (Bld) [#/Vol] 7.8 10*3/uL 2.0-7.7 [facility] Work Phone: Neutrophils/100 WBC (Bld) 71.2 % 47-70 [facility] Work Phone: WBC (Bld) [#/Vol] 10.9 10*3/uL 4.4-11.0 [facility] Work Phone: Chloride [Moles/Vol] 105 mmol/L 98-107 [facility] Work Phone: Glucose [Mass/Vol] 135 mg/dL 74-106 [facility] Work Phone: Comment on above: Fasting Glucose resu lt greater than or equal to 126 mg/dL suggests DIABETES MELLITUS per A.D.A. criteria. Potassium [Moles/Vol] 4.2 mmol/L 3.5-5.1 [facility] Work Phone: Sodium [Moles/Vol] 136 mmol/L 136-145 [facility] Work Phone: Blood erythrocytes count (nu mber/volume)on 11-11-2021 RBC (Bld) [#/Vol] 4.87 10*6/uL 4.2-5.4 [facility] Work Phone: Blood hemoglobin measurement (mass/volume)on 04-12-2022 Hemoglobin (Bld) [Mass/Vol] 14.9 g/dL 12.0-15.0 [facility] Work Phone: Blood lymphocytes/100 leukoc yteson 11-11-2021 Lymphocytes/100 WBC (Bld) 20.2 % 19-41 [facility] Work Phone: Blood monocytes/100 leukocyt eson 11-11-2021 Monocytes/100 WBC (Bld) 5.6 % 0-10 [facility] Work Phone: Blood platelet mean volumeon 11-11-2021 Platelet mean volume (Bld) [Entitic vol] 9.7 fL 6.2-12.0 [facility] Work Phone: [phone] Determination of erythrocyte mean corpuscular volume (MCV)on 11-11-2021 MCV (RBC) [Entitic vol] 91.6 fL 81-99 [facility] Work Phone: Hematocrit Auto (Bld) [Volum e fraction]on 11-11-2021 Hematocrit (Bld) [Volume fraction] 44.6 % 37-47 [facility] Work Phone: [phone] Laboratory - Chemistry and C hemistry - challengeon 11-11-2021 CO2 [Moles/Vol] 27.0 mmol/L 21.0-32.0 [facility] Work Phone: [phone] Urea nitrogen/Creatinine [Mass ratio] 31.3 mg/mg 10-20 [facility] Work Phone: [phone] Laboratory - Hematology and Cell countson 11-11-2021 Erythrocyte distribution width (RBC) [Entitic vol] 44.5 fL 35.1-43.9 [facility] Work Phone: Erythrocyte distribution width (RBC) [Ratio] 13.2 % 11.6-14.6 [facility] Work Phone: Immature granulocytes/100 WBC (Bld) 0.300 % 0.0-0.9 [facility] Work Phone: [phone] Comment on above: IG% - Immature Granu locytes (promyelocytes, myelocytes and metamyelocytes) > 1% indicates that a LEFT SHIFT is Present. MCH (RBC) [Entitic mass] 30.6 pg 27.0-32.0 [facility] Work Phone: Nucleated RBC/100 WBC (Bld) [Ratio] 0 % 0-5 [facility] Work Phone: MCHC Auto (RBC) [Mass/Vol]on 11-11-2021 MCHC (RBC) [Mass/Vol] 33.4 g/dL 32-36 [facility] Work Phone: No Panel Informationon 11-11 Estimated Creatinine Clearance Calc 59.73 ml/min [facility] Work Phone: Estimated GFR (MDRD) Amer 92 mL/min >60 [facility] Work Phone: Comment on above: GFR Calc Estimated GFR (MDRD) Non-Af Amer 76 mL/min >60 [facility] Work Phone: Comment on above: Non- GFR Calc Troponin I High Sensitivity < 3 pg/mL 3.0-54.0 [facility] Work Phone: Comment on above: Please Note: New Migdalia t Units and Gender Specific Reference Ranges. For more information see Policy Stat Procedure [place] High Sensitivity Troponin (TNIH) and attachments. Platelets bldon 11-11-2021 Platelets (Bld) [#/Vol] 295 10*3/uL 150-450 [facility] Work Phone: Serum or plasma calcium hailey urement (mass/volume)on 11-11-2021 Calcium [Mass/Vol] 9.1 mg/dL 8.5-10.1 [facility] Work Phone: Serum or plasma creatinine m easurement (mass/volume)on 11-11-2021 Creatinine [Mass/Vol] 0.80 mg/dL 0.55-1.02 [facility] Work Phone: Comment on above: The validity of the calculated GFR & GFRAA in patients over 70 years has not been determined. Clinical correlation is essential. Serum or plasma urea nitroge n measurement (mass/volume)on 11-11-2021 Urea nitrogen [Mass/Vol] 25 mg/dL 7-18 [facility] Work Phone: Thin prep Papanicolaou smear with manual screeningon 11-11-2021 Thin prep Papanicolaou smear with manual screening 4 5-15 [facility] Work Phone: Laboratory - Chemistry and C hemistry - challengeon 08-08-2021 Free T4 [Mass/Vol] 1.13 ng/dL 0.76-1.46 [facility] Work Phone: No Panel Informationon 08-08 Thyroid Stimulating Hormone (TSH) 0.90 uIU/mL 0.358-3.74 [facility] Work Phone: CNPTOUTREACHon 08-17-2019 CNPTOUTREACH Patient Outreach (IN TMWS) DANNI STAPLETON ([id number]) 1955 F Date Time Provider Department 08/17/19 ANGELA GILBERT) INTMWS During your visit today, we recorded the following information about you: Angela Gilbert CMA 08/17/2019 8:53 AM Signed POP[facility]ATION [facility] COLLABORATIVE PHYSICIAN QUICKNOTE Provider Action/FYI: Patients chart reviewed in teamlet. No patient activity since 01/08/2016 which states patient is in [place]. No PCP with Dr. Arguello since 08/29/2014. Based on information gathered Dr. Arguello was removed as PCP. Patient identified by name and . Angela Gilbert CMA Allergies As of Date: 08/17/2019 Noted Allergy Reaction MORPHINE 10/06/2010 14 - Other: See Comments Comments: pt sees spiders Date Reviewed: 06/05/2015 Reviewed by: Erica Lau Ma - Fully Assessed Reason for Visit: PHMA/Care Gap Outreach [[id number]] Prescriptions as of 08/17/2019 Sig: CLONAZEPAM 0.5 MG TABLET Take 1 tablet by mouth three * LEVOTHYROXINE 175 MCG TABLET Take 1 tablet by mouth daily * CYCLOBENZAPRINE 10 MG TABLET Take 1 tablet by mouth as nee* SERTRALINE 100 MG TABLET Take 1 tablet by mouth once d* HYDROCODONE 5 MG-ACETAMINOPHE* Take 1 tablet by mouth twice * OXYCODONE-ACETAMINOPHEN 5 MG-* Take 1-2 tablets by mouth denisa* ASPIRIN 325 MG TABLET,DELAYED* Take 1 tablet by mouth twice * LORATADINE 10 MG TABLET Take 1 tablet by mouth once d* Problem List As Of Date 08/17/2019 Noted Resolved Anxiety [F41.9] 03/02/2014 More... H/O Graves' disease [Z86.39] 03/02/2014 More... Osteoarthritis [M19.90] 03/02/2014 08/29/2014 More... GERD (gastroesophageal reflux disease) [K21.9] 03/02/2014 More... Thoracic vertebral fracture (HCC) [S22.009A] 03/19/2014 More... Hypertriglyceridemia [E78.1] 03/19/2014 More... Unspecified arthropathy, lower leg [NJE4218] 08/06/2014 08/06/2014 Stiffness of joint, not elsewhere classified, l*08/13/2014 08/29/2014 Pain in joint, lower leg [M25.569] 08/13/2014 Difficulty in walking(719.7) [R26.2] 08/13/2014 Encounter Status:Closed by ANGELA GILBERT CMA on 08/17/19 [facility] PROGRESSon 08-17-2019 PROGRESS HNO ID: [id number] Author: Angela Gilbert Service: ? Author Type: Employment Manager Type: Progress Notes Filed: 08/17/2019 8:53 AM Note Text: [facility] COLLABORATIVE PHYSICIAN QUICKNOTE Provider Action/FYI: Patients chart reviewed in teamlet. No patient activity since 01/08/2016 which states patient is in [place]. No PCP with Dr. Arguello since 08/29/2014. Based on information gathered Dr. Arguello was removed as PCP. Patient identified by name and . [facility] Bacteria identified Cx Nom (U) Mixed Gram Pos & Gram Neg Org [facility] Work Phone: No Panel Information Nasal Screen MRSA/MSSA [facility] Work Phone: Vital Signs Date Time Vital Sign Value Performing Clinician Facility 02-15-2025 10:40-0400 Body height 162.[address] Hua Nuñez MD Work Phone: [facility] 02-15-2025 10:40-0400 Body temperature 97.7 [degF] Dr. Hua Nuñez MD Work Phone: [facility] 02-15-2025 10:40-0400 Diastolic blood pressure 80 mm[Hg] Dr. Hua Nuñez MD Work Phone: [facility] 02-15-2025 10:40-0400 Heart rate 80 /min Dr. Hua Nuñez MD Work Phone: [facility] 02-15-2025 10:40-0400 Respiratory rate 14 /min Dr. Hua Nuñez MD Work Phone: [facility] 02-15-2025 10:40-0400 SaO2% (BldA) [Mass fraction] 95 % Dr. Hua Nuñez MD Work Phone: [facility] 02-15-2025 10:40-0400 Systolic blood pressure 125 mm[Hg] Dr. Hua Nuñez MD Work Phone: [facility] 01-31-2025 16:13-0400 Body height 162.[address] Hua Nuñez MD Work Phone: [facility] 01-31-2025 16:13-0400 Body temperature 98 [degF] Dr. Hua Nuñez MD Work Phone: [facility] 01-31-2025 16:13-0400 Diastolic blood pressure 73 mm[Hg] Dr. Hua Nuñez MD Work Phone: [facility] 01-31-2025 16:13-0400 Heart rate 91 /min Dr. Hua Nuñez MD Work Phone: [facility] 01-31-2025 16:13-0400 Respiratory rate 18 /min Dr. Hua Nuñez MD Work Phone: [facility] 01-31-2025 16:13-0400 SaO2% (BldA) [Mass fraction] 94 % Dr. Hua Nuñez MD Work Phone: [facility] 01-31-2025 16:13-0400 Systolic blood pressure 116 mm[Hg] Dr. Hua Nuñez MD Work Phone: [facility] 01-24-2025 15:10-0400 Diastolic blood pressure 73 mm[Hg] Dr. Hua Nuñez MD Work Phone: [facility] 01-24-2025 15:10-0400 Heart rate 100 /min Dr. Hua Nuñez MD Work Phone: [facility] 01-24-2025 15:10-0400 Respiratory rate 18 /min Dr. Hua Nuñez MD Work Phone: [facility] 01-24-2025 15:10-0400 SaO2% (BldA) [Mass fraction] 96 % Dr. Hua Nuñez MD Work Phone: [facility] 01-24-2025 15:10-0400 Systolic blood pressure 108 mm[Hg] Dr. Hua Nuñez MD Work Phone: [facility] 12-14-2024 11:21-0400 Body weight 90.[address] Hua Nuñez MD Work Phone: [facility] 12-14-2024 11:21-0400 Diastolic blood pressure 82 mm[Hg] Dr. Hua Nuñez MD Work Phone: [facility] 12-14-2024 11:21-0400 Heart rate 77 /min Dr. Hua Nuñez MD Work Phone: [facility] 12-14-2024 11:21-0400 Respiratory rate 18 /min Dr. Hua Nuñez MD Work Phone: [facility] 12-14-2024 11:21-0400 SaO2% (BldA) [Mass fraction] 97 % Dr. Hua Nuñez MD Work Phone: [facility] 12-14-2024 11:21-0400 Systolic blood pressure 123 mm[Hg] Dr. Hua Nuñez MD Work Phone: [facility] 11-30-2024 13:50-0400 Body height 162.[address] Hua Nuñez MD Work Phone: [facility] 11-30-2024 13:50-0400 Body mass index (BMI) [Ratio] 34 kg/m2 Dr. Hua Nuñez MD Work Phone: [facility] 11-30-2024 13:50-0400 Body temperature 97.5 [degF] Dr. Hua Nuñez MD Work Phone: [facility] 11-30-2024 13:50-0400 Body weight 89.[address] Hua Nuñez MD Work Phone: [facility] 11-30-2024 13:50-0400 Diastolic blood pressure 78 mm[Hg] Dr. Hua Nuñez MD Work Phone: [facility] 11-30-2024 13:50-0400 Heart rate 90 /min Dr. Hua Nuñez MD Work Phone: [facility] 11-30-2024 13:50-0400 Respiratory rate 16 /min Dr. Hua Nuñez MD Work Phone: [facility] 11-30-2024 13:50-0400 SaO2% (BldA) [Mass fraction] 96 % Dr. Hua Nuñez MD Work Phone: [facility] 11-30-2024 13:50-0400 Systolic blood pressure 124 mm[Hg] Dr. Hua Nuñez MD Work Phone: [facility] 08-23-2024 13:52-0500 Body mass index (BMI) [Ratio] 34.1 kg/m2 Dr. Hua Nuñez MD Work Phone: [facility] 08-23-2024 13:52-0500 Body temperature 97.6 [degF] Dr. Hua Nuñez MD Work Phone: [facility] 08-23-2024 13:52-0500 Body weight 90.[address] Hua Nuñez MD Work Phone: [facility] 08-23-2024 13:52-0500 Diastolic blood pressure 62 mm[Hg] Dr. Hua Nuñez MD Work Phone: [facility] 08-23-2024 13:52-0500 Heart rate 58 /min Dr. Hua Nuñez MD Work Phone: [facility] 08-23-2024 13:52-0500 Respiratory rate 16 /min Dr. Hua Nuñez MD Work Phone: [facility] 08-23-2024 13:52-0500 SaO2% (BldA) [Mass fraction] 99 % Dr. Hua Nuñez MD Work Phone: [facility] 08-23-2024 13:52-0500 Systolic blood pressure 118 mm[Hg] Dr. Hua Nuñez MD Work Phone: [facility] 11-11-2023 15:02-0400 Body height 162.[address] Hua Nuñez Work Phone: [facility] 11-11-2023 15:02-0400 Body mass index (BMI) [Ratio] 35.2 kg/m2 Dr. Hua Nuñez Work Phone: [facility] 11-11-2023 15:02-0400 Body temperature 98.2 [degF] Dr. Hua Nuñez Work Phone: [facility] 11-11-2023 15:02-0400 Body weight 92.[address] Hua Nuñez Work Phone: [facility] 11-11-2023 15:02-0400 Diastolic blood pressure 72 mm[Hg] Dr. Hua Nuñez Work Phone: [facility] 11-11-2023 15:02-0400 Heart rate 91 /min Dr. Hua Nuñez Work Phone: [facility] 11-11-2023 15:02-0400 Respiratory rate 17 /min Dr. Hua Nuñez Work Phone: [facility] 11-11-2023 15:02-0400 SaO2% (BldA) [Mass fraction] 96 % Dr. Hua Nuñez Work Phone: [facility] 11-11-2023 15:02-0400 Systolic blood pressure 138 mm[Hg] Dr. Hua Nuñez Work Phone: [facility] 08-19-2023 14:01-0500 Body mass index (BMI) [Ratio] 34.4 kg/m2 Dr. Hua Nuñez Work Phone: [facility] 08-19-2023 14:01-0500 Body temperature 97.2 [degF] Dr. Hua Nuñez Work Phone: [facility] 08-19-2023 14:01-0500 Body weight 90.[address] Hua Nuñez Work Phone: [facility] 08-19-2023 14:01-0500 Diastolic blood pressure 62 mm[Hg] Dr. Hua Nuñez Work Phone: [facility] 08-19-2023 14:01-0500 Heart rate 88 /min Dr. Hua Nuñez Work Phone: [facility] 08-19-2023 14:01-0500 Respiratory rate 16 /min Dr. Hua Nuñez Work Phone: [facility] 08-19-2023 14:01-0500 SaO2% (BldA) [Mass fraction] 97 % Dr. Hua Nuñez Work Phone: [facility] 08-19-2023 14:01-0500 Systolic blood pressure 120 mm[Hg] Dr. Hua Nuñez Work Phone: [facility] 05-13-2023 15:21-0400 Body height 162.[address] Hua Nuñez Work Phone: [facility] 05-13-2023 15:21-0400 Body mass index (BMI) [Ratio] 34.1 kg/m2 Dr. Hua Nuñez Work Phone: [facility] 05-13-2023 15:21-0400 Body temperature 97.7 [degF] Dr. Hua Nuñez Work Phone: [facility] 05-13-2023 15:21-0400 Body weight 90.[address] Hua Nuñez Work Phone: [facility] 05-13-2023 15:21-0400 Diastolic blood pressure 78 mm[Hg] Dr. Hua Nuñez Work Phone: [facility] 05-13-2023 15:21-0400 Heart rate 84 /min Dr. Hua Nuñez Work Phone: [facility] 05-13-2023 15:21-0400 Respiratory rate 16 /min Dr. Hua Nuñez Work Phone: [facility] 05-13-2023 15:21-0400 SaO2% (BldA) [Mass fraction] 98 % Dr. Hua Nuñez Work Phone: [facility] 05-13-2023 15:21-0400 Systolic blood pressure 124 mm[Hg] Dr. Hua Nuñez Work Phone: [facility] 04-12-2023 12:21-0400 Respiratory rate 18 /min Dr. Hua Nuñez Work Phone: [facility] 04-12-2023 10:22-0400 Body height 162.[address] Hua Nuñez Work Phone: [facility] 04-12-2023 10:22-0400 Body mass index (BMI) [Ratio] 34.3 kg/m2 Dr. Hua Nuñez Work Phone: [facility] 04-12-2023 10:22-0400 Body temperature 96.4 [degF] Dr. Hua Nuñez Work Phone: [facility] 04-12-2023 10:22-0400 Body weight 90.[address] Hua Nuñez Work Phone: [facility] 04-12-2023 10:22-0400 Diastolic blood pressure 91 mm[Hg] Dr. Hua Nuñez Work Phone: [facility] 04-12-2023 10:22-0400 Heart rate 95 /min Dr. Hua Nuñez Work Phone: [facility] 04-12-2023 10:22-0400 SaO2% (BldA) [Mass fraction] 99 % Dr. Hua Nuñez Work Phone: [facility] 04-12-2023 10:22-0400 Systolic blood pressure 153 mm[Hg] Dr. Hua Nuñez Work Phone: [facility] 02-11-2023 13:33-0400 Body height 162.[address] Hua Nuñez Work Phone: [facility] 02-11-2023 13:33-0400 Body mass index (BMI) [Ratio] 34.2 kg/m2 Dr. Hua Nuñez Work Phone: [facility] 02-11-2023 13:33-0400 Body temperature 95.8 [degF] Dr. Hua Nuñez Work Phone: [facility] 02-11-2023 13:33-0400 Body weight 90.[address] Hua Nuñez Work Phone: [facility] 02-11-2023 13:33-0400 Diastolic blood pressure 76 mm[Hg] Dr. Hua Nuñez Work Phone: [facility] 02-11-2023 13:33-0400 Heart rate 74 /min Dr. Hua Nuñez Work Phone: [facility] 02-11-2023 13:33-0400 Respiratory rate 18 /min Dr. Hua Nuñez Work Phone: [facility] 02-11-2023 13:33-0400 SaO2% (BldA) [Mass fraction] 96 % Dr. Hua Nuñez Work Phone: [facility] 02-11-2023 13:33-0400 Systolic blood pressure 124 mm[Hg] Dr. Hua Nuñez Work Phone: [facility] 11-12-2022 14:53-0400 Body height 162.[address] Hua Nuñez Work Phone: [facility] 11-12-2022 14:53-0400 Body mass index (BMI) [Ratio] 34 kg/m2 Dr. Hua Nuñez Work Phone: [facility] 11-12-2022 14:53-0400 Body temperature 97.4 [degF] Dr. Hua Nuñez Work Phone: [facility] 11-12-2022 14:53-0400 Body weight 89.[address] Hua Nuñez Work Phone: [facility] 11-12-2022 14:53-0400 Diastolic blood pressure 70 mm[Hg] Dr. Hua Nuñez Work Phone: [facility] 11-12-2022 14:53-0400 Heart rate 70 /min Dr. Hua Nuñez Work Phone: [facility] 11-12-2022 14:53-0400 Respiratory rate 16 /min Dr. Hua Nuñez Work Phone: [facility] 11-12-2022 14:53-0400 SaO2% (BldA) [Mass fraction] 98 % Dr. Hua Nuñez Work Phone: [facility] 11-12-2022 14:53-0400 Systolic blood pressure 124 mm[Hg] Dr. Hua Nuñez Work Phone: [facility] 08-20-2022 14:02-0500 Body height 162.[address] Hua Nuñez Work Phone: [facility] 08-20-2022 14:02-0500 Body mass index (BMI) [Ratio] 33.7 kg/m2 Dr. Hua Nuñez Work Phone: [facility] 08-20-2022 14:02-0500 Body temperature 97.6 [degF] Dr. Hua Nuñez Work Phone: [facility] 08-20-2022 14:02-0500 Body weight 89.[address] Hua Nuñez Work Phone: [facility] 08-20-2022 14:02-0500 Diastolic blood pressure 82 mm[Hg] Dr. Hua Nuñez Work Phone: [facility] 08-20-2022 14:02-0500 Heart rate 92 /min Dr. Hua Nuñez Work Phone: [facility] 08-20-2022 14:02-0500 Respiratory rate 16 /min Dr. Hua Nuñez Work Phone: [facility] 08-20-2022 14:02-0500 SaO2% (BldA) [Mass fraction] 99 % Dr. Hua Nuñez Work Phone: [facility] 08-20-2022 14:02-0500 Systolic blood pressure 138 mm[Hg] Dr. Hua Nuñez Work Phone: [facility] 07-17-2022 14:03-0500 Body temperature 96.3 [degF] Dr. Hua Nuñez Work Phone: [facility] 07-17-2022 14:03-0500 Body weight 88.[address] Hua Nuñez Work Phone: [facility] 07-17-2022 14:03-0500 Diastolic blood pressure 72 mm[Hg] Dr. Hua Nuñez Work Phone: [facility] 07-17-2022 14:03-0500 Heart rate 86 /min Dr. Hua Nuñez Work Phone: [facility] 07-17-2022 14:03-0500 Respiratory rate 16 /min Dr. Hua Nuñez Work Phone: [facility] 07-17-2022 14:03-0500 SaO2% (BldA) [Mass fraction] 99 % Dr. Hua Nuñez Work Phone: [facility] 07-17-2022 14:03-0500 Systolic blood pressure 124 mm[Hg] Dr. Hua Nuñez Work Phone: [facility] 05-19-2022 10:17-0400 Body height 162.[address] Hua Nuñez Work Phone: [facility] Work Phone: 05-19-2022 10:17-0400 Body mass index (BMI) [Ratio] 33.3 kg/m2 Dr. Hua Nuñez Work Phone: [facility] 05-19-2022 10:17-0400 Body temperature 97.5 [degF] Dr. Hua Nuñez Work Phone: [facility] 05-19-2022 10:17-0400 Body weight 87.[address] Hua Nuñez Work Phone: [facility] 05-19-2022 10:17-0400 Diastolic blood pressure 70 mm[Hg] Dr. Hua Nuñez Work Phone: [facility] 05-19-2022 10:17-0400 Heart rate 90 /min Dr. Hua Nuñez Work Phone: [facility] 05-19-2022 10:17-0400 Respiratory rate 14 /min Dr. Hua Nuñez Work Phone: [facility] 05-19-2022 10:17-0400 SaO2% (BldA) [Mass fraction] 97 % Dr. Hua Nuñez Work Phone: [facility] 05-19-2022 10:17-0400 Systolic blood pressure 122 mm[Hg] Dr. Hua Nuñez Work Phone: [facility] 04-28-2022 10:09-0400 Body height 162.[address] Hua Nuñez Work Phone: [facility] Work Phone: 04-28-2022 10:09-0400 Body mass index (BMI) [Ratio] 32.5 kg/m2 Dr. Hua Nuñez Work Phone: [facility] Work Phone: 04-28-2022 10:09-0400 Body weight 86.[address] Hua Nuñez Work Phone: [facility] Work Phone: 04-28-2022 10:09-0400 Diastolic blood pressure 84 mm[Hg] Dr. Hua Nuñez Work Phone: [facility] Work Phone: 04-28-2022 10:09-0400 Heart rate 86 /min Dr. Hua Nuñez Work Phone: [facility] Work Phone: 04-28-2022 10:09-0400 SaO2% (BldA) [Mass fraction] 97 % Dr. Hua Nuñez Work Phone: [facility] Work Phone: 04-28-2022 10:09-0400 Systolic blood pressure 131 mm[Hg] Dr. Hua Nuñez Work Phone: [facility] Work Phone: 04-14-2022 15:55-0400 Body temperature 97.1 [degF] Dr. Hua Nuñez Work Phone: [facility] Work Phone: 04-14-2022 15:55-0400 Diastolic blood pressure 66 mm[Hg] Dr. Hua Nuñez Work Phone: [facility] Work Phone: 04-14-2022 15:55-0400 Heart rate 77 /min Dr. Hua Nuñez Work Phone: [facility] Work Phone: 04-14-2022 15:55-0400 Respiratory rate 16 /min Dr. Hua Nuñez Work Phone: [facility] Work Phone: 04-14-2022 15:55-0400 SaO2% (BldA) [Mass fraction] 100 % Dr. Hua Nuñez Work Phone: [facility] Work Phone: 04-14-2022 15:55-0400 Systolic blood pressure 126 mm[Hg] Dr. Hua Nñuez Work Phone: [facility] Work Phone: 04-14-2022 14:18-0400 Body height 162.[address] uHa Nuñez Work Phone: [facility] Work Phone: 04-14-2022 14:18-0400 Body mass index (BMI) [Ratio] 32.9 kg/m2 Dr. Hua Nuñez Work Phone: [facility] Work Phone: 04-14-2022 14:18-0400 Body weight [address] Hua Nuñez Work Phone: [facility] Work Phone: 03-19-2022 07:54-0400 Body temperature 98.5 [degF] Dr. Hua Nuñez Work Phone: [facility] Work Phone: 03-19-2022 07:54-0400 Diastolic blood pressure 58 mm[Hg] Dr. Hua Nuñez Work Phone: [facility] Work Phone: 03-19-2022 07:54-0400 Heart rate 80 /min Dr. Hua Nuñez Work Phone: [facility] Work Phone: 03-19-2022 07:54-0400 Respiratory rate 18 /min Dr. Hua Nuñez Work Phone: [facility] Work Phone: 03-19-2022 07:54-0400 SaO2% (BldA) [Mass fraction] 95 % Dr. Hua Nuñez Work Phone: [facility] Work Phone: 03-19-2022 07:54-0400 Systolic blood pressure 106 mm[Hg] Dr. Hua Nuñez Work Phone: [facility] Work Phone: 03-17-2022 13:03-0400 Inhaled oxygen flow rate 4 L/min Dr. Hua Nuñez Work Phone: [facility] Work Phone: 03-17-2022 11:11-0400 Body height 162.[address] Hua Nuñez Work Phone: [facility] Work Phone: 03-17-2022 11:11-0400 Body mass index (BMI) [Ratio] 33.3 kg/m2 Dr. Hua Nuñez Work Phone: [facility] Work Phone: 03-17-2022 11:11-0400 Body weight [address] Hua Nuñez Work Phone: [facility] Work Phone: 02-04-2022 13:07-0400 Body height 162.[address] Hua Nuñez Work Phone: [facility] Work Phone: 02-04-2022 13:07-0400 Body mass index (BMI) [Ratio] 33.5 kg/m2 Dr. Hua Nuñez Work Phone: [facility] Work Phone: 02-04-2022 13:07-0400 Body mass index (BMI) [Ratio] 33.3 kg/m2 Dr. Hua Nuñez Work Phone: [facility] Work Phone: 02-04-2022 13:07-0400 Body temperature 97.7 [degF] Dr. Hua Nuñez Work Phone: [facility] Work Phone: 02-04-2022 13:07-0400 Body weight 88.[address] Hua Nuñez Work Phone: [facility] Work Phone: 02-04-2022 13:07-0400 Body weight 87.[address] Hua Nuñez Work Phone: [facility] Work Phone: 02-04-2022 13:07-0400 Diastolic blood pressure 84 mm[Hg] Dr. Hua Nuñez Work Phone: [facility] Work Phone: 02-04-2022 13:07-0400 Heart rate 77 /min Dr. Hua Nuñez Work Phone: [facility] Work Phone: 02-04-2022 13:07-0400 Respiratory rate 14 /min Dr. Hua Nuñez Work Phone: [facility] Work Phone: 02-04-2022 13:07-0400 SaO2% (BldA) [Mass fraction] 95 % Dr. Hua Nuñez Work Phone: [facility] Work Phone: 02-04-2022 13:07-0400 Systolic blood pressure 122 mm[Hg] Dr. Hua Nuñez Work Phone: [facility] Work Phone: 01-06-2022 11:15-0400 Body mass index (BMI) [Ratio] 33.6 kg/m2 Dr. Hua Nuñez Work Phone: [facility] Work Phone: 01-06-2022 11:15-0400 Body weight 88.[address] Hua Nuñez Work Phone: [facility] Work Phone: 01-06-2022 11:15-0400 Diastolic blood pressure 78 mm[Hg] Dr. Hua Nuñez Work Phone: [facility] Work Phone: 01-06-2022 11:15-0400 Heart rate 74 /min Dr. Hua Nuñez Work Phone: [facility] Work Phone: 01-06-2022 11:15-0400 SaO2% (BldA) [Mass fraction] 94 % Dr. Hua Nuñez Work Phone: [facility] Work Phone: 01-06-2022 11:15-0400 Systolic blood pressure 114 mm[Hg] Dr. Hua Nuñez Work Phone: [facility] Work Phone: 11-18-2021 10:07-0400 Body mass index (BMI) [Ratio] 33 kg/m2 Dr. Hua Nuñez Work Phone: [facility] Work Phone: 11-18-2021 10:07-0400 Body temperature 97.6 [degF] Dr. Hua Nuñez Work Phone: [facility] Work Phone: 11-18-2021 10:07-0400 Body weight 87.[address] Hua Nuñez Work Phone: [facility] Work Phone: 11-18-2021 10:07-0400 Diastolic blood pressure 64 mm[Hg] Dr. Hua Nuñez Work Phone: [facility] Work Phone: 11-18-2021 10:07-0400 Heart rate 80 /min Dr. Hua Nuñez Work Phone: [facility] Work Phone: 11-18-2021 10:07-0400 Respiratory rate 16 /min Dr. Hua Nuñez Work Phone: [facility] Work Phone: 11-18-2021 10:07-0400 SaO2% (BldA) [Mass fraction] 99 % Dr. Hua Nuñez Work Phone: [facility] Work Phone: 11-18-2021 10:07-0400 Systolic blood pressure 114 mm[Hg] Dr. Hua Nuñez Work Phone: [facility] Work Phone: 11-18-2021 10:07-0400 Body height 162.[address] Hua Nuñez Work Phone: [facility] Work Phone: 11-18-2021 10:07-0400 Body mass index (BMI) [Ratio] 33 kg/m2 Dr. Hua Nuñez Work Phone: [facility] Work Phone: 11-18-2021 10:07-0400 Body temperature 97.6 [degF] Dr. Hua Nuñez Work Phone: [facility] Work Phone: 11-18-2021 10:07-0400 Body weight 87.[address] Hua Nuñez Work Phone: [facility] Work Phone: 11-18-2021 10:07-0400 Diastolic blood pressure 64 mm[Hg] Dr. Hua Nuñez Work Phone: [facility] Work Phone: 11-18-2021 10:07-0400 Heart rate 80 /min Dr. Hua Nuñez Work Phone: [facility] Work Phone: 11-18-2021 10:07-0400 Respiratory rate 16 /min Dr. Hua Nuñez Work Phone: [facility] Work Phone: 11-18-2021 10:07-0400 SaO2% (BldA) [Mass fraction] 99 % Dr. Hua Nuñez Work Phone: [facility] Work Phone: 11-18-2021 10:07-0400 Systolic blood pressure 114 mm[Hg] Dr. Hua Nuñez Work Phone: [facility] Work Phone: 11-11-2021 18:25-0400 Body height 162.[address] Hua Nuñez Work Phone: [facility] Work Phone: 11-11-2021 18:25-0400 Body mass index (BMI) [Ratio] 32.1 kg/m2 Dr. Hua Nuñez Work Phone: [facility] Work Phone: 11-11-2021 18:25-0400 Body temperature 97.8 [degF] Dr. Hua Nuñez Work Phone: [facility] Work Phone: 11-11-2021 18:25-0400 Body weight 84.[address] Hua Nuñez Work Phone: [facility] Work Phone: 11-11-2021 18:25-0400 Diastolic blood pressure 68 mm[Hg] Dr. Hua Nuñez Work Phone: [facility] Work Phone: 11-11-2021 18:25-0400 Heart rate 87 /min Dr. Hua Nuñez Work Phone: [facility] Work Phone: 11-11-2021 18:25-0400 Respiratory rate 15 /min Dr. Hua Nuñez Work Phone: [facility] Work Phone: 11-11-2021 18:25-0400 SaO2% (BldA) [Mass fraction] 99 % Dr. Hua Nuñez Work Phone: [facility] Work Phone: 11-11-2021 18:25-0400 Systolic blood pressure 147 mm[Hg] Dr. Hua Nuñez Work Phone: [facility] Work Phone: 10-30-2021 14:43-0400 Body mass index (BMI) [Ratio] 33 kg/m2 Dr. Hua Nuñez Work Phone: [facility] Work Phone: 10-30-2021 14:43-0400 Diastolic blood pressure 88 mm[Hg] Dr. Hua Nuñez Work Phone: [facility] Work Phone: 10-30-2021 14:43-0400 Systolic blood pressure 140 mm[Hg] Dr. Hua Nuñez Work Phone: [facility] Work Phone: 10-30-2021 14:43-0400 Body mass index (BMI) [Ratio] 33 kg/m2 Dr. Hua Nuñez Work Phone: [facility] Work Phone: 10-30-2021 14:43-0400 Diastolic blood pressure 88 mm[Hg] Dr. Hua Nuñez Work Phone: [facility] Work Phone: 10-30-2021 14:43-0400 Systolic blood pressure 140 mm[Hg] Dr. Hua Nuñez Work Phone: [facility] Work Phone: 10-30-2021 14:08-0400 Body temperature 97.3 [degF] Dr. Hua Nuñez Work Phone: [facility] Work Phone: 10-30-2021 14:08-0400 Body weight 85.[address] Hua Nuñez Work Phone: [facility] Work Phone: 10-30-2021 14:08-0400 Heart rate 74 /min Dr. Hua Nuñez Work Phone: [facility] Work Phone: 10-30-2021 14:08-0400 Respiratory rate 18 /min Dr. Hua Nuñez Work Phone: [facility] Work Phone: 10-30-2021 14:08-0400 SaO2% (BldA) [Mass fraction] 97 % Dr. Hua Nuñez Work Phone: [facility] Work Phone: 10-30-2021 14:08-0400 Body temperature 97.3 [degF] Dr. Hua Nuñez Work Phone: [facility] Work Phone: 10-30-2021 14:08-0400 Body weight 85.[address] Hua Nuñez Work Phone: [facility] Work Phone: 10-30-2021 14:08-0400 Heart rate 74 /min Dr. Hua Nuñez Work Phone: [facility] Work Phone: 10-30-2021 14:08-0400 Respiratory rate 18 /min Dr. Hua Nuñez Work Phone: [facility] Work Phone: 10-30-2021 14:08-0400 SaO2% (BldA) [Mass fraction] 97 % Dr. Hua Nuñez Work Phone: [facility] Work Phone: 09-08-2021 13:47-0500 Body height 163.8 cm Dusty Pimentel MD Work Phone: [facility] 09-08-2021 13:47-0500 Body mass index (BMI) [Ratio] 31.6 kg/m2 Dusty Pimentel MD Work Phone: [facility] 09-08-2021 13:47-0500 Body weight 84.82 kg Dusty Pimentel MD Work Phone: [facility] 09-08-2021 13:47-0500 Diastolic blood pressure 78 mm[Hg] Dusty Pimentel MD Work Phone: [facility] 09-08-2021 13:47-0500 Heart rate 87 /min Dusty Pimentel MD Work Phone: [facility] 09-08-2021 13:47-0500 Systolic blood pressure 115 mm[Hg] Dusty Pimentel MD Work Phone: [facility] Encounters Encounter Date Encounter Type Care Provider Facility Start: 02-15-2025 End: 02-15-[address] Hua Nuñez MD Work Phone: -[facility] Start: 02-15-2025 End: 02-15-[address] Avni Arciniega MD -[facility] Work Phone: Start: 02-08-[address] Ileana Nuñez MD -Cat Scan [facility] Work Phone: Start: 02-08-2025 ambulatory Hua Barrera ty:[facility] Start: 01-31-2025 End: 01-31-[address] Avni Arciniega MD -[facility] Work Phone: Start: 01-31-2025 End: 01-31-[address] Hua Nuñez MD Work Phone: -[facility] Start: 01-24-2025 End: 01-24-[address] Avni Arciniega MD -[facility] Work Phone: Start: 01-24-2025 End: 01-24-[address] Hua Nuñez MD Work Phone: [facility] Work Phone: Start: 01-24-2025 End: 01-24-[address] Hua Nuñez MD Work Phone: -Laboratory Specimen Start: 01-24-2025 End: 01-24-[address] Avni Arciniega MD -Laboratory Specimen Work Phone: Start: 01-10-[address] Ileana Nuñez MD -Cat Scan [facility] Work Phone: Start: 12-26-2024 End: 12-26-[address] Hua Nuñez MD Work Phone: [facility] Work Phone: Start: 12-26-2024 End: 12-26-[address] Armando Aguirre MD -Cat Scan [facility] Work Phone: Start: 12-26-2024 End: 12-26-2024 ambulatory Armando Aguirre Facility:[facility] Start: 12-14-2024 End: 12-14-[address] Avni Arciniega MD -[facility] Work Phone: Start: 12-14-2024 End: 12-14-[address] Hua Nuñez MD Work Phone: [facility] Work Phone: Start: 11-30-2024 End: 11-30-[address] Hua Nuñez MD -[facility] Work Phone: Start: 11-30-2024 End: 11-30-2024 ambulatory Roneyryland Guzmannasreene Facility[place] Start: 08-23-2024 End: 08-23-[address] Hua Nuñez MD -[facility] Work Phone: Start: 08-23-2024 End: 08-23-20[facility] Start: 08-19-2024 End: 08-19-[address] Hua Nuñez MD -Laboratory Work Phone: Start: 08-19-2024 End: 08-19-2024 [facility] Start: 06-22-2024 End: 06-22-2024 ambulatory [facility] Facility:[facility] Start: 06-07-2024 End: 06-07-2024 ambulatory [facility] Facility:[facility] Start: 05-11-2024 End: 05-11-2024 ambulatory [facility] Start: 05-09-2024 End: 05-09-2024 ambulatory [facility] Facility:[facility] Start: 11-11-2023 End: 11-11-[address] Hua Nuñez Work Phone: [facility] Work Phone: Start: 11-11-2023 End: 11-11-[address] Hua Nuñez Work Phone: [facility] Internal Medicine Work Phone: Start: 08-19-2023 End: 08-19-[address] Hua Nuñez Work Phone: [facility] Internal Medicine Work Phone: Start: 06-04-2023 End: 06-04-[address] Hua Nuñez Work Phone: [facility] Work Phone: Start: 06-04-2023 End: 06-04-[address] Hua Nuñez Work Phone: [facility]-MRI - [facility] Work Phone: Start: 05-27-2023 End: 05-27-[address] Hua Nuñez Work Phone: [facility] Work Phone: Start: 05-27-2023 End: 05-27-[address] Hua Nuñez Work Phone: [facility]-Outpatient Breast Imaging Work Phone: Start: 05-13-2023 End: 05-13-[address] Hua Nuñez Work Phone: [facility] Work Phone: Start: 05-13-2023 End: 05-13-[address] Hua Nuñez Work Phone: [facility] Internal Medicine Work Phone: Start: 05-07-2023 End: 05-07-[address] Hua Nuñez Work Phone: [facility]-Laboratory, [place] Start: 05-06-2023 End: 05-06-[address] Hua Nuñez Work Phone: [facility] Orthopaedic Specia Work Phone: Start: 04-12-2023 End: 04-12-2023 Emergency department patient visit Dr. Hua Nuñez Work Phone: [facility]-Emergency Department Work Phone: Start: 03-15-2023 End: 03-15-[address] Hua Nuñez Work Phone: [facility] Work Phone: Start: 03-03-2023 End: 03-03-[address] Hua Nuñez Work Phone: [facility] Work Phone: Start: 03-03-2023 End: 03-03-[address] Hua Nuñez Work Phone: [facility], [facility] Work Phone: Start: 02-11-2023 End: 02-11-[address] Hua Nuñez Work Phone: [facility] Work Phone: Start: 02-11-2023 End: 02-11-[address] Hua Nuñez Work Phone: [facility]-Laboratory, Specimen Work Phone: Start: 02-11-2023 End: 02-11-[address] Hua Nuñez Work Phone: [facility] Internal Medicine Work Phone: Start: 11-12-2022 End: 11-12-[address] Hua Nuñez Work Phone: [facility] Internal [facility] Start: 11-10-2022 End: 11-10-[address] Hua Nuñez Work Phone: [facility] Work Phone: Start: 11-10-2022 End: 11-10-[address] Hua Nuñez Work Phone: [facility]-Laboratory, [facility] Start: 09-07-2022 End: 09-07-[address] Hua Nuñez Work Phone: [facility]-Ultrasound, [facility] Start: 08-22-2022 End: 08-22-[address] Hua Nuñez Work Phone: [facility] Work Phone: Start: 08-22-2022 End: 08-22-[address] [facility] Start: 08-20-2022 End: 08-20-[address] Hua Nuñez Work Phone: [facility] Work Phone: Start: 08-20-2022 End: 08-20-[address] Hua Nuñez Work Phone: [facility]-Laboratory, Specimen Start: 08-20-2022 End: 08-20-[address] Hua Nuñez Work Phone: [facility] Internal Medicine Start: 08-12-2022 End: 08-12-[address] Hua Nuñez Work Phone: [facility] Orthopaedic Specia Start: 07-17-2022 End: 07-17-[address] Hua Nuñez Work Phone: [facility] Work Phone: Start: 07-17-2022 End: 07-17-[address] Hua Nuñez Work Phone: [facility] Internal Medicine Start: 06-15-2022 End: 06-15-[address] Hua Nuñez Work Phone: [facility] Orthopaedic [facility] Start: 05-26-2022 End: 05-26-[address] Hua Nuñez Work Phone: [facility] Work Phone: Start: 05-26-2022 End: 05-26-[address] Hua Nuñez Work Phone: [facility]-Outpatient Breast Imaging Start: 05-19-2022 End: 05-19-[address] Hua Nuñez Work Phone: [facility] Work Phone: Start: 05-19-[address] Hua Nuñez Work Phone: [facility] Start: 05-19-2022 End: 05-19-2022 Encounter for general adult medical examination without abnormal findings Dr. Hua Nuñez Work Phone: [facility] Internal Medicine Start: 05-19-2022 End: 05-19-[address] Hua Nuñez Work Phone: [facility] Internal Medicine Start: 05-14-2022 End: 05-14-[address] Hua Nuñez Work Phone: [facility] Work Phone: Start: 05-14-2022 End: 05-14-[address] Hua Nuñez Work Phone: [facility]-Laboratory, [facility] Start: 04-28-2022 End: 04-28-[address] Hua Nuñez Work Phone: [facility] Gastroenterology Start: 04-27-2022 End: 04-27-[address] Hua Nuñez Work Phone: [facility] Orthopaedic [facility] Start: 04-14-2022 Non-patient / Non-visit Dr. Hua Nuñez Work Phone: [facility] Start: 04-14-2022 End: 04-14-2022 Admission to same day surgery center Dr. Hua Nuñez Work Phone: [facility]-Endoscopy Start: 04-14-2022 End: 04-14-[address] Hua Nuñez Work Phone: [facility] Work Phone: Start: 03-30-2022 End: 03-30-[address] Hua Nuñez Work Phone: [facility] Orthopaedic [facility] Start: 03-18-2022 Non-patient / Non-visit Dr. Hua Nuñez Work Phone: [facility] Start: 03-17-2022 End: 03-19-2022 Evaluation and management of inpatient Dr. Hua Nuñez Work Phone: [facility]-Medical Surgical 3 Start: 03-17-2022 Non-patient / Non-[facility] Start: 03-10-2022 End: 03-10-[address] Hua Nuñez Work Phone: [facility] Start: 03-06-2022 End: 03-06-[address] Hua Nuñez Work Phone: [facility] Orthopaedic [facility] Start: 03-04-2022 End: 03-10-2022 Non-patient / Non-visit Dr. Hua Nuñez Work Phone: [facility] Start: 02-17-[address] Hua Nuñez Work Phone: [facility] Start: 02-17-2022 End: 02-17-2022 Emergency department patient visit Dr. Hua Nuñez Work Phone: [facility] Internal Medicine Start: 02-17-2022 End: 02-17-[address] Hua Nuñez Work Phone: [facility] Internal Medicine Start: 02-04-2022 End: 02-04-[address] Hua Nuñez Work Phone: [facility] Orthopaedic [facility] Start: 01-06-2022 End: 01-06-[address] Hua Nuñez Work Phone: [facility] Gastroenterology Start: 11-26-2021 End: 11-26-[address] Hua Nuñez Work Phone: [facility]-Radiology, [facility] Start: 11-18-2021 End: 11-18-[address] Hua Nuñez Work Phone: [facility] Internal Medicine Start: 11-11-2021 End: 11-11-2021 Emergency department patient visit Dr. Hua Nuñez Work Phone: [facility]-Emergency Department Start: 10-30-2021 End: 10-30-[address] Hua Nuñez Work Phone: [facility] Endocrinology Start: 09-10-2021 ambulatory [facility] Start: 09-08-2021 End: 09-12-2021 ambulatory [facility] Start: 09-08-2021 End: 09-08-2021 Office outpatient new 45 minutes Landon Alonso DO Work Phone: [facility]opedic [facility] Comment on above: Multiple joint pain (Primary Dx); H/O ankylosing spondylitis Start: 08-08-2021 End: 08-08-[address] Hua Nuñez Work Phone: [facility]-Laboratory, [place] Start: 05-15-[address] Hua Nuñez Work Phone: [facility] Start: 10-10-2020 End: 10-10-2020 Patient encounter procedure [facility] Start: 09-18-2020 End: 09-18-2020 Patient encounter procedure [facility] Start: 03-16-[address] Adebayo Nuñez Work Phone: [facility] Procedures Date Procedure Procedure Detail Performing Clinician Start: 02-08-2025 CT angiography of coronary arteries Dr. Hua Nuñez MD Work Phone: Start: 12-26-[address] Hua Nuñez MD Work Phone: Start: 08-19-2024 Measurement of renal function Dr. Ileana Nuñez MD Work Phone: Comment on above: GFR Calc Start: 06-04-2023 MRI of cervical spine Dr. Hua Nuñez Work Phone: Start: 05-27-[address] Hua Nuñez Work Phone: Start: 05-06-2023 Radiography of thoracic spine Dr. Ileana Nuñez Work Phone: Start: 05-06-2023 X-ray of cervical spine Dr. Hua Nuñez Work Phone: Start: 03-15-2023 Radiologic examination of knee Dr. Adebayo Nuñez Work Phone: Start: 03-03-2023 CT cervical spine without contrast Dr. Brook Nuñez Work Phone: Start: 09-07-[address] Hua Nuñez Work Phone: Start: 08-12-2022 Plain x-ray of pelvis and lower extremity Dr. Hua Nuñez Work Phone: Start: 05-26-[address] Hua Nuñez Work Phone: Start: 04-27-2022 Radiologic examination of knee Dr. Adebayo Nuñez Work Phone: Start: 04-14-[address] Hua Nuñez Work Phone: Start: 03-17-2022 Radiologic examination of knee Dr. Adebayo Nuñez Work Phone: Start: 03-17-2022 Total Knee Replacement Robotic Arm Anne (Right) Dr. Hua Nuñez Work Phone: Start: 03-10-2022 MRI of lower extremity Dr. Hua Nuñez Work Phone: Start: 11-26-[address] Hua Nuñez Work Phone: Start: 11-11-2021 Plain chest X-ray Dr. Hua Nuñez Work Phone: Start: 12-13-2020 Colonoscopy Dusty Pimentel MD Work Phone: Nasal Screen MRSA/MSSA Dr. Brook Nuñez Work Phone: Urine culture Dr. Hua Nuñez Work Phone: Urine culture Dr. Hua Nuñez Work Phone: Urine culture Dr. Hua Nuñez Work Phone: Plan of Treatment Date Care Activity Detail Author Start: 12-13-2030 Screening for malignant neoplasm of colon [facility] Start: 05-15-2029 Tetanus vaccination Tetanus: Every 10yrs [facility] Start: 02-15-2025 Comprehensive metabolic 2000 panel - Serum or Plasma [facility] Start: 02-15-2025 Hemoglobin A1c/Hemoglobin.total in Blood [facility] Start: 02-15-2025 Thyroid stimulating hormone measurement [facility] Start: 02-15-2025 Urine microalbumin/creatinine ratio measurement [facility] Start: 08-12-2022 Patient referral [facility] Work Phone: Start: 05-19-2022 Patient referral [facility] Work Phone: Start: 04-14-2022 Egd insert guide wire dilator passage esophagus EGD GUIDE WIRE INSERTION [facility] Work Phone: Start: 04-14-2022 Egd transoral biopsy single/multiple EGD BIOPSY SINGLE/MULTIPLE [facility] Work Phone: Start: 04-14-2022 Patient discharge [facility] Work Phone: Start: 03-19-2022 Patient discharge [facility] Work Phone: Start: 03-18-2022 End: 03-18-2022 [facility] Work Phone: Start: 03-17-2022 Application of intermittent pneumatic compression device [facility] Work Phone: Start: 03-17-2022 Following clinical pathway protocol [facility] Work Phone: Start: 03-17-2022 Provision of overbed trapeze [facility] Work Phone: Start: 03-17-2022 Admission procedure [facility] Work Phone: Start: 03-17-2022 Ambulation therapy management [facility] Work Phone: Start: 03-17-2022 Application of device [facility] Work Phone: Start: 03-17-2022 Application of elastic bandage [facility] Work Phone: Start: 03-17-2022 Assessment of risk of venous thromboembolism [facility] Work Phone: Start: 03-17-2022 Catheterization of vein [facility] Work Phone: Start: 03-17-2022 Exercises [facility] Work Phone: Start: 03-17-2022 Following clinical pathway protocol [facility] Work Phone: Start: 03-17-2022 Incentive spirometry [facility] Work Phone: Start: 03-17-2022 Introduction of urinary catheter [facility] Work Phone: Start: 03-17-2022 Measuring intake and output [facility] Work Phone: Start: 03-17-[address] [facility] Work Phone: Start: 03-17-2022 Patient education [facility] Work Phone: Start: 03-17-2022 Procedure discontinued [facility] Work Phone: Start: 03-17-2022 Provision of activity privileges [facility] Work Phone: Start: 03-17-2022 Referral to occupational therapist [facility] Work Phone: Start: 03-17-2022 Referral to service [facility] Work Phone: Start: 03-17-[address] [facility] Work Phone: Start: 03-17-2022 Wound care [facility] Work Phone: Start: 03-17-2022 [facility] Work Phone: Start: 03-04-2022 Electrocardiographic procedure [facility] Work Phone: Start: 04-02-2021 Influenza vaccination Sequential Influenza Vaccine (#1) [facility] Start: 01-15-2020 Fall risk assessment Falls Risk Assessment [facility] Start: 01-15-2020 Pneumococcal Vaccine: Age 65+ (1 of 1 - PPSV23) Pneumococcal Vaccine: Age 65+ (1 of 1 - PPSV23) [facility] Start: 2005 Administration of herpes zoster vaccine Zoster Vaccines (1 of 2) [facility] Start: 2005 Screening for malignant neoplasm of colon [facility] Start: 1995 Screening for malignant neoplasm of breast Mammogram [facility] Start: 1973 Hepatitis C screening Hepatitis C Screening [facility] Start: 1967 Depression screening using PHQ-9 (Patient Health Questionnaire 9) score Depression Screening (PHQ-2/9) [facility] Start: 1958 History and physical examination, annual for health maintenance Wellness Visit [facility] Start: 1955 Screening for osteoporosis Dexa Scan [facility] Alanine aminotransfe rase [Enzymatic activity/volume] in Serum or Plasma [facility] Albumin [Mass/volume ] in Serum or Plasma [facility] Alkaline phosphatase [Enzymatic activity/volume] in Serum or Plasma [facility] Anion gap in Serum or Plasma [facility] End: 09-08-2022 Anti-cyclic citrullinated peptide antibody level [facility] Antibody Lab Routine Multiple joint pain 1 Occurrences starting 09/08/2021 until 09/08/2022 [facility] Comment on above: 1 Occurrences starting 09/08/2021 until 09/08/2022 Anti-cyclic citrulli nated peptide antibody level [facility] Antibody Lab Routine Multiple joint pain 09/08/2021 2:42 PM EST [facility] Bilirubin, total measurement [facility] BUN/Creatinine ratio [facility] Calcium [Mass/volume ] in Serum or Plasma [facility] Carbon dioxide, tota l [Moles/volume] in Central venous blood [facility] CBC W Auto Different ial panel - Blood [facility] Comprehensive metabo lic 1999 panel - Serum or Plasma [facility] Creatinine [Mass/vol ume] in Serum or Plasma [facility] Creatinine [Mass/vol ume] in Urine collected for unspecified duration [facility] Glucose [Mass/volume ] in Serum or Plasma [facility] Hemoglobin A1c/Hemoglobin.total in Blood [facility] Hemoglobin A1c/Hemoglobin.total in Blood [facility] Lipid 1995 panel - S avinash or Plasma [facility] Lipid 1995 panel - S [facility] or Plasma [facility] Measurement of renal function [facility] MG Breast - bilatera l Screening [facility] Work Phone: Microalbumin [Mass/v olume] in Urine [facility] MR Cervical spine [facility] Patient Education [facility] Work Phone: Patient referral [facility] Work Phone: Potassium measurement [facility] End: 09-08-2022 Radiologic examination of cervical spine, anteroposterior and lateral XR Cervical Spine AP/LAT Imaging Routine H/O ankylosing spondylitis 1 Occurrences starting 09/08/2021 until 09/08/2022 [facility] Work Phone: Comment on above: 1 Occurrences starting 09/08/2021 until 09/08/2022 End: 09-08-2022 Rheumatoid factor, quantitative Rheumatoid factor Lab Routine Multiple joint pain 1 Occurrences starting 09/08/2021 until 09/08/2022 [facility] Comment on above: 1 Occurrences starting 09/08/2021 until 09/08/2022 Rheumatoid factor, quantitative Rheumatoid factor Lab Routine Multiple joint pain 09/08/2021 2:42 PM EST [facility] Serum chloride measurement [facility] Sodium measurement [facility] Thyroid stimulating hormone measurement [facility] Thyroid stimulating hormone measurement [facility] Total protein measurement [facility] Urea nitrogen [Mass/ volume] in Serum or Plasma [facility] Urine microalbumin/c reatinine ratio measurement [facility] Urine microalbumin/c reatinine ratio measurement [facility] End: 09-08-2022 XR Cervical Spine AP/LAT/FLEX/EXT XR Cervical Spine AP/LAT/FLEX/EXT Imaging Routine H/O ankylosing spondylitis 1 Occurrences starting 09/08/2021 until 09/08/2022 [facility] Comment on above: 1 Occurrences starting 09/08/2021 until 09/08/2022 End: 09-08-2022 XR Lumbar Spine Standard with Flex/Ext 4+ Views XR Lumbar Spine Standard with Flex/Ext 4+ Views Imaging Routine H/O ankylosing spondylitis 1 Occurrences starting 09/08/2021 until 09/08/2022 [facility] Comment on above: 1 Occurrences starting 09/08/2021 until 09/08/2022 End: 09-08-2022 XR Thoracic Spine 3 Views (Standard) XR Thoracic Spine 3 Views (Standard) Imaging Routine H/O ankylosing spondylitis 1 Occurrences starting 09/08/2021 until 09/08/2022 [facility] Comment on above: 1 Occurrences starting 09/08/2021 until 09/08/2022 [facility] Immunizations Immunization Date Immunization Notes Care Provider Ke steinberg 05-11-2024 Influenza High-Dose Quadrivalent Dr. Hua Nuñez MD Work Phone: [facility] 04-11-2024 Covid (Spikevax) Dr. Tenzin Nuñez MD Work Phone: [facility] 05-13-2023 influenza, injectabl e, quadrivalent, preservative free Dr. Hua Nuñez Work Phone: [facility] 04-28-2022 influenza, injectabl e, quadrivalent, preservative free Dr. Hua Nuñez Work Phone: [facility] 04-28-2022 influenza, seasonal, injectable Dr. Hua Nuñez Work Phone: [facility] 04-18-2022 Covid (Pfizer) Dr. Hua Nuñez Work Phone: [facility] 11-09-2021 Covid (Pfizer) Dr. Hua Nuñez Work Phone: [facility] 05-12-2021 Covid (Pfizer) Dr. Hua Nuñez Work Phone: [facility] 10-10-2020 Covid (Pfizer) Dr. Hua Nuñez Work Phone: [facility] 09-18-2020 Covid (Pfizer) Dr. Hua Nuñez Work Phone: [facility] 05-21-2020 influenza, injectabl e, quadrivalent, preservative free Dr. Hua Nuñez Work Phone: [facility] 05-21-2020 influenza, seasonal, injectable Dr. Hua Nuñez Work Phone: [facility] 05-21-2020 Fluad Quad (65yr up)(PF) 60 mcg (15 mcg x 4)/0.5mL IM syringe (flu vac Dr. Hua Nuñez Work Phone: [facility] Work Phone: 05-15-2019 tetanus toxoid, redu tone diphtheria toxoid, and acellular pertussis vaccine, adsorbed Dr. Hua Nuñez Work Phone: [facility] Payers Date Payer Category Payer Self-pay [id number] 2024 Self-pay [id number] 2023 Private Health Insurance [id number] 2020 Medicare MEDICARE MEDICAR E PART A & B [id number] 2020-Present [phone] CGS [id number] PART [place] [address] [place] [address] [id number] 2020 Medicare [id number] 1955 Unknown [id number] 1955 Unknown [id number] 1955 Unknown [id number] Unknown COMMERCIAL TRANS COLE MEDICARE ONLY [id number] Effective for all dates [phone] [address] [place] [address] [id number] Unknown [id number] Unknown [id number] Unknown [facility] [id number] Unknown [id number] Unknown [id number] .462 Unknown [id number] .462 Unknown [id number] .462 Unknown [id number] .462 Unknown [id number] .462 Unknown [id number] .462 Unknown [id number] [id number] .462 Unknown [id number] [id number] .462 Unknown [id number] .462 Unknown [id number] .462 Unknown [id number] .462 Unknown [id number] Social History Date Type Detail Facility Start: 09-08-2021 End: 11-11-2023 Tobacco smoking status NHIS Never smoked tobacco [facility] Start: 09-08-2021 Tobacco use and exposure Former smokeless tobacco user [facility] Start: 09-08-2021 Alcohol intake Lifetime non-d denisse (finding) [facility] Start: 09-08-2021 History SDOH Alcohol Frequency 1 [facility] Start: 1955 Sex Assigned At Not on file [facility] Exposure to SARS-CoV -2 (event) Not sure [facility] Start: 11-11-2021 End: 11-11-2023 Tobacco smoking status NHIS Unknown if ever smoked [facility] Start: 12-09-2020 Non-smoker [facility] Start: 1955 Sex Assigned At Female W [facility] Equipment Procedure Code Equipment Code Equipment Origin al Text Equipment Identifier Dates ACCOLADE ANGLE H IP STEM FDA Start: 04-16-2020 BIOLOX FEMORAL HEAD FDA Start : 04-16-2020 LOW PROFILE HIP SCREW FDA Start: 04-16-2020 TRIDENT ACETABUL AR SHELL FDA Start: 04-16-2020 TRIDENT X3 INSERT FDA Start: 04-16-2020 ACCOLADE ANGLE H IP STEM FDA Start: 04-16-2020 BIOLOX FEMORAL HEAD FDA Start : 04-16-2020 LOW PROFILE HIP SCREW FDA Start: 04-16-2020 TRIDENT ACETABUL AR SHELL FDA Start: 04-16-2020 TRIDENT X3 INSERT FDA Start: 04-16-2020 ACCOLADE ANGLE H IP STEM FDA Start: 04-16-2020 BIOLOX FEMORAL HEAD FDA Start : 04-16-2020 LOW PROFILE HIP SCREW FDA Start: 04-16-2020 TRIDENT ACETABUL AR SHELL FDA Start: 04-16-2020 TRIDENT X3 INSERT FDA Start: 04-16-2020 ACCOLADE ANGLE H IP STEM FDA Start: 04-16-2020 BIOLOX FEMORAL HEAD FDA Start : 04-16-2020 LOW PROFILE HIP SCREW FDA Start: 04-16-2020 TRIDENT ACETABUL AR SHELL FDA Start: 04-16-2020 TRIDENT X3 INSERT FDA Start: 04-16-2020 ACCOLADE ANGLE H IP STEM FDA Start: 04-16-2020 BIOLOX FEMORAL HEAD FDA Start : 04-16-2020 LOW PROFILE HIP SCREW FDA Start: 04-16-2020 TRIDENT ACETABUL AR SHELL FDA Start: 04-16-2020 TRIDENT X3 INSERT FDA Start: 04-16-2020 ([id number]) Metal-backed patella prosthesis [id number] FDA Start: 03-17-2022 ([id number]) Coated knee femu r prosthesis [id number] FDA Start: 03-17-2022 ([id number]), ([id number]) Coated knee tibia prosthesis [id number] FDA Start: 03-17-2022 ([id number]) Tibial insert [id number] FDA Start: 03-17-2022 ACCOLADE ANGLE H IP STEM FDA Start: 04-16-2020 BIOLOX FEMORAL HEAD FDA Start : 04-16-2020 LOW PROFILE HIP SCREW FDA Start: 04-16-2020 TRIDENT ACETABUL AR SHELL FDA Start: 04-16-2020 TRIDENT X3 INSERT FDA Start: 04-16-2020 ACCOLADE ANGLE H IP STEM FDA Start: 04-16-2020 BIOLOX FEMORAL HEAD FDA Start : 04-16-2020 LOW PROFILE HIP SCREW FDA Start: 04-16-2020 TRIDENT ACETABUL AR SHELL FDA Start: 04-16-2020 TRIDENT X3 INSERT FDA Start: 04-16-2020 ACCOLADE ANGLE H IP STEM FDA Start: 04-16-2020 BIOLOX FEMORAL HEAD FDA Start : 04-16-2020 LOW PROFILE HIP SCREW FDA Start: 04-16-2020 TRIDENT ACETABUL AR SHELL FDA Start: 04-16-2020 TRIDENT X3 INSERT FDA Start: 04-16-2020 ACCOLADE ANGLE H IP STEM FDA Start: 04-16-2020 BIOLOX FEMORAL HEAD FDA Start : 04-16-2020 LOW PROFILE HIP SCREW FDA Start: 04-16-2020 TRIDENT ACETABUL AR SHELL FDA Start: 04-16-2020 TRIDENT X3 INSERT FDA Start: 04-16-2020 ACCOLADE ANGLE H IP STEM FDA Start: 04-16-2020 BIOLOX FEMORAL HEAD FDA Start : 04-16-2020 LOW PROFILE HIP SCREW FDA Start: 04-16-2020 TRIDENT ACETABUL AR SHELL FDA Start: 04-16-2020 TRIDENT X3 INSERT FDA Start: 04-16-2020 ACCOLADE ANGLE H IP STEM FDA Start: 04-16-2020 BIOLOX FEMORAL HEAD FDA Start : 04-16-2020 LOW PROFILE HIP SCREW FDA Start: 04-16-2020 TRIDENT ACETABUL AR SHELL FDA Start: 04-16-2020 TRIDENT X3 INSERT FDA Start: 04-16-2020 ACCOLADE ANGLE H IP STEM FDA Start: 04-16-2020 BIOLOX FEMORAL HEAD FDA Start : 04-16-2020 LOW PROFILE HIP SCREW FDA Start: 04-16-2020 TRIDENT ACETABUL AR SHELL FDA Start: 04-16-2020 TRIDENT X3 INSERT FDA Start: 04-16-2020 ACCOLADE ANGLE H IP STEM FDA Start: 04-16-2020 BIOLOX FEMORAL HEAD FDA Start : 04-16-2020 LOW PROFILE HIP SCREW FDA Start: 04-16-2020 TRIDENT ACETABUL AR SHELL FDA Start: 04-16-2020 TRIDENT X3 INSERT FDA Start: 04-16-2020 ACCOLADE ANGLE H IP STEM FDA Start: 04-16-2020 BIOLOX FEMORAL HEAD FDA Start : 04-16-2020 LOW PROFILE HIP SCREW FDA Start: 04-16-2020 TRIDENT ACETABUL AR SHELL FDA Start: 04-16-2020 TRIDENT X3 INSERT FDA Start: 04-16-2020 ACCOLADE ANGLE H IP STEM FDA Start: 04-16-2020 BIOLOX FEMORAL HEAD FDA Start : 04-16-2020 LOW PROFILE HIP SCREW FDA Start: 04-16-2020 TRIDENT ACETABUL AR SHELL FDA Start: 04-16-2020 TRIDENT X3 INSERT FDA Start: 04-16-2020 ACCOLADE ANGLE H IP STEM FDA Start: 04-16-2020 BIOLOX FEMORAL HEAD FDA Start : 04-16-2020 LOW PROFILE HIP SCREW FDA Start: 04-16-2020 TRIDENT ACETABUL AR SHELL FDA Start: 04-16-2020 TRIDENT X3 INSERT FDA Start: 04-16-2020 ACCOLADE ANGLE H IP STEM FDA Start: 04-16-2020 BIOLOX FEMORAL HEAD FDA Start : 04-16-2020 LOW PROFILE HIP SCREW FDA Start: 04-16-2020 TRIDENT ACETABUL AR SHELL FDA Start: 04-16-2020 TRIDENT X3 INSERT FDA Start: 04-16-2020 ACCOLADE ANGLE H IP STEM FDA Start: 04-16-2020 BIOLOX FEMORAL HEAD FDA Start : 04-16-2020 LOW PROFILE HIP SCREW FDA Start: 04-16-2020 TRIDENT ACETABUL AR SHELL FDA Start: 04-16-2020 TRIDENT X3 INSERT FDA Start: 04-16-2020 ACCOLADE ANGLE H IP STEM FDA Start: 04-16-2020 BIOLOX FEMORAL HEAD FDA Start : 04-16-2020 LOW PROFILE HIP SCREW FDA Start: 04-16-2020 TRIDENT ACETABUL AR SHELL FDA Start: 04-16-2020 TRIDENT X3 INSERT FDA Start: 04-16-2020 ACCOLADE ANGLE H IP STEM FDA Start: 04-16-2020 BIOLOX FEMORAL HEAD FDA Start : 04-16-2020 LOW PROFILE HIP SCREW FDA Start: 04-16-2020 TRIDENT ACETABUL AR SHELL FDA Start: 04-16-2020 TRIDENT X3 INSERT FDA Start: 04-16-2020 ACCOLADE ANGLE H IP STEM FDA Start: 04-16-2020 BIOLOX FEMORAL HEAD FDA Start : 04-16-2020 LOW PROFILE HIP SCREW FDA Start: 04-16-2020 TRIDENT ACETABUL AR SHELL FDA Start: 04-16-2020 TRIDENT X3 INSERT FDA Start: 04-16-2020 ACCOLADE ANGLE H IP STEM FDA Start: 04-16-2020 BIOLOX FEMORAL HEAD FDA Start : 04-16-2020 LOW PROFILE HIP SCREW FDA Start: 04-16-2020 TRIDENT ACETABUL AR SHELL FDA Start: 04-16-2020 TRIDENT X3 INSERT FDA Start: 04-16-2020 ACCOLADE ANGLE H IP STEM FDA Start: 04-16-2020 BIOLOX FEMORAL HEAD FDA Start : 04-16-2020 LOW PROFILE HIP SCREW FDA Start: 04-16-2020 TRIDENT ACETABUL AR SHELL FDA Start: 04-16-2020 TRIDENT X3 INSERT FDA Start: 04-16-2020 ACCOLADE ANGLE H IP STEM FDA Start: 04-16-2020 BIOLOX FEMORAL HEAD FDA Start : 04-16-2020 LOW PROFILE HIP SCREW FDA Start: 04-16-2020 TRIDENT ACETABUL AR SHELL FDA Start: 04-16-2020 TRIDENT X3 INSERT FDA Start: 04-16-2020 ACCOLADE ANGLE H IP STEM FDA Start: 04-16-2020 BIOLOX FEMORAL HEAD FDA Start : 04-16-2020 LOW PROFILE HIP SCREW FDA Start: 04-16-2020 TRIDENT ACETABUL AR SHELL FDA Start: 04-16-2020 TRIDENT X3 INSERT FDA Start: 04-16-2020 ACCOLADE ANGLE H IP STEM FDA Start: 04-16-2020 BIOLOX FEMORAL HEAD FDA Start : 04-16-2020 LOW PROFILE HIP SCREW FDA Start: 04-16-2020 TRIDENT ACETABUL AR SHELL FDA Start: 04-16-2020 TRIDENT X3 INSERT FDA Start: 04-16-2020 Goals Date Patient Goal Desired Activity /State Functional Status Date Assessment Result Facility 03-19-2022 Functional status Ambulates [facility] Work Phone: Mental Status Date Assessment Result Facility 04-12-2023 Cognitive function Level Of Cons ciousness Awake;Alert;Appropriate;Follow s Commands [facility] Work Phone: 04-14-2022 Cognitive function Voice/Name [facility] Work Phone: 04-14-2022 Cognitive function Patient Orien tation Person;Place;Time [facility] Work Phone: 03-19-2022 Cognitive function Voice/Name [facility] Work Phone: 03-18-2022 Cognitive function Comprehension Ability Demonstrates ability to follow instructions/comprehend [facility] Work Phone: 11-11-2021 Cognitive function Level Of Cons ciousness Awake;Alert;Appropriate;Follow s Commands [facility] Work Phone: Clinical Notes 09-08-2021 to 12-27-2024 Note Date & Type Note Facility 12-27-2024 Radiology Diagnostic study note [facility] [address] [place] [address] Sinus/Facial Bone MR#: [id number] Acct: [id number] Name: DANNI STAPLETON Rep #: [id number] : [id number] F 69 From: Pablo Bennett MD PCP: Dr. Hua Nuñez MD Status: R EG CLI Study:Sinus/Facial Bone Date of Exam: Exam# [id number] Ordering Dr: Armando Aguirre MD PROCEDURE: SINUS/FACIAL BONE REASON FOR EXAM: SINUSITIS TECHNIQUE: CT of the paranasal sinuses without contrast. Coronal and Sagittal reconstruction series were provided. One or more dose reduction techniques were used (e.g., Automated exposure control, adjustment of the mA and/or kV according to patient size, use of iterative reconstruction technique). COMPARISON: None FINDINGS: Frontal: Unremarkable. Ethmoid: Partial opacification of the ethmoid sinuses. Sphenoid: Mucosal thickening of the right sphenoid sinus. There is enlargement of the sella. This may be secondary to empty sella syndrome. Maxillary: Partial opacification of the maxillary sinuses worse on the right side. Turbinates: Krystle bullosa of the left inferior turbinate. Nasal Septum: Nasal septal deviation towards the right side of the midline. Mastoids/Middle Ears: Unremarkable CT/Sinus/Facial Bone IMPRESSION: Mucosal thickening of the right sphenoid sinus. Partial opacification of the ethmoid sinuses. Partial opacification of the maxillary sinuses worse on the right side. Enlargement of the sella suggestive of empty sella syndrome. Reading Location: [place] [address] CC: Dr. Armando Aguirre MD; Dr. Hua Nuñez MD ~ Cloud Developer: Signed [facility] 11-30-2024 Evaluation note Diagnosis Onset Date Resolution Anxiety and depression chronic Ma y 2024 1:33pm Hypothyroidism chronic November 30, 2 025 1:33pm Sinusitis chronic November 30, 2024 1:33pm Type 2 diabetes mellitus chronic November 30, 2024 1:33pm Mass of thigh acute December 14, 2 025 10:54am [facility] Work Phone: 1(136) 295-117905-01-2025 Evaluation note* Diagnosis Onset Date Resolution Status Admit Date Anxiety and depression chronic Ma y 2024 1:33pm Hypothyroidism chronic November 30, 2 025 1:33pm Sinusitis chronic November 30, 2024 1:33pm Type 2 diabetes mellitus chronic November 30, 2024 1:33pm Mass of thigh acute December 14, 2 025 10:54am Mass of thigh acute January 24, 2025 2:34pm [facility] Work Phone: 1(362) 604-120905-01-2025 Evaluation note* Diagnosis Onset Date Resolution Status Admit Date Anxiety and depression chronic Ma y 2024 1:33pm Hypothyroidism chronic November 30, 2 025 1:33pm Sinusitis chronic November 30, 2024 1:33pm Type 2 diabetes mellitus chronic November 30, 2024 1:33pm Mass of thigh acute December 14, 2 025 10:54am Mass of thigh acute January 24, 2025 2:34pm Mass of thigh acute January 31, 2 025 3:55pm [facility] Work Phone: 1([phone]) 870-181501-22-2025 Evaluation note* Diagnosis Onset Date Resolution Status Admit Date Anxiety and depression chronic Ja nuary 2024 1:43pm Hyperlipidemia chronic August 232024 1:43pm Hypothyroidism chronic August 232024 1:43pm Type 2 diabetes mellitus chronic August 23, 2024 1:43pm Anxiety and depression chronic 2024 1:33pm Hypothyroidism chronic November 30, 025 1:33pm Sinusitis chronic November 30, 2024 1:33pm Type 2 diabetes mellitus chronic November 30, 2024 1:33pm [facility] Work Phone: 1([phone] 146-473602-07-2022 History of Present illness Narrative* Dusty Pimentel MD - 09/08/2021 1:57 PM EST Images from the original note were not included. RHEUMATOLOGY NEW PATIENT VISIT Patients name: Danni Stapleton : 1955 Today's date: 09/08/2021 Reason for visit: referred by Dr. Alonso for joint pain Disease summary: Status: Serology: +ve -ve Radiology:DJD Current Meds: Pain control: Prior Meds: HPC: This is a 66 y.o. female with a pmhx of depression, hypothyroidism, obesity, degenerative arthritis who presents for an evaluation of joint pain. Patient was referred by her primary care physician. Patient's father had severe psoriatic arthritis that went untreated and she is concerned about developing similar pathologies. Patient has had multiple joint replacements secondary to degenerative arthritis. She denies having history of psoriasis/uveitis/IBD. No noticeable deformities of the joints in her hands, elbows. Patient is due to have a second knee replacement however is deferring this for now until her pain is worse. She does not report any significant redness or swelling of her joints. No overt synovitis. Patient reports she was told she has ankylosing spondylitis approximately 20 years ago by an orthopedic doctor. Patient has never had this formally evaluated by ups driver. Patient has never been on any therapy for left ear. Patient undergoes spinal manipulation with chiropractor. CT scan done a couple years ago at an outside hospital [facility] shows significant DJD. No evidence of ankylosing spondylitis noted. Prior Rheum appts: no Interim: I have reviewed the patient's medical history in detail and updated the computerized patient record. Past Medical History: Diagnosis Date Ankylosing spondylitis (HCC) Diabetes (HCC) PRE Disease of thyroid gland GRAVES/CONTROLLED WITH MEDS Fibromyalgia, primary GERD (gastroesophageal reflux disease) Past Surgical History: Procedure Laterality Date BACK SURGERY l-4,5 S1 CHOLECYSTECTOMY FOOT SURGERY Left heel bone spur removal HAND SURGERY Right bone spur removal HIP SURGERY Right replacement HYSTERECTOMY (CERVIX REMOVED) total KNEE SURGERY Left replacement SHOULDER SURGERY Bilateral replacements thyroid ablasion TONSILLECTOMY AND ADENOIDECTOMY Social History Tobacco Use Smoking status: Never Smoker Smokeless tobacco: Former User Vaping Use Vaping Use: Never used Substance Use Topics Alcohol use: Never Drug use: Never Family History Problem Relation Age of Onset Diabetes Mother Hypertension Mother Hypertension Father Rheumatologic disease Father Allergies Allergen Reactions Morphine Hallucinations No outpatient medications have been marked as taking for the 09/08/21 encounter (Office Visit) with Dusty Pimentel MD. Review of Systems: General Constitutional: Denied fevers, chills, anorexia, weight loss, or night sweats Eyes: denied blurry vision, no dry eyes, no RP ENT: denied nasal drainage, sinus pressure, nasal ulcers Mouth: denied oral ulcers, dry mouth Lymphatics: no new adenopathy in cervical, supraclavicular, axillary, inguinal regions Respiratory: no cough, SOB CV: denied palpitations, chest pain/pressure, PND, orthopnea. GI: denied abd pain, n/v/d, constipation, melena. : denied dysuria, urgency, frequency or hematuria. Skin: no rashes or lesions Musculoskeletal: as per HPI Hematologic/lmmunologic: no adenopathy, bleeding, easy bruisiality or recurrent infection. Neurology: Denied new headaches, speech/balance/coordination problems. Denied new focal numbness orweakness of extremities Psych: denied anxiety, depression or mood swings A 10 point review of systems was completed. Physical Exam: BP 115/78 Pulse 87 Ht 5' 4.5 Wt 84.8 kg (187 lb) BMI 31.60 kg/m Gen: NAD, resting comfortably,Alert, cooperative, no distress, appears stated age HEENT: NCAT, no temporal wasting, EOMI, perrl, anicteric sclerae, mmm, no op lesions Neck: supple, no thyromegaly or LAD, no bruits Lymphatics: no cervical, axillary, or inguinal adenopathy Chest: Good a/e b/l, no added sounds, no respiratory distress CV: RRR, no m/r/g, normal S1, S2 Abd: soft, nontender, nondistended, +BS, no hepatosplenomegaly Ext: no clubbing, cyanosis or edema MSK: No synovitis of the MCPs or PIPs. Crepitus of the knees no effusion or warmth. Skin: no rashes or lesions Neuro: no focal deficits, moves all four extremities Psych: Mood and affect appropriate DATA: I have reviewed lab work and imaging. Labs:reviewed. Imaging: reviewed. Health Maintenance Due Topic Date Due Tetanus: Every 10yrs Never done Dexa Scan Never done Wellness Visit Never done COVID-19 Vaccine (1) Never done Depression Screening (PHQ-2/9) Never done Hepatitis C Screening Never done Mammogram Never done Colorectal Cancer Screening Never done Zoster Vaccines (1 of 2) Never done Falls Risk Assessment Never done Pneumococcal Vaccine: Age 65+ (1 of 1 - PPSV23) Never done Sequential Influenza Vaccine (1) Never done Assessment & Plan Arthralgia suspected to be 2/2 degenerative arthritis, no evidence to suggest inflammatory arthritis however on account of patient's concern for developing rheumatoid arthritis we check a rheumatoid factor and CCP. H/o ankylosing spondylitis no evidence of ankylosing spondylitis on exam however we will image her spine and also get flexion and extension imaging. Advised patient if she truly does have ankylosing spondylitis I would be incredibly cautious of any spinal manipulations. The patient indicates understanding of these issues and agrees with the plan. Return to clinic as needed. Telehealth appointments ok. Dusty Pimentel MD Lactation Nurse Crisis Specialist Note: To expedite correspondence this note was generated by [employer] voice recognition software. Somegrammatical or spelling errors may occur using the system. documented in this encounterOhioHealthEvaluation note* Diagnosis Multiple joint pain- Primary Pain in joint, multiple sites H/O ankylosing spondylitis [facility] Diagnosis Onset Date Resolution Status Obesity acute Prediabetes acute Hypothyroidism chronic [facility] Work Phone: Evaluation note* Diagnosis Onset Date Resolution Status Obesity acute Prediabetes acute Hypothyroidism chronic Anxiety and depression chron ic Borderline diabetes chronic GERD (gastroesophageal reflux disease) chronic Hypothyroidism chronic Insomnia chronic Swallowing disorder chronic [facility] Work Phone: Evaluation note* Diagnosis Onset Date Resolution Status Obesity acute Prediabetes acute Hypothyroidism chronic Anxiety and depression chron ic Borderline diabetes chronic GERD (gastroesophageal reflux disease) chronic Hypothyroidism chronic Insomnia chronic Swallowing disorder chronic GERD (gastroesophageal reflux disease) chronic Swallowing disorder chronic Osteoarthritis of right knee acute Osteoarthritis of right knee acute Preoperative evaluation to r ule out surgical contraindication acute Borderline diabetes chronic [facility] Work Phone: Evaluation note* Diagnosis Onset Date Resolution Status Anxiety and depression chron ic Borderline diabetes chronic GERD (gastroesophageal reflux disease) chronic Hypothyroidism chronic Insomnia chronic Swallowing disorder chronic GERD (gastroesophageal reflux disease) chronic Swallowing disorder chronic Osteoarthritis of right knee acute Osteoarthritis of right knee acute Preoperative evaluation to r ule out surgical contraindication acute Borderline diabetes chronic Osteoarthritis of right knee acute [facility] Work Phone: Evaluation note* Diagnosis Onset Date Resolution Status GERD (gastroesophageal reflux disease) chronic Swallowing disorder chronic Osteoarthritis of right knee acute Osteoarthritis of right knee acute Preoperative evaluation to r ule out surgical contraindication acute Borderline diabetes chronic Osteoarthritis of right knee acute S/P total knee arthroplasty acute [facility] Work Phone: Evaluation note* Diagnosis Onset Date Resolution Status GERD (gastroesophageal reflux disease) chronic Swallowing disorder chronic Osteoarthritis of right knee acute Osteoarthritis of right knee acute Preoperative evaluation to r ule out surgical contraindication acute Borderline diabetes chronic Osteoarthritis of right knee acute S/P total knee arthroplasty acute Other acute postprocedural pain acute S/P total knee arthroplasty acute [facility] Work Phone: Evaluation note* Diagnosis Onset Date Resolution Status Osteoarthritis of right knee acute Osteoarthritis of right knee acute Preoperative evaluation to r ule out surgical contraindication acute Borderline diabetes chronic Osteoarthritis of right knee acute S/P total knee arthroplasty acute Other acute postprocedural pain acute S/P total knee arthroplasty acute Other acute postprocedural pain acute Orthopedic aftercare noneact tisha Chronic constipation chronic GERD (gastroesophageal reflux disease) chronic [facility] Work Phone: Evaluation note* Diagnosis Onset Date Resolution Status Osteoarthritis of right knee acute Osteoarthritis of right knee acute Preoperative evaluation to r ule out surgical contraindication acute Borderline diabetes chronic Osteoarthritis of right knee acute S/P total knee arthroplasty acute Other acute postprocedural pain acute S/P total knee arthroplasty acute Other acute postprocedural pain acute Orthopedic aftercare noneact tisha Chronic constipation chronic GERD (gastroesophageal reflux disease) chronic Preventative health care acu te Anxiety and depression chron ic Borderline diabetes chronic GERD (gastroesophageal reflux disease) chronic Hyperlipidemia chronic Hypothyroidism chronic Osteoarthritis chronic [facility] Work Phone: Evaluation note* Diagnosis Onset Date Resolution Status Other acute postprocedural pain acute Orthopedic aftercare noneact tisha Chronic constipation chronic GERD (gastroesophageal reflux disease) chronic Preventative health care acu te Anxiety and depression chron ic Borderline diabetes chronic GERD (gastroesophageal reflux disease) chronic Hyperlipidemia chronic Hypothyroidism chronic Osteoarthritis chronic Orthopedic aftercare acute Back pain noneactive Suprapubic abdominal pain no neactive [facility] Work Phone: Evaluation note* Diagnosis Onset Date Resolution Status Preventative health care acu te Anxiety and depression chron ic Borderline diabetes chronic GERD (gastroesophageal reflux disease) chronic Hyperlipidemia chronic Hypothyroidism chronic Osteoarthritis chronic Orthopedic aftercare acute Back pain noneactive Suprapubic abdominal pain no neactive Disc degeneration, lumbar no neactive Abnormal urinalysis acute Sore throat acute Type 2 diabetes mellitus acu te Anxiety and depression chron ic Obesity chronic [facility] Work Phone: Evaluation note* Diagnosis Onset Date Resolution Status Disc degeneration, lumbar no neactive Abnormal urinalysis acute Sore throat acute Anxiety and depression chron ic Obesity chronic Type 2 diabetes mellitus chr onic Anxiety and depression chron ic GERD (gastroesophageal reflux disease) chronic Hypothyroidism chronic Type 2 diabetes mellitus chr onic [facility] Work Phone: Evaluation note* Diagnosis Onset Date Resolution Status Anxiety and depression chron ic GERD (gastroesophageal reflux disease) chronic Hypothyroidism chronic Type 2 diabetes mellitus chr onic Burning with urination acute Anxiety and depression chron ic Hypothyroidism chronic Type 2 diabetes mellitus [facility] Work Phone: Evaluation note* Diagnosis Onset Date Resolution Status Burning with urination acute Anxiety and depression chron ic Hypothyroidism chronic Type 2 diabetes mellitus chr onic Crepitus of joint of right knee noneactive [facility] Work Phone: Evaluation note* Diagnosis Onset Date Resolution Status Burning with urination acute Anxiety and depression chron ic Hypothyroidism chronic Type 2 diabetes mellitus chr onic Crepitus of joint of right knee noneactive DISH (diffuse idiopathic skeletal hyperostosis) acute Arthritis acute DISH (diffuse idiopathic skeletal hyperostosis) acute Flu vaccine need acute GERD (gastroesophageal reflux disease) chronic Hypothyroidism chronic Type 2 diabetes mellitus [facility] Work Phone: Evaluation note* Diagnosis Onset Date Resolution Status Anxiety and depression chron ic GERD (gastroesophageal reflux disease) chronic Type 2 diabetes mellitus chr onic Sinusitis acute Anxiety and depression chron ic Hypothyroidism chronic Type 2 diabetes mellitus [facility] Work Phone: Hospital Discharge instructions Additional Instructions Please follow-up with Dr. Torres at your appointment tomorrow.[facility] Work Phone: Reason for referral (narrative)No reason for referral information availableEd[facility] Services Work Phone: Summary Purpose Family History Relationship Condition Age at Onset Recorded Date/T james brother Cardiac disease Unknown Malignant neoplasm Unknown Relationship Condition Age at Onset Recorded Date/T james brother Cardiac disease Unknown Malignant neoplasm Unknown Diabetes mellitus Unknown mother Diabetes mellitus Unknown father Cardiac disease Unknown Advance Directives Documents on File Type Date Recorded Patient Search Coordinator Expl anation Advance Directives and Living Will Advance Directive Response Recorded Date/ Time Living Will Yes November 11, 2021 6:39pm Power of Windows Security Engineer Yes November 11 6:39pm Advance Directive Response Recorded Date/ Time Name of Medical Power of Windows Security Engineer Adal Stapleton November 11, 2021 6:39pm Living Will Yes November 11, 2021 6:39pm Power of Windows Security Engineer Yes November 11 6:39pm Advance Directive Response Recorded Date/ Time Living Will Yes March 03, 2022 1:10pm Power of Windows Security Engineer Yes March 03 1:10pm Advance Directive Response Recorded Date/ Time Name of Medical Power of Windows Security Engineer Adal Stapleton March 17, 2022 11:11am Living Will Yes March 17 11:11am Power of Windows Security Engineer Yes March 17, 022 11:11am Advance Directive Response Recorded Date/ Time Name of Medical Power of Windows Security Engineer FLOWER lundberg April 09, 2022 3:53pm Living Will Yes April 09, 2 022 3:53pm Power of Windows Security Engineer Yes April 09, 2022 3:53pm Name of Medical Power of Windows Security Engineer Adal Stapleton March 17, 2022 11:11am Advance Directive Response Recorded Date/ Time Name of Medical Power of Windows Security Engineer FLOWER lundberg April 09, 2022 2:53pm Living Will Yes April 09, 2 022 2:53pm Power of Windows Security Engineer Yes April 09, 2022 2:53pm Advance Directive Response Recorded Date/ Time Living Will Yes April 09, 2 022 2:53pm Power of Windows Security Engineer Yes April 09, 2022 2:53pm Advance Directive Response Recorded Date/ Time Living Will Yes April 09, 2 022 3:53pm Power of Windows Security Engineer Yes April 09, 2022 3:53pm Advance Directive Response Recorded Date/ Time Living Will No April 12, 2023 12:21pm Power of Windows Security Engineer No April 12:21pm Advance Directive Response Recorded Date/ Time Living Will No April 12, 2023 11:21am Power of Windows Security Engineer No April 11:21am Advance Directive Response Recorded Date/ Time Living Will No April 12, 2023 12:21pm Do you have a Healthcare Power of Windows Security Engineer? No April 12, 2023 12:21pm Chief Complaint and Reason for Visit Chief Complaint 1 Y FU CHEST PAIN Reason for Visit Obesity Prediabetes Hypothyroidism Chief Complaint 1 Y FU CHEST PAIN 6 M FU DYSPHAGIA Reason for Visit Obesity Prediabetes Hypothyroidism Anxiety and depression Borderline diabetes GERD (gastroesophageal reflux disease) Hypothyroidism Insomnia Swallowing disorder Chief Complaint 1 Y FU CHEST PAIN 6 M FU DYSPHAGIA Dysphagia Right knee 3 M FU/SURGERY CLEARANCE Reason for Visit Obesity Prediabetes Hypothyroidism Anxiety and depression Borderline diabetes GERD (gastroesophageal reflux disease) Hypothyroidism Insomnia Swallowing disorder GERD (gastroesophageal reflux disease) Swallowing disorder Osteoarthritis of right knee Osteoarthritis of right knee Preoperative evaluation to rule out surgical contraindication Borderline diabetes Chief Complaint 6 M FU DYSPHAGIA Dysphagia Right knee 3 M FU/SURGERY CLEARANCE right knee TEMPLATING FOR RT TKA Reason for Visit Anxiety and depressi on Borderline diabetes GERD (gastroesophageal reflux disease) Hypothyroidism Insomnia Swallowing disorder GERD (gastroesophageal reflux disease) Swallowing disorder Osteoarthritis of right knee Osteoarthritis of right knee Preoperative evaluation to rule out surgical contraindication Borderline diabetes Osteoarthritis of right knee Chief Complaint DYSPHAGIA Dysphagia Right knee 3 M FU/SURGERY CLEARANCE right knee TEMPLATING FOR RT TKA RT TOTAL KNEE ROBOT RT TOTAL KNEE ROBOT RT TOTAL KNEE ROBOT Reason for Visit GERD (gastroesophage al reflux disease) Swallowing disorder Osteoarthritis of right knee Osteoarthritis of right knee Preoperative evaluation to rule out surgical contraindication Borderline diabetes Osteoarthritis of right knee S/P total knee arthroplasty Chief Complaint Dysphagia Right knee 3 M FU/SURGERY CLEARANCE TEMPLATING FOR RT TKA right knee TEMPLATING FOR RT TKA RT TOTAL KNEE ROBOT RT TOTAL KNEE ROBOT RT TOTAL KNEE ROBOT right knee Reason for Visit GERD (gastroesophage al reflux disease) Swallowing disorder Osteoarthritis of right knee Osteoarthritis of right knee Preoperative evaluation to rule out surgical contraindication Borderline diabetes Osteoarthritis of right knee S/P total knee arthroplasty Other acute postprocedural pain S/P total knee arthroplasty Chief Complaint Right knee 3 M FU/SURGERY CLEARANCE TEMPLATING FOR RT TKA right knee TEMPLATING FOR RT TKA RT TOTAL KNEE ROBOT RT TOTAL KNEE ROBOT RT TOTAL KNEE ROBOT right knee right knee xray 2 WK FU Reason for Visit Osteoarthritis of ri ght knee Osteoarthritis of right knee Preoperative evaluation to rule out surgical contraindication Borderline diabetes Osteoarthritis of right knee S/P total knee arthroplasty Other acute postprocedural pain S/P total knee arthroplasty Other acute postprocedural pain Orthopedic aftercare Chronic constipation GERD (gastroesophageal reflux disease) Chief Complaint Right knee 3 M FU/SURGERY CLEARANCE TEMPLATING FOR RT TKA right knee TEMPLATING FOR RT TKA RT TOTAL KNEE ROBOT RT TOTAL KNEE ROBOT RT TOTAL KNEE ROBOT right knee right knee xray 2 WK FU 3 M FU Reason for Visit Osteoarthritis of ri ght knee Osteoarthritis of right knee Preoperative evaluation to rule out surgical contraindication Borderline diabetes Osteoarthritis of right knee S/P total knee arthroplasty Other acute postprocedural pain S/P total knee arthroplasty Other acute postprocedural pain Orthopedic aftercare Chronic constipation GERD (gastroesophageal reflux disease) Preventative health care Anxiety and depression Borderline diabetes GERD (gastroesophageal reflux disease) Hyperlipidemia Hypothyroidism Osteoarthritis Chief Complaint Right knee 3 M FU/SURGERY CLEARANCE TEMPLATING FOR RT TKA right knee TEMPLATING FOR RT TKA RT TOTAL KNEE ROBOT RT TOTAL KNEE ROBOT RT TOTAL KNEE ROBOT right knee right knee xray 2 WK FU 3 M FU SCREENING Reason for Visit Osteoarthritis of ri ght knee Osteoarthritis of right knee Preoperative evaluation to rule out surgical contraindication Borderline diabetes Osteoarthritis of right knee S/P total knee arthroplasty Other acute postprocedural pain S/P total knee arthroplasty Other acute postprocedural pain Orthopedic aftercare Chronic constipation GERD (gastroesophageal reflux disease) Preventative health care Anxiety and depression Borderline diabetes GERD (gastroesophageal reflux disease) Hyperlipidemia Hypothyroidism Osteoarthritis Chief Complaint right knee xray 2 WK FU 3 M FU SCREENING Right knee back pain Reason for Visit Other acute postproc edural pain Orthopedic aftercare Chronic constipation GERD (gastroesophageal reflux disease) Preventative health care Anxiety and depression Borderline diabetes GERD (gastroesophageal reflux disease) Hyperlipidemia Hypothyroidism Osteoarthritis Orthopedic aftercare Back pain Suprapubic abdominal pain Chief Complaint 3 M FU SCREENING Right knee back pain LEFT HIP room 1 3 M FU EORDER Reason for Visit Preventative health care Anxiety and depression Borderline diabetes GERD (gastroesophageal reflux disease) Hyperlipidemia Hypothyroidism Osteoarthritis Orthopedic aftercare Back pain Suprapubic abdominal pain Disc degeneration, lumbar Abnormal urinalysis Sore throat Type 2 diabetes mellitus Anxiety and depression Obesity Chief Complaint LEFT HIP room 1 3 M FU EORDER LEFT FLANK PAIN 3 M FU Reason for Visit Disc degeneration, l umbar Abnormal urinalysis Sore throat Anxiety and depression Obesity Type 2 diabetes mellitus Anxiety and depression GERD (gastroesophageal reflux disease) Hypothyroidism Type 2 diabetes mellitus Chief Complaint 3 M FU 3 M FU Reason for Visit Anxiety and depressi on GERD (gastroesophageal reflux disease) Hypothyroidism Type 2 diabetes mellitus Burning with urination Anxiety and depression Hypothyroidism Type 2 diabetes mellitus Chief Complaint 3 M FU 3 M FU Radiculopathy, cervical region Reason for Visit Anxiety and depressi on GERD (gastroesophageal reflux disease) Hypothyroidism Type 2 diabetes mellitus Burning with urination Anxiety and depression Hypothyroidism Type 2 diabetes mellitus Chief Complaint 3 M FU Radiculopathy, cervical region RIGHT KNEE ROOM 2 OTHER PAIN Reason for Visit Burning with urinati on Anxiety and depression Hypothyroidism Type 2 diabetes mellitus Crepitus of joint of right knee Chief Complaint 3 M FU Radiculopathy, cervical region RIGHT KNEE ROOM 2 OTHER PAIN CERVICAL SPINE Room 4 6 M FU Reason for Visit Burning with urinati on Anxiety and depression Hypothyroidism Type 2 diabetes mellitus Crepitus of joint of right knee DISH (diffuse idiopathic skeletal hyperostosis) Arthritis DISH (diffuse idiopathic skeletal hyperostosis) Flu vaccine need GERD (gastroesophageal reflux disease) Hypothyroidism Type 2 diabetes mellitus Chief Complaint 3 M FU Radiculopathy, cervical region RIGHT KNEE ROOM 2 OTHER PAIN CERVICAL SPINE Room 4 6 M FU SCREENING Reason for Visit Burning with urinati on Anxiety and depression Hypothyroidism Type 2 diabetes mellitus Crepitus of joint of right knee DISH (diffuse idiopathic skeletal hyperostosis) Arthritis DISH (diffuse idiopathic skeletal hyperostosis) Flu vaccine need GERD (gastroesophageal reflux disease) Hypothyroidism Type 2 diabetes mellitus Chief Complaint 3 M FU Radiculopathy, cervical region RIGHT KNEE ROOM 2 OTHER PAIN CERVICAL SPINE Room 4 6 M FU SCREENING Ankylosing hyperostosis [[place]], site unspecif Reason for Visit Burning with urinati on Anxiety and depression Hypothyroidism Type 2 diabetes mellitus Crepitus of joint of right knee DISH (diffuse idiopathic skeletal hyperostosis) Arthritis DISH (diffuse idiopathic skeletal hyperostosis) Flu vaccine need GERD (gastroesophageal reflux disease) Hypothyroidism Type 2 diabetes mellitus Chief Complaint 3 M FU 6 M FU Reason for Visit Anxiety and depressi on GERD (gastroesophageal reflux disease) Type 2 diabetes mellitus Sinusitis Anxiety and depression Hypothyroidism Type 2 diabetes mellitus Chief Complaint Admit Date EORDER August 19, 2024 1 0:15am 3 M FU August 23, 2024 1 :43pm 3 M FU November 30, 2024 1:33pm LIPOMA L THIGH December 14, 2024 10:54 am Reason for Visit Admit Date Anxiety and depression August 23 1:43pm Hyperlipidemia August 23, 2024 1 :43pm Hypothyroidism August 23, 2024 1 :43pm Type 2 diabetes mellitus August 23, 2 025 1:43pm Anxiety and depression November 30, 2024 1:3 3pm Hypothyroidism November 30, 2024 1:33pm Sinusitis November 30, 2024 1:33pm Type 2 diabetes mellitus November 30, 2024 1 :33pm Chief Complaint Admit Date 3 M FU November 30, 2024 1:33pm LIPOMA L THIGH December 14, 2024 10:54 am CHRONIC SINUSITIS December 26, 2024 2:30p m Reason for Visit Admit Date Anxiety and depression November 30, 2024 1:3 3pm Hypothyroidism November 30, 2024 1:33pm Sinusitis November 30, 2024 1:33pm Type 2 diabetes mellitus November 30, 2024 1 :33pm Mass of thigh December 14, 2024 10:54 am Chief Complaint Admit Date 3 M FU November 30, 2024 1:33pm LIPOMA L THIGH December 14, 2024 10:54 am CHRONIC SINUSITIS December 26, 2024 2:30p m RISK STRATIFICATION January 10, 2025 2:39 pm in office procedure January 24, 2025 2:34 pm Reason for Visit Admit Date Anxiety and depression November 30, 2024 1:3 3pm Hypothyroidism November 30, 2024 1:33pm Sinusitis November 30, 2024 1:33pm Type 2 diabetes mellitus November 30, 2024 1 :33pm Mass of thigh December 14, 2024 10:54 am Mass of thigh January 24, 2025 2:34 pm Chief Complaint Admit Date 3 M FU November 30, 2024 1:33pm LIPOMA L THIGH December 14, 2024 10:54 am CHRONIC SINUSITIS December 26, 2024 2:30p m RISK STRATIFICATION January 10, 2025 2:39 pm L THIGH MASS-EXCISION January 24, 2025 12 :00am in office procedure January 24, 2025 2:34 pm Chief Complaint Admit Date 3 M November 30, 2024 1:33pm LIPOMA L THIGH December 14, 2024 10:54 am CHRONIC SINUSITIS December 26, 2024 2:30p m RISK STRATIFICATION January 10, 2025 2:39 pm L THIGH MASS-EXCISION January 24, 2025 12 :00am in office procedure January 24, 2025 2:34 pm post op January 31, 2025 3:55p m Chief Complaint Admit Date 3 M FU November 30, 2024 1:33pm LIPOMA L THIGH December 14, 2024 10:54 am CHRONIC SINUSITIS December 26, 2024 2:30p m L THIGH MASS-EXCISION January 24, 2025 12 :00am in office procedure January 24, 2025 2:34 pm post op January 31, 2025 3:55p m RISK STRATIFICATION February 08, 2025 7:10 am INT LAB ORDERS February 15, 2025 10:1 1am 2 W FU February 15, 2025 10:2 8am Reason for Visit Admit Date Anxiety and depression November 30, 2024 1:3 3pm Hypothyroidism November 30, 2024 1:33pm Sinusitis November 30, 2024 1:33pm Type 2 diabetes mellitus November 30, 2024 1 :33pm Mass of thigh December 14, 2024 10:54 am Mass of thigh January 24, 2025 2:34 pm Mass of thigh January 31, 2025 3:55p m Additional Source Comments INFORMATION SOURCE (unrecogn ized section and content) DATE CREATED AUTHOR 08/17/2019 [facility] DATE CREATED AUTHOR AUTHOR'S ORGANIZ ATION 10/22/2020 [facility] DATE CREATED AUTHOR AUTHOR'S ORGANIZ ATION 09/12/2021 [facility] DATE CREATED AUTHOR AUTHOR'S ORGANIZ ATION 10/12/2021 [facility] DATE CREATED AUTHOR AUTHOR'S ORGANIZ ATION 02/12/2025 [facility] Reason for Visit (unrecogniz ed section and content) Specialty Diagnoses / Procedures Referred By Nilda ibrahim Referred To Contact Rheumatology Diagnoses Multiple joint pain Landon Alonso DO [address] [address] Dusty Pimentel MD [address] [place] [id number] Referral ID Status Reason Start Date Expiration Date V isits Requested Visits Authorized [id number] Pending Review 07/17/2021 07/17/2022 1 1 Care Teams (unrecognized sec tion and content) Guide Relationship Specialty Start Date End Date Hua Nuñez MD [address] [place] [address] PCP - General Internal Medicine 09/08/21 Team Status: Active Member Role Status Dates Dr. Hua Nuñez MD Family Provider Active Dr. Hua Nuñez MD Primary Care Provider Active Team Status: Inactive Member Role Status Dates Dr. Hua Nuñez MD Primary Care Brennan love, Attending Provider, Referring Provider Active Team Status: Inactive Member Role Status Dates Dr. Hua Nuñez MD Primary Care Provider, Refer ring Provider Active Dr. Landon Alonso DO Attending Provider Active Team Status: Inactive Member Role Status Dates Dr. Hua Nuñez MD Primary Care Provider, Refer ring Provider Active Mary Carmen Katz PA Attending Provider Active Team Status: Inactive Member Role Status Dates Dr. Hua Nuñez MD Primary Care Provider Active Dr. Adi Gregg MD Attending Provider Active Team Status: Inactive Member Role Status Dates Dr. Hua Nuñez MD Primary Care Provider Active Hua Nuñez MD Attending Provider Active Team Status: Inactive Member Role Status Dates Dr. Hua Nuñez MD Primary Care Provider, Atten ding Provider Active Team Status: Inactive Member Role Status Dates Dr. Hua Nuñez MD Primary Care Provider Active Mary Carmen Katz PA Attending Provider, Referring Pro vider Active Team Status: Active Member Role Status Dates Dr. Hua Nuñez MD Primary Care Provider, Atten ding Provider Active Team Status: Inactive Member Role Status Dates Dr. Hua Nuñez MD Primary Care Provider Active Dr. Andra Cardona MD Attending Provider, Referring P rovider Active Team Status: Inactive Member Role Status Dates Dr. Hua Nuñez MD Primary Care Provider Active Dr. Drew Torres MD Attending Provider, Referring Pr ovider Active Team Status: Inactive Member Role Status Dates Dr. Hua Nuñez MD Primary Care Provider Active Dr. Laura Gallego DO Emergency Provider Active Team Status: Inactive Member Role Status Dates Dr. Hua Nuñez MD Primary Care Provider, Refer ring Provider Active Dr. Tunde Nash DO Attending Provider Active Team Status: Inactive Member Role Status Dates Dr. Hua Nuñez MD Primary Care Provider Active Dr. Laura Gallego DO Attending Provider, Emergency Pro vider Active Team Status: Inactive Member Role Status Dates Dr. Hua Nuñez MD Primary Care Provider Active Dr. Tunde Nash DO Attending Provider, Referring P rovider Active Team Status: Active Member Role Status Dates Dr. Hua Nuñez MD Primary Care Provider Active Team Status: Inactive Member Role Status Dates Dr. Hua Nuñez MD Primary Care Provider Active Start: August 19, 2024 End: August 19, 2024 Dr. Hua Nuñez MD Attending Provider Active Start: August 19, 2024 End: August 19, 2024 Dr. Hua Nuñez MD Referring Provider Active Start: August 19, 2024 End: August 19, 2024 Team Status: Inactive Member Role Status Dates Dr. Hua Nuñez MD Primary Care Provider Active Start: August 23, 2024 End: August 23, 2024 Dr. Hua Nuñez MD Attending Provider Active Start: August 23, 2024 End: August 23, 2024 Dr. Hua Nuñez MD Referring Provider Active Start: August 23, 2024 End: August 23, 2024 Team Status: Inactive Member Role Status Dates Dr. Hua Nuñez MD Primary Care Provider Active Start: November 30, 2024 End: November 30, 2024 Dr. Hau Nuñez MD Attending Provider Active Start: November 30, 2024 End: November 30, 2024 Dr. Hua Nuñez MD Referring Provider Active Start: November 30, 2024 End: November 30, 2024 Team Status: Inactive Member Role Status Dates Dr. Hua Nuñez MD Primary Care Provider Active Start: December 14, 2024 End: December 14, 2024 Dr. Hua Nuñez MD Referring Provider Active Start: December 14, 2024 End: December 14, 2024 Dr. Avni Arciniega MD Attending Provider Active Start: December 14, 2024 End: December 14, 2024 Team Status: Inactive Member Role Status Dates Dr. Hua Nuñez MD Primary Care Provider Active Start: December 26, 2024 End: December 26, 2024 Dr. Armando Aguirre MD Attending Provider Activ e Start: December 26, 2024 End: December 26, 2024 Dr. Armando Aguirre MD Referring Provider Activ e Start: December 26, 2024 End: December 26, 2024 Team Status: Inactive Member Role Status Dates Dr. Hua Nuñez MD Primary Care Provider Active Start: December 14, 2024 End: December 14, 2024 Dr. Avni Arciniega MD Attending Provider Active Start: December 14, 2024 End: December 14, 2024 Mikki Taylor PA-C Referring Provider Active St art: December 14, 2024 End: December 14, 2024 Team Status: Active Member Role Status Dates Dr. Hua Nuñez MD Primary Care Provider Active Start: January 10, 2025 Dr. Hua Nuñez MD Attending Provider Active Start: January 10, 2025 Team Status: Inactive Member Role Status Dates Dr. Hua Nuñez MD Primary Care Provider Active Start: January 24, 2025 End: January 24, 2025 Dr. Hua Nuñez MD Referring Provider Active Start: January 24, 2025 End: January 24, 2025 Dr. Avni Arciniega MD Attending Provider Active Start: January 24, 2025 End: January 24, 2025 Team Status: Active Member Role/Relationship Status Dates Dr. Hua Nuñez MD Primary Care Provider Active Team Status: Inactive Member Role/Relationship Status Dates Dr. Hua Nuñez MD Primary Care Provider Active Start: November 30, 2024 End: November 30, 2024 Dr. Hua Nuñez MD Attending Provider Active Start: November 30, 2024 End: November 30, 2024 Dr. Hua Nuñez MD Referring Provider Active Start: November 30, 2024 End: November 30, 2024 Team Status: Inactive Member Role/Relationship Status Dates Dr. Hua Nuñez MD Primary Care Provider Active Start: December 14, 2024 End: December 14, 2024 Dr. Avni Arciniega MD Attending Provider Active Start: December 14, 2024 End: December 14, 2024 Mikki Taylor PA-C Referring Provider Active St art: December 14, 2024 End: December 14, 2024 Team Status: Inactive Member Role/Relationship Status Dates Dr. Hua Nuñez MD Primary Care Provider Active Start: December 26, 2024 End: December 26, 2024 Dr. Armando Aguirre MD Attending Provider Activ e Start: December 26, 2024 End: December 26, 2024 Dr. Amrando Aguirre MD Referring Provider Activ e Start: December 26, 2024 End: December 26, 2024 Team Status: Active Member Role/Relationship Status Dates Dr. Hua Nuñez MD Primary Care Provider Active Start: January 10, 2025 Dr. Hua Nuñez MD Attending Provider Active Start: January 10, 2025 Team Status: Inactive Member Role/Relationship Status Dates Dr. Hua Nuñez MD Primary Care Provider Active Start: January 24, 2025 End: January 24, 2025 Dr. Avni Arciniega MD Attending Provider Active Start: January 24, 2025 End: January 24, 2025 Dr. Avni Arciniega MD Referring Provider Active Start: January 24, 2025 End: January 24, 2025 Team Status: Inactive Member Role/Relationship Status Dates Dr. Hua Nuñez MD Primary Care Provider Active Start: January 24, 2025 End: January 24, 2025 Dr. Hua Nuñez MD Referring Provider Active Start: January 24, 2025 End: January 24, 2025 Dr. Avni Arciniega MD Attending Provider Active Start: January 24, 2025 End: January 24, 2025 Team Status: Inactive Member Role/Relationship Status Dates Dr. Hua Nuñez MD Primary Care Provider Active Start: January 31, 2025 End: January 31, 2025 Dr. Hua Nuñez MD Referring Provider Active Start: January 31, 2025 End: January 31, 2025 Dr. Avni Arciniega MD Attending Provider Active Start: January 31, 2025 End: January 31, 2025 Team Status: Inactive Member Role/Relationship Status Dates Dr. Hua Nuñez MD Primary Care Provider Active Start: January 24, 2025 End: January 24, 2025 Dr. Avni Arciniega MD Attending Provider Active Start: January 24, 2025 End: January 24, 2025 Dr. Avni Arciniega MD Referring Provider Active Start: January 24, 2025 End: January 24, 2025 Team Status: Inactive Member Role/Relationship Status Dates Dr. Hua Nuñez MD Primary Care Provider Active Start: January 24, 2025 End: January 24, 2025 Dr. Hua Nuñez MD Referring Provider Active Start: January 24, 2025 End: January 24, 2025 Dr. Avni Arciniega MD Attending Provider Active Start: January 24, 2025 End: January 24, 2025 Team Status: Inactive Member Role/Relationship Status Dates Dr. Hua Nuñez MD Primary Care Provider Active Start: January 31, 2025 End: January 31, 2025 Dr. Hua Nuñez MD Referring Provider Active Start: January 31, 2025 End: January 31, 2025 Dr. Avni Arciniega MD Attending Provider Active Start: January 31, 2025 End: January 31, 2025 Team Status: Active Member Role/Relationship Status Dates Dr. Hua Nuñez MD Primary Care Provider Active Start: February 08, 2025 Dr. Hua Nuñez MD Attending Provider Active Start: February 08, 2025 Dr. Hua Nuñez MD Referring Provider Active Start: February 08, 2025 Team Status: Active Member Role/Relationship Status Dates Dr. Hua Nuñez MD Primary Care Provider Active Start: February 15, 2025 Dr. Hua Nuñez MD Attending Provider Active Start: February 15, 2025 Dr. uHa Nuñez MD Referring Provider Active Start: February 15, 2025 Team Status: Inactive Member Role/Relationship Status Dates Dr. Hua Nuñez MD Primary Care Provider Active Start: February 15, 2025 End: February 15, 2025 Dr. Hua Nuñez MD Referring Provider Active Start: February 15, 2025 End: February 15, 2025 Dr. Avni Arciniega MD Attending Provider Active Start: February 15, 2025 End: February 15, 2025 Goals (unrecognized section and content) Goals may be documented in a n alternate sectionGoals may be documented in an alternate sectionGoals may be documented in an alternate sectionGoals may be documented in an alternate sectionGoals may be documented in an alternate sectionGoals may be documented in an alternate sectionGoals may be documented in an alternate sectionGoals may be documented in an alternate sectionGoals may be documented in an alternate sectionGoals may be documented in an alternate sectionGoals may be documented in an alternate sectionGoals may be documented in an alternate sectionGoals may be documented in an alternate sectionGoals may be documented in an alternate sectionGoals may be documented in an alternate sectionGoals may be documented in an alternate sectionGoals may be documented in an alternate sectionGoals may be documented in an alternate sectionGoals may be documented in an alternate sectionGoals may be documented in an alternate section FOR RECORDS PERTAINING TO PATIENTS WHO ARE OR HAVE BEEN ENROLLED IN A CHEMICAL DEPENDENCY/SUBSTANCEABUSE PROGRAM, SOME INFORMATION MAY BE OMITTED. This clinical summary was aggregated from multiple sources. Caution should be exercised in using it in the provision of clinical care. This summary normalizes information from multiple sources, and as a consequence, information in this document may materially change the coding, format and clinical context of patient data. In addition, data may be omitted in some cases. CLINICAL DECISIONS SHOULD BE BASED ON THE PRIMARY CLINICAL RECORDS. [facility] [employer] [facility]. provides no warranty or guarantee of the accuracy or completeness of information in this document.
== END | disposition home or self-care (01) ==
LOC: LAB 10:12
PROVIDERS: PCP Internal Medicine; Referring Provider Internal Medicine; Visit Provider Internal Medicine
DX: E03.8 Other specified hypothyroidism (principal); E11.69 Type 2 diabetes mellitus with other specified complication; E06.3 Autoimmune thyroiditis
CPT/HCPCS: 36415; 80053; 82043; 82570; 83036; 84443

== ENCOUNTER → 2025-04-24 | Outpatient (CLI) | payer MEDICARE, OTHER, SELFPAY ==
[2025-04-24 13:45] LABS: Cholesterol 100 mg/dL (<=200); Low Density Lipoprotein Calc. 35 mg/dL; Triglycerides 87 mg/dL; Very Low Density Lipoprotein 17 mg/dL (5-40); cholesterol:hdl ratio screen 2.10
== END | disposition home or self-care (01) ==
LOC: BIMLAB 10:24
PROVIDERS: PCP Internal Medicine; Referring Provider Internal Medicine; Visit Provider Internal Medicine
DX: E03.9 Hypothyroidism, unspecified (principal); E78.5 Hyperlipidemia, unspecified
CPT/HCPCS: 36415; 80061; 84443

== ENCOUNTER → 2025-05-30 | Outpatient (CLI) | payer MEDICARE, OTHER, SELFPAY | END | disposition home or self-care (01) | LOC: LAB 10:20 | PROVIDERS: PCP Internal Medicine; Referring Provider Internal Medicine; Visit Provider Internal Medicine | DX: E03.9 Hypothyroidism, unspecified (principal) | CPT/HCPCS: 36415; 84443 ==

== ENCOUNTER → 2025-06-26 | Outpatient (CLI) | payer MEDICARE, OTHER, SELFPAY ==
--- NOTE | 2025-06-26 11:43 | BI_ITS ---
EXAM: SCRN MAMM (CAD)W/CALI BILAT DATE: 06/26/2025 CLINICAL HISTORY: F, Age 70 y/o , BREAST CANCER SCREENING TECHNIQUE: Procedure Code: [id number] Modality: MG Procedure: SCRN MAMM (CAD)W/CALI BILAT COMPARISON: Prior exam(s) dated 06/22/2024, 05/27/2023, and 05/26/2022. FINDINGS: TISSUE DENSITY: There are scattered areas of fibroglandular density. Bilateral Breast Mammographic Findings: No significant masses, calcifications or other abnormalities are identified. Benign-appearing round microcalcifications are seen in both breast. Benign-appearing axillary lymph nodes are seen bilaterally. A benign-appearing macrocalcification is seen in the right breast. BI/SCRN MAMM (CAD)W/CALI BILAT IMPRESSION: Benign screening mammogram OVERALL FINAL ASSESSMENT BI-RADS 2: BENIGN RECOMMENDATION: Routine annual follow-up in 1 Year Additional Recommendation none A letter with findings and recommendations will be mailed to the patient. Reading Location: [id number]
== END | disposition home or self-care (01) ==
LOC: OPBI 11:42
PROVIDERS: PCP Internal Medicine; Referring Provider Internal Medicine; Visit Provider Internal Medicine
DX: Z12.31 Encounter for screening mammogram for malignant neoplasm of breast (principal)
CPT/HCPCS: 77063; 77067

== ENCOUNTER → 2025-07-16 | Outpatient (CLI) | payer MEDICARE, OTHER, SELFPAY ==
[2025-07-16 12:44] LABS: Cholesterol 123 mg/dL (<=200); Low Density Lipoprotein Calc. 53 mg/dL; Triglycerides 150 mg/dL; Very Low Density Lipoprotein 30 mg/dL (5-40); cholesterol:hdl ratio screen 2.76
== END | disposition home or self-care (01) ==
LOC: MTLAB 10:17
PROVIDERS: PCP Internal Medicine; Visit Provider Internal Medicine
DX: E03.9 Hypothyroidism, unspecified (principal); E78.5 Hyperlipidemia, unspecified
CPT/HCPCS: 36415; 80061; 84443